=== PATIENT | male | born 1950 | race Caucasian/White ===

== ENCOUNTER 2016-10-31 01:50 | Inpatient (IN) | payer OTHER, MEDICARE ==
[2016-10-31] VITALS (22 sets, daily range): BP systolic 119–166; BP diastolic 66–95; PULSE 66–97; RESP 15–24; TEMP 97–99.3; O2SAT 64–100
[~2016-10-31] VITALS: Ht 175.3 cm; Wt 68.9 kg
[~2016-10-31 01:50] MED LIST: AMBI5TAB PO; AMLO5 PO; ASPI81TA11 PO; COLL30T TOP; DRON2.5C PO; FERR325T PO; FLEEENE3 RECTAL; FURO20TA PO; GABA100C4 PO; IPRASOL INH; IPRASOL NEB; KAYEPOW PO; LACT PO; LACT10SO PO; LEVA750T PO; LEVE500 PO; LIDO2GEL11 TOPICAL; MILKSUS PO; MULT-120 PO; NOVOINJ3; OXYC1TAB63 PO; POTA-243 PO; RANI150T PO; SIME80CH CHEW; TAMS5CAP PO
[2016-10-31] MEDS ORDERED: SODIUM CHLORIDE 0.9% FLUSH 5 ML FLUSH IVF PRN ×2 (02:15→04:15)
[2016-10-31 02:26] LABS: BLOOD GAS BASE EXCESS 4.7 mmol/L (-2-2); BLOOD GAS CARBOXYHEMOGLOBIN 2.6 % (0-4); BLOOD GAS HCO3 29 mmol/L (22-26); BLOOD GAS METHEMOGLOBIN 1.4 % (0-2); BLOOD GAS O2 HGB SATURATION 90 % (90-100); BLOOD GAS OXYGEN CONTENT 8.4 Vol % (12.0-20.0); BLOOD GAS PCO2 47 mmHg (38-42); BLOOD GAS PO2 58 mmHG (61-120); BLOOD GAS TOTAL HGB 6.6 G/DL (12.0-16.0); TEMP CORR TO 98.6
[2016-10-31 02:27] LABS: CRITICAL VALUE YES; DRAW SITE RT BRACHIAL; LITER FLOW 3 L/M; NUMBER OF ARTERIAL PUNCTURES 1; OXYGEN DEVICE NASAL CANNULA; STAT YES
[2016-10-31] MEDS ORDERED: CEFEPIME INJ 2,000 MG in SODIUM CHLORIDE 0.9% INJ 100 ML IV ONE (02:30)
[2016-10-31] MEDS ORDERED: VANCOMYCIN INJ 1,000 MG in SODIUM CHLOR 0.9% 250 ML INJ 250 ML IV ONE (02:30)
[2016-10-31 02:37] LABS: AUTOMATED NEUTROPHIL # 6.9 TH/MM3 (1.8-7.7); BASOPHIL % 0.5 % (0.0-2.0); EOSINOPHIL # 0.1 TH/MM3 (0-0.4); EOSINOPHIL % 1.4 % (0.0-4.0); HEMATOCRIT 21.3 % (39.0-51.0); LYMPH % 7.1 % (9.0-44.0); LYMPHOCYTE # 0.6 TH/MM3 (1.0-4.8); MEAN CORPUSCULAR HEMOGLOBIN 23.9 PG (27.0-34.0); MEAN CORPUSCULAR HGB CONC 31.5 % (32.0-36.0); MONO % 8.9 % (0.0-8.0); NEUT % 82.1 % (16.0-70.0); PLATELET COUNT 172 TH/MM3 (150-450); RED BLOOD COUNT 2.81 MIL/MM3 (4.50-5.90); WHITE BLOOD COUNT 8.4 TH/MM3 (4.0-11.0)
[2016-10-31 02:45] LABS: APTT (PATIENT) 28.9 SEC (24.3-30.1); HEMO FLAGS AUTO DIFF; INTERNATIONAL NORMALIZED RATIO 1.1 RATIO; PROTHROMBIN TIME - PATIENT 11.8 SEC (9.8-11.6)
[2016-10-31 02:48] LABS: ALT (GPT) 14 U/L (12-78); ANION GAP 8 MEQ/L (5-15); AST (GOT) 30 U/L (15-37); BICARBONATE 29.3 MEQ/L (21.0-32.0); BLOOD UREA NITROGEN 33 MG/DL (7-18); CHLORIDE 104 MEQ/L (98-107); GLOMERULAR FILTRATION RATE 40 ML/MIN (>89); MAGNESIUM 1.7 MG/DL (1.5-2.5); POTASSIUM 4.8 MEQ/L (3.5-5.1); SODIUM (NA) 141 MEQ/L (136-145)
[2016-10-31 02:48] LABS: BACTERIA, URINE RARE /hpf; BLOOD, URINE NEG (NEG); COMMENT (UR) CULT NOT INDICATED; CULTURE IF INDICATED CULT NOT INDICATED; GLUCOSE,URINE NEG (NEG); KETONE, URINE NEG (NEG); MUCUS URINE FEW /lpf (OCC); NITRITE,URINE NEG (NEG); URINE COLOR YELLOW (YELLW/STRAW)
[2016-10-31 02:52] LABS: ALKALINE PHOSPHATASE 106 U/L (45-117); TOTAL BILIRUBIN ADULT 0.3 MG/DL (0.2-1.0)
[2016-10-31 02:54] LABS: CREATINE KINASE 8 U/L (39-308)
--- NOTE | 2016-10-31 02:54 | RADRPT ---
EXAM DATE/TIME: 10/31/2016 02:28 [place] COMPARISON: CHEST SINGLE AP, October 25, 2016, 16:05. INDICATIONS : Short of breath. MEDICAL HISTORY : Chronic obstructive pulmonary disease. Hypertension. Diabetes. SURGICAL HISTORY : None. ENCOUNTER: Initial ACUITY: 1 day PAIN SCORE: 0/10 LOCATION: Bilateral chest FINDINGS: A single portable frontal view of the chest shows worsening bilateral pleural effusions and bilateral pulmonary infiltrates. Heart is normal in size. CONCLUSION: Worsening effusions and infiltrates. Darren Argueta Jr., MD on October 31, 2016 at 2:52 Board Certified Radiologist. This report was verified electronically.
[2016-10-31 03:18] LABS: ACANTHOCYTES OCC (NORMAL); OVALOCYTES 1+ (NORMAL); PLATELET ESTIMATE SMEAR NORMAL (NORMAL); PLATELET MORPHOLOGY NORMAL (NORMAL); SCAN/DIFF AUTO DIFF CONFIRMED
[2016-10-31] MEDS ORDERED: FUROSEMIDE 20 MG/2 ML VIAL IV PUSH ONE (03:45)
[2016-10-31] MEDS ORDERED: SODIUM CHLOR 0.9% 250 ML INJ 250 ML IV ONE (03:45)
--- NOTE | 2016-10-31 04:22 | PD ---
HPI Chief Complaint: Respiratory Symptoms Time Seen by Provider: 02:11 Travel History International Travel<30 days: No Contact w/Intl Traveler<30days: No Traveled to known affect area: No History of Present Illness HPI 65-year-old male presents to the emergency department by EMS transport from local rehabilitation facility for hypoxemia. Patient has been hospitalized several times and has been at rehabilitation since May when he underwent a left BKA. Patient had complications postoperatively and developed an infection and underwent a left AKA. Patient has been hospitalized as recently as with pneumonia sepsis respiratory failure hypoxemia and has subsequently been discharged back to the rehabilitation facility and as recently as last week had revision of his left AKA. Patient reportedly this evening was being assessed at his rehabilitation facility and noted to have low O2 saturations in the 70s with decreased response to supplemental oxygen and decreased mentation. EMS presents with the patient with improved oxygenation on 10 L/m nonrebreather mask patient still ashen and ill-appearing. Patient notes complaint of shortness of breath but denies chest pain denies abdominal pain is not aware of whether or not he had a fever. Patient denies productive cough. No pleuritic chest pain. Patient has history of anemia. Patient is unaware of these had blood transfusion. [facility] Past Medical History Narrative Medical Respiratory failure hypoxemia and pneumonia chronic kidney disease diabetes gangrenous foot DKA AKA diabetic neuropathy ascites paracentesis hypothyroidism pneumonia persistent infection of the left middle finger PVD hypertension renal insufficiency nursing notes reviewed Arthritis: No Asthma: No Autoimmune Disease: No Anxiety: No Depression: No Heart Rhythm Problems: No Cancer: No Cardiovascular Problems: Yes (CHF) High Cholesterol: No Chemotherapy: No Chest Pain: No Congestive Heart Failure: Yes COPD: Yes Cerebrovascular Accident: No Diabetes: Yes Patient Takes Glucophage: No Diminished Hearing: No Endocrine: Yes Gastrointestinal Disorders: Yes (HX CONSTIPATION) GERD: No Genitourinary: Yes Hiatal Hernia: No Heparin Induced Thrombocytopen: No Hypertension: Yes Immune Disorder: No Inguinal Hernia: Yes Implanted Vascular Access Dvce: Yes Kidney Stones: No Musculoskeletal: Yes Neurologic: Yes (NEUROPATHY) Psychiatric: No Reproductive: No Respiratory: Yes (COPD) Integumentary: Yes (CHRONIC LESIONS/ULCERS TO LOWER EXTREMITIES) Migraines: No Radiation Therapy: No Renal Failure: Yes Seizures: No Sickle Cell Disease: No Sleep Apnea: No Thyroid Disease: No Ulcer: No Past Surgical History Abdominal Surgery: No AICD: No Arteriovenous Shunt: No Body Medical Devices: pins in head Cardiac Surgery: No Endocrine Surgery: No Eye Surgery: No Genitourinary Surgery: No Gynecologic Surgery: No Insulin Pump: No Joint Replacement: No Neurologic Surgery: Yes (Skull repair) Oral Surgery: No Pacemaker: No Thoracic Surgery: No Other Surgery: Yes (RADHA KNEES/L AKA) Social History Alcohol Use: No Tobacco Use: No Substance Use: No Allergies-Medications (Allergen,Severity, Reaction): Coded Allergies: *MDRO Multi-Drug Resistant Organism (Verified Adverse Reaction, Unknown, ) MRSA PCR Screen POSITIVE - 10/11/16 MRSA (kt wound) - 10/11/16 Reported Meds & Prescriptions Reported Meds & Active Scripts Active Keppra (Levetiracetam) 500 Mg Tab 500 Mg PO BID Ambien (Zolpidem Tartrate) 5 Mg Tab 5 Mg PO HS PRN Klor-Con 10 (Potassium Chloride) 10 Meq Tab 10 Meq PO DAILY Oxycodone-Acetaminophen 5-325 mg Tab 1 Tab PO Q4H PRN Levaquin (Levofloxacin) 750 Mg Tab 750 Mg PO Q24H Furosemide 20 Mg Tab 20 Mg PO BID@09,18 Santyl (Collagenase) 250 Unit/Gm Oin 1 Applic TOP DAILY Norvasc (Amlodipine Besylate) 5 Mg Tab 5 Mg PO DAILY Duoneb (Ipratropium-Albuterol Neb) 0.5-2.5 Mg/3 Ml Neb 1 Ampule NEB Q6HR NEB PRN 30 Days Ambien (Zolpidem Tartrate) 5 Mg Tab 5 Mg PO HS PRN 30 Days Flomax (Tamsulosin HCl) 0.4 Mg Cap 0.4 Mg PO HS 30 Days Lidocaine Topical (Lidocaine HCl) 2 % Jel 1 Applic TOPICAL DAILY PRN 30 Days Acidophilus/l-Sporogenes (Lactobacillus Acidophilus) 1 Tab Tab 1 Tab PO DAILY Ferrous Sulfate 325 Mg Tab 325 Mg PO BID 30 Days Aspirin EC (Aspirin) 81 Mg Tabdr 81 Mg PO DAILY 30 Days Reported Fleet Enema Rectal (Sodium Phosphates Rectal) 7-19 Gm/118 Ml Enem 118 Ml RECTAL DAILY PRN Milk of Magnesia Liq (Magnesium Hydroxide) 400 Mg/5 Ml Susp 30 Ml PO DAILY PRN Duoneb (Ipratropium-Albuterol Neb) 0.5-2.5 Mg/3 Ml Neb 1 Nebule INH Q6HR NEB Multivitamin Women (Multiple Vitamins W/ Minerals) 1 Tab Tab 1 Tab PO DAILY Dronabinol 2.5 Mg Cap 2.5 Mg PO BID Novolog Flexpen Inj (Insulin Aspart) 300 Unit/3 Ml Pen 1 Units .ROUTE ACHS SLIDING SCALE Kayexalate Liq (Sodium Polystyrene Sulfonate) 1 Pow Pow 15 Gm PO DAILY Simethicone 80 Mg Chw 80 Mg CHEW TID PRN Ranitidine (Ranitidine HCl) 150 Mg Tab 150 Mg PO BID Lactulose Liq (Lactulose) 10 Gm/15 Ml Soln 30 Ml PO DAILY Gabapentin 100 Mg Cap 200 Mg PO Q12HR Review of Systems ROS Limitations: Clinical Condition Except as stated in HPI: all other systems reviewed are Neg General / Constitutional: No: Fever HENT: No: Congestion Cardiovascular: No: Chest Pain or Discomfort Respiratory: Positive: Cough, Shortness of Breath, Wheezing Gastrointestinal: No: Nausea, Vomiting, Abdominal Pain Genitourinary: No: Dysuria Musculoskeletal: Positive: Edema, No: Myalgias, Arthralgias Skin: No Rash Neurologic: Positive: Weakness Hematologic/Lymphatic: Positive: Easy Bruising Physical Exam Narrative GENERAL: Well-developed ill-appearing male in moderate respiratory distress with room air O2 saturation of 64% off of 10% nonrebreather mask SKIN: Warm and dry. Pale. HEAD: Normocephalic. EYES: No scleral icterus. No injection or drainage. NECK: Supple, trachea midline. No JVD or lymphadenopathy. CARDIOVASCULAR: Regular rate and rhythm without murmurs, gallops, or rubs. RESPIRATORY: Breath sounds equal bilaterally and diminished bibasilarly. No accessory muscle use. GASTROINTESTINAL: Abdomen soft, non-tender, soft nontender distended with fluid wave. Rectal exam normal sphincter tone mucoid brown stool MUSCULOSKELETAL: No cyanosis, pitting edema bilateral lower extremities with left AKA edema; stump site looks well-healed no purulent drainage. BACK: Nontender without obvious deformity. No CVA tenderness. Data Data Last Documented VS Vital Signs Date Time Temp Pulse Resp B/P Pulse Ox O2 Delivery O2 Flow Rate FiO2 10/31/16 02:43 24 92 Nasal Cannula 4 10/31/16 02:19 50 10/31/16 02:10 98.2 83 119/66 Orders Complete Blood Count With Diff (10/31/16 02:11) Comprehensive Metabolic Panel (10/31/16 02:11) B-Type Natriuretic Peptide (10/31/16 02:11) Act Partial Throm Time (Ptt) (10/31/16 02:11) Prothrombin Time / Inr (Pt) (10/31/16 02:11) Magnesium (Mg) (10/31/16 02:11) Ckmb (Isoenzyme) Profile (10/31/16 02:11) Troponin I (10/31/16 02:11) Arterial Blood Gas (Abg) (10/31/16 02:11) Urinalysis - C+S If Indicated (10/31/16 02:11) Blood Culture (10/31/16 02:11) Iv Access Insert/Monitor (10/31/16 02:11) Electrocardiogram (10/31/16 02:11) Ecg Monitoring (10/31/16 02:11) Oximetry (10/31/16 02:11) Oxygen Administration (10/31/16 02:11) Chest, Single Ap (10/31/16 02:11) Sodium Chloride 0.9% Flush (Ns Flush) (10/31/16 02:15) Lactic Acid Sepsis Protocol (10/31/16 02:11) Type And Screen (10/31/16 02:11) Cefepime Inj (Maxipime Inj) (10/31/16 02:30) Vancomycin Inj (Vancomycin Inj) (10/31/16 02:30) Red Blood Cells (Rbc) (10/31/16 03:32) Blood Product Administration .UPON TRANSFUSION (10/31/16 03:32) Sodium Chlor 0.9% 250 Ml Inj (Ns 250 Ml (10/31/16 03:45) Furosemide Inj (Lasix Inj) (10/31/16 03:45) Admit Order (Ed Use Only) (10/31/16 ) ^ Saline Lock (10/31/16 04:10) Resp Oxygen Kevin C Titrat 1-4 L (10/31/16 ) ^ Notify Dr: Other (10/31/16 04:10) Sodium Chloride 0.9% Flush (Ns Flush) (10/31/16 09:00) Sodium Chloride 0.9% Flush (Ns Flush) (10/31/16 04:15) Labs Laboratory Tests Test 10/31/16 10/31/16 10/31/16 10/31/16 02:05 02:15 02:25 03:32 Blood Gas Puncture Site RT BRACHIAL Blood Gas Patient Temperature 98.6 Blood Gas HCO3 29 mmol/L Blood Gas Base Excess 4.7 mmol/L Blood Gas Oxygen Saturation 90 % Arterial Blood pH 7.41 Arterial Blood Partial 47 mmHg Pressure CO2 Arterial Blood Partial 58 mmHG Pressure O2 Arterial Blood Oxygen Content 8.4 Vol % Arterial Blood 2.6 % Carboxyhemoglobin Arterial Blood Methemoglobin 1.4 % Blood Gas Hemoglobin 6.6 G/DL Oxygen Delivery Device NASAL CANNULA Blood Gas Liter Flow 3 L/M Blood Gas Ventilator Setting White Blood Count 8.4 TH/MM3 Red Blood Count 2.81 MIL/MM3 Hemoglobin 6.7 GM/DL Hematocrit 21.3 % Mean Corpuscular Volume 76.0 FL Mean Corpuscular Hemoglobin 23.9 PG Mean Corpuscular Hemoglobin 31.5 % Concent Red Cell Distribution Width 18.0 % Platelet Count 172 TH/MM3 Mean Platelet Volume 9.0 FL Neutrophils (%) (Auto) 82.1 % Lymphocytes (%) (Auto) 7.1 % Monocytes (%) (Auto) 8.9 % Eosinophils (%) (Auto) 1.4 % Basophils (%) (Auto) 0.5 % Neutrophils # (Auto) 6.9 TH/MM3 Lymphocytes # (Auto) 0.6 TH/MM3 Monocytes # (Auto) 0.7 TH/MM3 Eosinophils # (Auto) 0.1 TH/MM3 Basophils # (Auto) 0.0 TH/MM3 CBC Comment AUTO DIFF Differential Comment AUTO DIFF CONFIRMED Platelet Estimate NORMAL Platelet Morphology Comment NORMAL Ovalocytes 1+ Acanthocytes OCC Prothrombin Time 11.8 SEC Prothromb Time International 1.1 RATIO Ratio Activated Partial 28.9 SEC Thromboplast Time Sodium Level 141 MEQ/L Potassium Level 4.8 MEQ/L Chloride Level 104 MEQ/L Carbon Dioxide Level 29.3 MEQ/L Anion Gap 8 MEQ/L Blood Urea Nitrogen 33 MG/DL Creatinine 1.73 MG/DL Estimat Glomerular Filtration 40 ML/MIN Rate Random Glucose 165 MG/DL Lactic Acid Level 1.3 mmol/L Calcium Level 8.0 MG/DL Magnesium Level 1.7 MG/DL Total Bilirubin 0.3 MG/DL Aspartate Amino Transf 30 U/L (AST/SGOT) Alanine Aminotransferase 14 U/L (ALT/SGPT) Alkaline Phosphatase 106 U/L Total Creatine Kinase 8 U/L Troponin I 0.02 NG/ML B-Type Natriuretic Peptide 2877 PG/ML Total Protein 5.7 GM/DL Albumin 1.4 GM/DL Blood Type O POSITIVE Antibody Screen NEGATIVE Urine Color YELLOW Urine Turbidity HAZY Urine pH 5.0 Urine Specific [place] 1.014 Urine Protein 30 mg/dL Urine Glucose (UA) NEG mg/dL Urine Ketones NEG mg/dL Urine Occult Blood NEG Urine Nitrite NEG Urine Bilirubin NEG Urine Urobilinogen LESS THAN 2.0 MG/DL Urine Leukocyte Esterase NEG Urine WBC 2 /hpf Urine Bacteria RARE /hpf Urine Mucus FEW /lpf Microscopic Urinalysis Comment CULT NOT INDICATED Crossmatch Leukocyte-Reduced Red Blood Cells Blood Bank Comment MDM Medical Decision Making Medical Screen Exam Complete: Yes Emergency Medical Condition: Yes Medical Record Reviewed: Yes Interpretation(s) EKG sinus rhythm rate 70, no acute ST elevation or injury pattern change noted, no ectopy cxr: worsenig effusions and infiltrates Laboratory Tests Test 10/31/16 10/31/16 10/31/16 10/31/16 02:05 02:15 02:25 03:32 Blood Gas Puncture Site RT BRACHIAL Blood Gas Patient Temperature 98.6 Blood Gas HCO3 29 mmol/L Blood Gas Base Excess 4.7 mmol/L Blood Gas Oxygen Saturation 90 % Arterial Blood pH 7.41 Arterial Blood Partial 47 mmHg Pressure CO2 Arterial Blood Partial 58 mmHG Pressure O2 Arterial Blood Oxygen Content 8.4 Vol % Arterial Blood 2.6 % Carboxyhemoglobin Arterial Blood Methemoglobin 1.4 % Blood Gas Hemoglobin 6.6 G/DL Oxygen Delivery Device NASAL CANNULA Blood Gas Liter Flow 3 L/M Blood Gas Ventilator Setting White Blood Count 8.4 TH/MM3 Red Blood Count 2.81 MIL/MM3 Hemoglobin 6.7 GM/DL Hematocrit 21.3 % Mean Corpuscular Volume 76.0 FL Mean Corpuscular Hemoglobin 23.9 PG Mean Corpuscular Hemoglobin 31.5 % Concent Red Cell Distribution Width 18.0 % Platelet Count 172 TH/MM3 Mean Platelet Volume 9.0 FL Neutrophils (%) (Auto) 82.1 % Lymphocytes (%) (Auto) 7.1 % Monocytes (%) (Auto) 8.9 % Eosinophils (%) (Auto) 1.4 % Basophils (%) (Auto) 0.5 % Neutrophils # (Auto) 6.9 TH/MM3 Lymphocytes # (Auto) 0.6 TH/MM3 Monocytes # (Auto) 0.7 TH/MM3 Eosinophils # (Auto) 0.1 TH/MM3 Basophils # (Auto) 0.0 TH/MM3 CBC Comment AUTO DIFF Differential Comment AUTO DIFF CONFIRMED Platelet Estimate NORMAL Platelet Morphology Comment NORMAL Ovalocytes 1+ Acanthocytes OCC Prothrombin Time 11.8 SEC Prothromb Time International 1.1 RATIO Ratio Activated Partial 28.9 SEC Thromboplast Time Sodium Level 141 MEQ/L Potassium Level 4.8 MEQ/L Chloride Level 104 MEQ/L Carbon Dioxide Level 29.3 MEQ/L Anion Gap 8 MEQ/L Blood Urea Nitrogen 33 MG/DL Creatinine 1.73 MG/DL Estimat Glomerular Filtration 40 ML/MIN Rate Random Glucose 165 MG/DL Lactic Acid Level 1.3 mmol/L Calcium Level 8.0 MG/DL Magnesium Level 1.7 MG/DL Total Bilirubin 0.3 MG/DL Aspartate Amino Transf 30 U/L (AST/SGOT) Alanine Aminotransferase 14 U/L (ALT/SGPT) Alkaline Phosphatase 106 U/L Total Creatine Kinase 8 U/L Troponin I 0.02 NG/ML B-Type Natriuretic Peptide 2877 PG/ML Total Protein 5.7 GM/DL Albumin 1.4 GM/DL Blood Type O POSITIVE Antibody Screen NEGATIVE Urine Color YELLOW Urine Turbidity HAZY Urine pH 5.0 Urine Specific [place] 1.014 Urine Protein 30 mg/dL Urine Glucose (UA) NEG mg/dL Urine Ketones NEG mg/dL Urine Occult Blood NEG Urine Nitrite NEG Urine Bilirubin NEG Urine Urobilinogen LESS THAN 2.0 MG/DL Urine Leukocyte Esterase NEG Urine WBC 2 /hpf Urine Bacteria RARE /hpf Urine Mucus FEW /lpf Microscopic Urinalysis Comment CULT NOT INDICATED Crossmatch Leukocyte-Reduced Red Blood Cells Blood Bank Comment Differential Diagnosis Dyspnea, hypoxemia, pneumonia, CHF, PE, anemia, sepsis, ACS Narrative Course Patient placed on supplemental oxygen initially with nonrebreather ABG consistent with hypoxemia supplemental oxygen level increased with improved O2 saturation and no indication of increased CO2 retention patient clinically improved Lab values remarkable for significant anemia hemoglobin 6.7 patient type and cross for 2 units of blood to be transfused rectal exam performed without evidence of occult or gross bleeding of unclear etiology of anemia at this time ; otherwise total white cell count within normal range mild left shift by automated differential Lactic acid is not elevated at 1.3 Chest x-ray shows worsening infiltrates and increasing infusion size patient given presumptive IV antibiotic Metabolic panel remarkable for persistent renal insufficiency 33/1.73; troponin I 0.02, not elevated however BNP is elevated at greater than 2000 patient administered low-dose diuretic Coagulation studies and urinalysis grossly within normal range Patient clinically improved however very tenuous state as multiple comorbidities and patient still intermittently will drop his saturations to 89% although clinically has remained with a GCS of 15 since the addition of supplemental oxygen and vital signs have been essentially stable and patient has continued to clinically improve and does not have episodes of sustained desaturation. Patient's case discussed with on-call outfitter cabin to graciously accepted the patient for admission to the ICU. Critical Care Narrative Aggregate critical care time was 40 minutes. Time to perform other separately billable procedures was not included in the critical care time. My time did not include minutes spent treating any other patients simultaneously or on activities that did not directly contribute to the patient's treatment. The services I provided to this patient were to treat and/or prevent clinically significant deterioration that could result in: Respiratory deterioration in respiratory arrest cardiogenic shock septic shock I provided critical care services requiring my management, as noted below: Chart data review, documentation time, medication orders and management, vital sign assessments/reviewing monitor data, ordering and reviewing lab tests, ordering and interpreting/reviewing x-rays and diagnostic studies, care of the patient and discussion of the patient with the admitting physicians. Procedures EKG Prior to Arrival: Yes HemaPrompt Point of Care Internal Pos. & Neg. Controls: Passed Fecal Specimen Occult Blood: Negative Physician Communication Physician Communication discussed with outfitter cabin Dr Santillan--accept for ICU admission Diagnosis Primary Impression: Acute respiratory failure with hypoxemia Additional Impressions: COPD (chronic obstructive pulmonary disease) Qualified Code: J44.0 - Chronic obstructive pulmonary disease with acute lower respiratory infection Anemia Qualified Code: D64.9 - Anemia, unspecified type CHF (congestive heart failure) Pleural effusion Renal insufficiency Pneumonia Anasarca Admitting Information Admitting Physician Requests: Admit Lexie Sung MD Oct 31, 2016 04:22
[2016-10-31] MEDS ORDERED: DEXTROSE 50% IN WATER 50 ML VIAL(D50) IV PUSH PRN (06:45)
[2016-10-31] MEDS ORDERED: MISCELLANEOUS NURSING INFORMATION XX SCH (06:45)
[2016-10-31] MEDS ORDERED: CHLORHEXIDINE GLUCONATE 2 % 1 PACK (2 CLOTHS) TOP PRN (06:45)
[2016-10-31] MEDS ORDERED: INSULIN NovoLIN REGULAR SUPPLEMENTAL SCALE SQ SCH (06:45)
[2016-10-31] MEDS ORDERED: GLUCAGON 1 MG/ML VIAL OTHER PRN (06:45)
[2016-10-31] MEDS: INSULIN NovoLIN REGULAR SUPPLEMENTAL SCALE SQ SCH ×3 (06:50→18:00)
[2016-10-31] MEDS ORDERED: Vancomycin Consult Pharmacy 1 EA OTHER SCH (07:00)
[2016-10-31] MEDS: RESP: ALBUTEROL 2.5 MG/IPRATROPIUM 0.5 MG NEB (SCH) INH ×5 (07:09→23:32)
--- NOTE | 2016-10-31 07:32 | MH ---
cc: PREM HANSEN M.D. DATE OF ADMISSION: 10/31/2016 DATE OF : 1950 HISTORY OF PRESENT ILLNESS The patient is a 65-year-old male with a past medical history of chronic kidney disease, diabetes mellitus, previous left AKA, hypothyroidism, peripheral vascular disease, hypertension and CHF. He presented to the [facility] ED early this morning from a local rehab facility for evaluation of hypoxemia. He was hospitalized several times and has been at the rehab since May when he underwent a left BKA. He had complications post-op and developed infection and subsequently underwent a left AKA. He was recently hospitalized in September for pneumonia, respiratory failure, hypoxemia and a MRSA infection of his left AKA stump. He underwent irrigation and debridement in September. He was discharged back to the rehab facility. When the patient was assessed at the rehab facility he was noted to have low O2 saturation in the 70s and decreased mentation. The patient was placed on 10 liter oxygen non-rebreather mask with improvement of his oxygenation. He denies any chest pain, however, he reports abdominal bloating. The patient denies any cough or any constitutional symptoms. He denies any nausea or vomiting. ABG was initially performed on 3 liters oxygen which showed a pH of 7.41, CO2 47, PAO2 58 and saturation of 90%. The patient was subsequently placed on 50% Venti mask. A chest x-ray in the ER showed worsening effusions and infiltrates. His laboratory data was significant for anemia with a hemoglobin level of 6.7 and hematocrit 21.3. The patient is currently receiving 2 units of PRBCs. Other significant labs showed elevated BNP at 2877 and creatinine of 1.73. His lactic acid level measured at 1.3. The patient had an echocardiogram in September 2016 which showed an ejection fraction of 55-60% with no regional wall motion abnormalities. In the ED he was given Lasix 20 mg IV push, cefepime and vancomycin. PAST MEDICAL HISTORY 1. Hypertension. 2. Diabetes mellitus. 3. Peripheral vascular disease. 4. Chronic kidney disease. 5. CHF. 6. COPD. PAST SURGICAL HISTORY Previous left AKA. SOCIAL HISTORY The patient is a non-smoker, non-drinker. Currently resides in a rehab facility. ALLERGIES No known drug allergies. MEDICATIONS Reported medications: 1. Aspirin. 2. Ferrous sulfate. 3. Flomax. 4. Norvasc. 5. Levaquin. 6. Ambien. 7. Keppra. 8. Lactulose. 9. Gabapentin. FAMILY HISTORY Noncontributory. REVIEW OF SYSTEMS As per HPI. The rest of the review of systems is unremarkable. PHYSICAL EXAMINATION GENERAL: A 65-year-old male, ill-appearing, lying in bed in mild to moderate respiratory distress. VITAL SIGNS: Temperature 99.3, pulse 70, respiratory rate 22, blood pressure 157/79. Saturation of 91-93% on 50% ventilatory mask. HEENT: Atraumatic, normocephalic. Pupils equal, round and reactive to light and accommodation. Extraocular muscles intact. Conjunctiva pink. Non-icteric sclera. Oral mucosa within normal. NECK: Supple. No JVD, adenopathy or thyromegaly. Trachea in the midline. CARDIOVASCULAR: Regular rate and rhythm. Normal S1, S2. No murmurs, rubs or gallops noted. PULMONARY: Bilateral equal entry with a few coarse breath sounds and diminished at the bases. ABDOMEN: Soft, nontender. Distended. Positive bowel sounds. EXTREMITIES: No cyanosis or clubbing. Left AKA edema noted. +1 edema right lower extremity. NEUROLOGIC: No focal sensory deficit. LABORATORY DATA Sodium 141, potassium 4.8, chloride 104, CO2 29, BUN 33, creatinine 1.73, glucose 165. BNP 2877. Troponin 0.02. Total CK 8. WBC 8.4, hemoglobin 6.7, hematocrit 21, platelet count 172. INR 1.1, PT 11.8, PTT 28.9. IMAGING DATA Chest x-ray showed effusions and infiltrates. IMPRESSION 1. Acute hypoxemic respiratory failure. 2. Anemia with hemoglobin of 6.7. 3. Chronic kidney disease. 4. Hypertension. 5. Diabetes mellitus. 6. CHF, possibly diastolic dysfunction with elevated BNP. 7. Diabetes mellitus. 8. Status post I&D of left AKA stump in September. 9. MRSA wound infection of the left AKA stump in September. 10. Peripheral vascular disease. 11. COPD. PLAN/RECOMMENDATIONS 1. The patient is awake and alert. Avoid any sedatives. 2. Wean down oxygen as tolerated and maintain sats above 92%. 3. Bronchodilators in the form of DuoNeb q.4h., plus q.2h. p.r.n. for shortness of breath. 4. Monitor heart rate and blood pressure closely and maintain MAP greater than 65 mmHg. 5. Restart antihypertensive meds. The patient was on Norvasc 5 mg daily. 6. Hold aspirin for now given probable GI bleed. 7. Lactic acid level measured at 1.3 in the ED. The patient had an echocardiogram in September which showed an EF of 55-60% with no regional wall motion abnormalities. 8. Check CT scan of the chest without contrast for further evaluation of effusions and pulmonary infiltrates. 9. Diurese with Bumex 1 mg IV push x1 now. 10. Monitor renal function, I's and O's, and avoid nephrotoxins. Insert [place]. 11. Keep n.p.o. for now and place on Protonix 40 mg IV daily. 12. Monitor CBC. The patient is being transfused 2 units of PRBCs. Will check H&H one hour post transfusion and will consult the GI service. 13. Continue with broad-spectrum antibiotics in the form of vancomycin and Zosyn. Adjust doses per renal function and monitor for signs of infection which include fever and WBC. Follow-up on blood cultures. In addition, will check a sputum culture. Will consult the wound nurse regarding his left AKA stump. 14. Place on sliding scale insulin with Accu-Chek q.6h. for glycemic control. 15. Will check CT scan of the abdomen and pelvis to rule out ascites. The patient reports abdominal bloating and distension. 16. GI prophylaxis with Protonix 40 mg daily and DVT prophylaxis with SCDs. Will hold off on chemical anticoagulation prophylaxis for now given acute anemia requiring blood transfusions. 17. The patient is critically ill with respiratory failure, renal dysfunction, CHF, anemia, and probable GI bleed. Critical care time 60 minutes excluding procedures. MD CABRERA Gonzalez/TERRENCE /6:55 AM /7:15 AM
[2016-10-31] MEDS ORDERED: BUMETANIDE INJ 1 MG/4 ML VIAL IV PUSH ONE (08:00)
[2016-10-31] MEDS: PIPERACIL-TAZO 4.5 GM PREMIX 100 ML IV SCH ×2 (08:07→22:15)
[2016-10-31] MEDS: SODIUM CHLORIDE 0.9% FLUSH 5 ML FLUSH IVF SCH ×2 (09:00→22:15)
--- NOTE | 2016-10-31 09:03 | RADRPT ---
EXAM DATE/TIME: 10/31/2016 08:36 [facility] COMPARISON: CT THORAX W/O CONTRAST, September 03, 2016, 18:23. CT ABDOMEN & PELVIS W/O CONTRAST, October 15, 20:18. INDICATIONS : Pleural effusion. RADIATION DOSE: 12.25 CTDIvol (mGy) ; Combined studies - Thorax/Abdomen/Pelvis MEDICAL HISTORY : Congestive hearrt failure. Renal failure, chronic. Chronic obstructive pulmonary disease. Hypertensio n. Diabetes. SURGICAL HISTORY : None. ENCOUNTER: Initial ACUITY: 4 - 6 days PAIN SCALE: 5/10 LOCATION: chest TECHNIQUE: Volumetric scanning of the chest was performed. Using automated exposure control and adjustment of t he mA and/or kV according to patient size, radiation dose was kept as low as reasonably achievable to obtain optimal diagnostic quality images. FINDINGS: The examination demonstrates large bilateral pleural effusions. There is consolidation throughout bot h lower lobes. The size of the effusions has increased when compared to prior study dated 09/03/16. The heart is enlarged. There is no significant pericardial effusion. There is no significant hilar, m ediastinal or axillary adenopathy. There is ascites diffusely throughout the upper abdomen. The osseous structures demonstrate old, healed right-sided rib fractures. The bony structures are oth erwise grossly intact. CONCLUSION: 1. There are large bilateral effusions with compressive atelectasis of both lower lobes. This has wor sened when compared to prior exam. 2. Ascites throughout the upper abdomen. Griffin Rossi MD on October 31, 2016 at 9:00 Board Certified Radiologist. This report was verified electronically.
--- NOTE | 2016-10-31 09:05 | RADRPT ---
EXAM DATE/TIME: 10/31/2016 08:36 [facility] COMPARISON: CT ABDOMEN & PELVIS W/O CONTRAST, October 15, 2016, 20:18. INDICATIONS : Abdominal pain. ORAL CONTRAST: No oral contrast ingested. RADIATION DOSE: 12.25 CTDIvol (mGy) ; Combined studies - Thorax/Abdomen/Pelvis MEDICAL HISTORY : Chronic obstructive pulmonary disease. Congestive heart failure. Renal failure, chronic.Hypertension. Diabetes. SURGICAL HISTORY : None. ENCOUNTER: Initial ACUITY: 4 - 6 days PAIN SCALE: 5/10 LOCATION: Abdomen. TECHNIQUE: Volumetric scanning of the abdomen and pelvis was performed. Using automated exposure control and ad justment of the mA and/or kV according to patient size, radiation dose was kept as low as reasonably achievable to obtain optimal diagnostic quality images. FINDINGS: There are large bilateral effusions. There is compressive atelectasis of both lower lobes. Imaging through the upper abdomen demonstrates a moderate amount of ascites. The spleen appears mildly enlarged. The liver somewhat small. Exam would suggest cirrhosis. There is a calcified gallstone within the gallbladder. The adrenal glands and kidneys appear intact. The abdominal aorta is normal in caliber. There is diffuse atherosclerotic plaquing. The visualized loops of small large bowel demonstrate a moderate amount of stool throughout the colon . No findings to indicate bowel obstruction are seen. There is ascites within the pelvis. There is a Valencia catheter within the bladder. There is a small le ft inguinal hernia. The visualized bony structures demonstrate degenerative changes but are otherwise intact. CONCLUSION: 1. Large bilateral effusions with compressive atelectasis in the lung bases. 2. Diffuse ascites and probable cirrhosis. 3. Calcified gallstone within the gallbladder. 4. Atherosclerotic calcification. 5. The overall amount of ascites is mildly increased when compared to previous dated 10/15/16. Griffin Rossi MD on October 31, 2016 at 9:02 Board Certified Radiologist. This report was verified electronically.
[2016-10-31] MEDS: PANTOPRAZOLE SODIUM 40 MG VIAL IV SCH (10:55)
--- NOTE | 2016-10-31 14:14 | PD.CONS ---
HPI History of Present Illness This is a 65 year old year old male who was recently hospitalized in September for pneumonia, respiratory failure, and MRSA infection to his left stump and underwent an I&D of his stump during that hospitalization. He was discharged to a rehab facility. He was also noted to have ascites during that hospitalization and underwent a paracentesis on 10/14/16 with removal of 5, 100cc of fluid. Cytology had marked acute inflammation, negative for malignant cells. Peritoneal fluid culture had no growth in 72 hours. His SAAG was < 1.1. He was brought to the ER today for evaluation of shortness of breath with hypoxemia and admitted for respiratory failure. He is being followed by critical care and is currently on a partial rebreather mask. GI has been consulted for anemia. The patient denies any obvious blood loss. He is not having any nausea, vomiting, hematemesis, diarrhea, melena, or hematochezia. He does c/o worsening abdominal distention over the past 2 weeks. He also has associated abdominal discomfort described as a diffuse dull ache that seems to be related to his abdominal distention. He also complains of some constipation. He denies any hx of PUD or GI bleeding in the past. He denies ever being told that he has liver cirrhosis. He does not drink ETOH and reports that he has never been a heavy drinker. He is not taking NSAIDs. He denies any family hx of liver disease or esophageal, gastric, or colorectal cancer. (Fifi Youssef) PFSH Past Medical History Ascites Recent MRSA infection left stump Recent respiratory failure COPD Chronic kidney disease Hypothyroidism PVD HTN CHF COPD Past Surgical History Previous left AKA I&D left AKA Colonoscopy about 6 years ago (Fifi Youssef) Coded Allergies: *MDRO Multi-Drug Resistant Organism (Verified Adverse Reaction, Unknown, ) MRSA PCR Screen POSITIVE - 10/11/16 MRSA (kt wound) - 10/11/16 Medications Allergies Coded Allergies Type Severity Reaction Last Updated Verified *MDRO Multi-Drug Resistant Organism Adverse Reaction Unknown 10/31/16 Yes Active Scripts Medications Dose Route/Sig Days Date Category Keppra (Levetiracetam) 500 Mg Tab 500 Mg PO BID 10/27/16 Rx Ambien (Zolpidem Tartrate) 5 Mg Tab 5 Mg PO HS PRN 10/27/16 Rx Klor-Con 10 (Potassium Chloride) 10 Meq Tab 10 Meq PO DAILY 10/27/16 Rx Oxycodone-Acetaminophen 5-325 mg Tab 1 Tab PO Q4H PRN 10/27/16 Rx Levaquin (Levofloxacin) 750 Mg Tab 750 Mg PO Q24H 10/27/16 Rx Furosemide 20 Mg Tab 20 Mg PO BID@09,18 10/27/16 Rx Santyl (Collagenase) 250 Unit/Gm Oin 1 Applic TOP DAILY 10/27/16 Rx Norvasc (Amlodipine Besylate) 5 Mg Tab 5 Mg PO DAILY 10/27/16 Rx Fleet Enema Rectal (Sodium Phosphates Rectal) 7-19 Gm/118 Ml Enem 118 Ml RECTAL DAILY PRN 10/11/16 Reported Milk of Magnesia Liq (Magnesium Hydroxide) 400 Mg/5 Ml Susp 30 Ml PO DAILY PRN 10/11/16 Reported Duoneb (Ipratropium-Albuterol Neb) 0.5-2.5 Mg/3 Ml Neb 1 Nebule INH Q6HR NEB 10/11/16 Reported Multivitamin Women (Multiple Vitamins W/ Minerals) 1 Tab Tab 1 Tab PO DAILY 10/11/16 Reported Dronabinol 2.5 Mg Cap 2.5 Mg PO BID 10/11/16 Reported Novolog Flexpen Inj (Insulin Aspart) 300 Unit/3 Ml Pen 1 Units .ROUTE ACHS SLIDING SCALE 10/11/16 Reported Kayexalate Liq (Sodium Polystyrene Sulfonate) 1 Pow Pow 15 Gm PO DAILY 10/11/16 Reported Simethicone 80 Mg Chw 80 Mg CHEW TID PRN 10/11/16 Reported Ranitidine (Ranitidine HCl) 150 Mg Tab 150 Mg PO BID 10/11/16 Reported Lactulose Liq (Lactulose) 10 Gm/15 Ml Soln 30 Ml PO DAILY 10/11/16 Reported Gabapentin 100 Mg Cap 200 Mg PO Q12HR 10/11/16 Reported Duoneb (Ipratropium-Albuterol Neb) 0.5-2.5 Mg/3 Ml Neb 1 Ampule NEB Q6HR NEB PRN 30 09/07/16 Rx Ambien (Zolpidem Tartrate) 5 Mg Tab 5 Mg PO HS PRN 30 09/07/16 Rx Flomax (Tamsulosin HCl) 0.4 Mg Cap 0.4 Mg PO HS 30 09/07/16 Rx Lidocaine Topical (Lidocaine HCl) 2 % Jel 1 Applic TOPICAL DAILY PRN 30 09/07/16 Rx Acidophilus/l-Sporogenes (Lactobacillus Acidophilus) 1 Tab Tab 1 Tab PO DAILY 09/07/16 Rx Ferrous Sulfate 325 Mg Tab 325 Mg PO BID 30 09/07/16 Rx Aspirin EC (Aspirin) 81 Mg Tabdr 81 Mg PO DAILY 30 09/07/16 Rx Family History No family hx of liver disease, esophageal, gastric, or colorectal cancer Social History Resides in a local nursing facility. No use of tobacco, etoh, or illicit drug use. (Fifi Youssef) Review of Systems Constitutional: COMPLAINS OF: Fatigue, DENIES: Fever, Weight loss, Chills Respiratory: COMPLAINS OF: Cough, Shortness of breath Cardiovascular: DENIES: Chest pain Gastrointestinal: COMPLAINS OF: Abdominal pain, Constipation, Swelling of Abdomen, DENIES: Black stools, Bloody stools, Diarrhea, Nausea, Vomiting, Anorexia, Heartburn Musculoskeletal: COMPLAINS OF: Joint pain, Muscle aches Neurologic: DENIES: Headache Psychiatric: DENIES: Confusion (Fifi Youssef) GI Exam Vitals I&O Vital Signs Date Time Temp Pulse Resp B/P Pulse Ox O2 Delivery O2 Flow Rate FiO2 10/31/16 12:30 68 20 138/66 97 Partial Rebreather 10/31/16 11:30 66 16 139/78 98 Partial Rebreather 10/31/16 10:45 66 16 149/78 99 Partial Rebreather 10/31/16 10:25 95 Nasal Cannula 3.00 10/31/16 10:24 99 Partial Rebreather 15.00 10/31/16 09:45 98.3 97 15 143/78 96 Partial Rebreather 10/31/16 09:30 98.3 69 18 145/82 96 Partial Rebreather 10/31/16 07:38 99.0 70 16 129/95 88 Venturi Mask 10/31/16 07:11 Venturi Mask 50 10/31/16 05:30 70 22 157/79 91 Venturi Mask 50 10/31/16 04:45 99.3 66 16 144/77 92 Venturi Mask 35 10/31/16 04:43 93 Venturi Mask 50 10/31/16 04:30 99.1 66 18 146/71 88 Nasal Cannula 5 10/31/16 04:30 89 Nasal Cannula 5.00 10/31/16 02:43 24 92 Nasal Cannula 4 10/31/16 02:19 92 Venturi Mask 50 10/31/16 02:13 Venturi Mask 50 10/31/16 02:10 98.2 83 20 119/66 64 I/O 10/30/16 10/30/16 10/30/16 10/31/16 10/31/16 10/31/16 06:59 14:59 22:59 06:59 14:59 22:59 Intake Total 250 ml Balance 250 ml Intake Packed Cells 250 ml Imaging Last Impressions Chest X-Ray 10/31/16 0211 Signed Impressions: Service Date/Time: Monday, October 31, 2016 02:28 - CONCLUSION: Worsening effusions and infiltrates. Darren Argueta Jr., MD Chest CT 10/31/16 0000 Signed Impressions: Service Date/Time: Monday, October 31, 2016 08:36 - CONCLUSION: 1. There are large bilateral effusions with compressive atelectasis of both lower lobes. This has worsened when compared to prior exam. 2. Ascites throughout the upper abdomen. Griffin Rossi MD Abdomen/Pelvis CT 10/31/16 0000 Signed Impressions: Service Date/Time: Monday, October 31, 2016 08:36 - CONCLUSION: 1. Large bilateral effusions with compressive atelectasis in the lung bases. 2. Diffuse ascites and probable cirrhosis. 3. Calcified gallstone within the gallbladder. 4. Atherosclerotic calcification. 5. The overall amount of ascites is mildly increased when compared to previous dated 10/15/16. Griffin Rossi MD Laboratory Test 10/31/16 10/31/16 10/31/16 10/31/16 02:05 02:15 02:25 03:32 Blood Gas Puncture Site RT BRACHIAL Blood Gas Patient Temperature 98.6 Blood Gas HCO3 29 mmol/L Blood Gas Base Excess 4.7 mmol/L Blood Gas Oxygen Saturation 90 % Arterial Blood pH 7.41 Arterial Blood Partial 47 mmHg Pressure CO2 Arterial Blood Partial 58 mmHG Pressure O2 Arterial Blood Oxygen Content 8.4 Vol % Arterial Blood 2.6 % Carboxyhemoglobin Arterial Blood Methemoglobin 1.4 % Blood Gas Hemoglobin 6.6 G/DL Oxygen Delivery Device NASAL CANNULA Blood Gas Liter Flow 3 L/M Blood Gas Ventilator Setting White Blood Count 8.4 TH/MM3 Red Blood Count 2.81 MIL/MM3 Hemoglobin 6.7 GM/DL Hematocrit 21.3 % Mean Corpuscular Volume 76.0 FL Mean Corpuscular Hemoglobin 23.9 PG Mean Corpuscular Hemoglobin 31.5 % Concent Red Cell Distribution Width 18.0 % Platelet Count 172 TH/MM3 Mean Platelet Volume 9.0 FL Neutrophils (%) (Auto) 82.1 % Lymphocytes (%) (Auto) 7.1 % Monocytes (%) (Auto) 8.9 % Eosinophils (%) (Auto) 1.4 % Basophils (%) (Auto) 0.5 % Neutrophils # (Auto) 6.9 TH/MM3 Lymphocytes # (Auto) 0.6 TH/MM3 Monocytes # (Auto) 0.7 TH/MM3 Eosinophils # (Auto) 0.1 TH/MM3 Basophils # (Auto) 0.0 TH/MM3 CBC Comment AUTO DIFF Differential Comment AUTO DIFF CONFIRMED Platelet Estimate NORMAL Platelet Morphology Comment NORMAL Ovalocytes 1+ Acanthocytes OCC Prothrombin Time 11.8 SEC Prothromb Time International 1.1 RATIO Ratio Activated Partial 28.9 SEC Thromboplast Time Sodium Level 141 MEQ/L Potassium Level 4.8 MEQ/L Chloride Level 104 MEQ/L Carbon Dioxide Level 29.3 MEQ/L Anion Gap 8 MEQ/L Blood Urea Nitrogen 33 MG/DL Creatinine 1.73 MG/DL Estimat Glomerular Filtration 40 ML/MIN Rate Random Glucose 165 MG/DL Lactic Acid Level 1.3 mmol/L Calcium Level 8.0 MG/DL Magnesium Level 1.7 MG/DL Total Bilirubin 0.3 MG/DL Aspartate Amino Transf 30 U/L (AST/SGOT) Alanine Aminotransferase 14 U/L (ALT/SGPT) Alkaline Phosphatase 106 U/L Total Creatine Kinase 8 U/L Troponin I 0.02 NG/ML B-Type Natriuretic Peptide 2877 PG/ML Total Protein 5.7 GM/DL Albumin 1.4 GM/DL Blood Type O POSITIVE Antibody Screen NEGATIVE Urine Color YELLOW Urine Turbidity HAZY Urine pH 5.0 Urine Specific Greenback 1.014 Urine Protein 30 mg/dL Urine Glucose (UA) NEG mg/dL Urine Ketones NEG mg/dL Urine Occult Blood NEG Urine Nitrite NEG Urine Bilirubin NEG Urine Urobilinogen LESS THAN 2.0 MG/DL Urine Leukocyte Esterase NEG Urine WBC 2 /hpf Urine Bacteria RARE /hpf Urine Mucus FEW /lpf Microscopic Urinalysis Comment CULT NOT INDICATED Crossmatch Leukocyte-Reduced Red Blood Cells Blood Bank Comment Test 10/31/16 08:20 Troponin I 0.03 NG/ML Date/Time Procedure Status Source Growth 10/31/16 02:15 Aerobic Blood Culture Received Blood Peripheral Pending 10/31/16 02:15 Anaerobic Blood Culture Received Blood Peripheral Pending Physical Examination HEENT: Normocephalic; atraumatic; no jaundice. CHEST: Resp. even, mildly labored, diminished throughout, Partial rebreather mask CARDIAC: RRR ABDOMEN: Distended with moderate amount of ascites. Mild diffuse tenderness, bowel sounds are present in all four quadrants. EXTREMITIES: Left AKA drsg d/i SKIN: Normal; no rash; no jaundice. OUTER DIAMETER GRINDER TOOL: No focal deficits; alert and oriented times three. (Fifi Youssef) Assessment and Plan Plan ASSESSMENT: - Iron Deficiency Anemia. H/H 6.7/21.3. No obvious blood loss. Has abdominal discomfort that seems to be related to his distention/ascites, constipation, but no other GI symptoms. Last colonoscopy was about 6 years ago. Would benefit from EGD/Colonoscopy once pulmonary status optimized- currently on partial rebreather mask. PPI - Ascites, recurrent. First had during last hospitalization in September and underwent a paracentesis on 10/14/16 with removal of 5,100cc of fluid. Cytology had marked acute inflammation, negative for malignant cells. Peritoneal fluid culture had no growth in 72 hours. His SAAG was < 1.1. Of note, he denies any hx of liver disease and does have CHF. Pt had liver workup recently with negative hepatitis, celiac panel, megan, ama, asma, ceruloplasmin, alpha 1 antitrypsin, iron saturation low. - Respiratory failure, COPD, CHF. On partial rebreather. Nebs, Abx. - CKD, HTN, PVD, per primary - Recent left AKA wound infection requiring hospitalization, I&D in September 2016. PLAN: - Heart healthy diet- 2 gram sodium - Cont. PPI - Monitor HH - Transfuse as necessary - US guided paracentesis with fluid analysis pending - Consider diuretics when renal function improves- will defer to [facility] at this time. - Consider EGD/Colonoscopy once pulmonary status optimized - Supportive care - Further recommendations to follow based on results of above - Pt seen and examined by Dr. Ruelas and myself and myself and this note is written on his behalf (Fifi Youssef) Physician Comments Patient was seen and examined, agree with above note. we will check labs, continue supportive care. (Masoud Ruelas MD) Fifi Youssef Oct 31, 2016 14:14 Masoud Ruelas MD Oct 31, 2016 21:55
--- NOTE | 2016-10-31 16:05 | RADRPT ---
EXAM DATE/TIME: 10/31/2016 15:25 [facility] COMPARISON: No previous studies available for comparison. INDICATIONS : Post thoracentesis. MEDICAL HISTORY : Congestive hearrt failure. Renal failure, chronic. Chronic obstructive pulmonary disease. SURGICAL HISTORY : None. ENCOUNTER: Subsequent ACUITY: 1 day PAIN SCORE: 5/10 LOCATION: Bilateral chest FINDINGS: Status post right thoracentesis. No evidence of pneumothorax. There is atelectasis in the right lung base. There is parenchymal infiltrate in the left lower lung. CONCLUSION: No evidence of pneumothorax. Erick Odell MD on October 31, 2016 at 16:02 Board Certified Radiologist. This report was verified electronically.
[2016-10-31] MEDS ORDERED: LIDOCAINE HCL 1% 30 ML VIAL ONE (17:50)
[2016-10-31 17:56] LABS: TOTAL PROTEIN,PLEURAL FLUID 1.4 GM/DL
[2016-10-31 18:35] LABS: PLEURAL FLUID LYMPHS 26 %
[2016-10-31 18:44] LABS: PERITONEAL LYMPHS 59 %; PERITONEAL MONOS 16 %; PERITONEAL POLYS(SEGS) 7 %; PERITONEAL WBC 57 /MM3 (0-10)
[2016-10-31 18:45] LABS: PERITONEAL HISTIOCYTES 18 %
[2016-10-31 20:53] LABS: HEMATOCRIT 29.6 % (39.0-51.0)
[2016-10-31 20:54] LABS: REVIEW FLAG FINAL
--- NOTE | 2016-10-31 23:45 | EKG ---
Date Performed: 10/31/2016 Time Performed: 02:13:20 PTAGE: 65 years EKG: Sinus rhythm NONSPECIFIC T-WAVE ABNORMALITY BORDERLINE ECG PREVIOUS TRACING : 10/11/2016 02.59 DOCTOR: Eliza Davis Interpretating Date/Time 10/31/2016 23:41:11
[2016-11-01] VITALS (15 sets, daily range): BP systolic 141–172; BP diastolic 67–81; PULSE 64–97; RESP 13–23; TEMP 97.6–98.6; O2SAT 92–97
[2016-11-01] MEDS: PIPERACIL-TAZO 4.5 GM PREMIX 100 ML IV SCH ×4 (01:35→21:02)
[2016-11-01] MEDS: VANCOMYCIN INJ 1,250 MG in SODIUM CHLOR 0.9% 250 ML INJ 250 ML IV SCH (01:36)
[2016-11-01] MEDS: RESP: ALBUTEROL 2.5 MG/IPRATROPIUM 0.5 MG NEB (SCH) INH ×6 (03:24→23:46)
[2016-11-01 04:41] LABS: AUTOMATED NEUTROPHIL # 7.2 TH/MM3 (1.8-7.7); BASOPHIL # 0.1 TH/MM3 (0-0.2); BASOPHIL % 0.8 % (0.0-2.0); EOSINOPHIL # 0.1 TH/MM3 (0-0.4); EOSINOPHIL % 1.1 % (0.0-4.0); HEMATOCRIT 27.3 % (39.0-51.0); HEMO FLAGS DIFF FINAL; LYMPH % 4.5 % (9.0-44.0); LYMPHOCYTE # 0.4 TH/MM3 (1.0-4.8); MEAN CELL VOLUME 76.9 FL (80.0-100.0); MEAN CORPUSCULAR HEMOGLOBIN 25.1 PG (27.0-34.0); MEAN CORPUSCULAR HGB CONC 32.6 % (32.0-36.0); MONO % 7.3 % (0.0-8.0); NEUT % 86.3 % (16.0-70.0); PLATELET COUNT 189 TH/MM3 (150-450); RED BLOOD COUNT 3.54 MIL/MM3 (4.50-5.90); RED CELL DISTRIBUTION WIDTH 18.1 % (11.6-17.2); WHITE BLOOD COUNT 8.3 TH/MM3 (4.0-11.0)
[2016-11-01 05:14] LABS: ANION GAP 8 MEQ/L (5-15); AST (GOT) 22 U/L (15-37); BLOOD UREA NITROGEN 32 MG/DL (7-18); CHLORIDE 104 MEQ/L (98-107); GLOMERULAR FILTRATION RATE 40 ML/MIN (>89); POTASSIUM 4.4 MEQ/L (3.5-5.1); SODIUM (NA) 142 MEQ/L (136-145)
[2016-11-01 05:19] LABS: ALKALINE PHOSPHATASE 82 U/L (45-117); ALT (GPT) 12 U/L (12-78); TOTAL BILIRUBIN ADULT 0.6 MG/DL (0.2-1.0)
[2016-11-01] MEDS: CHLORHEXIDINE GLUCONATE 2 % 1 PACK (2 CLOTHS) TOP SCH (05:52)
[2016-11-01] MEDS: INSULIN NovoLIN REGULAR SUPPLEMENTAL SCALE SQ SCH ×5 (05:52→20:53)
--- NOTE | 2016-11-01 08:15 | HHI.CCPN ---
Subjective Remarks/Hospital Course The patient is a 65-year-old male with a past medical history of chronic kidney disease, diabetes mellitus, previous left AKA, hypothyroidism, peripheral vascular disease, hypertension and CHF. He presented to the [facility] ED early this morning from a local rehab facility for evaluation of hypoxemia. He was hospitalized several times and has been at the rehab since May when he underwent a left BKA. He had complications post-op and developed infection and subsequently underwent a left AKA. He was recently hospitalized in September for pneumonia, respiratory failure, hypoxemia and a MRSA infection of his left AKA stump. He underwent irrigation and debridement in September. He was discharged back to the rehab facility. When the patient was assessed at the rehab facility he was noted to have low O2 saturation in the 70s and decreased mentation. The patient was placed on 10 liter oxygen non- rebreather mask with improvement of his oxygenation. He denies any chest pain, however, he reports abdominal bloating. The patient denies any cough or any constitutional symptoms. He denies any nausea or vomiting. ABG was initially performed on 3 liters oxygen which showed a pH of 7.41, CO2 47 , PAO2 58 and saturation of 90%. The patient was subsequently placed on 50% Venti mask. A chest x-ray in the ER showed worsening effusions and infiltrates. His laboratory data was significant for anemia with a hemoglobin level of 6.7 and hematocrit 21.3. The patient is currently receiving 2 unitsof PRBCs. Other significant labs showed elevated BNP at 2877 and creatinine of 1.73. His lactic acid level measured at 1.3. The patient had an echocardiogram in September 2016 which showed an ejection fraction of 55-60% with no regional wall motion abnormalities. In the ED he was given Lasix 20 mg IV push, cefepime and vancomycin. Subjective 11/01/16: Afebrile. Status post paracentesis and thoracentesis yesterday which much improvement in clinical status. Currently on 6 L nasal cannula. Tolerating diet. Denies chest pain and shortness of breath currently. Objective Vital Signs Date Time Temp Pulse Resp B/P Pulse Ox O2 Delivery O2 Flow Rate FiO2 11/01/16 06:00 69 11/01/16 04:00 98.6 21 156/76 95 11/01/16 03:25 Nasal Cannula 6.00 10/31/16 20:15 50 Intake and Output 10/31/16 10/31/16 11/01/16 08:00 16:00 00:00 Intake Total 250 ml 0 ml Output Total 800 ml Balance 250 ml -800 ml Result Diagram: 11/01/16 0326 11/01/16 0326 Other Results Microbiology Date/Time Procedure Status Source Growth 10/31/16 16:44 Gram Stain Received Fluid Peritoneal Fluid Pending 10/31/16 16:44 Body Fluid Culture Received Fluid Peritoneal Fluid Pending 10/31/16 02:15 Aerobic Blood Culture Received Blood Peripheral Pending 10/31/16 02:15 Anaerobic Blood Culture Received Blood Peripheral Pending Imaging Last Impressions Chest X-Ray 10/31/16 0211 Signed Impressions: Service Date/Time: Monday, October 31, 2016 02:28 - CONCLUSION: Worsening effusions and infiltrates. Darren Argueta Jr., MD Chest CT 10/31/16 0000 Signed Impressions: Service Date/Time: Monday, October 31, 2016 08:36 - CONCLUSION: 1. There are large bilateral effusions with compressive atelectasis of both lower lobes. This has worsened when compared to prior exam. 2. Ascites throughout the upper abdomen. Griffin Rossi MD Abdomen/Pelvis CT 10/31/16 0000 Signed Impressions: Service Date/Time: Monday, October 31, 2016 08:36 - CONCLUSION: 1. Large bilateral effusions with compressive atelectasis in the lung bases. 2. Diffuse ascites and probable cirrhosis. 3. Calcified gallstone within the gallbladder. 4. Atherosclerotic calcification. 5. The overall amount of ascites is mildly increased when compared to previous dated 10/15/16. Griffin Rossi MD Objective Remarks GENERAL: 65-year-old male, critically ill currently resting in bed in no acute distress SKIN: Warm and dry. Multiple ecchymoses noted is right great toe, postop changes left AKA HEAD: Prior pinning to left maxillary sinus secondary to trauma Normocephalic. EYES: Pupils equal and round around 2-3 mm bilaterally and reactive. No scleral icterus. No injection or drainage. ENT: No nasal bleeding or discharge. Mucous membranes pink and moist. Oropharynx without erythema or exudates NECK: Trachea midline. No JVD. CARDIOVASCULAR: Regular rate and rhythm. S1, S2. No S4. No murmur RESPIRATORY: Diminished breath sounds in the bases bilaterally. Few fine crackles right greater than left. No wheezing appreciated Breath sounds equal bilaterally. GASTROINTESTINAL: Abdomen soft, non-tender, scaphoid. Hypoactive bowel sounds are appreciated MUSCULOSKELETAL: Extremities status post left AKA with sutures in place NEUROLOGICAL: Awake and alert. No obvious cranial nerve deficits. Motor grossly within normal limits. Peripheral neuropathy/diminished sensation light touch and pinprick right lower extremity. Five out of 5 muscle strength in the arms and legs. Normal speech. PSYCHIATRIC: Appropriate mood and affect; insight and judgment normal. Urinary Catheter: Yes Assessment to: Continue Valencia insert reason: ICU Pt Getting Diuretics Vascular Central Line Catheter: No Assessment to: Continue A/P Assessment and Plan Neuro/Psych: Seizure disorder NOS History facial trauma/right sided sinus pending History of insomnia Chronic narcotic use Acetaminophen written for fever [place]/morphine for pain management Continue with Keppra 500 mg by mouth twice a day/seizure medication Patient has Ambien 5 mg at night for insomnia. This is on hold Patient is on Percocets as needed for pain at home. This is been held CV: Hypertension Coronary artery disease Peripheral vascular disease Peripheral arterial disease 2-D echocardiogram 10/17/16 revealed EF 55-60%. No regional wall motion abnormality. SIOBHAN 47 mmHg Continue Norvasc 5 mg by mouth daily for hypertension. Added as needed hydralazine/Nitropaste Seen by Dr. Geiger last month. Normal ABIs. Aspirin 81 mg by mouth daily light held in light of possible GI bleed Resume Lasix 20 mg by mouth twice a day Resp: Acute respiratory failure secondary to bilateral pleural effusions History COPD Nasal cannula to maintain saturations greater than equal to 92% Incentive spirometry while awake Continue duo nebs every 4 hours and as needed. Follow-up chest x-ray in a.m. Will ordered therapeutic left sided thoracentesis today with IR. Yesterday, approximately 1 L per nurse report from right sided thoracentesis. Appears transudative GI: History of constipation Inguinal hernia Anorexia Patient is currently in a 2000-calorie ADA diet. Protonix for GI prophylaxis Colace/as needed Senokot for bowel regimen Patient is on lactulose/Kayexalate daily for bowel regimen at intermediate Continue with Marinol 2.5 mg by mouth twice a day with meals Appreciate gastroenterology's input. Plan for EGD/colonoscopy once stable : BPH Valencia place for accurate I's and O's in critically ill patient. 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 Currently not on any hypothyroid medication Renal: Chronic kidney disease stage III Baseline creatinine around 1.5. Monitor urine output closely. Received 1 mg Bumex IV with 1 yesterday.. On Lasix 20 mg by mouth twice a day at home Heme: Anemia Status post 2 units PRBCs. Coags within normal limits. ID: History of MRSA Currently on Zosyn/vancomycin day #2 Pertinent cultures Blood cultures 2 1/3 pending Pleural fluid 1/3 - pending Peritoneal fluid 1/3- pending MSK: Left [id number] amputation Generalized debilitation PT evaluate and treat FEN: Replace electrolytes as clinically indicated per electrolyte protocol Access - Utilize peripheral IV. Central line if indicated Prophylaxis - GI - Protonix - DVT - SCD right lower extremity not indicated with severe peripheral arterial/ vascular disease. Pharmacological prophylaxis has been held in light of possible GI bleed. Critical Care: The total care time was 45 minutes. Time to perform other separately billable procedures was not included in the critical care time. Butch Amezcua MD Nov 01, 2016 08:15
[2016-11-01] MEDS: PANTOPRAZOLE SODIUM 40 MG VIAL IV SCH (08:24)
[2016-11-01] MEDS: amLODIPine BESYLATE 5 MG TAB PO SCH (08:24)
[2016-11-01] MEDS: SODIUM CHLORIDE 0.9% FLUSH 5 ML FLUSH IVF SCH (08:25)
[2016-11-01] MEDS ORDERED: ONDANSETRON HCL 4 MG/2 ML VIAL IV PRN (08:45)
[2016-11-01] MEDS ORDERED: ACETAMINOPHEN 325 MG TAB PO PRN (08:45)
[2016-11-01] MEDS ORDERED: SODIUM CHLORIDE 0.9% FLUSH 5 ML FLUSH IV FLUSH PRN (08:45)
[2016-11-01] MEDS ORDERED: SENNOSIDES 8.6 MG TAB PO PRN (08:45)
[2016-11-01] MEDS ORDERED: CHLORHEXIDINE GLUCONATE 2 % 1 PACK (2 CLOTHS) TOP PRN (08:45)
[2016-11-01] MEDS ORDERED: ACETAMINOPHEN/HYDROcodone 325 MG/5 MG TAB PO PRN (08:45)
[2016-11-01] MEDS ORDERED: MISCELLANEOUS NURSING INFORMATION XX SCH (08:45)
--- NOTE | 2016-11-01 08:50 | RADRPT ---
EXAM DATE/TIME: 10/31/2016 10:14 [facility] COMPARISON: US GUIDED ABD PARACENTESIS, October 14, 2016, 16:19. INDICATIONS : Ascites. MEDICAL HISTORY : Chronic obstructive pulmonary disease. Neuropathy. Head trama. Congestive heart failure. Renal fa ilure. Inguinal hernia. Diabetes. Chronic ulcers, lower extremities. MRSA, 10/11/2016. SURGICAL HISTORY : Skull repair. Bilateral knee surgery. ENCOUNTER: Initial ACUITY: 1 day PAIN SCORE: 4/10 LOCATION: Left lower quadrant FLUID: Total volume of 2,000 cc of clear, yellowish green fluid was removed. Fluid was sent to lab for ordered studies. Post procedure scanning reveals no hematoma or other complication. TECHNIQUE: 1. Ultrasound guidance for abdominal paracentesis. 2. Paracentesis. The risks, benefits, and alternatives to ultrasound guided paracentesis were explained to the patient in detail including the risk of bleeding and infection. Written and verbal informed consent was obt ained. With the patient on the ultrasound table, ultrasound imaging was used to select the most appr opriate approach for paracentesis. Overlying skin was prepped and draped in the usual sterile fashio n and with a local anesthetic, a dermatotomy was made with an 11 blade scalpel. A 6 Palestinian Saf-T-lluvia tesis catheter was introduced into the peritoneal cavity and fluid was collected. The patient tolerated the procedure well and left the ultrasound suite in stable condition. CONCLUSION: Uncomplicated ultrasound guided paracentesis. Erick Odell MD on November 01, 2016 at 8:49 Board Certified Radiologist. This report was verified electronically.
--- NOTE | 2016-11-01 08:50 | RADRPT ---
EXAM DATE/TIME: 10/31/2016 14:16 [facility] COMPARISON: No previous studies available for comparison. INDICATIONS : Pleural effusion. SIDE: Right MEDICAL HISTORY : Chronic obstructive pulmonary disease. Neuropathy. Head trama. Congestive heart failure. Renal fa ilure. Inguinal hernia. Diabetes. Chronic ulcers, lower extremities. MRSA, 10/11/2016. SURGICAL HISTORY : Skull repair. Bilateral knee surgery. ENCOUNTER: Initial ACUITY: 1 day PAIN SCORE: 4/10 LOCATION: Right chest FLUID: Total volume of 1,000 cc of clear, yellow fluid was removed. Fluid was sent to lab for ordered studies. TECHNIQUE: 1. Ultrasound guidance for thoracentesis. 2. Thoracentesis. The risks, benefits, and alternatives to ultrasound guided thoracentesis were explained to the patien t in lay simple terms, including the risk of bleeding and infection. Written and verbal informed con sent was obtained. Appropriate area for thoracentesis was marked under ultrasound guidance with the patient in the uprig ht position. Overlying skin was prepped and draped in the usual sterile fashion and with local anest hetic, a dermatotomy was made with an 11 blade scalpel. A 6 Nigerian thoracentesis catheter was placed in the pleural space and fluid was removed. Catheter was then removed and a sterile dressing applie d. There were no immediate complications. The patient tolerated the procedure well and the left the ultrasound suite in stable condition. Chest radiograph is to be obtained. CONCLUSION: Uncomplicated ultrasound guided thoracentesis. Erick Odell MD on November 01, 2016 at 8:47 Board Certified Radiologist. This report was verified electronically.
[2016-11-01] MEDS: PANTOPRAZOLE SOD 40 MG DELAYED RELEASE TAB PO SCH (09:00)
[2016-11-01] MEDS: DOCUSATE SODIUM 100 MG CAP PO SCH ×2 (09:00→20:34)
[2016-11-01] MEDS: SODIUM CHLORIDE 0.9% FLUSH 5 ML FLUSH IV FLUSH SCH ×2 (09:00→20:35)
[2016-11-01] MEDS ORDERED: hydrALAZINE HCL 20 MG/ML VIAL IV PUSH PRN (09:45)
[2016-11-01] MEDS: levETIRAcetam 500 MG TAB PO SCH ×2 (09:48→20:34)
[2016-11-01] MEDS: LACTULOSE SYRUP 20 GM/30 ML CUP PO SCH (09:48)
[2016-11-01] MEDS: TAMSULOSIN HCL 0.4 MG CAP PO SCH (09:48)
[2016-11-01] MEDS: FUROSEMIDE 20 MG TAB PO SCH ×2 (09:48→18:02)
[2016-11-01] MEDS: ASCORBIC ACID 500 MG TAB PO SCH (09:48)
[2016-11-01] MEDS: ARTIFICIAL TEARS OPTH SOLN 15 ML BTL EACH EYE SCH ×3 (09:56→18:02)
[2016-11-01] MEDS: COLLAGENASE OINT 30 GM TUBE TOP SCH (09:56)
[2016-11-01] MEDS ORDERED: NITROGLYCERIN 2% OINT 1 GM PACKET TOPICAL PRN (11:00)
[2016-11-01] MEDS ORDERED: EPINEPHrine HCL (1:10,000) 1 MG/10 ML SYRINGE ONE (11:09)
[2016-11-01] MEDS ORDERED: LIDOCAINE HCL 2% 100 MG/5 ML SYRINGE ONE (11:09)
[2016-11-01] MEDS ORDERED: ATROPINE SULFATE 1 MG/10 ML SYRINGE ONE (11:09)
[2016-11-01] MEDS: POVIDONE IODINE 10% SOLN 480 ML BTL TOPICAL SCH ×2 (11:16→20:35)
[2016-11-01] MEDS: FERROUS SULFATE 325 MG (65 MG ELEMENTAL IRON) TAB PO SCH ×2 (11:16→18:02)
[2016-11-01] MEDS: DRONABINOL 2.5 MG CAP PO SCH ×2 (11:53→18:01)
--- NOTE | 2016-11-01 13:37 | RADRPT ---
EXAM DATE/TIME: 11/01/2016 12:23 [facility] COMPARISON: No previous studies available for comparison. INDICATIONS : Pleural effusion. SIDE: Left MEDICAL HISTORY : Chronic obstructive pulmonary disease. Neuropathy. Head trama. Congestive heart failure. Renal fa ilure. Inguinal hernia. Diabetes. Chronic lesions, lower extremities. MRSA PCR, 10/11/16. SURGICAL HISTORY : Skull repair. Bilateral knee surgery. Paracentesis. Thoracentesis. ENCOUNTER: Subsequent ACUITY: 2 days PAIN SCORE: 4/10 LOCATION: Left chest FLUID: Total volume of 800 cc of clear, yellow fluid was removed. Fluid was discarded. Thoracentesis was therapeutic only. TECHNIQUE: 1. Ultrasound guidance for thoracentesis. 2. Thoracentesis. The risks, benefits, and alternatives to ultrasound guided thoracentesis were explained to the patien t in lay simple terms, including the risk of bleeding and infection. Written and verbal informed con sent was obtained. Appropriate area for thoracentesis was marked under ultrasound guidance with the patient in the uprig ht position. Overlying skin was prepped and draped in the usual sterile fashion and with local anest hetic, a dermatotomy was made with an 11 blade scalpel. A 6 Taiwanese thoracentesis catheter was placed in the pleural space and fluid was removed. Catheter was then removed and a sterile dressing applie d. There were no immediate complications. The patient tolerated the procedure well and the left the ultrasound suite in stable condition. Chest radiograph is to be obtained. CONCLUSION: Uncomplicated ultrasound guided thoracentesis. Benito Rossi MD FACR on November 01, 2016 at 13:34 Board Certified Radiologist. This report was verified electronically.
--- NOTE | 2016-11-01 13:39 | RADRPT ---
EXAM DATE/TIME: 11/01/2016 13:01 [facility] COMPARISON: CHEST EXPIRATION ONLY, October 31, 2016, 15:25. INDICATIONS: S/p thoracentesis MEDICAL HISTORY: Chronic obstructive pulmonary disease. Congestive heart failure. Diabetes SURGICAL HISTORY: None. ENCOUNTER: Initial ACUITY: 1 week PAIN SCORE: Non-responsive. LOCATION: Bilateral chest FINDINGS: Patient status post thoracentesis on the left. Minimal bibasilar parenchymal changes are noted. The re is no pneumothorax. Heart is minimally enlarged. Pulmonary vascularity is normal. CONCLUSION: There is no pneumothorax. Benito Rossi MD FACR on November 01, 2016 at 13:12 Board Certified Radiologist. This report was verified electronically.
[2016-11-01] MEDS ORDERED: LIDOCAINE HCL 1% 30 ML VIAL ONE (13:52)
--- NOTE | 2016-11-01 16:01 | HHI.GIFU ---
Subjective Remarks Resting in bed. Lethargic. No active bleeding. Pt now on 2L but breathing is still shallow and he appears very weak. (Fifi Youssef) Objective Vitals I&O Vital Signs Date Time Temp Pulse Resp B/P Pulse Ox O2 Delivery O2 Flow Rate FiO2 11/01/16 14:00 73 11/01/16 12:00 97.6 71 17 143/68 94 11/01/16 12:00 71 11/01/16 10:00 71 11/01/16 08:13 96 Nasal Cannula 5.00 11/01/16 08:00 96 Nasal Cannula 6.00 Humidified 11/01/16 08:00 68 11/01/16 08:00 97.9 68 18 158/73 96 11/01/16 06:00 69 11/01/16 04:00 72 11/01/16 04:00 98.6 72 21 156/76 95 11/01/16 03:25 96 Nasal Cannula 6.00 11/01/16 02:00 97 11/01/16 00:00 98.2 76 23 172/81 94 11/01/16 00:00 76 10/31/16 22:00 70 10/31/16 20:15 95 Venturi Mask 7.00 50 10/31/16 20:00 70 10/31/16 20:00 98.1 70 21 148/76 98 10/31/16 19:55 100 Partial Rebreather 15.00 10/31/16 18:15 70 10/31/16 18:15 100 Partial Non-Rebreather 15.00 10/31/16 18:15 98.1 70 21 163/80 100 10/31/16 17:08 97.0 68 16 166/80 100 I/O 10/31/16 10/31/16 10/31/16 11/01/16 11/01/16 11/01/16 07:00 15:00 23:00 07:00 15:00 23:00 Intake Total 250 ml 0 ml 769 ml 435 ml Output Total 800 ml 475 ml 500 ml Balance 250 ml -800 ml 294 ml -65 ml Intake Oral 0 ml 120 ml 240 ml IV Total 0 ml 649 ml 195 ml Packed Cells 250 ml Output Urine Total 800 ml 475 ml 500 ml # Bowel Movements 0 1 1 Laboratory Laboratory Tests Test 1/01/1210/31/16 11/01/16 16:44 20:21 03:26 Peritoneal Fluid WBC 57 Peritoneal Fluid RBC 245 Peritoneal Fluid Neutrophils 7 Peritoneal Fluid Lymphocytes 59 Peritoneal Fluid Monocytes 16 Peritoneal Fluid Histiocytes 18 Peritoneal Fluid Total Protein 3.2 Peritoneal Fluid Albumin 1.0 Peritoneal Fluid LDH 130 Peritoneal Fluid Glucose 115 Hemoglobin 9.4 8.9 Hematocrit 29.6 27.3 White Blood Count 8.3 Red Blood Count 3.54 Mean Corpuscular Volume 76.9 Mean Corpuscular Hemoglobin 25.1 Mean Corpuscular Hemoglobin 32.6 Concent Red Cell Distribution Width 18.1 Platelet Count 189 Mean Platelet Volume 8.9 Neutrophils (%) (Auto) 86.3 Lymphocytes (%) (Auto) 4.5 Monocytes (%) (Auto) 7.3 Eosinophils (%) (Auto) 1.1 Basophils (%) (Auto) 0.8 Neutrophils # (Auto) 7.2 Lymphocytes # (Auto) 0.4 Monocytes # (Auto) 0.6 Eosinophils # (Auto) 0.1 Basophils # (Auto) 0.1 CBC Comment DIFF FINAL Differential Comment Sodium Level 142 Potassium Level 4.4 Chloride Level 104 Carbon Dioxide Level 30.0 Anion Gap 8 Blood Urea Nitrogen 32 Creatinine 1.72 Estimat Glomerular Filtration 40 Rate Random Glucose 131 Calcium Level 8.0 Total Bilirubin 0.6 Aspartate Amino Transf 22 (AST/SGOT) Alanine Aminotransferase 12 (ALT/SGPT) Alkaline Phosphatase 82 Total Protein 5.4 Albumin 1.2 Date/Time Procedure Status Source Growth 10/31/16 16:44 Gram Stain - Final Resulted Fluid Peritoneal Fluid 10/31/16 16:44 Body Fluid Culture - Preliminary Resulted Fluid Peritoneal Fluid NO GROWTH IN 24 HOURS. 10/31/16 14:42 Gram Stain Ordered Fluid Peritoneal Fluid Pending 10/31/16 14:42 Body Fluid Culture Ordered Fluid Peritoneal Fluid Pending 10/31/16 02:15 Aerobic Blood Culture - Preliminary Resulted Blood Peripheral NO GROWTH IN 1 DAY 10/31/16 02:15 Anaerobic Blood Culture - Preliminary Resulted Blood Peripheral NO GROWTH IN 1 DAY Imaging Last Impressions Thoracentesis Ultrasound 11/01/16 0000 Signed Impressions: Service Date/Time: Tuesday, November 01, 2016 12:23 - CONCLUSION: Uncomplicated ultrasound guided thoracentesis. Benito Rossi MD FACR Chest X-Ray 10/31/16 0211 Signed Impressions: Service Date/Time: Monday, October 31, 2016 02:28 - CONCLUSION: Worsening effusions and infiltrates. Darren Argueta Jr., MD Cyst Biopsy Asp-Paracentesis US 10/31/16 0000 Signed Impressions: Service Date/Time: Monday, October 31, 2016 10:14 - CONCLUSION: Uncomplicated ultrasound guided paracentesis. Erick Odell MD Chest CT 10/31/16 0000 Signed Impressions: Service Date/Time: Monday, October 31, 2016 08:36 - CONCLUSION: 1. There are large bilateral effusions with compressive atelectasis of both lower lobes. This has worsened when compared to prior exam. 2. Ascites throughout the upper abdomen. Griffin Rossi MD Abdomen/Pelvis CT 10/31/16 0000 Signed Impressions: Service Date/Time: Monday, October 31, 2016 08:36 - CONCLUSION: 1. Large bilateral effusions with compressive atelectasis in the lung bases. 2. Diffuse ascites and probable cirrhosis. 3. Calcified gallstone within the gallbladder. 4. Atherosclerotic calcification. 5. The overall amount of ascites is mildly increased when compared to previous dated 10/15/16. Griffin Rossi MD Physical Exam HEENT: Normocephalic; atraumatic; no jaundice. CHEST: Resp. even, shallow, diminished CARDIAC: ST ABDOMEN: Abdomen soft, nontender, small amount of ascites, nontender. bowel sounds are present in all four quadrants. EXTREMITIES: Left AKA drsg d/i SKIN: Normal; no rash; no jaundice. STREET LIGHT INSPECTOR: No focal deficits; lethargic (Fifi Youssef) Assessment and Plan Plan ASSESSMENT: - Iron Deficiency Anemia. H/H 6.7/21.3 on admission. No obvious blood loss. Has abdominal discomfort that seems to be related to his distention/ascites, constipation, but no other GI symptoms. Last colonoscopy was about 6 years ago. Pt was on partial rebreather mask, now on 2L via n/c, but respirations are very shallow and he appears very weak. Unsure how he would tolerate the bowel prep. Will give him another day and consider EGD/Colonoscopy Sunday if stable from pulmonary status. S/P 2 units of PRBC. HH 8.9/27.3. - Ascites, recurrent. First had during last hospitalization in September and underwent a paracentesis on 10/14/16 with removal of 5,100cc of fluid. Cytology had marked acute inflammation, negative for malignant cells. Peritoneal fluid culture had no growth in 72 hours. His SAAG was < 1.1. Of note, he denies any hx of liver disease and does have CHF. Pt had liver workup recently with negative hepatitis, celiac panel, megan, ama, asma, ceruloplasmin, alpha 1 antitrypsin, iron saturation low. S/P Paracentesis (10/31/16), SAAG 0.20, not indicative of portal hypertension. - Respiratory failure, COPD, CHF. Improved. S/P thoracentesis. Now on 2L via n/c. Nebs, Abx. - CKD, HTN, PVD, per primary - Recent left AKA wound infection requiring hospitalization, I&D in September 2016. PLAN: - Heart healthy diet- 2 gram sodium - Cont. PPI - Monitor HH - Transfuse as necessary - Consider EGD/Colonoscopy once pulmonary status optimized, ? Sunday- on 2L via n/c now, but still very weak with shallow respirations, unsure if he could tolerate the bowel prep - Supportive care - Further recommendations to follow based on results of above - Pt seen and examined by Dr. Ruelas and myself and myself and this note is written on his behalf (Fifi Youssef) Physician Comments Patient was seen and examined, agree with above note and plan, labs for AM ( Masoud Ruelas MD) Fifi Youssef Nov 01, 2016 16:00 Masoud Reulas MD Nov 01, 2016 20:55
[2016-11-02] VITALS (13 sets, daily range): BP systolic 133–163; BP diastolic 60–80; PULSE 66–76; RESP 11–25; TEMP 97.9–98.8; O2SAT 92–97
[2016-11-02] MEDS: VANCOMYCIN INJ 1,250 MG in SODIUM CHLOR 0.9% 250 ML INJ 250 ML IV SCH (02:35)
[2016-11-02] MEDS: CHLORHEXIDINE GLUCONATE 2 % 1 PACK (2 CLOTHS) TOP SCH (03:10)
[2016-11-02] MEDS: RESP: ALBUTEROL 2.5 MG/IPRATROPIUM 0.5 MG NEB (SCH) INH ×5 (03:33→20:42)
[2016-11-02] MEDS ORDERED: CHLORHEXIDINE GLUCONATE 2 % 1 PACK (2 CLOTHS) TOP SCH (04:00)
[2016-11-02 04:06] LABS: AUTOMATED NEUTROPHIL # 6.3 TH/MM3 (1.8-7.7); BASOPHIL # 0.1 TH/MM3 (0-0.2); BASOPHIL % 1.3 % (0.0-2.0); EOSINOPHIL # 0.3 TH/MM3 (0-0.4); EOSINOPHIL % 3.3 % (0.0-4.0); HEMATOCRIT 26.4 % (39.0-51.0); HEMO FLAGS DIFF FINAL; LYMPH % 5.8 % (9.0-44.0); LYMPHOCYTE # 0.4 TH/MM3 (1.0-4.8); MEAN CELL VOLUME 76.7 FL (80.0-100.0); MEAN CORPUSCULAR HEMOGLOBIN 25.2 PG (27.0-34.0); MEAN CORPUSCULAR HGB CONC 32.9 % (32.0-36.0); MONO % 8.6 % (0.0-8.0); PLATELET COUNT 195 TH/MM3 (150-450); RED BLOOD COUNT 3.44 MIL/MM3 (4.50-5.90); RED CELL DISTRIBUTION WIDTH 18.3 % (11.6-17.2); WHITE BLOOD COUNT 7.7 TH/MM3 (4.0-11.0)
[2016-11-02 04:44] LABS: BLOOD UREA NITROGEN 29 MG/DL (7-18); GLOMERULAR FILTRATION RATE 41 ML/MIN (>89)
[2016-11-02 04:45] LABS: ALKALINE PHOSPHATASE 79 U/L (45-117); ALT (GPT) 12 U/L (12-78); ANION GAP 7 MEQ/L (5-15); AST (GOT) 18 U/L (15-37); BICARBONATE 31.8 MEQ/L (21.0-32.0); CHLORIDE 102 MEQ/L (98-107); LDH SERUM 180 U/L (87-241); MAGNESIUM 1.5 MG/DL (1.5-2.5); SODIUM (NA) 141 MEQ/L (136-145); TOTAL BILIRUBIN ADULT 0.4 MG/DL (0.2-1.0)
[2016-11-02] MEDS: INSULIN NovoLIN REGULAR SUPPLEMENTAL SCALE SQ SCH ×4 (06:15→21:00)
[2016-11-02] MEDS: PIPERACIL-TAZO 4.5 GM PREMIX 100 ML IV SCH ×3 (06:19→23:31)
[2016-11-02] MEDS: ASCORBIC ACID 500 MG TAB PO SCH (08:54)
[2016-11-02] MEDS: levETIRAcetam 500 MG TAB PO SCH ×2 (08:54→23:32)
[2016-11-02] MEDS: TAMSULOSIN HCL 0.4 MG CAP PO SCH (08:54)
[2016-11-02] MEDS: DOCUSATE SODIUM 100 MG CAP PO SCH ×2 (08:54→23:31)
[2016-11-02] MEDS: amLODIPine BESYLATE 5 MG TAB PO SCH (08:54)
[2016-11-02] MEDS: LACTULOSE SYRUP 20 GM/30 ML CUP PO SCH (08:54)
[2016-11-02] MEDS: FUROSEMIDE 20 MG TAB PO SCH ×2 (08:54→17:42)
[2016-11-02] MEDS: SODIUM CHLORIDE 0.9% FLUSH 5 ML FLUSH IV FLUSH SCH ×2 (08:54→23:32)
[2016-11-02] MEDS: PANTOPRAZOLE SOD 40 MG DELAYED RELEASE TAB PO SCH (08:54)
[2016-11-02] MEDS: ARTIFICIAL TEARS OPTH SOLN 15 ML BTL EACH EYE SCH ×3 (08:55→17:42)
[2016-11-02] MEDS: COLLAGENASE OINT 30 GM TUBE TOP SCH (09:00)
[2016-11-02] MEDS: DRONABINOL 2.5 MG CAP PO SCH ×2 (11:57→16:31)
[2016-11-02] MEDS: FERROUS SULFATE 325 MG (65 MG ELEMENTAL IRON) TAB PO SCH ×2 (11:57→16:31)
[2016-11-02] MEDS: POVIDONE IODINE 10% SOLN 480 ML BTL TOPICAL SCH ×2 (11:58→21:00)
--- NOTE | 2016-11-02 16:41 | HHI.PR ---
Subjective Remarks Patient complaint right knee pain. No complaint of chest pain shortness of breath. Objective Vitals Vital Signs Date Time Temp Pulse Resp B/P Pulse Ox O2 Delivery O2 Flow Rate FiO2 11/02/16 14:00 68 11/02/16 12:00 98.5 67 14 159/77 96 11/02/16 12:00 67 11/02/16 10:00 68 11/02/16 08:00 66 11/02/16 08:00 94 Nasal Cannula 2.00 Humidified 11/02/16 08:00 98.4 70 11 135/67 94 11/02/16 07:35 94 Nasal Cannula 2.00 11/02/16 06:00 66 11/02/16 04:00 98.8 70 20 147/73 93 11/02/16 04:00 70 11/02/16 02:00 66 11/02/16 00:00 69 11/02/16 00:00 98.7 69 25 133/60 97 11/01/16 22:00 68 11/01/16 20:00 98.6 64 15 141/67 97 11/01/16 20:00 65 11/01/16 19:45 97 Nasal Cannula 2.00 11/01/16 19:00 99 Nasal Cannula 2.00 Humidified 11/01/16 18:00 71 I/O 11/01/16 11/01/16 11/01/16 11/02/16 11/02/16 11/02/16 06:59 14:59 22:59 06:59 14:59 22:59 Intake Total 769 ml 435 ml 504 ml 793 ml 847 ml Output Total 475 ml 500 ml 450 ml 550 ml 450 ml Balance 294 ml -65 ml 54 ml 243 ml 397 ml Intake Oral 120 ml 240 ml 240 ml 480 ml 660 ml IV Total 649 ml 195 ml 264 ml 313 ml 187 ml Output Urine Total 475 ml 500 ml 450 ml 550 ml 450 ml # Bowel Movements 1 1 0 0 0 Result Diagram: 11/02/16 0348 11/02/168 Other Results Microbiology Date/Time Procedure Status Source Growth 10/31/16 16:44 Gram Stain - Final Resulted Fluid Peritoneal Fluid 10/31/16 16:44 Body Fluid Culture - Preliminary Resulted Fluid Peritoneal Fluid NO GROWTH IN 48 HOURS. 10/31/16 14:42 Gram Stain Ordered Fluid Peritoneal Fluid Pending 10/31/16 14:42 Body Fluid Culture Ordered Fluid Peritoneal Fluid Pending 10/31/16 02:15 Aerobic Blood Culture - Preliminary Resulted Blood Peripheral NO GROWTH IN 2 DAYS 10/31/16 02:15 Anaerobic Blood Culture - Preliminary Resulted Blood Peripheral NO GROWTH IN 2 DAYS Objective Remarks GENERAL: This is a well-nourished, well-developed patient, in no apparent distress. CARDIOVASCULAR: Regular rate and rhythm RESPIRATORY: Diminished breath sounds in the bases GASTROINTESTINAL: Abdomen soft, non-tender, nondistended. Normal active bowel sounds MUSCULOSKELETAL: left AKA, right lower shoulder with no tenderness on palpation. There is mild swelling over the right patellar NEURO: Alert & Oriented x4 to person, place, time A/P Assessment and Plan Acute respiratory failure likely due to bibasilar pleural effusion, rule out underlying pneumonia -currently on Zosyn and vancomycin, await pleuritic fluid cultures. Seizure disorder NOS Continue with Keppra 500 mg by mouth twice a day/seizure medication History facial trauma/right sided sinus pending History of insomnia: hold Ambien at this time. Chronic narcotic use [place]/morphine for pain management Hypertension2-D echocardiogram 10/17/16 revealed EF 55-60%. No regional wall motion abnormality. SIOBHAN 47 mmHg Continue Norvasc 5 mg by mouth daily for hypertension. Added as needed hydralazine/Nitropaste Coronary artery disease on aspirin. Peripheral vascular disease Seen by Dr. Geiger last month. Normal JIM Acute respiratory failure secondary to bilateral pleural effusionsas above currently on antibiotics and diuretics History COPD with no active exacerbation Nasal cannula to maintain saturations greater than equal to 92% Incentive spirometry while awake Continue duo nebs every 4 hours and as needed. Follow-up chest x-ray today stable. Status post therapeutic left sided thoracentesis which appears transient gait Severe malnutrition - Patient is currently in a 2000-calorie ADA diet. Continue with Marinol 2.5 mg by mouth twice a day with meals Appreciate gastroenterology's input. 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 History of hypothyroidism start low-dose Synthroid secondary to elevated TSH Chronic kidney disease stage III Baseline creatinine around 1.5. Monitor urine output closely. Received 1 mg Bumex IV previously On Lasix 20 mg by mouth twice a day at home Acute Anemia , suspect GI bleed Status post 2 units PRBCs. Hemoglobin remained stable. History of MRSA Currently on Zosyn/vancomycin day #3 Pertinent cultures Blood cultures s; pleural fluid and peritoneal fluid cultures and sensitivity currently pending Left [id number] amputation Generalized debilitation PT evaluate and treat FEN: Replace electrolytes as clinically indicated per electrolyte protocol Access - Utilize peripheral IV. Central line if indicated Prophylaxis GI - Protonix - DVT - SCD right lower extremity not indicated with severe peripheral arterial/ vascular disease. Pharmacological prophylaxis has been held in light of possible GI bleed. Discharge Planning Transfer out to [facility] floor Mireille Marie MD Nov 02, 2016 16:41
--- NOTE | 2016-11-02 16:47 | HHI.GIFU ---
Subjective Remarks Resting in bed. Breathing much improved. States he is feeling much better. No GI symptoms. No bleeding. (Fifi Youssef) Objective Vitals I&O Vital Signs Date Time Temp Pulse Resp B/P Pulse Ox O2 Delivery O2 Flow Rate FiO2 11/02/16 14:00 68 11/02/16 12:00 98.5 67 14 159/77 96 11/02/16 12:00 67 11/02/16 10:00 68 11/02/16 08:00 66 11/02/16 08:00 94 Nasal Cannula 2.00 Humidified 11/02/16 08:00 98.4 70 11 135/67 94 11/02/16 07:35 94 Nasal Cannula 2.00 11/02/16 06:00 66 11/02/16 04:00 98.8 70 20 147/73 93 11/02/16 04:00 70 11/02/16 02:00 66 11/02/16 00:00 69 11/02/16 00:00 98.7 69 25 133/60 97 11/01/16 22:00 68 11/01/16 20:00 98.6 64 15 141/67 97 11/01/16 20:00 65 11/01/16 19:45 97 Nasal Cannula 2.00 11/01/16 19:00 99 Nasal Cannula 2.00 Humidified 11/01/16 18:00 71 I/O 11/01/16 11/01/16 11/01/16 11/02/16 11/02/16 11/02/16 07:00 15:00 23:00 07:00 15:00 23:00 Intake Total 769 ml 435 ml 504 ml 793 ml 847 ml Output Total 475 ml 500 ml 450 ml 550 ml 450 ml Balance 294 ml -65 ml 54 ml 243 ml 397 ml Intake Oral 120 ml 240 ml 240 ml 480 ml 660 ml IV Total 649 ml 195 ml 264 ml 313 ml 187 ml Output Urine Total 475 ml 500 ml 450 ml 550 ml 450 ml # Bowel Movements 1 1 0 0 0 Laboratory Laboratory Tests Test 11/02/16 03:48 White Blood Count 7.7 Red Blood Count 3.44 Hemoglobin 8.7 Hematocrit 26.4 Mean Corpuscular Volume 76.7 Mean Corpuscular Hemoglobin 25.2 Mean Corpuscular Hemoglobin 32.9 Concent Red Cell Distribution Width 18.3 Platelet Count 195 Mean Platelet Volume 8.7 Neutrophils (%) (Auto) 81.0 Lymphocytes (%) (Auto) 5.8 Monocytes (%) (Auto) 8.6 Eosinophils (%) (Auto) 3.3 Basophils (%) (Auto) 1.3 Neutrophils # (Auto) 6.3 Lymphocytes # (Auto) 0.4 Monocytes # (Auto) 0.7 Eosinophils # (Auto) 0.3 Basophils # (Auto) 0.1 CBC Comment DIFF FINAL Differential Comment Sodium Level 141 Potassium Level 4.0 Chloride Level 102 Carbon Dioxide Level 31.8 Anion Gap 7 Blood Urea Nitrogen 29 Creatinine 1.69 Estimat Glomerular Filtration 41 Rate Random Glucose 112 Lactic Acid Level 0.7 Calcium Level 7.5 Phosphorus Level 2.7 Magnesium Level 1.5 Total Bilirubin 0.4 Aspartate Amino Transf 18 (AST/SGOT) Alanine Aminotransferase 12 (ALT/SGPT) Alkaline Phosphatase 79 Lactate Dehydrogenase 180 Troponin I 0.02 Total Protein 5.4 Albumin 1.2 Thyroid Stimulating Hormone 15.000 3rd Gen Date/Time Procedure Status Source Growth 10/31/16 16:44 Gram Stain - Final Resulted Fluid Peritoneal Fluid 10/31/16 16:44 Body Fluid Culture - Preliminary Resulted Fluid Peritoneal Fluid NO GROWTH IN 48 HOURS. 10/31/16 14:42 Gram Stain Ordered Fluid Peritoneal Fluid Pending 10/31/16 14:42 Body Fluid Culture Ordered Fluid Peritoneal Fluid Pending 10/31/16 02:15 Aerobic Blood Culture - Preliminary Resulted Blood Peripheral NO GROWTH IN 2 DAYS 10/31/16 02:15 Anaerobic Blood Culture - Preliminary Resulted Blood Peripheral NO GROWTH IN 2 DAYS Imaging Last Impressions Thoracentesis Ultrasound 11/01/16 0000 Signed Impressions: Service Date/Time: Tuesday, November 01, 2016 12:23 - CONCLUSION: Uncomplicated ultrasound guided thoracentesis. Benito Rossi MD FACR Chest X-Ray 11/01/16 0000 Signed Impressions: Service Date/Time: Tuesday, November 01, 2016 13:01 - CONCLUSION: There is no pneumothorax. Benito Rossi MD FACR Cyst Biopsy Asp-Paracentesis US 10/31/16 0000 Signed Impressions: Service Date/Time: Monday, October 31, 2016 10:14 - CONCLUSION: Uncomplicated ultrasound guided paracentesis. Erick Odell MD Chest CT 10/31/16 0000 Signed Impressions: Service Date/Time: Monday, October 31, 2016 08:36 - CONCLUSION: 1. There are large bilateral effusions with compressive atelectasis of both lower lobes. This has worsened when compared to prior exam. 2. Ascites throughout the upper abdomen. Griffin Rossi MD Abdomen/Pelvis CT 10/31/16 0000 Signed Impressions: Service Date/Time: Monday, October 31, 2016 08:36 - CONCLUSION: 1. Large bilateral effusions with compressive atelectasis in the lung bases. 2. Diffuse ascites and probable cirrhosis. 3. Calcified gallstone within the gallbladder. 4. Atherosclerotic calcification. 5. The overall amount of ascites is mildly increased when compared to previous dated 10/15/16. Griffin Rossi MD Physical Exam HEENT: Normocephalic; atraumatic; no jaundice. CHEST: Resp. even, shallow, diminished CARDIAC: ST ABDOMEN: Abdomen soft, nontender, small amount of ascites, nontender. bowel sounds are present in all four quadrants. EXTREMITIES: Left AKA drsg d/i SKIN: Normal; no rash; no jaundice. 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 H/H 6.7/21.3 on admission. No obvious blood loss. Has abdominal discomfort that seems to be related to his distention/ascites, constipation, but no other GI symptoms. Last colonoscopy was about 6 years ago. S/P 2 units of PRBC. HH 8.7/26.4 Pulmonary status much improved. Will plan for egd/ colonoscopy in am- d/w patient procedure, prep, risks, and benefits and he would like to proceed. - Ascites, recurrent. First had during last hospitalization in September and underwent a paracentesis on 10/14/16 with removal of 5,100cc of fluid. Cytology had marked acute inflammation, negative for malignant cells. Peritoneal fluid culture had no growth in 72 hours. His SAAG was < 1.1. Of note, he denies any hx of liver disease and does have CHF. Pt had liver workup recently with negative hepatitis, celiac panel, megan, ama, asma, ceruloplasmin, alpha 1 antitrypsin, iron saturation low. S/P Paracentesis (10/31/16), SAAG 0.20, not indicative of portal hypertension. - Respiratory failure, COPD, CHF. Improved. S/P thoracentesis. Now on 2L via n/c. Nebs, Abx. - CKD, HTN, PVD, per primary - Recent left AKA wound infection requiring hospitalization, I&D in September 2016. PLAN: - Plan for egd/colonoscopy in am - Obtain consents - Clear liquids - NPO after MN - Golytely prep - Cont. PPI - Monitor HH - Transfuse as necessary - Supportive care - Further recommendations to follow based on results of above - Pt seen and examined by Dr. Ruelas and myself and myself and this note is written on his behalf (Fifi Youssef) Physician Comments Patient was seen and examined, agree with above note and plan, plan colon/EGD in am (Masoud Ruelas MD) Fifi Youssef Nov 02, 2016 16:47 Masoud Ruelas MD Nov 02, 2016 20:44
[2016-11-02] MEDS ORDERED: PEG (High)/E-LYTE SOLN 4000 ML BTL PO ONE (18:00)
[2016-11-03] VITALS (10 sets, daily range): BP systolic 152–178; BP diastolic 72–81; PULSE 71–77; RESP 16–20; TEMP 97.4–98.9; O2SAT 77–94
[2016-11-03] MEDS: RESP: ALBUTEROL 2.5 MG/IPRATROPIUM 0.5 MG NEB (SCH) INH ×6 (00:14→20:06)
[2016-11-03] MEDS ORDERED: PHARMACY ORDERED LAB XX ONE (02:45)
[2016-11-03] MEDS: VANCOMYCIN INJ 1,250 MG in SODIUM CHLOR 0.9% 250 ML INJ 250 ML IV SCH (03:31)
[2016-11-03] MEDS: CHLORHEXIDINE GLUCONATE 2 % 1 PACK (2 CLOTHS) TOP SCH (04:00)
[2016-11-03] MEDS: PIPERACIL-TAZO 4.5 GM PREMIX 100 ML IV SCH ×3 (06:39→21:28)
[2016-11-03] MEDS: INSULIN NovoLIN REGULAR SUPPLEMENTAL SCALE SQ SCH ×4 (06:45→21:00)
[2016-11-03 07:04] LABS: AUTOMATED NEUTROPHIL # 7.9 TH/MM3 (1.8-7.7); BASOPHIL # 0.1 TH/MM3 (0-0.2); BASOPHIL % 1.1 % (0.0-2.0); BICARBONATE 31.2 MEQ/L (21.0-32.0); EOSINOPHIL # 0.4 TH/MM3 (0-0.4); HEMATOCRIT 26.5 % (39.0-51.0); HEMO FLAGS DIFF FINAL; LYMPH % 4.4 % (9.0-44.0); LYMPHOCYTE # 0.4 TH/MM3 (1.0-4.8); MEAN CELL VOLUME 77.5 FL (80.0-100.0); MEAN CORPUSCULAR HEMOGLOBIN 25.2 PG (27.0-34.0); MEAN CORPUSCULAR HGB CONC 32.6 % (32.0-36.0); MONO % 9.6 % (0.0-8.0); NEUT % 80.9 % (16.0-70.0); PLATELET COUNT 231 TH/MM3 (150-450); POTASSIUM 3.8 MEQ/L (3.5-5.1); RED BLOOD COUNT 3.42 MIL/MM3 (4.50-5.90); RED CELL DISTRIBUTION WIDTH 18.3 % (11.6-17.2); WHITE BLOOD COUNT 9.8 TH/MM3 (4.0-11.0)
[2016-11-03] MEDS: ARTIFICIAL TEARS OPTH SOLN 15 ML BTL EACH EYE SCH ×3 (09:04→17:55)
[2016-11-03] MEDS: TAMSULOSIN HCL 0.4 MG CAP PO SCH (09:05)
[2016-11-03] MEDS: SODIUM CHLORIDE 0.9% FLUSH 5 ML FLUSH IV FLUSH SCH ×2 (09:05→21:29)
[2016-11-03] MEDS: ASCORBIC ACID 500 MG TAB PO SCH (09:06)
[2016-11-03] MEDS: levETIRAcetam 500 MG TAB PO SCH ×2 (09:06→21:29)
[2016-11-03] MEDS: DOCUSATE SODIUM 100 MG CAP PO SCH ×2 (09:06→21:28)
[2016-11-03] MEDS: FUROSEMIDE 20 MG TAB PO SCH (09:06)
[2016-11-03] MEDS: amLODIPine BESYLATE 5 MG TAB PO SCH (09:06)
[2016-11-03] MEDS: MORPHINE SULFATE 4 MG/ML INJ IV PRN ×2 (09:06→11:13)
[2016-11-03] MEDS: LACTULOSE SYRUP 20 GM/30 ML CUP PO SCH (09:07)
[2016-11-03] MEDS: PANTOPRAZOLE SOD 40 MG DELAYED RELEASE TAB PO SCH (09:07)
[2016-11-03] MEDS: COLLAGENASE OINT 30 GM TUBE TOP SCH (09:07)
[2016-11-03] MEDS: POVIDONE IODINE 10% SOLN 480 ML BTL TOPICAL SCH ×2 (09:07→21:00)
[2016-11-03] MEDS ORDERED: PROPOFOL 200 MG/20 ML AMP IV ONE (11:03)
--- NOTE | 2016-11-03 11:25 | HHI.GIFU ---
Subjective Remarks seems to be comfortable today, took prep, still some ascites and some SOB Objective Vitals I&O Vital Signs Date Time Temp Pulse Resp B/P Pulse Ox O2 Delivery O2 Flow Rate FiO2 11/03/16 10:15 98.5 71 16 178/77 94 11/03/16 08:00 98.5 71 18 178/77 94 11/03/16 07:40 94 Nasal Cannula 2.50 11/03/16 04:00 97.4 76 17 163/81 93 11/03/16 04:00 Nasal Cannula 3.00 Humidified 11/03/16 00:00 Nasal Cannula 3.00 Humidified 11/03/16 00:00 98.1 75 18 154/78 93 11/02/16 20:41 94 Nasal Cannula 3.00 11/02/16 20:00 97.9 76 18 163/80 92 11/02/16 20:00 Nasal Cannula 3.00 Humidified 11/02/16 20:00 71 11/02/16 18:00 71 11/02/16 16:00 98.0 68 23 155/79 95 11/02/16 16:00 68 11/02/16 14:00 68 11/02/16 12:00 98.5 67 14 159/77 96 11/02/16 12:00 67 I/O 11/02/16 11/02/16 11/02/16 11/03/16 11/03/16 11/03/16 07:00 15:00 23:00 07:00 15:00 23:00 Intake Total 793 ml 847 ml 520 ml 540 ml Output Total 550 ml 450 ml 0 ml 1000 ml Balance 243 ml 397 ml 520 ml -460 ml Intake Oral 480 ml 660 ml 420 ml 240 ml IV Total 313 ml 187 ml 100 ml 300 ml Output Urine Total 550 ml 450 ml 0 ml 1000 ml # Bowel Movements 0 0 1 Laboratory Laboratory Tests Test 11/03/16 11/03/16 03:20 05:12 Vancomycin Level Trough 24.9 White Blood Count 9.8 Red Blood Count 3.42 Hemoglobin 8.6 Hematocrit 26.5 Mean Corpuscular Volume 77.5 Mean Corpuscular Hemoglobin 25.2 Mean Corpuscular Hemoglobin 32.6 Concent Red Cell Distribution Width 18.3 Platelet Count 231 Mean Platelet Volume 8.9 Neutrophils (%) (Auto) 80.9 Lymphocytes (%) (Auto) 4.4 Monocytes (%) (Auto) 9.6 Eosinophils (%) (Auto) 4.0 Basophils (%) (Auto) 1.1 Neutrophils # (Auto) 7.9 Lymphocytes # (Auto) 0.4 Monocytes # (Auto) 0.9 Eosinophils # (Auto) 0.4 Basophils # (Auto) 0.1 CBC Comment DIFF FINAL Differential Comment Sodium Level 142 Potassium Level 3.8 Chloride Level 101 Carbon Dioxide Level 31.2 Anion Gap 10 Blood Urea Nitrogen 27 Creatinine 1.74 Estimat Glomerular Filtration 40 Rate Random Glucose 88 Calcium Level 7.6 Date/Time Procedure Status Source Growth 10/31/16 16:44 Gram Stain - Final Complete Fluid Peritoneal Fluid 10/31/16 16:44 Body Fluid Culture - Final Complete Fluid Peritoneal Fluid NO GROWTH IN 72 HRS.--AEROBICALLY OR ... 10/31/16 14:42 Gram Stain Ordered Fluid Peritoneal Fluid Pending 10/31/16 14:42 Body Fluid Culture Ordered Fluid Peritoneal Fluid Pending 10/31/16 02:15 Aerobic Blood Culture - Preliminary Resulted Blood Peripheral NO GROWTH IN 3 DAYS 10/31/16 02:15 Anaerobic Blood Culture - Preliminary Resulted Blood Peripheral NO GROWTH IN 3 DAYS Physical Exam HEENT: Normocephalic; atraumatic; no jaundice. CHEST: Resp. even, shallow, diminished CARDIAC: ST ABDOMEN: Abdomen soft, nontender, small amount of ascites, nontender. bowel sounds are present in all four quadrants. EXTREMITIES: Left AKA drsg d/i SKIN: Normal; no rash; no jaundice. 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 H/H 6.7/21.3 on admission. No obvious blood loss. Has abdominal discomfort that seems to be related to his distention/ascites, constipation, but no other GI symptoms. Last colonoscopy was about 6 years ago. S/P 2 units of PRBC. HH 8.7/26.4 Pulmonary status much improved. Will plan for egd/ colonoscopy in am- d/w patient procedure, prep, risks, and benefits and he would like to proceed. - Ascites, recurrent. First had during last hospitalization in September and underwent a paracentesis on 10/14/16 with removal of 5,100cc of fluid. Cytology had marked acute inflammation, negative for malignant cells. Peritoneal fluid culture had no growth in 72 hours. His SAAG was < 1.1. Of note, he denies any hx of liver disease and does have CHF. Pt had liver workup recently with negative hepatitis, celiac panel, megan, ama, asma, ceruloplasmin, alpha 1 antitrypsin, iron saturation low. S/P Paracentesis (10/31/16), SAAG 0.20, not indicative of portal hypertension. - Respiratory failure, COPD, CHF. Improved. S/P thoracentesis. Now on 2L via n/c. Nebs, Abx. - CKD, HTN, PVD, per primary - Recent left AKA wound infection requiring hospitalization, I&D in September 2016. 11-03-16 doing ok HGB stable but low, EGD showed gastritis and food r Bx done, colon showed some stool throughout the colon, no large mass, not clear source for anemia, could be chronic Dx related. PLAN: - cardiac diet - Cont. PPI - Monitor HH - Transfuse as necessary - Supportive care - capsule endoscopy as outpatient. Masoud Ruelas MD Nov 03, 2016 11:25
[2016-11-03] MEDS: DRONABINOL 2.5 MG CAP PO SCH ×2 (12:48→17:54)
[2016-11-03] MEDS: FERROUS SULFATE 325 MG (65 MG ELEMENTAL IRON) TAB PO SCH ×2 (12:48→17:55)
--- NOTE | 2016-11-03 16:27 | HHI.PR ---
Subjective Remarks Patient reports some swallowing over the right lower extremity. No complaints of chest pain or shortness of breath. Objective Vitals Vital Signs Date Time Temp Pulse Resp B/P Pulse Ox O2 Delivery O2 Flow Rate FiO2 11/03/16 12:00 98.9 72 18 161/72 92 11/03/16 11:36 71 18 160/78 92 11/03/16 11:31 74 18 146/79 94 11/03/16 11:26 98.0 75 18 154/78 93 11/03/16 11:26 Nasal Cannula 3 11/03/16 10:15 98.5 71 16 178/77 94 11/03/16 08:00 98.5 71 18 178/77 94 11/03/16 08:00 71 11/03/16 07:40 94 Nasal Cannula 2.50 11/03/16 07:00 Nasal Cannula 3.00 Humidified 11/03/16 04:00 97.4 76 17 163/81 93 11/03/16 04:00 Nasal Cannula 3.00 Humidified 11/03/16 00:00 Nasal Cannula 3.00 Humidified 11/03/16 00:00 98.1 75 18 154/78 93 11/02/16 20:41 94 Nasal Cannula 3.00 11/02/16 20:00 97.9 76 18 163/80 92 11/02/16 20:00 Nasal Cannula 3.00 Humidified 11/02/16 20:00 71 11/02/16 18:00 71 I/O 11/02/16 11/02/16 11/02/16 11/03/16 11/03/16 11/03/16 07:00 15:00 23:00 07:00 15:00 23:00 Intake Total 793 ml 847 ml 520 ml 540 ml 450 ml Output Total 550 ml 450 ml 0 ml 1000 ml 475 ml Balance 243 ml 397 ml 520 ml -460 ml -25 ml Intake Oral 480 ml 660 ml 420 ml 240 ml IV Total 313 ml 187 ml 100 ml 300 ml 450 ml Output Urine Total 550 ml 450 ml 0 ml 1000 ml 475 ml # Bowel Movements 0 0 1 Result Diagram: 11/03/1651111/03/16 0512 Objective Remarks GENERAL: This is a well-nourished, well-developed patient, in no apparent distress. CARDIOVASCULAR: Regular rate and rhythm RESPIRATORY: Diminished breath sounds in the bases GASTROINTESTINAL: Abdomen soft, non-tender, nondistended. Normal active bowel sounds MUSCULOSKELETAL: left AKA, right lower shoulder with no tenderness on palpation. There is mild swelling over the right patellar Extremitiesright lower extremity with 2+ edema NEURO: Alert & Oriented x3 to person, place, time A/P Assessment and Plan Acute respiratory failure likely due to bibasilar pleural effusion, rule out underlying pneumonia -currently on Zosyn and vancomycin, pleuritic fluid cultures did not show any growth. Seizure disorder NOS Continue with Keppra 500 mg by mouth twice a day-seizure medication History facial trauma History of insomnia: hold Ambien at this time. Chronic narcotic use [place]/morphine for pain management Hypertension2-D echocardiogram 10/17/16 revealed EF 55-60%. No regional wall motion abnormality. SIOBHAN 47 mmHg Continue Norvasc 5 mg by mouth daily for hypertension. Added as needed hydralazine/Nitropaste Coronary artery disease on aspirin. Peripheral vascular disease Seen by Dr. Geiger last month. Normal JIM Acute respiratory failure secondary to bilateral pleural effusionsas above currently on antibiotics and diuretics History COPD with no active exacerbation Nasal cannula to maintain saturations greater than equal to 92% Incentive spirometry while awake Continue duo nebs every 4 hours and as needed.. Status post therapeutic left sided thoracentesis which appears transudate Severe malnutrition - Patient is currently in a 2000-calorie ADA diet. Continue with Marinol 2.5 mg by mouth twice a day with meals Appreciate gastroenterology's input. Status post EGDmild gastritis, start on ppi, unsure the etiology for anemia and may be anemia of chronic disease per GI. 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 History of hypothyroidism start low-dose Synthroid secondary to elevated TSH Chronic kidney disease stage III Baseline creatinine around 1.5. Monitor urine output closely. Received 1 mg Bumex IV previously restart IV Lasix due to lower extremity edema , will monitor creatinine closely on Lasix. Acute Anemia , suspect GI bleed Status post 2 units PRBCs. Hemoglobin remained stable since the transfusion. History of MRSA Currently on Zosyn/vancomycin day #3 Pertinent cultures Blood cultures s; pleural fluid and peritoneal fluid cultures and sensitivity currently pending Left [id number] amputation Generalized debilitation PT evaluate and treat FEN: Replace electrolytes as clinically indicated per electrolyte protocol Access - Utilize peripheral IV. Central line if indicated Prophylaxis GI - Protonix - DVT - SCD right lower extremity not indicated with severe peripheral arterial/ vascular disease. Pharmacological prophylaxis has been held in light of possible GI bleed, patient status post EGD with gastritis, on ppi. Discharge Planning To rehabilitation when stable. Mireille Marie MD Nov 03, 2016 16:27
[2016-11-03] MEDS ORDERED: FUROSEMIDE 40 MG/4 ML VIAL IV PUSH ONE (16:30)
[2016-11-04] VITALS (10 sets, daily range): BP systolic 148–179; BP diastolic 70–86; PULSE 70–78; RESP 16–20; TEMP 97.9–98.6; O2SAT 90–94
[2016-11-04] MEDS: RESP: ALBUTEROL 2.5 MG/IPRATROPIUM 0.5 MG NEB (SCH) INH ×2 (00:36→04:28)
[2016-11-04] MEDS: CHLORHEXIDINE GLUCONATE 2 % 1 PACK (2 CLOTHS) TOP SCH (04:00)
[2016-11-04] MEDS: PIPERACIL-TAZO 4.5 GM PREMIX 100 ML IV SCH (05:23)
[2016-11-04] MEDS ORDERED: VANCOMYCIN INJ 750 MG in SODIUM CHLOR 0.9% 250 ML INJ 250 ML IV SCH (06:00)
[2016-11-04] MEDS: INSULIN NovoLIN REGULAR SUPPLEMENTAL SCALE SQ SCH ×4 (06:10→21:00)
[2016-11-04 08:23] LABS: BASOPHIL # 0.1 TH/MM3 (0-0.2); BASOPHIL % 0.8 % (0.0-2.0); EOSINOPHIL # 0.3 TH/MM3 (0-0.4); EOSINOPHIL % 2.3 % (0.0-4.0); HEMATOCRIT 25.1 % (39.0-51.0); LYMPH % 4.3 % (9.0-44.0); LYMPHOCYTE # 0.5 TH/MM3 (1.0-4.8); MEAN CELL VOLUME 75.9 FL (80.0-100.0); MEAN CORPUSCULAR HEMOGLOBIN 24.7 PG (27.0-34.0); MEAN CORPUSCULAR HGB CONC 32.5 % (32.0-36.0); MONO % 8.5 % (0.0-8.0); NEUT % 84.1 % (16.0-70.0); PLATELET COUNT 224 TH/MM3 (150-450); RED BLOOD COUNT 3.31 MIL/MM3 (4.50-5.90); RED CELL DISTRIBUTION WIDTH 18.4 % (11.6-17.2); WHITE BLOOD COUNT 11.9 TH/MM3 (4.0-11.0)
[2016-11-04] MEDS: TAMSULOSIN HCL 0.4 MG CAP PO SCH (08:25)
[2016-11-04] MEDS: SODIUM CHLORIDE 0.9% FLUSH 5 ML FLUSH IV FLUSH SCH ×2 (08:25→21:50)
[2016-11-04] MEDS: levETIRAcetam 500 MG TAB PO SCH ×2 (08:25→21:50)
[2016-11-04] MEDS: DOCUSATE SODIUM 100 MG CAP PO SCH ×2 (08:25→21:50)
[2016-11-04] MEDS: FUROSEMIDE 40 MG TAB PO SCH (08:26)
[2016-11-04] MEDS: PANTOPRAZOLE SOD 40 MG DELAYED RELEASE TAB PO SCH (08:26)
[2016-11-04] MEDS: ASCORBIC ACID 500 MG TAB PO SCH (08:26)
[2016-11-04] MEDS: LACTULOSE SYRUP 20 GM/30 ML CUP PO SCH (08:26)
[2016-11-04] MEDS: amLODIPine BESYLATE 5 MG TAB PO SCH (08:26)
[2016-11-04] MEDS: ARTIFICIAL TEARS OPTH SOLN 15 ML BTL EACH EYE SCH ×3 (08:27→17:00)
[2016-11-04 08:31] LABS: HEMO FLAGS AUTO DIFF
[2016-11-04 08:45] LABS: BICARBONATE 29.9 MEQ/L (21.0-32.0); POTASSIUM 3.5 MEQ/L (3.5-5.1)
[2016-11-04] MEDS: RESP: ALBUTEROL 2.5 MG/IPRATROPIUM 0.5 MG NEB (PRN) INH ×2 (09:01→20:06)
[2016-11-04 09:49] LABS: CALCIUM-PROTEIN CORRECTED 8.2 MG/DL (8.5-10.1)
--- NOTE | 2016-11-04 10:26 | HHI.PR ---
Subjective Remarks in no acute distress but with mild sob. no fever. denies pain. Objective Vitals Vital Signs Date Time Temp Pulse Resp B/P Pulse Ox O2 Delivery O2 Flow Rate FiO2 11/04/16 09:03 92 Nasal Cannula 3.00 11/04/16 08:00 98.3 74 20 148/70 90 11/04/16 04:00 98.6 72 16 174/79 92 11/04/16 00:20 98.3 74 20 170/78 92 11/03/16 20:50 97.8 76 20 152/73 77 11/03/16 20:10 94 Nasal Cannula 3.00 11/03/16 20:00 74 11/03/16 20:00 Nasal Cannula 2.00 11/03/16 16:00 98.5 77 20 163/72 93 11/03/16 12:00 98.9 72 18 161/72 92 11/03/16 11:36 71 18 160/78 92 11/03/16 11:31 74 18 146/79 94 11/03/16 11:26 98.0 75 18 154/78 93 11/03/16 11:26 Nasal Cannula 3 I/O 11/03/16 11/03/16 11/03/16 11/04/16 11/04/16 11/04/16 07:00 15:00 23:00 07:00 15:00 23:00 Intake Total 540 ml 690 ml 240 ml Output Total 1000 ml 1125 ml 350 ml 150 ml Balance -460 ml -435 ml -110 ml -150 ml Intake Oral 240 ml 240 ml 240 ml IV Total 300 ml 450 ml Output Urine Total 1000 ml 1125 ml 350 ml 150 ml # Bowel Movements 4 Result Diagram: 11/04/1630 11/04/1630 Imaging Last Impressions Thoracentesis Ultrasound 11/01/16 0000 Signed Impressions: Service Date/Time: Tuesday, November 01, 2016 12:23 - CONCLUSION: Uncomplicated ultrasound guided thoracentesis. Benito Rossi MD FACR Chest X-Ray 11/01/16 0000 Signed Impressions: Service Date/Time: Tuesday, November 01, 2016 13:01 - CONCLUSION: There is no pneumothorax. Benito Rossi MD FACR Cyst Biopsy Asp-Paracentesis US 10/31/16 0000 Signed Impressions: Service Date/Time: Monday, October 31, 2016 10:14 - CONCLUSION: Uncomplicated ultrasound guided paracentesis. Erick Odell MD Chest CT 10/31/16 0000 Signed Impressions: Service Date/Time: Monday, October 31, 2016 08:36 - CONCLUSION: 1. There are large bilateral effusions with compressive atelectasis of both lower lobes. This has worsened when compared to prior exam. 2. Ascites throughout the upper abdomen. Griffin Rossi MD Abdomen/Pelvis CT 10/31/16 0000 Signed Impressions: Service Date/Time: Monday, October 31, 2016 08:36 - CONCLUSION: 1. Large bilateral effusions with compressive atelectasis in the lung bases. 2. Diffuse ascites and probable cirrhosis. 3. Calcified gallstone within the gallbladder. 4. Atherosclerotic calcification. 5. The overall amount of ascites is mildly increased when compared to previous dated 10/15/16. Griffin Rossi MD Objective Remarks GENERAL: This is a well-nourished, well-developed patient, in no apparent distress. CARDIOVASCULAR: Regular rate and regular rhythm without murmurs, gallops, or rubs. RESPIRATORY: Clear to auscultation. Breath sounds equal bilaterally. No wheezes , rales, or rhonchi. GASTROINTESTINAL: Abdomen soft, non-tender, mildly distended. Normal, active bowel sounds MUSCULOSKELETAL: pedal edema on the right side- s/p left leg amputation NEURO: Alert & Oriented x4 to person, place, time, situation. Moves all ext x4 Procedures thoracentesis paracentesis Medications and IVs Current Medications IV Flush 2 ml 2 ml UNSCH PRN IVF FLUSH AFTER USING IV ACCESS; Start 10/31/16 at 02:15; Stop 10/31/16 at 04:14; Status DC Cefepime HCl 2000 mg/Sodium Chloride 100 ml @ 200 mls/hr ONCE ONCE IV Last administered on 10/31/16 05:51; Start 10/31/16 at 02:30; Stop 10/31/16 at 02:59; Status DC Vancomycin HCl 1000 mg/Sodium Chloride 250 ml @ 250 mls/hr ONCE ONCE IV Last administered on 10/31/16 02:55; Start 10/31/16 at 02:30; Stop 10/31/16 at 03:29; Status DC Sodium Chloride (NS 250 ml Inj) 250 ml @ 15 mls/hr ONCE ONCE IV Last administered on 10/31/16 04:35; Start 10/31/16 at 03:45; Stop 10/31/16 at 20:24; Status DC Furosemide (Lasix Inj) 20 mg ONCE ONCE IV PUSH Last administered on 10/31/16 03:55; Start 10/31/16 at 03:45; Stop 10/31/16 at 03:46; Status DC IV Flush (NS Flush) 2 ml BID IVF Last administered on 11/01/16 08:25; Start 10/31/16 at 09:00; Stop 11/01/16 at 09:03; Status DC IV Flush (NS Flush) 2 ml UNSCH PRN IVF FLUSH AFTER USING IV ACCESS; Start at 04:15; Stop 11/01/16 at 09:03; Status DC Pantoprazole Sodium (Protonix Inj) 40 mg DAILY IV Last administered on 08:24; Start 10/31/16 at 09:00; Stop 11/01/16 at 08:40; Status DC Albuterol/ Ipratropium (Duoneb Neb) 1 ampule Q4HR NEB INH Last administered on 11/04/16 00:36; Start 10/31/16 at 08:00; Stop 11/04/16 at 08:00; Status DC Albuterol/ Ipratropium (Duoneb Neb) 1 ampule Q2HR NEB PRN INH WHEEZING Last administered on 11/04/16 09:01; Start 10/31/16 at 06:45 Miscellaneous Information 1 Q361D XX ; Start 10/31/16 at 06:45 Chlorhexidine Gluconate (Chlorhexidine 2% Cloth) 3 pack Taper DAILY@04 TOP Last administered on 11/03/16 04:00; Start 11/01/16 at 04:00; Stop 10/28/17 at 03:59 Chlorhexidine Gluconate (Chlorhexidine 2% Cloth) 3 pack UNSCH PRN TOP HYGIENIC CARE; Start 10/31/16 at 06:45 Dextrose (D50w (Vial) Inj) 25 ml UNSCH PRN IV PUSH HYPOGLYCEMIA-SEE COMMENTS; Start 10/31/16 at 06:45 Glucagon (Glucagon Inj) 1 mg UNSCH PRN OTHER HYPOGLYCEMIA-SEE COMMENTS; Start 10/31/16 at 06:45 Insulin Human Regular (NovoLIN R SUPPLEMENTAL SCALE) 1 Q6H SQ ; Start 10/31/16 at 06:45; Stop 10/31/16 at 06:47; Status DC Insulin Human Regular 1 1 Q6HR SQ ; Start 10/31/16 at 06:50; Stop 11/01/16 at 08: 11; Status DC Pharmacy Profile Note 0 ml @ 0 mls/hr UNSCH OTHER ; Start 10/31/16 at 07:00 Piperacillin Sod/ Tazobactam Sod (Zosyn 4.5 Gm Premix) 100 ml @ 200 mls/hr Q6H IV Last administered on 11/01/16 08:24; Start 10/31/16 at 08:00; Stop 11/01/16 at 08:40; Status DC Bumetanide 1 mg 1 mg ONCE ONCE IV PUSH Last administered on 10/31/16 08:08; Start 10/31/16 at 08:00; Stop 10/31/16 at 08:01; Status DC Vancomycin HCl/ Sodium Chloride (Vancomycin Inj/ NS 250 ml Inj) 262.5 ml @ 250 mls/hr Q24H IV Last administered on 11/03/16 03:31; Start 11/01/16 at 03:00; Stop 11/03/16 at 08:38; Status DC Miscellaneous Information SPECIFIC LAB TO BE DRAWN:VANCOMYCIN TROUGH DATE TO... ONCE ONCE XX Last administered on 11/03/16 03:20; Start 11/03/16 at 02:45; Stop 11/03/16 at 02:46; Status DC Amlodipine Besylate (Norvasc) 5 mg DAILY PO Last administered on 11/04/16 08:26 ; Start 11/01/16 at 09:00 Lidocaine HCl (Xylocaine 1% Inj) 30 ml STK-MED ONCE .ROUTE Last administered on 10/31/16 16:35; Start 10/31/16 at 17:50; Stop 10/31/16 at 17:51; Status DC Tamsulosin HCl (Flomax) 0.4 mg DAILY PO Last administered on 11/04/16 08:25; Start 11/01/16 at 09:00 Lactulose (Lactulose Liq) 30 ml DAILY PO Last administered on 11/04/16 08:26; Start 11/01/16 at 09:00 Levetriacetam (Keppra) 500 mg Q12HR PO Last administered on 11/04/16 08:25; Start 11/01/16 at 09:00 Ferrous Sulfate (Ferrous Sulfate) 325 mg BID@12,17 PO Last administered on 17:55; Start 11/01/16 at 12:00 Ascorbic Acid (Vitamin C) 500 mg DAILY PO Last administered on 11/04/16 08:26; Start 11/01/16 at 09:00 Dronabinol (Marinol) 2.5 mg BID@11,16 PO Last administered on 11/03/16 17:54; Start 11/01/16 at 11:00 Insulin Human Regular (NovoLIN R SUPPLEMENTAL SCALE) 1 ACHS SQ Last administered on 11/02/16 11:00; Start 11/01/16 at 11:00 Collagenase (Santyl Oint) 1 applic DAILY TOP Last administered on 11/03/16 09: 07; Start 11/01/16 at 09:00 Furosemide 20 mg 20 mg BID@09,18 PO Last administered on 11/03/16 09:06; Start 11/01/16 at 09:00; Stop 11/03/16 at 16:36; Status DC Piperacillin Sod/ Tazobactam Sod (Zosyn 4.5 Gm Premix) 100 ml @ 200 mls/hr Q8HR IV Last administered on 11/04/16 05:23; Start 11/01/16 at 14:00 IV Flush (NS Flush) 2 ml UNSCH PRN IV FLUSH FLUSH AFTER USING IV ACCESS; Start 11/01/16 at 08:45 IV Flush (NS Flush) 2 ml BID IV FLUSH Last administered on 11/04/16 08:25; Start 11/01/16 at 09:00 Acetaminophen (Tylenol) 650 mg Q6H PRN PO PAIN 1-10 AND/OR FEVER >101F; Start 11/01/16 at 08:45 Acetaminophen/ Hydrocodone Bitart (Crane 5-325 Mg) 1 tab Q4H PRN PO PAIN SCALE 1 TO 5; Start 11/01/16 at 08:45 Morphine Sulfate (Morphine Inj) 2 mg Q2H PRN IV PAIN SCALE 6 TO 10 Last administered on 11/03/16 09:06; Start 11/01/16 at 08:45 Pantoprazole Sodium (Protonix) 40 mg DAILY PO Last administered on 11/04/16 08: 26; Start 11/01/16 at 09:00 Artificial Tears (Tears Naturale Opth Soln) 1 drop TID EACH EYE Last administered on 11/04/16 08:27; Start 11/01/16 at 09:00 Ondansetron HCl (Zofran Inj) 4 mg Q6H PRN IV NAUSEA OR VOMITING; Start 11/01/16 at 08:45 Docusate Sodium (Colace) 100 mg BID PO Last administered on 11/04/16 08:25; Start 11/01/16 at 09:00 Sennosides (Senokot) 17.2 mg Q12H PRN PO CONSTIPATION; Start 11/01/16 at 08:45 Miscellaneous Information 1 Q361D XX ; Start 11/01/16 at 08:45; Stop 11/01/16 at 09:02; Status DC Chlorhexidine Gluconate (Chlorhexidine 2% Cloth) 3 pack Taper DAILY@04 TOP ; Start 11/02/16 at 04:00; Stop 11/02/16 at 04:00; Status DC Chlorhexidine Gluconate (Chlorhexidine 2% Cloth) 3 pack UNSCH PRN TOP HYGIENIC CARE; Start 11/01/16 at 08:45; Stop 11/01/16 at 09:02; Status DC Hydralazine HCl (Apresoline Inj) 10 mg Q2HR PRN IV PUSH SBP>160, DBP>90; Start 11/01/16 at 09:45 Nitroglycerin (Nitroglycerin 2% Oint) 2 inch Q6HR PRN TOPICAL SBP>160, DBP>90; Start 11/01/16 at 11:00 Povidone Iodine (Betadine 10% Top Soln) 1 applic BID TOPICAL Last administered on 11/03/16 21:00; Start 11/01/16 at 12:00 Epinephrine HCl (EPINEPHrine (1:10,000) INJ) 1 mg STK-MED ONCE .ROUTE ; Start at 11:09; Stop 11/01/16 at 11:10; Status DC Atropine Sulfate (Atropine Inj) 1 mg STK-MED ONCE .ROUTE ; Start 11/01/16 at 11: 09; Stop 11/01/16 at 11:10; Status DC Lidocaine HCl (Xylocaine 2% Inj) 100 mg STK-MED ONCE .ROUTE ; Start 11/01/16 at 11:09; Stop 11/01/16 at 11:10; Status DC Lidocaine HCl (Xylocaine 1% Inj) 30 ml STK-MED ONCE .ROUTE Last administered on 11/01/16 12:35; Start 11/01/16 at 13:52; Stop 11/01/16 at 13:53; Status DC Polyethylene Glycol/ Electrolytes 4000 ml 4,000 ml ONCE ONCE PO Last administered on 11/02/16 18:40; Start 11/02/16 at 18:00; Stop 11/02/16 at 18:01; Status DC Vancomycin HCl/ Sodium Chloride (Vancomycin Inj/ NS 250 ml Inj) 257.5 ml @ 250 mls/hr Q24H IV Last administered on 11/04/16 05:24; Start 11/04/16 at 06:00 Miscellaneous Information SPECIFIC LAB TO BE SMITH... ONCE ONCE XX ; Start at 05:45; Stop 11/06/16 at 05:46 Propofol (Diprivan 200 Mg/20 ml Inj) 50 mg STK-MED ONCE IV ; Start 11/03/16 at 11:03; Stop 11/03/16 at 11:23; Status DC Furosemide (Lasix Inj) 40 mg ONCE ONCE IV PUSH ; Start 11/03/16 at 16:30; Stop 11/03/16 at 16:35; Status DC Furosemide (Lasix) 40 mg DAILY PO Last administered on 11/04/16 08:26; Start at 09:00 A/P Assessment and Plan A/P Acute respiratory failure likely due to bibasilar pleural effusion, rule out underlying pneumonia - pleuritic fluid cultures did not show any growth. will stop the broad spectrum antibiotics- change to levaquin. Seizure disorder NOS Continue with Keppra 500 mg by mouth twice a day-seizure medication History of insomnia: hold Ambien at this time. Chronic narcotic use Crane/morphine for pain management Hypertension2-D echocardiogram 10/17/16 revealed EF 55-60%. No regional wall motion abnormality. SIOBHAN 47 mmHg Continue Norvasc 5 mg by mouth daily for hypertension. Added as needed hydralazine/Nitropaste Coronary artery disease on aspirin. Peripheral vascular disease Seen by Dr. Geiger last month. Normal JIM History COPD with no active exacerbation Nasal cannula to maintain saturations greater than equal to 92% Incentive spirometry while awake Continue duo nebs every 4 hours and as needed.. Status post therapeutic thoracentesis which appears transudate Severe malnutrition - Patient is currently in a 2000-calorie ADA diet. Continue with Marinol 2.5 mg by mouth twice a day with meals Appreciate gastroenterology's input. Status post EGDmild gastritis, start on ppi, unsure the etiology for anemia and may be anemia of chronic disease per GI. ascites; s/p paracentesis- no evidence of portal hypertension- GI evaluated- check the urine for alb/ creat. ratio. 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 History of hypothyroidism started low-dose Synthroid secondary to elevated TSH Chronic kidney disease stage III Baseline creatinine around 1.5. Monitor urine output closely. Received 1 mg Bumex IV previously restart IV Lasix due to lower extremity edema , will monitor creatinine closely on Lasix. Acute Anemia , suspect GI bleed Status post 2 units PRBCs. Hemoglobin remained stable since the transfusion. History of MRSA Currently on Zosyn/vancomycin day #3 Left [id number] amputation Generalized debilitation PT evaluate and treat FEN: Replace electrolytes as clinically indicated per electrolyte protocol Prophylaxis GI - Protonix - DVT - SCD right lower extremity not indicated with severe peripheral arterial/ vascular disease. Pharmacological prophylaxis has been held in light of possible GI bleed, patient status post EGD with gastritis, on ppi. Discharge Planning possible dc to SNF in one-two days if stable. Abhinav Ya MD Nov 04, 2016 10:26
[2016-11-04] MEDS ORDERED: Custom Consult Pharmacy 1 EA OTHER SCH (10:30)
[2016-11-04] MEDS ORDERED: LEVOFLOXACIN 500 MG TAB PO ONE (11:00)
[2016-11-04 11:17] LABS: BANDS 7 % (0-6); BASOPHILS 1 % (0-2); EOSINOPHILS 1 % (0-4); MYELOCYTES 1 % (0-0); NEUTROPHIL # MANUAL DIFF 10.4 TH/MM3 (1.8-7.7); OVALOCYTES 1+ (NORMAL); PLATELET ESTIMATE SMEAR NORMAL (NORMAL); PLATELET MORPHOLOGY NORMAL (NORMAL); POLYS (SEG NEUTROPHILS) 79 % (16-70); SCAN/DIFF FINAL DIFF MANUAL; WBC DIFF SAMPLE 100
[2016-11-04] MEDS: POVIDONE IODINE 10% SOLN 480 ML BTL TOPICAL SCH ×2 (12:32→21:00)
[2016-11-04] MEDS: COLLAGENASE OINT 30 GM TUBE TOP SCH (12:32)
[2016-11-04] MEDS: DRONABINOL 2.5 MG CAP PO SCH ×2 (12:38→16:11)
--- NOTE | 2016-11-04 14:56 | HHI.GIFU ---
Subjective Remarks Resting in bed. No active bleeding. Tolerating diet. No n/v/abdominal pain. ( Fifi Youssef) Objective Vitals I&O Vital Signs Date Time Temp Pulse Resp B/P Pulse Ox O2 Delivery O2 Flow Rate FiO2 11/04/16 12:00 97.9 70 20 165/79 94 11/04/16 09:03 92 Nasal Cannula 3.00 11/04/16 08:00 98.3 74 20 148/70 90 11/04/16 04:00 98.6 72 16 174/79 92 11/04/16 00:20 98.3 74 20 170/78 92 11/03/16 20:50 97.8 76 20 152/73 77 11/03/16 20:10 94 Nasal Cannula 3.00 11/03/16 20:00 74 11/03/16 20:00 Nasal Cannula 2.00 11/03/16 16:00 98.5 77 20 163/72 93 I/O 11/03/16 11/03/16 11/03/16 11/04/16 11/04/16 11/04/16 07:00 15:00 23:00 07:00 15:00 23:00 Intake Total 540 ml 690 ml 240 ml Output Total 1000 ml 1125 ml 350 ml 150 ml Balance -460 ml -435 ml -110 ml -150 ml Intake Oral 240 ml 240 ml 240 ml IV Total 300 ml 450 ml Output Urine Total 1000 ml 1125 ml 350 ml 150 ml # Bowel Movements 4 Laboratory Laboratory Tests Test 11/04/16 07:30 White Blood Count 11.9 Red Blood Count 3.31 Hemoglobin 8.2 Hematocrit 25.1 Mean Corpuscular Volume 75.9 Mean Corpuscular Hemoglobin 24.7 Mean Corpuscular Hemoglobin 32.5 Concent Red Cell Distribution Width 18.4 Platelet Count 224 Mean Platelet Volume 8.2 Neutrophils (%) (Auto) 84.1 Lymphocytes (%) (Auto) 4.3 Monocytes (%) (Auto) 8.5 Eosinophils (%) (Auto) 2.3 Basophils (%) (Auto) 0.8 Neutrophils # (Auto) 10.0 Lymphocytes # (Auto) 0.5 Monocytes # (Auto) 1.0 Eosinophils # (Auto) 0.3 Basophils # (Auto) 0.1 CBC Comment AUTO DIFF Differential Total Cells 100 Counted Neutrophils % (Manual) 79 Band Neutrophils % 7 Lymphocytes % 3 Monocytes % 8 Eosinophils % 1 Basophils % 1 Neutrophils # (Manual) 10.4 Myelocytes 1 Differential Comment FINAL DIFF MANUAL Platelet Estimate NORMAL Platelet Morphology Comment NORMAL Ovalocytes 1+ Sodium Level 139 Potassium Level 3.5 Chloride Level 99 Carbon Dioxide Level 29.9 Anion Gap 10 Blood Urea Nitrogen 28 Creatinine 1.71 Estimat Glomerular Filtration 40 Rate Random Glucose 74 Calcium Level 7.4 Protein Corrected Calcium 8.2 Total Protein 5.7 Date/Time Procedure Status Source Growth 10/31/16 16:44 Gram Stain - Final Complete Fluid Peritoneal Fluid 10/31/16 16:44 Body Fluid Culture - Final Complete Fluid Peritoneal Fluid NO GROWTH IN 72 HRS.--AEROBICALLY OR ... 10/31/16 14:42 Gram Stain Ordered Fluid Peritoneal Fluid Pending 10/31/16 14:42 Body Fluid Culture Ordered Fluid Peritoneal Fluid Pending 10/31/16 02:15 Aerobic Blood Culture - Preliminary Resulted Blood Peripheral NO GROWTH IN 4 DAYS 10/31/16 02:15 Anaerobic Blood Culture - Preliminary Resulted Blood Peripheral NO GROWTH IN 4 DAYS Imaging Last Impressions Thoracentesis Ultrasound 11/01/16 0000 Signed Impressions: Service Date/Time: Tuesday, November 01, 2016 12:23 - CONCLUSION: Uncomplicated ultrasound guided thoracentesis. Benito Rossi MD FACR Chest X-Ray 11/01/16 0000 Signed Impressions: Service Date/Time: Tuesday, November 01, 2016 13:01 - CONCLUSION: There is no pneumothorax. Benito Rossi MD FACR Cyst Biopsy Asp-Paracentesis US 10/31/16 0000 Signed Impressions: Service Date/Time: Monday, October 31, 2016 10:14 - CONCLUSION: Uncomplicated ultrasound guided paracentesis. Erick Odell MD Chest CT 10/31/16 0000 Signed Impressions: Service Date/Time: Monday, October 31, 2016 08:36 - CONCLUSION: 1. There are large bilateral effusions with compressive atelectasis of both lower lobes. This has worsened when compared to prior exam. 2. Ascites throughout the upper abdomen. Griffin Rossi MD Abdomen/Pelvis CT 10/31/16 0000 Signed Impressions: Service Date/Time: Monday, October 31, 2016 08:36 - CONCLUSION: 1. Large bilateral effusions with compressive atelectasis in the lung bases. 2. Diffuse ascites and probable cirrhosis. 3. Calcified gallstone within the gallbladder. 4. Atherosclerotic calcification. 5. The overall amount of ascites is mildly increased when compared to previous dated 10/15/16. Griffin Rossi MD Physical Exam HEENT: Normocephalic; atraumatic; no jaundice. CHEST: Resp. even, shallow, diminished CARDIAC: ST ABDOMEN: Abdomen soft, nontender, small amount of ascites, nontender. bowel sounds are present in all four quadrants. EXTREMITIES: Left AKA drsg d/i SKIN: Normal; no rash; no jaundice. 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 H/H 6.7/21.3 on admission. No obvious blood loss. Has abdominal discomfort that seems to be related to his distention/ascites, constipation, but no other GI symptoms. Last colonoscopy was about 6 years ago. S/P 2 units of PRBC. HH 8.2/25.1 Pulmonary status much improved. S/P EGD/Colonoscopy (11/03)---> EGD showed gastritis and food, Bx done, colon showed some stool throughout the colon, no large mass, not clear source for anemia, could be chronic Dx related. HH stable. Plan for capsule endoscopy as outpatient. - Ascites, recurrent. First had during last hospitalization in September and underwent a paracentesis on 10/14/16 with removal of 5,100cc of fluid. Cytology had marked acute inflammation, negative for malignant cells. Peritoneal fluid culture had no growth in 72 hours. His SAAG was < 1.1. Of note, he denies any hx of liver disease and does have CHF. Pt had liver workup recently with negative hepatitis, celiac panel, megan, ama, asma, ceruloplasmin, alpha 1 antitrypsin, iron saturation low. S/P Paracentesis (10/31/16), SAAG 0.20, not indicative of portal hypertension. - Respiratory failure, COPD, CHF. Improved. S/P thoracentesis. Now on 2L via n/c. Nebs, Abx. - CKD, HTN, PVD, per primary - Recent left AKA wound infection requiring hospitalization, I&D in September 2016. PLAN: - Cardiac diet - Cont. PPI - Monitor HH - Transfuse as necessary - Supportive care - Capsule endoscopy as outpatient - FU DENISE 2 weeks - GI will sign off, please reconsult as needed - Pt seen and examined by Dr. Ruelas and myself and this note is written on his behalf (Fifi Youssef) Physician Comments atient was seen and examined, agree with above note, doing better, we will FU as outpatient, we will sign off now. (Masoud Ruelas MD) Fifi Youssef Nov 04, 2016 14:56 Masoud Ruelas MD Nov 04, 2016 15:07
[2016-11-04] MEDS: FERROUS SULFATE 325 MG (65 MG ELEMENTAL IRON) TAB PO SCH ×2 (16:11→16:59)
[2016-11-05] VITALS (8 sets, daily range): BP systolic 82–173; BP diastolic 49–84; PULSE 56–75; RESP 17–20; TEMP 97.3–98.4; O2SAT 91–96
[2016-11-05] MEDS: CHLORHEXIDINE GLUCONATE 2 % 1 PACK (2 CLOTHS) TOP SCH (04:00)
[2016-11-05] MEDS: LEVOTHYROXINE SODIUM 25 MCG TAB PO SCH (05:11)
[2016-11-05] MEDS: INSULIN NovoLIN REGULAR SUPPLEMENTAL SCALE SQ SCH ×4 (06:31→21:00)
[2016-11-05 08:46] LABS: HEMATOCRIT 27.8 % (39.0-51.0)
[2016-11-05] MEDS: POVIDONE IODINE 10% SOLN 480 ML BTL TOPICAL SCH ×2 (09:00→21:00)
[2016-11-05] MEDS: LACTULOSE SYRUP 20 GM/30 ML CUP PO SCH (09:18)
[2016-11-05] MEDS: ARTIFICIAL TEARS OPTH SOLN 15 ML BTL EACH EYE SCH ×3 (09:18→17:18)
[2016-11-05] MEDS: FUROSEMIDE 40 MG TAB PO SCH (09:19)
[2016-11-05] MEDS: COLLAGENASE OINT 30 GM TUBE TOP SCH (09:19)
[2016-11-05] MEDS: ASCORBIC ACID 500 MG TAB PO SCH (09:19)
[2016-11-05] MEDS: PANTOPRAZOLE SOD 40 MG DELAYED RELEASE TAB PO SCH (09:19)
[2016-11-05] MEDS: levETIRAcetam 500 MG TAB PO SCH ×2 (09:19→21:49)
[2016-11-05] MEDS: TAMSULOSIN HCL 0.4 MG CAP PO SCH (09:19)
[2016-11-05] MEDS: amLODIPine BESYLATE 5 MG TAB PO SCH (09:19)
[2016-11-05] MEDS: DOCUSATE SODIUM 100 MG CAP PO SCH ×2 (09:22→21:49)
[2016-11-05] MEDS: SODIUM CHLORIDE 0.9% FLUSH 5 ML FLUSH IV FLUSH SCH ×2 (09:22→21:50)
[2016-11-05] MEDS: DRONABINOL 2.5 MG CAP PO SCH ×2 (12:25→17:18)
[2016-11-05] MEDS: LEVOFLOXACIN 250 MG TAB PO SCH (12:25)
[2016-11-05] MEDS: FERROUS SULFATE 325 MG (65 MG ELEMENTAL IRON) TAB PO SCH ×2 (12:25→17:18)
--- NOTE | 2016-11-05 12:58 | HHI.PR ---
Subjective Remarks with some sob; says that his sob is worse today. on four liters of oxygen via N/C. no fever. Objective Vitals Vital Signs Date Time Temp Pulse Resp B/P Pulse Ox O2 Delivery O2 Flow Rate FiO2 11/05/16 12:00 97.7 70 17 158/74 91 11/05/16 11:01 94 Nasal Cannula 3.00 11/05/16 08:00 Room Air 11/05/16 08:00 73 11/05/16 08:00 98.4 72 17 171/81 93 11/05/16 04:00 98.0 70 20 156/74 94 11/05/16 00:00 98.2 71 20 160/74 93 11/04/16 20:15 Nasal Cannula 2.00 11/04/16 20:06 71 11/04/16 20:05 93 Nasal Cannula 4.00 11/04/16 20:05 93 Nasal Cannula 4.00 11/04/16 20:00 98.5 75 20 157/86 92 11/04/16 19:36 71 11/04/16 18:02 91 Nasal Cannula 2.00 11/04/16 16:00 98.1 78 20 179/84 91 I/O 11/04/16 11/04/16 11/04/16 11/05/16 11/05/16 11/05/16 07:00 15:00 23:00 07:00 15:00 23:00 Intake Total 480 ml 220 ml Output Total 150 ml 900 ml 500 ml Balance -150 ml -420 ml -280 ml Intake Oral 480 ml 220 ml Output Urine Total 150 ml 900 ml 500 ml # Bowel Movements 0 0 Result Diagram: 11/05/1612 11/04/16 0730 Imaging Last Impressions Thoracentesis Ultrasound 11/01/16 0000 Signed Impressions: Service Date/Time: Tuesday, November 01, 2016 12:23 - CONCLUSION: Uncomplicated ultrasound guided thoracentesis. Benito Rossi MD FACR Chest X-Ray 11/01/16 0000 Signed Impressions: Service Date/Time: Tuesday, November 01, 2016 13:01 - CONCLUSION: There is no pneumothorax. Benito Rossi MD FACR Cyst Biopsy Asp-Paracentesis US 10/31/16 0000 Signed Impressions: Service Date/Time: Monday, October 31, 2016 10:14 - CONCLUSION: Uncomplicated ultrasound guided paracentesis. Erick Odell MD Chest CT 10/31/16 0000 Signed Impressions: Service Date/Time: Monday, October 31, 2016 08:36 - CONCLUSION: 1. There are large bilateral effusions with compressive atelectasis of both lower lobes. This has worsened when compared to prior exam. 2. Ascites throughout the upper abdomen. Griffin Rossi MD Abdomen/Pelvis CT 10/31/16 0000 Signed Impressions: Service Date/Time: Monday, October 31, 2016 08:36 - CONCLUSION: 1. Large bilateral effusions with compressive atelectasis in the lung bases. 2. Diffuse ascites and probable cirrhosis. 3. Calcified gallstone within the gallbladder. 4. Atherosclerotic calcification. 5. The overall amount of ascites is mildly increased when compared to previous dated 10/15/16. Griffin Rossi MD Objective Remarks GENERAL: This is a well-nourished, well-developed patient, in no apparent distress. CARDIOVASCULAR: Regular rate and regular rhythm without murmurs, gallops, or rubs. RESPIRATORY: Clear to auscultation. Breath sounds equal bilaterally. No wheezes , rales, or rhonchi. GASTROINTESTINAL: Abdomen soft, non-tender, mildly distended. Normal, active bowel sounds MUSCULOSKELETAL: pedal edema on the right side- s/p left leg amputation NEURO: Alert & Oriented x4 to person, place, time, situation. Moves all ext x4 Procedures thoracentesis paracentesis Medications and IVs Current Medications IV Flush 2 ml 2 ml UNSCH PRN IVF FLUSH AFTER USING IV ACCESS; Start 10/31/16 at 02:15; Stop 10/31/16 at 04:14; Status DC Cefepime HCl 2000 mg/Sodium Chloride 100 ml @ 200 mls/hr ONCE ONCE IV Last administered on 10/31/16 05:51; Start 10/31/16 at 02:30; Stop 10/31/16 at 02:59; Status DC Vancomycin HCl 1000 mg/Sodium Chloride 250 ml @ 250 mls/hr ONCE ONCE IV Last administered on 10/31/16 02:55; Start 10/31/16 at 02:30; Stop 10/31/16 at 03:29; Status DC Sodium Chloride (NS 250 ml Inj) 250 ml @ 15 mls/hr ONCE ONCE IV Last administered on 10/31/16 04:35; Start 10/31/16 at 03:45; Stop 10/31/16 at 20:24; Status DC Furosemide (Lasix Inj) 20 mg ONCE ONCE IV PUSH Last administered on 10/31/16 03:55; Start 10/31/16 at 03:45; Stop 10/31/16 at 03:46; Status DC IV Flush (NS Flush) 2 ml BID IVF Last administered on 11/01/16 08:25; Start 10/31/16 at 09:00; Stop 11/01/16 at 09:03; Status DC IV Flush (NS Flush) 2 ml UNSCH PRN IVF FLUSH AFTER USING IV ACCESS; Start at 04:15; Stop 11/01/16 at 09:03; Status DC Pantoprazole Sodium (Protonix Inj) 40 mg DAILY IV Last administered on 08:24; Start 10/31/16 at 09:00; Stop 11/01/16 at 08:40; Status DC Albuterol/ Ipratropium (Duoneb Neb) 1 ampule Q4HR NEB INH Last administered on 11/04/16 00:36; Start 10/31/16 at 08:00; Stop 11/04/16 at 08:00; Status DC Albuterol/ Ipratropium (Duoneb Neb) 1 ampule Q2HR NEB PRN INH WHEEZING Last administered on 11/04/16 20:06; Start 10/31/16 at 06:45 Miscellaneous Information 1 Q361D XX ; Start 10/31/16 at 06:45 Chlorhexidine Gluconate (Chlorhexidine 2% Cloth) 3 pack Taper DAILY@04 TOP Last administered on 11/05/16 04:00; Start 11/01/16 at 04:00; Stop 10/28/17 at 03:59 Chlorhexidine Gluconate (Chlorhexidine 2% Cloth) 3 pack UNSCH PRN TOP HYGIENIC CARE; Start 10/31/16 at 06:45 Dextrose (D50w (Vial) Inj) 25 ml UNSCH PRN IV PUSH HYPOGLYCEMIA-SEE COMMENTS; Start 10/31/16 at 06:45 Glucagon (Glucagon Inj) 1 mg UNSCH PRN OTHER HYPOGLYCEMIA-SEE COMMENTS; Start 10/31/16 at 06:45 Insulin Human Regular (NovoLIN R SUPPLEMENTAL SCALE) 1 Q6H SQ ; Start 10/31/16 at 06:45; Stop 10/31/16 at 06:47; Status DC Insulin Human Regular 1 1 Q6HR SQ ; Start 10/31/16 at 06:50; Stop 11/01/16 at 08: 11; Status DC Pharmacy Profile Note 0 ml @ 0 mls/hr UNSCH OTHER ; Start 10/31/16 at 07:00; Stop 11/04/16 at 10:29; Status DC Piperacillin Sod/ Tazobactam Sod (Zosyn 4.5 Gm Premix) 100 ml @ 200 mls/hr Q6H IV Last administered on 11/01/16 08:24; Start 10/31/16 at 08:00; Stop 11/01/16 at 08:40; Status DC Bumetanide 1 mg 1 mg ONCE ONCE IV PUSH Last administered on 10/31/16 08:08; Start 10/31/16 at 08:00; Stop 10/31/16 at 08:01; Status DC Vancomycin HCl/ Sodium Chloride (Vancomycin Inj/ NS 250 ml Inj) 262.5 ml @ 250 mls/hr Q24H IV Last administered on 11/03/16 03:31; Start 11/01/16 at 03:00; Stop 11/03/16 at 08:38; Status DC Miscellaneous Information SPECIFIC LAB TO BE DRAWN:VANCOMYCIN TROUGH DATE TO... ONCE ONCE XX Last administered on 11/03/16 03:20; Start 11/03/16 at 02:45; Stop 11/03/16 at 02:46; Status DC Amlodipine Besylate (Norvasc) 5 mg DAILY PO Last administered on 11/05/16 09:19 ; Start 11/01/16 at 09:00 Lidocaine HCl (Xylocaine 1% Inj) 30 ml STK-MED ONCE .ROUTE Last administered on 10/31/16 16:35; Start 10/31/16 at 17:50; Stop 10/31/16 at 17:51; Status DC Tamsulosin HCl (Flomax) 0.4 mg DAILY PO Last administered on 11/05/16 09:19; Start 11/01/16 at 09:00 Lactulose (Lactulose Liq) 30 ml DAILY PO Last administered on 11/05/16 09:18; Start 11/01/16 at 09:00 Levetriacetam (Keppra) 500 mg Q12HR PO Last administered on 11/05/16 09:19; Start 11/01/16 at 09:00 Ferrous Sulfate (Ferrous Sulfate) 325 mg BID@12,17 PO Last administered on 12:25; Start 11/01/16 at 12:00 Ascorbic Acid (Vitamin C) 500 mg DAILY PO Last administered on 11/05/16 09:19; Start 11/01/16 at 09:00 Dronabinol (Marinol) 2.5 mg BID@11,16 PO Last administered on 11/05/16 12:25; Start 11/01/16 at 11:00 Insulin Human Regular (NovoLIN R SUPPLEMENTAL SCALE) 1 ACHS SQ Last administered on 11/02/16 11:00; Start 11/01/16 at 11:00 Collagenase (Santyl Oint) 1 applic DAILY TOP Last administered on 11/05/16 09: 19; Start 11/01/16 at 09:00 Furosemide 20 mg 20 mg BID@09,18 PO Last administered on 11/03/16 09:06; Start 11/01/16 at 09:00; Stop 11/03/16 at 16:36; Status DC Piperacillin Sod/ Tazobactam Sod (Zosyn 4.5 Gm Premix) 100 ml @ 200 mls/hr Q8HR IV Last administered on 11/04/16 05:23; Start 11/01/16 at 14:00; Stop at 10:29; Status DC IV Flush (NS Flush) 2 ml UNSCH PRN IV FLUSH FLUSH AFTER USING IV ACCESS; Start 11/01/16 at 08:45 IV Flush (NS Flush) 2 ml BID IV FLUSH Last administered on 11/05/16 09:22; Start 11/01/16 at 09:00 Acetaminophen (Tylenol) 650 mg Q6H PRN PO PAIN 1-10 AND/OR FEVER >101F; Start 11/01/16 at 08:45 Acetaminophen/ Hydrocodone Bitart ([place]burn 5-325 Mg) 1 tab Q4H PRN PO PAIN SCALE 1 TO 5; Start 11/01/16 at 08:45 Morphine Sulfate (Morphine Inj) 2 mg Q2H PRN IV PAIN SCALE 6 TO 10 Last administered on 11/03/16 09:06; Start 11/01/16 at 08:45 Pantoprazole Sodium (Protonix) 40 mg DAILY PO Last administered on 11/05/16 09: 19; Start 11/01/16 at 09:00 Artificial Tears (Tears Naturale Opth Soln) 1 drop TID EACH EYE Last administered on 11/05/16 12:25; Start 11/01/16 at 09:00 Ondansetron HCl (Zofran Inj) 4 mg Q6H PRN IV NAUSEA OR VOMITING; Start 11/01/16 at 08:45 Docusate Sodium (Colace) 100 mg BID PO Last administered on 11/05/16 09:22; Start 11/01/16 at 09:00 Sennosides (Senokot) 17.2 mg Q12H PRN PO CONSTIPATION; Start 11/01/16 at 08:45 Miscellaneous Information 1 Q361D XX ; Start 11/01/16 at 08:45; Stop 11/01/16 at 09:02; Status DC Chlorhexidine Gluconate (Chlorhexidine 2% Cloth) 3 pack Taper DAILY@04 TOP ; Start 11/02/16 at 04:00; Stop 11/02/16 at 04:00; Status DC Chlorhexidine Gluconate (Chlorhexidine 2% Cloth) 3 pack UNSCH PRN TOP HYGIENIC CARE; Start 11/01/16 at 08:45; Stop 11/01/16 at 09:02; Status DC Hydralazine HCl (Apresoline Inj) 10 mg Q2HR PRN IV PUSH SBP>160, DBP>90; Start 11/01/16 at 09:45 Nitroglycerin (Nitroglycerin 2% Oint) 2 inch Q6HR PRN TOPICAL SBP>160, DBP>90; Start 11/01/16 at 11:00 Povidone Iodine (Betadine 10% Top Soln) 1 applic BID TOPICAL Last administered on 11/05/16 09:00; Start 11/01/16 at 12:00 Epinephrine HCl (EPINEPHrine (1:10,000) INJ) 1 mg STK-MED ONCE .ROUTE ; Start at 11:09; Stop 11/01/16 at 11:10; Status DC Atropine Sulfate (Atropine Inj) 1 mg STK-MED ONCE .ROUTE ; Start 11/01/16 at 11: 09; Stop 11/01/16 at 11:10; Status DC Lidocaine HCl (Xylocaine 2% Inj) 100 mg STK-MED ONCE .ROUTE ; Start 11/01/16 at 11:09; Stop 11/01/16 at 11:10; Status DC Lidocaine HCl (Xylocaine 1% Inj) 30 ml STK-MED ONCE .ROUTE Last administered on 11/01/16 12:35; Start 11/01/16 at 13:52; Stop 11/01/16 at 13:53; Status DC Polyethylene Glycol/ Electrolytes 4000 ml 4,000 ml ONCE ONCE PO Last administered on 11/02/16 18:40; Start 11/02/16 at 18:00; Stop 11/02/16 at 18:01; Status DC Vancomycin HCl/ Sodium Chloride (Vancomycin Inj/ NS 250 ml Inj) 257.5 ml @ 250 mls/hr Q24H IV Last administered on 11/04/16 05:24; Start 11/04/16 at 06:00; Stop 11/04/16 at 10:29; Status DC Miscellaneous Information SPECIFIC LAB TO BE SMITH... ONCE ONCE XX ; Start at 05:45; Stop 11/06/16 at 05:46 Propofol (Diprivan 200 Mg/20 ml Inj) 50 mg STK-MED ONCE IV ; Start 11/03/16 at 11:03; Stop 11/03/16 at 11:23; Status DC Furosemide (Lasix Inj) 40 mg ONCE ONCE IV PUSH ; Start 11/03/16 at 16:30; Stop 11/03/16 at 16:35; Status DC Furosemide (Lasix) 40 mg DAILY PO Last administered on 11/05/16 09:19; Start at 09:00 Levofloxacin 500 mg 500 mg ONCE ONCE PO Last administered on 11/04/16 12:36; Start 11/04/16 at 11:00; Stop 11/04/16 at 11:01; Status DC Pharmacy Profile Note ([facility]) 0 ml @ 0 mls/hr UNSCH OTHER ; Start 11/04/16 at 10:30 Levofloxacin (Levaquin) 250 mg Q24H PO Last administered on 11/05/16 12:25; Start 11/05/16 at 11:00 Levothyroxine Sodium (Synthroid) 25 mcg DAILY@0600 PO Last administered on 05:11; Start 11/05/16 at 06:00 A/P Assessment and Plan A/P Acute respiratory failure likely due to bibasilar pleural effusion, rule out underlying pneumonia - pleuritic fluid cultures did not show any growth. continue levaquin.will repeat CXR today. Seizure disorder NOS Continue with Keppra 500 mg by mouth twice a day-seizure medication History of insomnia: hold Ambien at this time. Chronic narcotic use Blackburn/morphine for pain management Hypertension2-D echocardiogram 10/17/16 revealed EF 55-60%. No regional wall motion abnormality. SIOBHAN 47 mmHg Continue Norvasc 5 mg by mouth daily for hypertension. Added as needed hydralazine/Nitropaste Coronary artery disease on aspirin. Peripheral vascular disease Seen by Dr. Geiger last month. Normal JIM History COPD with no active exacerbation Nasal cannula to maintain saturations greater than equal to 92% Incentive spirometry while awake Continue duo nebs every 4 hours and as needed.. Status post therapeutic thoracentesis which appears transudate- repeat CXR today as noted above. Severe malnutrition - Patient is currently in a 2000-calorie ADA diet. Continue with Marinol 2.5 mg by mouth twice a day with meals Appreciate gastroenterology's input. Status post EGDmild gastritis, start on ppi, unsure the etiology for anemia and may be anemia of chronic disease per GI. ascites; s/p paracentesis- no evidence of portal hypertension- GI evaluated- check the urine for alb/ creat. ratio. 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 History of hypothyroidism started low-dose Synthroid secondary to elevated TSH Chronic kidney disease stage III Baseline creatinine around 1.5. Monitor urine output closely. restarted IV Lasix due to lower extremity edema, will monitor creatinine closely on Lasix. Acute Anemia , suspect GI bleed Status post 2 units PRBCs. Hemoglobin remained stable since the transfusion. Left [id number] amputation Generalized debilitation PT evaluate and treat Prophylaxis GI - Protonix - DVT - SCD right lower extremity not indicated with severe peripheral arterial/ vascular disease. Pharmacological prophylaxis has been held in light of possible GI bleed, patient status post EGD with gastritis, on ppi. Discharge Planning not ready for discharge today. possible dc to SNF in one-two days if stable. Abhinav Ya MD Nov 05, 2016 12:58
--- NOTE | 2016-11-05 14:14 | RADRPT ---
EXAM DATE/TIME: 11/05/2016 13:29 [facility] COMPARISON: CT THORAX W/O CONTRAST, October 31, 2016, 8:36. CHEST SINGLE AP, October 31, 2016, 2:28. INDICATIONS : Pleural effusion. MEDICAL HISTORY : Chronic obstructive pulmonary disease. Congestive heart failure. Diabete s. SURGICAL HISTORY : None. ENCOUNTER: Subsequent ACUITY: 4 - 6 days PAIN SCORE: 0/10 LOCATION: Bilateral chest FINDINGS: There is increasing right pleural effusion and consolidation. Moderate interstitial edema remains. The heart remains enlarged. CONCLUSION: Increasing consolidation and right pleural effusion. Pleural effusion is moderate at this point. Benito Rossi MD FACR on November 05, 2016 at 14:10 Board Certified Radiologist. This report was verified electronically.
[2016-11-06] VITALS (14 sets, daily range): BP systolic 135–182; BP diastolic 71–87; PULSE 69–96; RESP 16–20; TEMP 96.5–99.1; O2SAT 91–98
[2016-11-06] MEDS: CHLORHEXIDINE GLUCONATE 2 % 1 PACK (2 CLOTHS) TOP SCH (04:00)
[2016-11-06] MEDS: LEVOTHYROXINE SODIUM 25 MCG TAB PO SCH (05:38)
[2016-11-06] MEDS ORDERED: PHARMACY ORDERED LAB XX ONE (05:45)
[2016-11-06] MEDS: INSULIN NovoLIN REGULAR SUPPLEMENTAL SCALE SQ SCH ×4 (06:31→21:00)
[2016-11-06] MEDS: ARTIFICIAL TEARS OPTH SOLN 15 ML BTL EACH EYE SCH ×3 (08:58→17:03)
[2016-11-06] MEDS: COLLAGENASE OINT 30 GM TUBE TOP SCH ×2 (08:59→09:00)
[2016-11-06] MEDS: TAMSULOSIN HCL 0.4 MG CAP PO SCH (09:00)
[2016-11-06] MEDS: PANTOPRAZOLE SOD 40 MG DELAYED RELEASE TAB PO SCH (09:00)
[2016-11-06] MEDS: DOCUSATE SODIUM 100 MG CAP PO SCH ×2 (09:00→21:14)
[2016-11-06] MEDS: levETIRAcetam 500 MG TAB PO SCH ×2 (09:00→21:14)
[2016-11-06] MEDS: POVIDONE IODINE 10% SOLN 480 ML BTL TOPICAL SCH ×2 (09:00→21:00)
[2016-11-06] MEDS: ASCORBIC ACID 500 MG TAB PO SCH (09:00)
[2016-11-06] MEDS: LACTULOSE SYRUP 20 GM/30 ML CUP PO SCH (09:00)
[2016-11-06] MEDS: amLODIPine BESYLATE 5 MG TAB PO SCH (09:00)
[2016-11-06] MEDS: FUROSEMIDE 40 MG TAB PO SCH (09:00)
[2016-11-06] MEDS: SODIUM CHLORIDE 0.9% FLUSH 5 ML FLUSH IV FLUSH SCH ×2 (09:02→21:15)
--- NOTE | 2016-11-06 10:40 | HHI.PR ---
Subjective Remarks still with sob and on 3.5 liters of oxygen via N/C. no fever. Objective Vitals Vital Signs Date Time Temp Pulse Resp B/P Pulse Ox O2 Delivery O2 Flow Rate FiO2 11/06/16 08:49 95 Nasal Cannula 3.50 11/06/16 08:04 98.1 78 20 180/80 96 11/06/16 08:00 Nasal Cannula 2.00 11/06/16 04:00 98.4 70 20 182/79 94 11/06/16 00:00 98.2 70 20 149/77 95 11/05/16 20:30 Nasal Cannula 2.00 11/05/16 20:13 73 11/05/16 20:00 95 Nasal Cannula 2.00 11/05/16 20:00 97.3 71 20 173/79 94 11/05/16 16:00 98.4 75 19 172/84 91 11/05/16 12:00 97.7 70 17 158/74 91 11/05/16 11:01 94 Nasal Cannula 3.00 I/O 11/05/16 11/05/16 11/05/16 11/06/16 11/06/16 11/06/16 07:00 15:00 23:00 07:00 15:00 23:00 Intake Total 220 ml 720 ml 440 ml Output Total 500 ml 475 ml 500 ml 800 ml Balance -280 ml 245 ml -500 ml -360 ml Intake Oral 220 ml 720 ml 440 ml Output Urine Total 500 ml 475 ml 500 ml 800 ml # Bowel Movements 0 3 1 0 Result Diagram: 11/05/16 0712 11/04/16 0730 Imaging Last Impressions Chest X-Ray 11/05/16 0000 Signed Impressions: Service Date/Time: Saturday, November 05, 2016 13:29 - CONCLUSION: Increasing consolidation and right pleural effusion. Pleural effusion is moderate at this point. Benito Rossi MD FACR Thoracentesis Ultrasound 11/01/16 0000 Signed Impressions: Service Date/Time: Tuesday, November 01, 2016 12:23 - CONCLUSION: Uncomplicated ultrasound guided thoracentesis. Benito Rossi MD FACR Cyst Biopsy Asp-Paracentesis US 10/31/16 0000 Signed Impressions: Service Date/Time: Monday, October 31, 2016 10:14 - CONCLUSION: Uncomplicated ultrasound guided paracentesis. Erick Odell MD Chest CT 10/31/16 0000 Signed Impressions: Service Date/Time: Monday, October 31, 2016 08:36 - CONCLUSION: 1. There are large bilateral effusions with compressive atelectasis of both lower lobes. This has worsened when compared to prior exam. 2. Ascites throughout the upper abdomen. Griffin Rossi MD Abdomen/Pelvis CT 10/31/16 0000 Signed Impressions: Service Date/Time: Monday, October 31, 2016 08:36 - CONCLUSION: 1. Large bilateral effusions with compressive atelectasis in the lung bases. 2. Diffuse ascites and probable cirrhosis. 3. Calcified gallstone within the gallbladder. 4. Atherosclerotic calcification. 5. The overall amount of ascites is mildly increased when compared to previous dated 10/15/16. Griffin Rossi MD Objective Remarks GENERAL: with mild sob CARDIOVASCULAR: Regular rate and regular rhythm without murmurs, gallops, or rubs. RESPIRATORY: Clear to auscultation. Breath sounds equal bilaterally. No wheezes , rales, or rhonchi. GASTROINTESTINAL: Abdomen soft, non-tender, mildly distended. Normal, active bowel sounds MUSCULOSKELETAL: pedal edema on the right side- s/p left leg amputation NEURO: Alert & Oriented x4 to person, place, time, situation. Moves all ext x4 Procedures thoracentesis paracentesis Medications and IVs Current Medications IV Flush 2 ml 2 ml UNSCH PRN IVF FLUSH AFTER USING IV ACCESS; Start 10/31/16 at 02:15; Stop 10/31/16 at 04:14; Status DC Cefepime HCl 2000 mg/Sodium Chloride 100 ml @ 200 mls/hr ONCE ONCE IV Last administered on 10/31/16 05:51; Start 10/31/16 at 02:30; Stop 10/31/16 at 02:59; Status DC Vancomycin HCl 1000 mg/Sodium Chloride 250 ml @ 250 mls/hr ONCE ONCE IV Last administered on 10/31/16 02:55; Start 10/31/16 at 02:30; Stop 10/31/16 at 03:29; Status DC Sodium Chloride (NS 250 ml Inj) 250 ml @ 15 mls/hr ONCE ONCE IV Last administered on 10/31/16 04:35; Start 10/31/16 at 03:45; Stop 10/31/16 at 20:24; Status DC Furosemide (Lasix Inj) 20 mg ONCE ONCE IV PUSH Last administered on 10/31/16 03:55; Start 10/31/16 at 03:45; Stop 10/31/16 at 03:46; Status DC IV Flush (NS Flush) 2 ml BID IVF Last administered on 11/01/16 08:25; Start 10/31/16 at 09:00; Stop 11/01/16 at 09:03; Status DC IV Flush (NS Flush) 2 ml UNSCH PRN IVF FLUSH AFTER USING IV ACCESS; Start at 04:15; Stop 11/01/16 at 09:03; Status DC Pantoprazole Sodium (Protonix Inj) 40 mg DAILY IV Last administered on 08:24; Start 10/31/16 at 09:00; Stop 11/01/16 at 08:40; Status DC Albuterol/ Ipratropium (Duoneb Neb) 1 ampule Q4HR NEB INH Last administered on 11/04/16 00:36; Start 10/31/16 at 08:00; Stop 11/04/16 at 08:00; Status DC Albuterol/ Ipratropium (Duoneb Neb) 1 ampule Q2HR NEB PRN INH WHEEZING Last administered on 11/04/16 20:06; Start 10/31/16 at 06:45 Miscellaneous Information 1 Q361D XX ; Start 10/31/16 at 06:45 Chlorhexidine Gluconate (Chlorhexidine 2% Cloth) Taper DAILY@04 TOP Last administered on 11/05/16 04:00; Start 11/01/16 at 04:00; Stop 10/28/17 at 03:59 Chlorhexidine Gluconate (Chlorhexidine 2% Cloth) 3 pack UNSCH PRN TOP HYGIENIC CARE; Start 10/31/16 at 06:45 Dextrose (D50w (Vial) Inj) 25 ml UNSCH PRN IV PUSH HYPOGLYCEMIA-SEE COMMENTS; Start 10/31/16 at 06:45 Glucagon (Glucagon Inj) 1 mg UNSCH PRN OTHER HYPOGLYCEMIA-SEE COMMENTS; Start 10/31/16 at 06:45 Insulin Human Regular (NovoLIN R SUPPLEMENTAL SCALE) 1 Q6H SQ ; Start 10/31/16 at 06:45; Stop 10/31/16 at 06:47; Status DC Insulin Human Regular 1 1 Q6HR SQ ; Start 10/31/16 at 06:50; Stop 11/01/16 at 08: 11; Status DC Pharmacy Profile Note 0 ml @ 0 mls/hr UNSCH OTHER ; Start 10/31/16 at 07:00; Stop 11/04/16 at 10:29; Status DC Piperacillin Sod/ Tazobactam Sod (Zosyn 4.5 Gm Premix) 100 ml @ 200 mls/hr Q6H IV Last administered on 11/01/16 08:24; Start 10/31/16 at 08:00; Stop 11/01/16 at 08:40; Status DC Bumetanide 1 mg 1 mg ONCE ONCE IV PUSH Last administered on 10/31/16 08:08; Start 10/31/16 at 08:00; Stop 10/31/16 at 08:01; Status DC Vancomycin HCl/ Sodium Chloride (Vancomycin Inj/ NS 250 ml Inj) 262.5 ml @ 250 mls/hr Q24H IV Last administered on 11/03/16 03:31; Start 11/01/16 at 03:00; Stop 11/03/16 at 08:38; Status DC Miscellaneous Information SPECIFIC LAB TO BE DRAWN:VANCOMYCIN TROUGH DATE TO... ONCE ONCE XX Last administered on 11/03/16 03:20; Start 11/03/16 at 02:45; Stop 11/03/16 at 02:46; Status DC Amlodipine Besylate (Norvasc) 5 mg DAILY PO Last administered on 11/06/16 09:00 ; Start 11/01/16 at 09:00 Lidocaine HCl (Xylocaine 1% Inj) 30 ml STK-MED ONCE .ROUTE Last administered on 10/31/16 16:35; Start 10/31/16 at 17:50; Stop 10/31/16 at 17:51; Status DC Tamsulosin HCl (Flomax) 0.4 mg DAILY PO Last administered on 11/06/16 09:00; Start 11/01/16 at 09:00 Lactulose (Lactulose Liq) 30 ml DAILY PO Last administered on 11/05/16 09:18; Start 11/01/16 at 09:00 Levetriacetam (Keppra) 500 mg Q12HR PO Last administered on 11/06/16 09:00; Start 11/01/16 at 09:00 Ferrous Sulfate (Ferrous Sulfate) 325 mg BID@17 PO Last administered on 17:18; Start 11/01/16 at 12:00 Ascorbic Acid (Vitamin C) 500 mg DAILY PO Last administered on 11/06/16 09:00; Start 11/01/16 at 09:00 Dronabinol (Marinol) 2.5 mg BID@11,16 PO Last administered on 11/05/16 17:18; Start 11/01/16 at 11:00 Insulin Human Regular (NovoLIN R SUPPLEMENTAL SCALE) 1 ACHS SQ Last administered on 11/02/16 11:00; Start 11/01/16 at 11:00 Collagenase (Santyl Oint) 1 applic DAILY TOP Last administered on 11/05/16 09: 19; Start 11/01/16 at 09:00 Furosemide 20 mg 20 mg BID@18 PO Last administered on 11/03/16 09:06; Start 11/01/16 at 09:00; Stop 11/03/16 at 16:36; Status DC Piperacillin Sod/ Tazobactam Sod (Zosyn 4.5 Gm Premix) 100 ml @ 200 mls/hr Q8HR IV Last administered on 11/04/16 05:23; Start 11/01/16 at 14:00; Stop at 10:29; Status DC IV Flush (NS Flush) 2 ml UNSCH PRN IV FLUSH FLUSH AFTER USING IV ACCESS; Start 11/01/16 at 08:45 IV Flush (NS Flush) 2 ml BID IV FLUSH Last administered on 11/06/16 09:02; Start 11/01/16 at 09:00 Acetaminophen (Tylenol) 650 mg Q6H PRN PO PAIN 1-10 AND/OR FEVER >101F; Start 11/01/16 at 08:45 Acetaminophen/ Hydrocodone Bitart ([place] 5-325 Mg) 1 tab Q4H PRN PO PAIN SCALE 1 TO 5; Start 11/01/16 at 08:45 Morphine Sulfate (Morphine Inj) 2 mg Q2H PRN IV PAIN SCALE 6 TO 10 Last administered on 11/03/16 09:06; Start 11/01/16 at 08:45 Pantoprazole Sodium (Protonix) 40 mg DAILY PO Last administered on 11/06/16 09: 00; Start 11/01/16 at 09:00 Artificial Tears (Tears Naturale Opth Soln) 1 drop TID EACH EYE Last administered on 11/06/16 08:58; Start 11/01/16 at 09:00 Ondansetron HCl (Zofran Inj) 4 mg Q6H PRN IV NAUSEA OR VOMITING; Start 11/01/16 at 08:45 Docusate Sodium (Colace) 100 mg BID PO Last administered on 11/05/16 21:49; Start 11/01/16 at 09:00 Sennosides (Senokot) 17.2 mg Q12H PRN PO CONSTIPATION; Start 11/01/16 at 08:45 Miscellaneous Information 1 Q361D XX ; Start 11/01/16 at 08:45; Stop 11/01/16 at 09:02; Status DC Chlorhexidine Gluconate (Chlorhexidine 2% Cloth) 3 pack Taper DAILY@04 TOP ; Start 11/02/16 at 04:00; Stop 11/02/16 at 04:00; Status DC Chlorhexidine Gluconate (Chlorhexidine 2% Cloth) 3 pack UNSCH PRN TOP HYGIENIC CARE; Start 11/01/16 at 08:45; Stop 11/01/16 at 09:02; Status DC Hydralazine HCl (Apresoline Inj) 10 mg Q2HR PRN IV PUSH SBP>160, DBP>90; Start 11/01/16 at 09:45 Nitroglycerin (Nitroglycerin 2% Oint) 2 inch Q6HR PRN TOPICAL SBP>160, DBP>90; Start 11/01/16 at 11:00 Povidone Iodine (Betadine 10% Top Soln) 1 applic BID TOPICAL Last administered on 11/06/16 09:00; Start 11/01/16 at 12:00 Epinephrine HCl (EPINEPHrine (1:10,000) INJ) 1 mg STK-MED ONCE .ROUTE ; Start at 11:09; Stop 11/01/16 at 11:10; Status DC Atropine Sulfate (Atropine Inj) 1 mg STK-MED ONCE .ROUTE ; Start 11/01/16 at 11: 09; Stop 11/01/16 at 11:10; Status DC Lidocaine HCl (Xylocaine 2% Inj) 100 mg STK-MED ONCE .ROUTE ; Start 11/01/16 at 11:09; Stop 11/01/16 at 11:10; Status DC Lidocaine HCl (Xylocaine 1% Inj) 30 ml STK-MED ONCE .ROUTE Last administered on 11/01/16 12:35; Start 11/01/16 at 13:52; Stop 11/01/16 at 13:53; Status DC Polyethylene Glycol/ Electrolytes 4000 ml 4,000 ml ONCE ONCE PO Last administered on 11/02/16 18:40; Start 11/02/16 at 18:00; Stop 11/02/16 at 18:01; Status DC Vancomycin HCl/ Sodium Chloride (Vancomycin Inj/ NS 250 ml Inj) 257.5 ml @ 250 mls/hr Q24H IV Last administered on 11/04/16 05:24; Start 11/04/16 at 06:00; Stop 11/04/16 at 10:29; Status DC Miscellaneous Information SPECIFIC LAB TO BE SMITH... ONCE ONCE XX ; Start at 05:45; Stop 11/06/16 at 05:46; Status Cancel Propofol (Diprivan 200 Mg/20 ml Inj) 50 mg STK-MED ONCE IV ; Start 11/03/16 at 11:03; Stop 11/03/16 at 11:23; Status DC Furosemide (Lasix Inj) 40 mg ONCE ONCE IV PUSH ; Start 11/03/16 at 16:30; Stop 11/03/16 at 16:35; Status DC Furosemide (Lasix) 40 mg DAILY PO Last administered on 11/06/16 09:00; Start at 09:00 Levofloxacin 500 mg 500 mg ONCE ONCE PO Last administered on 11/04/16 12:36; Start 11/04/16 at 11:00; Stop 11/04/16 at 11:01; Status DC Pharmacy Profile Note ([facility]) 0 ml @ 0 mls/hr UNSCH OTHER ; Start 11/04/16 at 10:30 Levofloxacin (Levaquin) 250 mg Q24H PO Last administered on 11/05/16 12:25; Start 11/05/16 at 11:00 Levothyroxine Sodium (Synthroid) 25 mcg DAILY@0600 PO Last administered on t 05:38; Start 11/05/16 at 06:00 A/P Assessment and Plan A/P Acute respiratory failure likely due to bibasilar pleural effusion - pleuritic fluid cultures did not show any growth. continue levaquin.repeated CXR with increasing right pleural effusion- will consult IR for thoracentesis and pulmonary for recurrent pleural effusion. Seizure disorder NOS Continue with Keppra 500 mg by mouth twice a day-seizure medication History of insomnia: hold Ambien at this time. Chronic narcotic use [place]/morphine for pain management Hypertension2-D echocardiogram 10/17/16 revealed EF 55-60%. No regional wall motion abnormality. SIOBHAN 47 mmHg increase norvasc to 10 mg by mouth daily for hypertension. Added as needed hydralazine/Nitropaste Coronary artery disease on aspirin. Peripheral vascular disease Seen by Dr. Geiger last month. Normal JIM History COPD with no active exacerbation Nasal cannula to maintain saturations greater than equal to 92% Incentive spirometry while awake Continue duo nebs every 4 hours and as needed.. Status post therapeutic thoracentesis which appears transudate- repeat CXR today as noted above. Severe malnutrition - Patient is currently in a 2000-calorie ADA diet. Continue with Marinol 2.5 mg by mouth twice a day with meals Appreciate gastroenterology's input. Status post EGDmild gastritis, start on ppi, unsure the etiology for anemia and may be anemia of chronic disease per GI. ascites; s/p paracentesis- no evidence of portal hypertension- GI evaluated- check the urine for alb/ creat. ratio. 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 History of hypothyroidism started low-dose Synthroid secondary to elevated TSH Chronic kidney disease stage III Baseline creatinine around 1.5. Monitor urine output closely. restarted IV Lasix due to lower extremity edema, will monitor creatinine closely on Lasix. Acute Anemia , suspect GI bleed Status post 2 units PRBCs. Hemoglobin remained stable since the transfusion. Left [id number] amputation Generalized debilitation PT evaluate and treat Prophylaxis GI - Protonix - DVT - SCD right lower extremity not indicated with severe peripheral arterial/ vascular disease. Pharmacological prophylaxis has been held in light of possible GI bleed, patient status post EGD with gastritis, on ppi. Discharge Planning not ready for discharge today. Abhinav Ya MD Nov 06, 2016 10:40
[2016-11-06] MEDS ORDERED: amLODIPine BESYLATE 5 MG TAB PO ONE (11:00)
[2016-11-06] MEDS: FERROUS SULFATE 325 MG (65 MG ELEMENTAL IRON) TAB PO SCH ×2 (11:09→16:00)
[2016-11-06] MEDS: DRONABINOL 2.5 MG CAP PO SCH ×2 (11:09→15:50)
[2016-11-06] MEDS: LEVOFLOXACIN 250 MG TAB PO SCH (11:09)
--- NOTE | 2016-11-06 12:12 | RADRPT ---
EXAM DATE/TIME: 11/06/2016 11:48 [facility] COMPARISON: CHEST EXPIRATION ONLY, November 01, 2016, 13:01. INDICATIONS : Evaluate for pneumothorax. Post right thoracentesis MEDICAL HISTORY : Congestive heart failure. Chronic obstructive pulmonary disease. SURGICAL HISTORY : None. ENCOUNTER: Initial ACUITY: 1 day PAIN SCORE: 0/10 LOCATION: Right chest FINDINGS: A single frontal expiratory view of the chest was performed. The lungs are symmetrically aerated and clear. No evidence of pneumothorax. Mediastinal structures are in the midline. The cardio-mediastinal contours and bronchopulmonary markings are unremarkable for an expiratory exam . Osseous structures are intact. CONCLUSION: Interval improvement less effusion on the right. There is no pneumothorax. Minimal consolidation is persists. Benito Rossi MD FACR on November 06, 2016 at 12:08 Board Certified Radiologist. This report was verified electronically.
--- NOTE | 2016-11-06 14:23 | RADRPT ---
EXAM DATE/TIME: 11/06/2016 10:53 [facility] COMPARISON: US GUIDED THORACENTESIS RIGHT, October 31, 2016, 14:16. INDICATIONS : Pleural effusion. SIDE: Right MEDICAL HISTORY : Chronic obstructive pulmonary disease. Neuropathy. Head trama. Congestive heart failure. Renal failur e. Inguinal hernia. Diabetes. Chronic lesions, lower extremities. MRSA PCR, 10/11/16. SURGICAL HISTORY : Skull repair. Bilateral knee surgery. Paracentesis. Thoracentesis. ENCOUNTER: Subsequent ACUITY: 1 week PAIN SCORE: 3/10 LOCATION: Right chest FLUID: Total volume of 900 cc of clear, yellow fluid was removed. Fluid was discarded. Thoracentesis was therapeutic only. TECHNIQUE: 1. Ultrasound guidance for thoracentesis. 2. Thoracentesis. The risks, benefits, and alternatives to ultrasound guided thoracentesis were explained to the patien t in lay simple terms, including the risk of bleeding and infection. Written and verbal informed con sent was obtained. Appropriate area for thoracentesis was marked under ultrasound guidance with the patient in the uprig ht position. Overlying skin was prepped and draped in the usual sterile fashion and with local anest hetic, a dermatotomy was made with an 11 blade scalpel. A 6 [place] thoracentesis catheter was placed in the pleural space and fluid was removed. Catheter was then removed and a sterile dressing applie d. There were no immediate complications. The patient tolerated the procedure well and the left the ultrasound suite in stable condition. Chest radiograph is to be obtained. CONCLUSION: Uncomplicated ultrasound guided thoracentesis. Benito Rossi MD FACR on November 06, 2016 at 14:21 Board Certified Radiologist. This report was verified electronically.
[2016-11-06] MEDS ORDERED: RESP: ALBUTEROL 1.25 MG/3 ML NEB (PRN) NEB (20:00)
[2016-11-07] MEDS: CHLORHEXIDINE GLUCONATE 2 % 1 PACK (2 CLOTHS) TOP SCH (03:34)
[2016-11-07 04:30] VITALS: BP 152/75; PULSE 72; RESP 18; TEMP 98; O2SAT 98
[2016-11-07] MEDS: INSULIN NovoLIN REGULAR SUPPLEMENTAL SCALE SQ SCH ×2 (05:45→11:00)
[2016-11-07] MEDS: LEVOTHYROXINE SODIUM 25 MCG TAB PO SCH (05:45)
--- NOTE | 2016-11-07 07:37 | MB ---
cc: DORYS CONN DATE OF CONSULTATION: 11/06/2016 REASON FOR CONSULTATION Respiratory insufficiency with pleural effusions. HISTORY OF PRESENT ILLNESS This is a 65-year-old white male with a history of hypertension, chronic CHF, diabetes mellitus, hypothyroidism, peripheral vascular disease, previous pneumonia, amputation of the left leg and chronic kidney disease. He was admitted five days ago with shortness of breath. The patient was transferred from the rehab facility and was hypoxic. He was placed on oxygen and was initially on a non-rebreather mask but this was changed to a nasal cannula once his oxygenation had improved. The patient denied any cough, wheezing or chest congestion, but had pleural effusions which required thoracentesis. He was taken for thoracentesis earlier today with removal of over 600 cc of fluid from the right side. The O2 saturations did improve after the thoracentesis and chest x-ray does not show significant fluid at this time. PAST MEDICAL HISTORY 1. Chronic kidney disease. 2. Diabetes. 3. CHF. 4. Hypertension. 5. Peripheral vascular disease. 6. Previous left AKA. HABITS The patient was a prior smoker but not recently. No significant alcohol use. ALLERGIES None listed. MEDICATIONS 1. Levaquin. 2. Ambien. 3. Keppra. 4. Gabapentin. 5. Flomax. 6. Aspirin. 7. Norvasc. FAMILY HISTORY Noncontributory. REVIEW OF SYSTEMS The patient has lost weight. He has dizziness. He has postnasal drip and wheezing. He has epigastric distress. No leg swelling or calf muscle pain, but does have some joint pains. He has some depression. PHYSICAL EXAMINATION GENERAL: This elderly white male is alert and pale and mildly dyspneic. VITAL SIGNS: Blood pressure 138/80, pulse 74, respirations 22, temperature 98.2. HEENT: Normocephalic. Pupils are reactive. Tongue is dry. Throat is injected. He has no inflammation. NECK: Supple. No bruits. CHEST: Equal movements with distant breath sounds and occasional bibasilar crackles. Wheezes are scattered bilaterally. HEART: Heart sounds are irregular, S1 and S2. ABDOMEN: Soft, nontender. No organomegaly. Bowel sounds are active. EXTREMITIES: Edema 1+ of the right leg. The left leg is amputated above the knee. Peripheral pulse is not well felt. Reflexes 1+ with no gross motor deficits. Cranial nerves are intact. IMPRESSION 1. Bibasilar pleural effusion with CHF. 2. Acute hypoxemic respiratory failure, resolved. 3. Chronic kidney disease. 4. Hypertension. 5. Diabetes mellitus. 6. Anemia. PLAN The patient has been started on O2 at 3 liters. Will continue with bronchodilators including nebulized DuoNeb solution q.i.d. Continue with the antihypertensive medication. O2 will be placed at 2-3 liters by nasal cannula. Repeat chest x-ray to be done to evaluate the effusion. I will follow-up the case in 2 weeks and make an addendum. Thank you for this consultation. MD KB Hall/TERRENCE /11:29 PM /7:28 AM
[2016-11-07 08:00] VITALS: PULSE 71
[2016-11-07] MEDS: PANTOPRAZOLE SOD 40 MG DELAYED RELEASE TAB PO SCH (08:20)
[2016-11-07] MEDS: DOCUSATE SODIUM 100 MG CAP PO SCH (08:20)
[2016-11-07] MEDS: LACTULOSE SYRUP 20 GM/30 ML CUP PO SCH (08:20)
[2016-11-07] MEDS: ASCORBIC ACID 500 MG TAB PO SCH (08:21)
[2016-11-07] MEDS: TAMSULOSIN HCL 0.4 MG CAP PO SCH (08:21)
[2016-11-07] MEDS: SODIUM CHLORIDE 0.9% FLUSH 5 ML FLUSH IV FLUSH SCH (08:21)
[2016-11-07] MEDS: FUROSEMIDE 40 MG TAB PO SCH (08:21)
[2016-11-07] MEDS: ARTIFICIAL TEARS OPTH SOLN 15 ML BTL EACH EYE SCH ×2 (08:28→12:17)
[2016-11-07] MEDS: levETIRAcetam 500 MG TAB PO SCH (08:36)
[2016-11-07] MEDS: COLLAGENASE OINT 30 GM TUBE TOP SCH (08:36)
[2016-11-07] MEDS: POVIDONE IODINE 10% SOLN 480 ML BTL TOPICAL SCH (08:36)
--- NOTE | 2016-11-07 09:54 | HHI.PR ---
Subjective Remarks looks and feels much more comfortable today. sob has much improved. no new complaints. Objective Vitals Vital Signs Date Time Temp Pulse Resp B/P Pulse Ox O2 Delivery O2 Flow Rate FiO2 11/07/16 04:30 98.0 72 18 152/75 98 11/06/16 23:42 99.1 73 18 153/74 92 11/06/16 21:47 Nasal Cannula 3.50 11/06/16 20:52 98.2 78 18 149/71 94 11/06/16 20:00 70 11/06/16 20:00 Nasal Cannula 2.00 11/06/16 16:06 96.5 96 20 164/79 96 11/06/16 12:25 69 18 152/75 98 11/06/16 12:10 71 18 154/75 93 11/06/16 12:06 98.2 71 19 177/87 96 11/06/16 12:04 98.4 73 16 135/72 92 11/06/16 11:29 98.8 71 16 153/78 91 I/O 11/06/16 11/06/16 11/06/16 11/07/16 11/07/16 11/07/16 07:00 15:00 23:00 07:00 15:00 23:00 Intake Total 440 ml 360 ml 120 ml 0 ml Output Total 800 ml 800 ml 450 ml 400 ml Balance -360 ml -440 ml -330 ml -400 ml Intake Oral 440 ml 360 ml 120 ml 0 ml Output Urine Total 800 ml 800 ml 450 ml 400 ml # Bowel Movements 0 0 1 1 Result Diagram: 11/05/16 0712 11/04/16 0730 Imaging Last Impressions Thoracentesis Ultrasound 11/06/16 0000 Signed Impressions: Service Date/Time: Sunday, November 06, 2016 10:53 - CONCLUSION: Uncomplicated ultrasound guided thoracentesis. Benito Rossi MD FACR Chest X-Ray 11/06/16 0000 Signed Impressions: Service Date/Time: Sunday, November 06, 2016 11:48 - CONCLUSION: Interval improvement less effusion on the right. There is no pneumothorax. Minimal consolidation is persists. Benito Rossi MD FACR Cyst Biopsy Asp-Paracentesis US 10/31/16 0000 Signed Impressions: Service Date/Time: Monday, October 31, 2016 10:14 - CONCLUSION: Uncomplicated ultrasound guided paracentesis. Erick J. Siragusa, MD Chest CT 10/31/16 0000 Signed Impressions: Service Date/Time: Monday, October 31, 2016 08:36 - CONCLUSION: 1. There are large bilateral effusions with compressive atelectasis of both lower lobes. This has worsened when compared to prior exam. 2. Ascites throughout the upper abdomen. Griffin Rossi MD Abdomen/Pelvis CT 10/31/16 0000 Signed Impressions: Service Date/Time: Monday, October 31, 2016 08:36 - CONCLUSION: 1. Large bilateral effusions with compressive atelectasis in the lung bases. 2. Diffuse ascites and probable cirrhosis. 3. Calcified gallstone within the gallbladder. 4. Atherosclerotic calcification. 5. The overall amount of ascites is mildly increased when compared to previous dated 10/15/16. Griffin Rossi MD Objective Remarks GENERAL: looks more comfortable today CARDIOVASCULAR: Regular rate and regular rhythm without murmurs, gallops, or rubs. RESPIRATORY: Clear to auscultation. Breath sounds equal bilaterally. No wheezes , rales, or rhonchi. GASTROINTESTINAL: Abdomen soft, non-tender, mildly distended. Normal, active bowel sounds MUSCULOSKELETAL: pedal edema on the right side- s/p left leg amputation NEURO: Alert & Oriented x4 to person, place, time, situation. Moves all ext x4 Procedures thoracentesis paracentesis Medications and IVs Current Medications IV Flush 2 ml 2 ml UNSCH PRN IVF FLUSH AFTER USING IV ACCESS; Start 10/31/16 at 02:15; Stop 10/31/16 at 04:14; Status DC Cefepime HCl 2000 mg/Sodium Chloride 100 ml @ 200 mls/hr ONCE ONCE IV Last administered on 10/31/16 05:51; Start 10/31/16 at 02:30; Stop 10/31/16 at 02:59; Status DC Vancomycin HCl 1000 mg/Sodium Chloride 250 ml @ 250 mls/hr ONCE ONCE IV Last administered on 10/31/16 02:55; Start 10/31/16 at 02:30; Stop 10/31/16 at 03:29; Status DC Sodium Chloride (NS 250 ml Inj) 250 ml @ 15 mls/hr ONCE ONCE IV Last administered on 10/31/16 04:35; Start 10/31/16 at 03:45; Stop 10/31/16 at 20:24; Status DC Furosemide (Lasix Inj) 20 mg ONCE ONCE IV PUSH Last administered on 10/31/16 03:55; Start 10/31/16 at 03:45; Stop 10/31/16 at 03:46; Status DC IV Flush (NS Flush) 2 ml BID IVF Last administered on 11/01/16 08:25; Start 10/31/16 at 09:00; Stop 11/01/16 at 09:03; Status DC IV Flush (NS Flush) 2 ml UNSCH PRN IVF FLUSH AFTER USING IV ACCESS; Start at 04:15; Stop 11/01/16 at 09:03; Status DC Pantoprazole Sodium (Protonix Inj) 40 mg DAILY IV Last administered on 08:24; Start 10/31/16 at 09:00; Stop 11/01/16 at 08:40; Status DC Albuterol/ Ipratropium (Duoneb Neb) 1 ampule Q4HR NEB INH Last administered on 11/04/16 00:36; Start 10/31/16 at 08:00; Stop 11/04/16 at 08:00; Status DC Albuterol/ Ipratropium (Duoneb Neb) 1 ampule Q2HR NEB PRN INH WHEEZING Last administered on 11/04/16 20:06; Start 10/31/16 at 06:45 Miscellaneous Information 1 Q361D XX ; Start 10/31/16 at 06:45 Chlorhexidine Gluconate (Chlorhexidine 2% Cloth) Taper DAILY@04 TOP Last administered on 11/05/16 04:00; Start 11/01/16 at 04:00; Stop 10/28/17 at 03:59 Chlorhexidine Gluconate (Chlorhexidine 2% Cloth) 3 pack UNSCH PRN TOP HYGIENIC CARE; Start 10/31/16 at 06:45 Dextrose (D50w (Vial) Inj) 25 ml UNSCH PRN IV PUSH HYPOGLYCEMIA-SEE COMMENTS; Start 10/31/16 at 06:45 Glucagon (Glucagon Inj) 1 mg UNSCH PRN OTHER HYPOGLYCEMIA-SEE COMMENTS; Start 10/31/16 at 06:45 Insulin Human Regular (NovoLIN R SUPPLEMENTAL SCALE) 1 Q6H SQ ; Start 10/31/16 at 06:45; Stop 10/31/16 at 06:47; Status DC Insulin Human Regular 1 1 Q6HR SQ ; Start 10/31/16 at 06:50; Stop 11/01/16 at 08: 11; Status DC Pharmacy Profile Note 0 ml @ 0 mls/hr UNSCH OTHER ; Start 10/31/16 at 07:00; Stop 11/04/16 at 10:29; Status DC Piperacillin Sod/ Tazobactam Sod (Zosyn 4.5 Gm Premix) 100 ml @ 200 mls/hr Q6H IV Last administered on 11/01/16 08:24; Start 10/31/16 at 08:00; Stop 11/01/16 at 08:40; Status DC Bumetanide 1 mg 1 mg ONCE ONCE IV PUSH Last administered on 10/31/16 08:08; Start 10/31/16 at 08:00; Stop 10/31/16 at 08:01; Status DC Vancomycin HCl/ Sodium Chloride (Vancomycin Inj/ NS 250 ml Inj) 262.5 ml @ 250 mls/hr Q24H IV Last administered on 11/03/16 03:31; Start 11/01/16 at 03:00; Stop 11/03/16 at 08:38; Status DC Miscellaneous Information SPECIFIC LAB TO BE DRAWN:VANCOMYCIN TROUGH DATE TO... ONCE ONCE XX Last administered on 11/03/16 03:20; Start 11/03/16 at 02:45; Stop 11/03/16 at 02:46; Status DC Amlodipine Besylate (Norvasc) 5 mg DAILY PO Last administered on 11/06/16 09:00 ; Start 11/01/16 at 09:00; Stop 11/06/16 at 10:42; Status DC Lidocaine HCl (Xylocaine 1% Inj) 30 ml STK-MED ONCE .ROUTE Last administered on 10/31/16 16:35; Start 10/31/16 at 17:50; Stop 10/31/16 at 17:51; Status DC Tamsulosin HCl (Flomax) 0.4 mg DAILY PO Last administered on 11/07/16 08:21; Start 11/01/16 at 09:00 Lactulose (Lactulose Liq) 30 ml DAILY PO Last administered on 11/07/16 08:20; Start 11/01/16 at 09:00 Levetriacetam (Keppra) 500 mg Q12HR PO Last administered on 11/07/16 08:36; Start 11/01/16 at 09:00 Ferrous Sulfate (Ferrous Sulfate) 325 mg BID@,17 PO Last administered on 16:00; Start 11/01/16 at 12:00 Ascorbic Acid (Vitamin C) 500 mg DAILY PO Last administered on 11/07/16 08:21 ; Start 11/01/16 at 09:00 Dronabinol (Marinol) 2.5 mg BID@11,16 PO Last administered on 11/06/16 15:50; Start 11/01/16 at 11:00 Insulin Human Regular (NovoLIN R SUPPLEMENTAL SCALE) 1 ACHS SQ Last administered on 11/02/16 11:00; Start 11/01/16 at 11:00 Collagenase (Santyl Oint) 1 applic DAILY TOP Last administered on 11/05/16 09: 19; Start 11/01/16 at 09:00 Furosemide 20 mg 20 mg BID@09,18 PO Last administered on 11/03/16 09:06; Start 11/01/16 at 09:00; Stop 11/03/16 at 16:36; Status DC Piperacillin Sod/ Tazobactam Sod (Zosyn 4.5 Gm Premix) 100 ml @ 200 mls/hr Q8HR IV Last administered on 11/04/16 05:23; Start 11/01/16 at 14:00; Stop at 10:29; Status DC IV Flush (NS Flush) 2 ml UNSCH PRN IV FLUSH FLUSH AFTER USING IV ACCESS; Start 11/01/16 at 08:45 IV Flush (NS Flush) 2 ml BID IV FLUSH Last administered on 11/07/16 08:21; Start 11/01/16 at 09:00 Acetaminophen (Tylenol) 650 mg Q6H PRN PO PAIN 1-10 AND/OR FEVER >101F; Start 11/01/16 at 08:45 Acetaminophen/ Hydrocodone Bitart ([place] 5-325 Mg) 1 tab Q4H PRN PO PAIN SCALE 1 TO 5; Start 11/01/16 at 08:45 Morphine Sulfate (Morphine Inj) 2 mg Q2H PRN IV PAIN SCALE 6 TO 10 Last administered on 11/03/16 09:06; Start 11/01/16 at 08:45 Pantoprazole Sodium (Protonix) 40 mg DAILY PO Last administered on 11/07/16 08 :20; Start 11/01/16 at 09:00 Artificial Tears (Tears Naturale Opth Soln) 1 drop TID EACH EYE Last administered on 11/07/16 08:28; Start 11/01/16 at 09:00 Ondansetron HCl (Zofran Inj) 4 mg Q6H PRN IV NAUSEA OR VOMITING; Start 11/01/16 at 08:45 Docusate Sodium (Colace) 100 mg BID PO Last administered on 11/07/16 08:20; Start 11/01/16 at 09:00 Sennosides (Senokot) 17.2 mg Q12H PRN PO CONSTIPATION; Start 11/01/16 at 08:45 Miscellaneous Information 1 Q361D XX ; Start 11/01/16 at 08:45; Stop 11/01/16 at 09:02; Status DC Chlorhexidine Gluconate (Chlorhexidine 2% Cloth) 3 pack Taper DAILY@04 TOP ; Start 11/02/16 at 04:00; Stop 11/02/16 at 04:00; Status DC Chlorhexidine Gluconate (Chlorhexidine 2% Cloth) 3 pack UNSCH PRN TOP HYGIENIC CARE; Start 11/01/16 at 08:45; Stop 11/01/16 at 09:02; Status DC Hydralazine HCl (Apresoline Inj) 10 mg Q2HR PRN IV PUSH SBP>160, DBP>90; Start 11/01/16 at 09:45 Nitroglycerin (Nitroglycerin 2% Oint) 2 inch Q6HR PRN TOPICAL SBP>160, DBP>90 Last administered on 11/06/16 16:53; Start 11/01/16 at 11:00 Povidone Iodine (Betadine 10% Top Soln) 1 applic BID TOPICAL Last administered on 11/07/16 08:36; Start 11/01/16 at 12:00 Epinephrine HCl (EPINEPHrine (1:10,000) INJ) 1 mg STK-MED ONCE .ROUTE ; Start at 11:09; Stop 11/01/16 at 11:10; Status DC Atropine Sulfate (Atropine Inj) 1 mg STK-MED ONCE .ROUTE ; Start 11/01/16 at 11: 09; Stop 11/01/16 at 11:10; Status DC Lidocaine HCl (Xylocaine 2% Inj) 100 mg STK-MED ONCE .ROUTE ; Start 11/01/16 at 11:09; Stop 11/01/16 at 11:10; Status DC Lidocaine HCl (Xylocaine 1% Inj) 30 ml STK-MED ONCE .ROUTE Last administered on 11/01/16 12:35; Start 11/01/16 at 13:52; Stop 11/01/16 at 13:53; Status DC Polyethylene Glycol/ Electrolytes 4000 ml 4,000 ml ONCE ONCE PO Last administered on 11/02/16 18:40; Start 11/02/16 at 18:00; Stop 11/02/16 at 18:01; Status DC Vancomycin HCl/ Sodium Chloride (Vancomycin Inj/ NS 250 ml Inj) 257.5 ml @ 250 mls/hr Q24H IV Last administered on 11/04/16 05:24; Start 11/04/16 at 06:00; Stop 11/04/16 at 10:29; Status DC Miscellaneous Information SPECIFIC LAB TO BE SMITH... ONCE ONCE XX ; Start at 05:45; Stop 11/06/16 at 05:46; Status Cancel Propofol (Diprivan 200 Mg/20 ml Inj) 50 mg STK-MED ONCE IV ; Start 11/03/16 at 11:03; Stop 11/03/16 at 11:23; Status DC Furosemide (Lasix Inj) 40 mg ONCE ONCE IV PUSH ; Start 11/03/16 at 16:30; Stop 11/03/16 at 16:35; Status DC Furosemide (Lasix) 40 mg DAILY PO Last administered on 11/07/16 08:21; Start 11/04/16 at 09:00 Levofloxacin 500 mg 500 mg ONCE ONCE PO Last administered on 11/04/16 12:36; Start 11/04/16 at 11:00; Stop 11/04/16 at 11:01; Status DC Pharmacy Profile Note ([facility]) 0 ml @ 0 mls/hr UNSCH OTHER ; Start 11/04/16 at 10:30 Levofloxacin (Levaquin) 250 mg Q24H PO Last administered on 11/06/16 11:09; Start 11/05/16 at 11:00 Levothyroxine Sodium (Synthroid) 25 mcg DAILY@0600 PO Last administered on 11/07 05:45; Start 11/05/16 at 06:00 Amlodipine Besylate (Norvasc) 10 mg DAILY PO Last administered on 11/07/16 08: 20; Start 11/07/16 at 09:00 Amlodipine Besylate (Norvasc) 5 mg ONCE ONCE PO Last administered on 11/06/16 11:09; Start 11/06/16 at 11:00; Stop 11/06/16 at 11:01; Status DC Albuterol Sulfate (Albuterol Neb) 1.25 mg Q6HR NEB PRN NEB DYSPNEA; Start at 20:00 A/P Assessment and Plan A/P Acute respiratory failure likely due to bibasilar pleural effusion - pleuritic fluid cultures did not show any growth. continue levaquin.s/p repeated thoracentesis- pulmonary consulted. Seizure disorder NOS Continue with Keppra 500 mg by mouth twice a day-seizure medication Chronic narcotic use [place]/morphine for pain management Hypertension2-D echocardiogram 10/17/16 revealed EF 55-60%. No regional wall motion abnormality. increased norvasc to 10 mg by mouth daily for hypertension. Coronary artery disease on aspirin. Peripheral vascular disease Seen by Dr. Geiger last month. Normal JIM History COPD with no active exacerbation Nasal cannula to maintain saturations greater than equal to 92% Incentive spirometry while awake Continue duo nebs every 4 hours and as needed.. Status post therapeutic thoracentesis which appears transudate- Severe malnutrition - Patient is currently in a 2000-calorie ADA diet. Continue with Marinol 2.5 mg by mouth twice a day with meals Appreciate gastroenterology's input. Status post EGDmild gastritis, start on ppi, unsure the etiology for anemia and may be anemia of chronic disease per GI.f/u as outpatient. 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 History of hypothyroidism started low-dose Synthroid secondary to elevated TSH Chronic kidney disease stage III Baseline creatinine around 1.5. Monitor urine output closely. restarted Lasix due to lower extremity edema, will monitor creatinine closely on Lasix. Acute Anemia , suspect GI bleed Status post 2 units PRBCs. Hemoglobin remained stable since the transfusion. Left [id number]-[id number] amputation Generalized debilitation PT evaluate and treat Prophylaxis GI - Protonix - DVT - SCD right lower extremity not indicated with severe peripheral arterial/ vascular disease. Pharmacological prophylaxis has been held in light of possible GI bleed, patient status post EGD with gastritis, on ppi. Discharge Planning dc to SNF today- cleared by pulmonary. f/u with pcp, GI , pulmonary as outpatient. d/w the patient. see med list. d/w . d/w the patient. time spent 35 min. Abhinav Ya MD Nov 07, 2016 09:54
[2016-11-07] MEDS ORDERED: AMLO10 PO (09:58)
[2016-11-07] MEDS ORDERED: OXYC1TAB63 PO (09:58)
[2016-11-07] MEDS ORDERED: PANT40TA3 PO (09:58)
[2016-11-07] MEDS ORDERED: VITA500T PO (09:58)
[2016-11-07] MEDS ORDERED: LEVA250T PO (09:58)
--- NOTE | 2016-11-07 09:58 | HHI.DCPOC ---
Discharge Care Plan Diagnosis: (1) Pleural effusion Your Health Problems Are: Shortness of Breath Goals to Promote Your Health * To prevent worsening of your condition and complications * To maintain your health at the optimal level Directions to Meet Your Goals Take your medications as prescribed Follow your dietary instruction Follow activity as directed Keep your appointments as scheduled Take your immunizations and boosters as scheduled If your symptoms worsen call your PCP, if no PCP go to Urgent Care Center or Emergency Room Smoking is Dangerous to Your Health. Avoid second hand smoke Call the 24-hour hour crisis hotline for domestic abuse at Abhinav Ya MD Nov 07, 2016 09:58
[2016-11-07 10:08] VITALS: O2SAT 98
--- NOTE | 2016-11-07 10:51 | HHI.DS ---
Discharge Summary Admission Date Oct 31, 2016 at 04:13 Discharge Date: Nov 07, 2016 Admitting Diagnosis respiratory failure with hypoxemia; copd;chf; anemia;CRI (1) Hypoxia ICD Code: R09.02 Diagnosis: Principal (2) Anasarca ICD Code: R60.1 Diagnosis: Principal Procedures thoracentesis paracentesis Brief History - From Admission The patient is a 65-year-old male with a past medical history of chronic kidney disease, diabetes mellitus, previous left AKA, hypothyroidism, peripheral vascular disease, hypertension and CHF. He presented to the [facility] ED from a local rehab facility for evaluation of hypoxemia. CBC/BMP: 11/05/16 0712 11/04/16 0730 Significant Findings Laboratory Tests Test 11/05/16 07:12 Hemoglobin 8.9 GM/DL (13.0-17.0) Hematocrit 27.8 % (39.0-51.0) PE at Discharge GENERAL: looks more comfortable today CARDIOVASCULAR: Regular rate and regular rhythm without murmurs, gallops, or rubs. RESPIRATORY: Clear to auscultation. Breath sounds equal bilaterally. No wheezes , rales, or rhonchi. GASTROINTESTINAL: Abdomen soft, non-tender, mildly distended. Normal, active bowel sounds MUSCULOSKELETAL: pedal edema on the right side- s/p left leg amputation NEURO: Alert & Oriented x4 to person, place, time, situation. Moves all ext x4 Hospital Course Acute respiratory failure likely due to bibasilar pleural effusion - pleuritic fluid cultures did not show any growth. continue levaquin.s/p repeated thoracentesis- pulmonary consulted. Seizure disorder NOS Continue with Keppra 500 mg by mouth twice a day-seizure medication Chronic narcotic use [place]/morphine for pain management Hypertension2-D echocardiogram 10/17/16 revealed EF 55-60%. No regional wall motion abnormality. increased norvasc to 10 mg by mouth daily for hypertension. Coronary artery disease on aspirin. Peripheral vascular disease Seen by Dr. Geiger last month. Normal JIM History COPD with no active exacerbation Nasal cannula to maintain saturations greater than equal to 92% Incentive spirometry while awake Continue duo nebs every 4 hours and as needed.. Status post therapeutic thoracentesis which appears transudate- Severe malnutrition - Patient is currently in a 2000-calorie ADA diet. Continue with Marinol 2.5 mg by mouth twice a day with meals Appreciate gastroenterology's input. Status post EGDmild gastritis, start on ppi, unsure the etiology for anemia and may be anemia of chronic disease per GI.f/u as outpatient. 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 History of hypothyroidism started low-dose Synthroid secondary to elevated TSH Chronic kidney disease stage III Baseline creatinine around 1.5. Monitor urine output closely. restarted Lasix due to lower extremity edema, will monitor creatinine closely on Lasix. Acute Anemia , suspect GI bleed Status post 2 units PRBCs. Hemoglobin remained stable since the transfusion. Left [id number] amputation Generalized debilitation PT evaluate and treat Prophylaxis GI - Protonix - DVT - SCD right lower extremity not indicated with severe peripheral arterial/ vascular disease. Pharmacological prophylaxis has been held in light of possible GI bleed, patient status post EGD with gastritis, on ppi. Pt Condition on Discharge: Fair Discharge Disposition: Discharge to SNF Discharge Time: > 30 minutes Discharge Instructions DIET: Follow Instructions for: Heart Healthy Diet, Diabetic Diet Speech Therapy-Diet Recommends: Regular Activities you can perform: Regular-No Restrictions Follow up Referrals: Gastroenterology PCP Follow-up Pulmonology New Medications: Amlodipine (Norvasc) 10 Mg Tab 10 MG PO DAILY hypertension Days 30 Ref 0 TAB Ascorbic Acid (Vitamin C) 500 Mg Tab 500 MG PO DAILY vitamin supplement Days 30 Ref 0 TAB Levofloxacin (Levaquin) 250 Mg Tab 250 MG PO Q24H infection Days 3 Ref 0 TAB Pantoprazole (Pantoprazole) 40 Mg Tab 40 MG PO DAILY ppi Days 30 Ref 0 TAB Changed Medications: Oxycodone-Acetaminophen (Oxycodone-Acetaminophen) 5-325 mg Tab 1 TAB PO Q4H PRN pain #14 Ref 0 TAB (Changed from: 10; Refills: ) Continued Medications: Aspirin DR (Aspirin EC) 81 Mg Tabdr 81 MG PO DAILY Blood Clot Prevention Days 30 TAB Collagenase (Santyl) 250 Unit/Gm Oin 1 APPLIC TOP DAILY Infection #1 TUBE Dronabinol (Dronabinol) 2.5 Mg Cap 2.5 MG PO BID Ref 0 CAP Ferrous Sulfate (Ferrous Sulfate) 325 Mg Tab 325 MG PO BID Iron deficiency Days 30 TAB Furosemide (Furosemide) 20 Mg Tab 20 MG PO BID@09,18 Build Immunity #60 TAB Gabapentin (Gabapentin) 100 Mg Cap 200 MG PO Q12HR #60 Ref 0 CAP Insulin Aspart Inj (Novolog Flexpen Inj) 300 Unit/3 Ml Pen 1 UNITS .ROUTE ACHS SLIDING SCALE Blood Sugar Management #1 Ref 0 PEN Ipratropium-Albuterol Neb (Duoneb) 0.5-2.5 Mg/3 Ml Neb 1 AMPULE NEB Q6HR NEB PRN BREATHING Days 30 ML Ipratropium-Albuterol Neb (Duoneb) 0.5-2.5 Mg/3 Ml Neb 1 NEBULE INH Q6HR NEB Breathing Treatment #120 Ref 0 NEBULE Lactobacillus Acidophilus (Acidophilus/l-Sporogenes) 1 Tab Tab 1 TAB PO DAILY Infection #7 TAB Lactulose Liq (Lactulose Liq) 10 Gm/15 Ml Soln 30 ML PO DAILY Ref 0 ML Levetiracetam (Keppra) 500 Mg Tab 500 MG PO BID Control Seizures #60 TAB Lidocaine Topical (Lidocaine Topical) 2 % Jel 1 APPLIC TOPICAL DAILY PRN groin lesions. Days 30 TUBE Magnesium Hydroxide Liq (Milk of Magnesia Liq) 400 Mg/5 Ml Susp 30 ML PO DAILY PRN INDIGESTION OR UPSET STOMACH #1 Ref 0 BOTTLE Multiple Vitamins W/ Minerals (Multivitamin Women) 1 Tab Tab 1 TAB PO DAILY Nutritional Supplement Ref 0 TAB Potassium Chloride ER (Klor-Con 10) 10 Meq Tab 10 MEQ PO DAILY Electrolyte Replacement #30 TAB Simethicone (Simethicone) 80 Mg Chw 80 MG CHEW TID PRN GAS RETENTION Ref 0 TAB Sodium Phosphates Rectal (Fleet Enema Rectal) 7-19 Gm/118 Ml Enem 118 ML RECTAL DAILY PRN CONSTIPATION Ref 0 BOTTLE Sodium Polystyrene Sulfonate Liq (Kayexalate Liq) 1 Pow Pow 15 GM PO DAILY Excess Potassium Ref 0 BOTTLE Tamsulosin (Flomax) 0.4 Mg Cap 0.4 MG PO HS BPH Days 30 CAP Discontinued Medications: Amlodipine (Norvasc) 5 Mg Tab 5 MG PO DAILY Blood Pressure Management #30 TAB Levofloxacin (Levaquin) 750 Mg Tab 750 MG PO Q24H Infection #5 TAB Ranitidine (Ranitidine) 150 Mg Tab 150 MG PO BID Heartburn Management #60 Ref 0 TAB Zolpidem (Ambien) 5 Mg Tab 5 MG PO HS PRN INSOMNIA Days 30 TAB Zolpidem (Ambien) 5 Mg Tab 5 MG PO HS PRN SLEEP #10 TAB Abhinav Ya MD Nov 07, 2016 10:51
[2016-11-07] MEDS: FERROUS SULFATE 325 MG (65 MG ELEMENTAL IRON) TAB PO SCH (12:11)
[2016-11-07] MEDS: LEVOFLOXACIN 250 MG TAB PO SCH (12:11)
[2016-11-07] MEDS: DRONABINOL 2.5 MG CAP PO SCH (12:14)
== END 2016-11-07 12:54 | DRG 189 ==
LOC: NEPC 01:50 → NEDA 04:13 → NEDH 08:07 → N03A 17:59 → N04A 11-02 18:30
PROVIDERS: ADMIT Internal Medicine; ATTEND Internal Medicine
PROC: 0W9G3ZX Drainage of Peritoneal Cavity, Percutaneous Approach, Diagnostic (ICD-10-PCS; principal; 2016-10-31)
PROC: 0W993ZX Drainage of Right Pleural Cavity, Percutaneous Approach, Diagnostic (ICD-10-PCS; 2016-10-31)
PROC: 30233N1 Transfusion of Nonautologous Red Blood Cells into Peripheral Vein, Percutaneous Approach (ICD-10-PCS; 2016-10-31)
PROC: 0W9B3ZZ Drainage of Left Pleural Cavity, Percutaneous Approach (ICD-10-PCS; 2016-11-01)
PROC: 0DB68ZX Excision of Stomach, Via Natural or Artificial Opening Endoscopic, Diagnostic (ICD-10-PCS; 2016-11-03)
PROC: 0DJD8ZZ Inspection of Lower Intestinal Tract, Via Natural or Artificial Opening Endoscopic (ICD-10-PCS; 2016-11-03)
PROC: 0W993ZZ Drainage of Right Pleural Cavity, Percutaneous Approach (ICD-10-PCS; 2016-11-06)
DX: J96.01 Acute respiratory failure with hypoxia (principal); E43 Unspecified severe protein-calorie malnutrition; J90 Pleural effusion, not elsewhere classified; R18.8 Other ascites; I50.30 Unspecified diastolic (congestive) heart failure; E11.22 Type 2 diabetes mellitus with diabetic chronic kidney disease; N18.3 Chronic kidney disease, stage 3 (moderate); K29.70 Gastritis, unspecified, without bleeding; D50.9 Iron deficiency anemia, unspecified; R14.0 Abdominal distension (gaseous); E03.9 Hypothyroidism, unspecified; G62.9 Polyneuropathy, unspecified; K59.00 Constipation, unspecified; J44.9 Chronic obstructive pulmonary disease, unspecified; G40.909 Epilepsy, unspecified, not intractable, without status epilepticus; G47.00 Insomnia, unspecified; K40.90 Unilateral inguinal hernia, without obstruction or gangrene, not specified as recurrent; E11.40 Type 2 diabetes mellitus with diabetic neuropathy, unspecified; I12.9 Hypertensive chronic kidney disease with stage 1 through stage 4 chronic kidney disease, or unspecified chronic kidney disease; I73.9 Peripheral vascular disease, unspecified; I25.10 Atherosclerotic heart disease of native coronary artery without angina pectoris; M25.561 Pain in right knee; N40.0 Benign prostatic hyperplasia without lower urinary tract symptoms; Z68.22 Body mass index [BMI] 22.0-22.9, adult; Z89.612 Acquired absence of left leg above knee; Z86.14 Personal history of Methicillin resistant Staphylococcus aureus infection; Z87.01 Personal history of pneumonia (recurrent); Z87.891 Personal history of nicotine dependence; Z79.891 Long term (current) use of opiate analgesic; Z79.82 Long term (current) use of aspirin
CPT/HCPCS: 32555; 36430; 36600; 49083; 71010; 71250; 74176; 80048; 80053; 80202; 81001; 82042; 82550; 82805; 82945; 82948; 83605; 83615; 83735; 83880; 83986; 84100; 84155; 84157; 84443; 84484; 85007; 85014; 85018; 85025; 85027; 85610; 85730; 86850; 86900; 86901; 86920; 87040; 87070; 87205; 88305; 88312; 89051; 93005; 94150; 94640; 94664; 96365; 96375; C1729; C9113; J0171; J0461; J0692; J1940; J2270; J2543; J3370; J7050; P9016; Q0167

== ENCOUNTER 2016-11-14 00:23 | Inpatient (IN) | payer OTHER, MEDICARE ==
[~2016-11-14] VITALS: Ht 175.3 cm; Wt 61.4 kg
[2016-11-14] VITALS (22 sets, daily range): BP systolic 114–151; BP diastolic 62–87; PULSE 72–86; RESP 18–22; TEMP 96.7–98.4; O2SAT 88–100
[~2016-11-14 00:23] MED LIST changes: -AMBI5TAB PO; +AMLO10 PO; -AMLO5 PO; +LEVA250T PO; -LEVA750T PO; +PANT40TA3 PO; -RANI150T PO; +VITA500T PO
[2016-11-14] MEDS ORDERED: SODIUM CHLOR 0.9% 1000 ML INJ 400 ML IV ONE (00:32)
[2016-11-14] MEDS ORDERED: SODIUM CHLOR 0.9% 1000 ML INJ 1,000 ML IV ONE ×2 (00:32)
[2016-11-14] MEDS ORDERED: PIPERACIL-TAZO 3.375 GM PREMIX 50 ML IV ONE (00:45)
[2016-11-14] MEDS ORDERED: VANCOMYCIN INJ 1,000 MG in SODIUM CHLOR 0.9% 250 ML INJ 250 ML IV ONE (00:45)
--- NOTE | 2016-11-14 01:01 | RADRPT ---
EXAM DATE/TIME: 11/14/2016 00:48 [place] COMPARISON: CHEST EXPIRATION ONLY, November 06, 2016, 11:48. INDICATIONS : Shortness of breath. MEDICAL HISTORY : Congestive heart failure. Chronic obstructive pulmonary disease. SURGICAL HISTORY : None. ENCOUNTER: Initial ACUITY: 1 day PAIN SCORE: Non-responsive. LOCATION: Bilateral chest FINDINGS: Diffuse symmetric parenchymal opacities are present. There is large superimposed effusion on the righ t. Cardiomediastinal contours are largely obscured. CONCLUSION: Diffuse bilateral parenchymal opacities and significant effusion, right greater than left Abdias Early MD on November 14, 2016 at 0:58 Board Certified Radiologist. This report was verified electronically.
[2016-11-14 01:07] LABS: AUTOMATED NEUTROPHIL # 9.5 TH/MM3 (1.8-7.7); BASOPHIL # 0.1 TH/MM3 (0-0.2); BASOPHIL % 0.9 % (0.0-2.0); EOSINOPHIL # 0.1 TH/MM3 (0-0.4); HEMATOCRIT 23.4 % (39.0-51.0); HEMO FLAGS DIFF FINAL; LYMPH % 5.1 % (9.0-44.0); LYMPHOCYTE # 0.6 TH/MM3 (1.0-4.8); MEAN CELL VOLUME 79.9 FL (80.0-100.0); MEAN CORPUSCULAR HEMOGLOBIN 25.2 PG (27.0-34.0); MEAN CORPUSCULAR HGB CONC 31.6 % (32.0-36.0); MONO % 5.3 % (0.0-8.0); NEUT % 87.7 % (16.0-70.0); PLATELET COUNT 237 TH/MM3 (150-450); RED BLOOD COUNT 2.92 MIL/MM3 (4.50-5.90); RED CELL DISTRIBUTION WIDTH 19.3 % (11.6-17.2); WHITE BLOOD COUNT 10.8 TH/MM3 (4.0-11.0)
[2016-11-14 01:17] LABS: BLOOD GAS BASE EXCESS 3.7 mmol/L (-2-2); BLOOD GAS CARBOXYHEMOGLOBIN 2.5 % (0-4); BLOOD GAS HCO3 30 mmol/L (22-26); BLOOD GAS METHEMOGLOBIN 1.8 % (0-2); BLOOD GAS O2 HGB SATURATION 75 % (90-100); BLOOD GAS OXYGEN CONTENT 7.6 Vol % (12.0-20.0); BLOOD GAS PCO2 67 mmHg (38-42); BLOOD GAS PO2 47 mmHG (61-120); BLOOD GAS TOTAL HGB 7.2 G/DL (12.0-16.0); CRITICAL VALUE YES; OXYGEN DEVICE NASAL CANNULA; TEMP CORR TO 98.6; VENT SETTINGS 4
[2016-11-14 01:17] LABS: BACTERIA, URINE MANY /hpf; BLOOD, URINE SMALL (NEG); COMMENT (UR) CATH-CULTURE IND; CULTURE IF INDICATED CATH CULTURE IND; GLUCOSE,URINE NEG (NEG); KETONE, URINE NEG (NEG); NITRITE,URINE NEG (NEG); URINE COLOR YELLOW (YELLW/STRAW)
[2016-11-14 01:18] LABS: DRAW SITE LT FEMORAL; NUMBER OF ARTERIAL PUNCTURES 1; STAT YES
--- NOTE | 2016-11-14 01:23 | PD ---
HPI Chief Complaint: Respiratory Distress Time Seen by Provider: 00:32 Travel History International Travel<30 days: No Contact w/Intl Traveler<30days: No Traveled to known affect area: No History of Present Illness HPI The patient is a 65 year old male who presents to the [facility] emergency department with a history of shortness of breath noted at his rehabilitation facility prior to arrival. Unfortunately, the patient was recently discharged from the hospital and the facility was reportedly not very familiar with the patient. Ambulance services reported that they arrived at his bedside and noted that he was on a nonrebreather mask at 10 L saturating in the 80s. They increased the rate to 15 L the patient's O2 saturations began to come out. The patient's GCS was reportedly 13. The patient's mentation and began to improve. The patient on arrival denies having any acute complaints. The patient is noted to be incontinent of brown stool. He denies having any abdominal pain. He denies having any recent diarrhea. The patient reports that he has had an occasional cough and shortness of breath. The patient is noted on arrival to have what appears to be necrosis of the left third digit distal aspect. The patient reports that this began a week ago with a hangnail. The patient denies any known recent fevers, neck pain, chest pain, abdominal pain, vomiting, diarrhea, urinary symptoms, or neurologic symptoms. [facility] Past Medical History Narrative Medical The patient's past medical history is obtained from reviewing the electronic medical record and consists of chronic kidney disease, diabetes mellitus, history of a left wxnyx-wbu-jgff amputation, hypothyroid disorder, peripheral vascular disease, hypertension, congestive heart failure. 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 Arthritis: No Asthma: No Autoimmune Disease: No Anxiety: No Depression: No Heart Rhythm Problems: No Cancer: No Cardiovascular Problems: Yes (CHF) High Cholesterol: No Chemotherapy: No Chest Pain: No Congestive Heart Failure: Yes COPD: Yes Cerebrovascular Accident: No Diabetes: Yes Patient Takes Glucophage: No Diminished Hearing: No Endocrine: Yes Gastrointestinal Disorders: Yes (HX CONSTIPATION) GERD: No Genitourinary: Yes Hiatal Hernia: No Heparin Induced Thrombocytopen: No Hypertension: Yes Immune Disorder: No Inguinal Hernia: Yes Implanted Vascular Access Dvce: Yes Kidney Stones: No Musculoskeletal: Yes Neurologic: Yes (NEUROPATHY) Psychiatric: No Reproductive: No Respiratory: Yes (COPD) Integumentary: Yes (CHRONIC LESIONS/ULCERS TO LOWER EXTREMITIES) Migraines: No Radiation Therapy: No Renal Failure: Yes Seizures: No Sickle Cell Disease: No Sleep Apnea: No Thyroid Disease: No Ulcer: No Past Surgical History Narrative Surgical The patient's past surgical history is significant for a left coltx-ndq-nvzo amputation. Abdominal Surgery: No AICD: No Arteriovenous Shunt: No Body Medical Devices: pins in head Cardiac Surgery: No Endocrine Surgery: No Eye Surgery: No Genitourinary Surgery: No Gynecologic Surgery: No Insulin Pump: No Joint Replacement: No Neurologic Surgery: Yes (Skull repair) Oral Surgery: No Pacemaker: No Thoracic Surgery: No Other Surgery: Yes (RADHA KNEES/L AKA) Social History Alcohol Use: No Tobacco Use: No Substance Use: No Allergies-Medications (Allergen,Severity, Reaction): Coded Allergies: *MDRO Multi-Drug Resistant Organism (Verified Adverse Reaction, Unknown, ) MRSA PCR Screen POSITIVE - 10/11/16 MRSA (kt wound) - 10/11/16 Reported Meds & Prescriptions Reported Meds & Active Scripts Active Pantoprazole (Pantoprazole Sodium) 40 Mg Tab 40 Mg PO DAILY 30 Days Levaquin (Levofloxacin) 250 Mg Tab 250 Mg PO Q24H 3 Days Vitamin C (Ascorbic Acid) 500 Mg Tab 500 Mg PO DAILY 30 Days Norvasc (Amlodipine Besylate) 10 Mg Tab 10 Mg PO DAILY 30 Days Oxycodone-Acetaminophen 5-325 mg Tab 1 Tab PO Q4H PRN Keppra (Levetiracetam) 500 Mg Tab 500 Mg PO BID Klor-Con 10 (Potassium Chloride) 10 Meq Tab 10 Meq PO DAILY Furosemide 20 Mg Tab 20 Mg PO BID@18 Santyl (Collagenase) 250 Unit/Gm Oin 1 Applic TOP DAILY Duoneb (Ipratropium-Albuterol Neb) 0.5-2.5 Mg/3 Ml Neb 1 Ampule NEB Q6HR NEB PRN 30 Days Flomax (Tamsulosin HCl) 0.4 Mg Cap 0.4 Mg PO HS 30 Days Lidocaine Topical (Lidocaine HCl) 2 % Jel 1 Applic TOPICAL DAILY PRN 30 Days Acidophilus/l-Sporogenes (Lactobacillus Acidophilus) 1 Tab Tab 1 Tab PO DAILY Ferrous Sulfate 325 Mg Tab 325 Mg PO BID 30 Days Aspirin EC (Aspirin) 81 Mg Tabdr 81 Mg PO DAILY 30 Days Reported Omeprazole 20 Mg Tab 20 Mg PO DAILY Fleet Enema Rectal (Sodium Phosphates Rectal) 7-19 Gm/118 Ml Enem 118 Ml RECTAL DAILY PRN Milk of Magnesia Liq (Magnesium Hydroxide) 400 Mg/5 Ml Susp 30 Ml PO DAILY PRN Duoneb (Ipratropium-Albuterol Neb) 0.5-2.5 Mg/3 Ml Neb 1 Nebule INH Q6HR NEB Multivitamin Women (Multiple Vitamins W/ Minerals) 1 Tab Tab 1 Tab PO DAILY Novolog Flexpen Inj (Insulin Aspart) 300 Unit/3 Ml Pen 1 Units .ROUTE ACHS SLIDING SCALE Simethicone 80 Mg Chw 80 Mg CHEW TID PRN Lactulose Liq (Lactulose) 10 Gm/15 Ml Soln 30 Ml PO DAILY Gabapentin 100 Mg Cap 200 Mg PO Q12HR Review of Systems Except as stated in HPI: all other systems reviewed are Neg General / Constitutional: No: Fever Eyes: No: Visual changes HENT: Positive: Congestion, No: Headaches Cardiovascular: Positive: Dyspnea on exertion, No: Chest Pain or Discomfort Respiratory: Positive: Cough, Shortness of Breath Gastrointestinal: No: Nausea, Vomiting, Diarrhea, Abdominal Pain Genitourinary: No: Dysuria Musculoskeletal: No: Pain Skin: No Rash Neurologic: No: Weakness Psychiatric: No: Depression Endocrine: No: Polydipsia Hematologic/Lymphatic: No: Easy Bruising Physical Exam Narrative General: The patient is a thin-appearing male, well-developed on examination, dyspneic on exam. Otherwise in no acute distress. The patient is noted to be hypoxic on nasal cannula O2. Head and Neck exam: Head is normocephalic atraumatic. Eyes: EOMI, pupils are equal round and reactive to light. Nose: Midline septum with pink mucous membranes Mouth: Dentition unremarkable. Moist mucus membranes. Posterior oropharynx is not erythematous. No tonsillar hypertrophy. Uvula midline. Airway patent. Neck: No palpable lymphadenopathy. No nuchal rigidity. No thyromegaly. Cardiovascular: Regular rate and rhythm without murmurs, gallops, or rubs. No pulse deficit to the extremities and simultaneous auscultation and palpation of his radial artery.. Lungs: The patient is noted to have crackles in the right lower lung base. No wheezes or rhonchi audible. Abdomen: Soft, with slight distention noted, without tenderness to palpation in all 4 quadrants of the abdomen. No guarding, rebound, or rigidity. Normal bowel sounds are audible. Normal bowel sounds are audible Extremities: No clubbing, cyanosis, or edema. The patient has a left apuif-xph-gnnn amputation with a clean, dry, and intact bandage in place, no signs of surrounding infection. The patient on examination of the left hand is noted to have along the distal phalanx necrosis of the fingertip of the third digit. Right great toe distal aspect is noted to have a distal circular area of necrosis. Back: No spinous process tenderness to palpation. No costovertebral angle tenderness to palpation. Neurologic Exam: Cranial nerves 2-12 were intact on exam. Strength is 4/5 in all 4 extremities. No sensory deficits noted. The patient is oriented to person, however not place , time, or situation. Data Data Last Documented VS Vital Signs Date Time Temp Pulse Resp B/P Pulse Ox O2 Delivery O2 Flow Rate FiO2 11/14/16 02:00 72 20 122/71 98 BiPAP 11/14/16 00:50 80 11/14/16 00:37 15 11/14/16 00:28 98.4 Orders Electrocardiogram (11/14/16 00:32) Complete Blood Count With Diff (11/14/16 00:32) Comprehensive Metabolic Panel (11/14/16 00:32) Prothrombin Time / Inr (Pt) (11/14/16 00:32) Act Partial Throm Time (Ptt) (11/14/16 00:32) Lactic Acid Sepsis Protocol (11/14/16 00:32) Magnesium (Mg) (11/14/16 00:32) Lipase (11/14/16 00:32) Ckmb (Isoenzyme) Profile (11/14/16 00:32) Troponin I (11/14/16 00:32) Urinalysis - C+S If Indicated (11/14/16 00:32) Influenzae A/B Antigen (11/14/16 00:32) Blood Culture (11/14/16 00:32) Chest, Single Ap (11/14/16 00:32) Blood Glucose (11/14/16 00:32) Ecg Monitoring (11/14/16 00:32) Iv Access Insert/Monitor (11/14/16 00:32) Oximetry (11/14/16 00:32) Oxygen Administration (11/14/16 00:32) Sodium Chlor 0.9% 1000 Ml Inj (Ns 1000 M (11/14/16 00:32) Sodium Chlor 0.9% 1000 Ml Inj (Ns 1000 M (11/14/16 00:32) Sodium Chlor 0.9% 1000 Ml Inj (Ns 1000 M (11/14/16 00:32) Vancomycin Inj (Vancomycin Inj) (11/14/16 00:45) Piperacil-Tazo 3.375 Gm Premix (Zosyn 3. (11/14/16 00:45) Arterial Blood Gas (Abg) (11/14/16 ) Urine Culture (11/14/16 00:55) Red Blood Cells (Rbc) (11/14/16 01:48) Blood Product Administration .UPON TRANSFUSION (11/14/16 01:48) Sodium Chlor 0.9% 250 Ml Inj (Ns 250 Ml (11/14/16 02:00) Furosemide Inj (Lasix Inj) (11/14/16 02:00) B-Type Natriuretic Peptide (11/14/16 01:50) Type And Screen (11/14/16 01:48) Admit Order (Ed Use Only) (11/14/16 02:33) Labs Laboratory Tests Test 11/14/16 11/14/16 11/14/16 11/14/16 00:30 00:38 00:55 02:04 Blood Gas Puncture Site LT FEMORAL Blood Gas Patient Temperature 98.6 Blood Gas HCO3 30 mmol/L Blood Gas Base Excess 3.7 mmol/L Blood Gas Oxygen Saturation 75 % Arterial Blood pH 7.27 Arterial Blood Partial 67 mmHg Pressure CO2 Arterial Blood Partial 47 mmHG Pressure O2 Arterial Blood Oxygen Content 7.6 Vol % Arterial Blood 2.5 % Carboxyhemoglobin Arterial Blood Methemoglobin 1.8 % Blood Gas Hemoglobin 7.2 G/DL Oxygen Delivery Device NASAL CANNULA Blood Gas Ventilator Setting 4 White Blood Count 10.8 TH/MM3 Red Blood Count 2.92 MIL/MM3 Hemoglobin 7.4 GM/DL Hematocrit 23.4 % Mean Corpuscular Volume 79.9 FL Mean Corpuscular Hemoglobin 25.2 PG Mean Corpuscular Hemoglobin 31.6 % Concent Red Cell Distribution Width 19.3 % Platelet Count 237 TH/MM3 Mean Platelet Volume 8.9 FL Neutrophils (%) (Auto) 87.7 % Lymphocytes (%) (Auto) 5.1 % Monocytes (%) (Auto) 5.3 % Eosinophils (%) (Auto) 1.0 % Basophils (%) (Auto) 0.9 % Neutrophils # (Auto) 9.5 TH/MM3 Lymphocytes # (Auto) 0.6 TH/MM3 Monocytes # (Auto) 0.6 TH/MM3 Eosinophils # (Auto) 0.1 TH/MM3 Basophils # (Auto) 0.1 TH/MM3 CBC Comment DIFF FINAL Differential Comment Prothrombin Time 11.4 SEC Prothromb Time International 1.0 RATIO Ratio Activated Partial 26.5 SEC Thromboplast Time Sodium Level 139 MEQ/L Potassium Level 5.9 MEQ/L Chloride Level 100 MEQ/L Carbon Dioxide Level 29.8 MEQ/L Anion Gap 9 MEQ/L Blood Urea Nitrogen 41 MG/DL Creatinine 1.80 MG/DL Estimat Glomerular Filtration 38 ML/MIN Rate Random Glucose 239 MG/DL Lactic Acid Level 3.2 mmol/L Calcium Level 7.8 MG/DL Magnesium Level 1.8 MG/DL Total Bilirubin 0.3 MG/DL Aspartate Amino Transf 14 U/L (AST/SGOT) Alanine Aminotransferase 11 U/L (ALT/SGPT) Alkaline Phosphatase 88 U/L Total Creatine Kinase 27 U/L Troponin I 0.04 NG/ML B-Type Natriuretic Peptide 2915 PG/ML Total Protein 6.3 GM/DL Albumin 1.4 GM/DL Lipase 123 U/L Urine Color YELLOW Urine Turbidity HAZY Urine pH 5.0 Urine Specific Grandy 1.013 Urine Protein 30 mg/dL Urine Glucose (UA) NEG mg/dL Urine Ketones NEG mg/dL Urine Occult Blood SMALL Urine Nitrite NEG Urine Bilirubin NEG Urine Urobilinogen LESS THAN 2.0 MG/DL Urine Leukocyte Esterase SMALL Urine RBC 8 /hpf Urine WBC 8 /hpf Urine Bacteria MANY /hpf Urine Yeast (Budding) OCC Microscopic Urinalysis Comment CATH-CULTURE IND Blood Type O POSITIVE Antibody Screen NEGATIVE Crossmatch Leukocyte-Reduced Red Blood Cells Blood Bank Comment MDM Medical Decision Making Medical Screen Exam Complete: Yes Emergency Medical Condition: Yes Medical Record Reviewed: Yes Interpretation(s) Last Impressions Chest X-Ray 11/14/1631 Signed Impressions: Service Date/Time: Monday, November 14, 2016 00:48 - CONCLUSION: Diffuse bilateral parenchymal opacities and significant effusion, right greater than left Abdias Early MD Differential Diagnosis Congestive heart failure exacerbation, versus pneumonia, versus acute on chronic renal failure, versus electrolyte abnormality, versus C. difficile colitis Narrative Course During the course of the patients emergency department visit, the patients history, examination, and differential diagnosis were reviewed with the patient. The patient had IV access obtained and blood work sent for analysis. The patient had an EKG done on arrival that shows a sinus rhythm heart rate of 73, no acute ST segment elevation, nonspecific ST abnormalities T waves are inverted in lead V4, V5. The patient was provided normal saline 1 L IV fluid bolus. The patient was given vancomycin 1 g IV, Zosyn IV was administered. The patient was started on BiPAP for hypoxemia. The patients laboratory studies were reviewed and remarkable for a white count of 10.8, hemoglobin 7.4, platelets 237 with a neutrophil of 87.7, monocytes 5.1. The patient was typed and crossmatched for 2 units of packed red blood cells. The patient had one unit started while in the emergency department. CMP was remarkable for a CO2 of 32.1, BUN 45, creatinine 1.67, glucose 112, lactic acid 1.5, ALT 10, BNP 2915, PT PTT within normal limits, urinalysis shows 30 protein, small occult blood, small leukocyte esterase, 8 rbc's, 8 WBCs , many bacteria, culture indicated, chest x-ray shows diffuse bilateral parenchymal opacities and significant effusion right greater than left. The patient was given Lasix 20 mg IV. The patient had a Valencia catheter placed to gravity. The patient's symptoms improved on BiPAP. The patient will be admitted to the intensive care unit. The patients results were discussed with the patient, including the plan of care. I explained that further testing and/ or monitoring is indicated based on the patients history, examination, and/ or laboratory findings. Therefore, I recommended admission for additional evaluation. The patient expressed understanding and was agreeable with this plan. The patient was admitted to the hospital in guarded condition and sent to a bed under the care of the fleet service clerk. Critical Care Narrative Aggregate critical care time was 34 minutes. Time to perform other separately billable procedures was not included in the critical care time. My time did not include minutes spent treating any other patients simultaneously or on activities that did not directly contribute to the patient's treatment. The services I provided to this patient were to treat and/or prevent clinically significant deterioration that could result in: Respiratory failure, versus cardiovascular collapse, versus worsening renal failure I provided critical care services requiring my management, as noted below: Chart data review, documentation time, medication orders and management, vital sign assessments/reviewing monitor data, ordering and reviewing lab tests, ordering and interpreting/reviewing x-rays and diagnostic studies, care of the patient and discussion of the patient with the admitting physicians. Sepsis Criteria SIRS Criteria (2 or more): RR > 20 or PaCO2 < 32 Physician Communication Physician Communication The patient's case was discussed with Dr. Oquendo who did agree to admit the patient for further evaluation and treatment at this time. Diagnosis Primary Impression: Pulmonary edema Qualified Code: J81.0 - Acute pulmonary edema Additional Impressions: Acute on chronic renal failure Congestive heart failure Qualified Code: I50.9 - Chronic congestive heart failure, unspecified congestive heart failure type Urinary tract infection Qualified Code: N30.00 - Acute cystitis without hematuria Gangrene Admitting Information Admitting Physician Requests: Admit Macrina Benton MD Nov 14, 2016 01:23
[2016-11-14 01:24] LABS: APTT (PATIENT) 26.5 SEC (24.3-30.1); PROTHROMBIN TIME - PATIENT 11.4 SEC (9.8-11.6)
[2016-11-14 01:26] LABS: ALKALINE PHOSPHATASE 88 U/L (45-117); ALT (GPT) 11 U/L (12-78); ANION GAP 9 MEQ/L (5-15); AST (GOT) 14 U/L (15-37); BICARBONATE 29.8 MEQ/L (21.0-32.0); BLOOD UREA NITROGEN 41 MG/DL (7-18); CHLORIDE 100 MEQ/L (98-107); CREATINE KINASE 27 U/L (39-308); GLOMERULAR FILTRATION RATE 38 ML/MIN (>89); MAGNESIUM 1.8 MG/DL (1.5-2.5); POTASSIUM 5.9 MEQ/L (3.5-5.1); SODIUM (NA) 139 MEQ/L (136-145); TOTAL BILIRUBIN ADULT 0.3 MG/DL (0.2-1.0)
[2016-11-14] MEDS ORDERED: FUROSEMIDE 20 MG/2 ML VIAL IV PUSH ONE (02:00)
[2016-11-14] MEDS ORDERED: SODIUM CHLOR 0.9% 250 ML INJ 250 ML IV ONE (02:00)
[2016-11-14] MEDS ORDERED: OMEP20TA PO (02:22)
[2016-11-14 02:51] LABS: LACTIC ACID GHOST NOT REPORTABLE
[2016-11-14] MEDS ORDERED: POTASSIUM CHLOR 40 MEQ PREMIX 100 ML IV PRN ×2 (03:00)
[2016-11-14] MEDS ORDERED: POTASSIUM PHOSPHATE INJ 30 MMOL in SODIUM CHLOR 0.9% 250 ML INJ 250 ML IV PRN (03:00)
[2016-11-14] MEDS ORDERED: MISCELLANEOUS NURSING INFORMATION XX SCH (03:00)
[2016-11-14] MEDS ORDERED: ONDANSETRON HCL 4 MG/2 ML VIAL IV PRN (03:00)
[2016-11-14] MEDS ORDERED: SODIUM PHOSPHATE INJ 30 MMOL in SODIUM CHLOR 0.9% 250 ML INJ 240 ML IV PRN (03:00)
[2016-11-14] MEDS ORDERED: RESP: ALBUTEROL 2.5 MG/IPRATROPIUM 0.5 MG NEB (PRN) INH (03:00)
[2016-11-14] MEDS ORDERED: MAGNESIUM OXIDE 400 MG TAB PO PRN (03:00)
[2016-11-14] MEDS ORDERED: POTASSIUM CL 40 MEQ/30 ML LIQ UDC PO/TUBE PRN ×2 (03:00)
[2016-11-14] MEDS ORDERED: DEXTROSE 50% IN WATER 50 ML VIAL(D50) IV PUSH PRN (03:00)
[2016-11-14] MEDS ORDERED: POTASSIUM CHLOR 20 MEQ PREMIX 100 ML IV PRN ×2 (03:00)
[2016-11-14] MEDS ORDERED: MAGNESIUM SULFATE INJ 2 GM in SODIUM CHLORIDE 0.9% INJ 96 ML IV PRN (03:00)
[2016-11-14] MEDS ORDERED: POTASSIUM PHOSPHATE MONOBASIC 500 MG TAB PO PRN (03:00)
[2016-11-14] MEDS ORDERED: CHLORHEXIDINE GLUCONATE 2 % 1 PACK (2 CLOTHS) TOP PRN (03:00)
[2016-11-14] MEDS ORDERED: SODIUM CHLORIDE 0.9% FLUSH 5 ML FLUSH IV FLUSH PRN (03:00)
[2016-11-14] MEDS ORDERED: POTASSIUM PHOSPHATE MONOBASIC 500 MG TAB PO/TUBE PRN (03:00)
[2016-11-14] MEDS ORDERED: MAGNESIUM SULFATE INJ 4 GM in SODIUM CHLORIDE 0.9% INJ 92 ML IV PRN (03:00)
[2016-11-14] MEDS: RESP: ALBUTEROL 2.5 MG/IPRATROPIUM 0.5 MG NEB (SCH) INH ×4 (03:36→20:01)
[2016-11-14] MEDS ORDERED: GLUCAGON 1 MG/ML VIAL OTHER PRN (04:00)
[2016-11-14] MEDS: CHLORHEXIDINE GLUCONATE 2 % 1 PACK (2 CLOTHS) TOP SCH (04:00)
[2016-11-14] MEDS ORDERED: FUROSEMIDE 100 MG/10 ML VIAL IV PUSH ONE (04:15)
--- NOTE | 2016-11-14 04:20 | HHI.HP ---
[facility] Service Critical Care Medicine Primary Care Physician [facility] [place] Admission Diagnosis Pulmonary edema, UTI, renal insufficiency, symptomatic anemia Diagnosis: Chief Complaint: shortness of breath Travel History International Travel<30 Days: No Contact w/Intl Traveler <30 Da: No Traveled to Known Affected Are: No History of Present Illness This is a 65-year-old male who was recently admitted to the ICU proximally month or so ago with anemia, concern for GI bleed, and heart failure. He represents with similar complaints of shortness of breath and fatigue, was reportedly on NRB with spo2 in the 80s at his SNF. He was transported by EMS and on arrival was too dyspneic to participate in a thorough history. He did deny to the ER physician abdominal pain, diarrhea. endorsed some mild SOB. He has new necrosis of the left third digit distal finger and right great toe. Laboratory data is significant for a lactate of 3, a BNP of 2900, a wbc 10.8, hgb 7.4, K 5.9, Cr 1.8. Critical care medicine is consulted for his acute hypoxic respiratory failure, his likely CHF exacerbation, his sepsis, and necrotic digits. Review of Systems ROS Limitations: Clinical Condition, Altered Mental Status Past Family Social History Allergies: Coded Allergies: *MDRO Multi-Drug Resistant Organism (Verified Adverse Reaction, Unknown, ) MRSA PCR Screen POSITIVE - 10/11/16 MRSA (kt wound) - 10/11/16 Past Medical History Unable to be obtained secondary to patient's clinical condition. Per chart review: Chronic kidney disease Diabetes Left above the knee amputation Hypothyroid Peripheral last her disease Hypertension Congestive heart failure, unknown type Pneumonia MRSA infection of his AK stump COPD Constipation Inguinal hernia Neuropathy Past Surgical History Patient's past surgical history is unable to obtain secondary to his clinical condition. 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 Reported Medications Pantoprazole (Pantoprazole Sodium) 40 Mg Tab 40 Mg PO DAILY 30 Days Levaquin (Levofloxacin) 250 Mg Tab 250 Mg PO Q24H 3 Days Vitamin C (Ascorbic Acid) 500 Mg Tab 500 Mg PO DAILY 30 Days Norvasc (Amlodipine Besylate) 10 Mg Tab 10 Mg PO DAILY 30 Days Oxycodone-Acetaminophen 5-325 mg Tab 1 Tab PO Q4H PRN Keppra (Levetiracetam) 500 Mg Tab 500 Mg PO BID Klor-Con 10 (Potassium Chloride) 10 Meq Tab 10 Meq PO DAILY Furosemide 20 Mg Tab 20 Mg PO BID@18 Santyl (Collagenase) 250 Unit/Gm Oin 1 Applic TOP DAILY Duoneb (Ipratropium-Albuterol Neb) 0.5-2.5 Mg/3 Ml Neb 1 Ampule NEB Q6HR NEB PRN 30 Days Flomax (Tamsulosin HCl) 0.4 Mg Cap 0.4 Mg PO HS 30 Days Lidocaine Topical (Lidocaine HCl) 2 % Jel 1 Applic TOPICAL DAILY PRN 30 Days Acidophilus/l-Sporogenes (Lactobacillus Acidophilus) 1 Tab Tab 1 Tab PO DAILY Ferrous Sulfate 325 Mg Tab 325 Mg PO BID 30 Days Aspirin EC (Aspirin) 81 Mg Tabdr 81 Mg PO DAILY 30 Days Omeprazole 20 Mg Tab 20 Mg PO DAILY Fleet Enema Rectal (Sodium Phosphates Rectal) 7-19 Gm/118 Ml Enem 118 Ml RECTAL DAILY PRN Milk of Magnesia Liq (Magnesium Hydroxide) 400 Mg/5 Ml Susp 30 Ml PO DAILY PRN Duoneb (Ipratropium-Albuterol Neb) 0.5-2.5 Mg/3 Ml Neb 1 Nebule INH Q6HR NEB Multivitamin Women (Multiple Vitamins W/ Minerals) 1 Tab Tab 1 Tab PO DAILY Novolog Flexpen Inj (Insulin Aspart) 300 Unit/3 Ml Pen 1 Units .ROUTE ACHS SLIDING SCALE Simethicone 80 Mg Chw 80 Mg CHEW TID PRN Lactulose Liq (Lactulose) 10 Gm/15 Ml Soln 30 Ml PO DAILY Gabapentin 100 Mg Cap 200 Mg PO Q12HR Active Ordered Medications See MAR Family History Unable to be obtained secondary to patient's clinical condition. Unlikely to be contributory to his acute illness. Social History Unable to be obtained secondary to the patient's clinical condition. Per chart review: Denied EtOH, tobacco, other substances Physical Exam Vital Signs Vital Signs Date Time Temp Pulse Resp B/P Pulse Ox O2 Delivery O2 Flow Rate FiO2 11/14/16 03:33 97.8 74 20 138/76 93 BiPAP 11/14/16 03:18 97.8 73 20 135/63 93 BiPAP 11/14/16 01:00 76 20 131/67 100 BiPAP 11/14/16 00:50 94 80 11/14/16 00:37 90 Non-Rebreather 15 11/14/16 00:35 20 88 Nasal Cannula 4 11/14/16 00:31 73 22 89 Nasal Cannula 4 11/14/16 00:28 98.4 73 20 114/62 90 Physical Exam GENERAL: Elderly male, lying in bed, on BiPAP, moderate distress HEENT: Normocephalic. Atraumatic. Pupils equally round and reactive. Mucous membranes are moist. NECK: Trachea is midline. JVD is very difficult to assess. CHEST: Very labored. On BiPAP on my evaluation. Coarse rales throughout all lung bangura CARDIOVASCULAR: Normal rate, regular rhythm. No appreciable murmurs. ABDOMEN: Soft, nontender, nondistended. No guarding. MUSCULOSKELETAL: The left third digit has evidence of severe dry gangrene to just about the DIP. There is also dry gangrene of the right great toe which does not completely encompass up to the PIP. Otherwise, distal pulses are 2+. 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 NEUROLOGICAL: RASS -1. Follows commands. Somnolent but arousable. Laboratory Laboratory Tests Test 11/14/16 11/14/16 11/14/16 11/14/16 00:30 00:38 00:55 02:04 Blood Gas Puncture Site LT FEMORAL Blood Gas Patient Temperature 98.6 Blood Gas HCO3 30 Blood Gas Base Excess 3.7 Blood Gas Oxygen Saturation 75 Arterial Blood pH 7.27 Arterial Blood Partial 67 Pressure CO2 Arterial Blood Partial 47 Pressure O2 Arterial Blood Oxygen Content 7.6 Arterial Blood 2.5 Carboxyhemoglobin Arterial Blood Methemoglobin 1.8 Blood Gas Hemoglobin 7.2 Oxygen Delivery Device NASAL CANNULA Blood Gas Ventilator Setting 4 White Blood Count 10.8 Red Blood Count 2.92 Hemoglobin 7.4 Hematocrit 23.4 Mean Corpuscular Volume 79.9 Mean Corpuscular Hemoglobin 25.2 Mean Corpuscular Hemoglobin 31.6 Concent Red Cell Distribution Width 19.3 Platelet Count 237 Mean Platelet Volume 8.9 Neutrophils (%) (Auto) 87.7 Lymphocytes (%) (Auto) 5.1 Monocytes (%) (Auto) 5.3 Eosinophils (%) (Auto) 1.0 Basophils (%) (Auto) 0.9 Neutrophils # (Auto) 9.5 Lymphocytes # (Auto) 0.6 Monocytes # (Auto) 0.6 Eosinophils # (Auto) 0.1 Basophils # (Auto) 0.1 CBC Comment DIFF FINAL Differential Comment Prothrombin Time 11.4 Prothromb Time International 1.0 Ratio Activated Partial 26.5 Thromboplast Time Sodium Level 139 Potassium Level 5.9 Chloride Level 100 Carbon Dioxide Level 29.8 Anion Gap 9 Blood Urea Nitrogen 41 Creatinine 1.80 Estimat Glomerular Filtration 38 Rate Random Glucose 239 Lactic Acid Level 3.2 Calcium Level 7.8 Magnesium Level 1.8 Total Bilirubin 0.3 Aspartate Amino Transf 14 (AST/SGOT) Alanine Aminotransferase 11 (ALT/SGPT) Alkaline Phosphatase 88 Total Creatine Kinase 27 Troponin I 0.04 B-Type Natriuretic Peptide 2915 Total Protein 6.3 Albumin 1.4 Lipase 123 Urine Color YELLOW Urine Turbidity HAZY Urine pH 5.0 Urine Specific [place] 1.013 Urine Protein 30 Urine Glucose (UA) NEG Urine Ketones NEG Urine Occult Blood SMALL Urine Nitrite NEG Urine Bilirubin NEG Urine Urobilinogen LESS THAN 2.0 Urine Leukocyte Esterase SMALL Urine RBC 8 Urine WBC 8 Urine Bacteria MANY Urine Yeast (Budding) OCC Microscopic Urinalysis Comment CATH-CULTURE IND Blood Type O POSITIVE Antibody Screen NEGATIVE Crossmatch Leukocyte-Reduced Red Blood Cells Blood Bank Comment Test 11/14/16 03:15 Lactic Acid Level 1.5 Date/Time Procedure Status Source Growth 11/14/16 00:55 Urine Culture Received Urine Catheterized Urine Pending 11/14/16 00:38 Aerobic Blood Culture Received Blood Peripheral Pending 11/14/16 00:38 Anaerobic Blood Culture Received Blood Peripheral Pending Result Diagram: 11/14/168 11/14/16 003 Imaging Bedside critical care ultrasound 11/14: Grossly preserved biventricular function. Dilated IVC without evidence of Respiratory variation. No pericardial effusion. Moderate pulmonary hypertension based on tricuspid regurg. RVSP in the 40s 50s. Assessment and Plan Assessment and Plan Assessment: This is a 65yM with CHF exacerbation, likely diastolic, acute kidney injury, sepsis, anemia, an necrotic extremities. He is clearly critically ill in multi-organ system dysfunction. Plan by systems: Neurologic: Metabolic encephalopathy Every hour neuro checks Avoid long-acting sedating meds Respiratory: Acute hypoxic respiratory failure Continue BiPAP Wean FiO2 for goal SPO2 greater than 90% Likely secondary to heart failure and volume overload Cardiovascular: acute congestive heart failure exacerbation, diastolic Cardiogenic Shock Lasix 100 mg IV every 8 hours Telemetry Renal: Acute kidney injury Annie for accurate I's and O's Diuresis as above -- Strict I/Os FEN/GI: Lactic acidosis Acute intravascular volume overload Acute protein calorie malnutritionmoderate Nothing by mouth for now Diuresis as above Elevated lactate likely secondary to hypoperfusion secondary to volume overload cardiogenic shock Daily BMP Heme/ID: Anemia, unknown source, possibly chronic disease Leukocytosis Possible healthcare associated pneumonia Necrotic digits Hand surgery and podiatry consulted for dry gangrene Follow blood, urine, sputum cultures Continue vancomycin with pharmacy dosing Continue Zosyn 3.375 IV every 8, renally dosed Daily CBC. 1 unit PRBCs now We will send HIV screen. --send Cryoglobulins and cold agglutinins -- HCV negative on last admission, recently. Endocrine: Hyperglycemia of critical illness -- SSI, every 6 hours, medium scale Prophylaxis: GI Prophylaxis Protonix 40 mg IV every 24 hours DVT Prophylaxis -- SCDs Holding pharmacologic DVT prophylaxis in the setting of anemia which could be secondary to bleeding. Lines: Peripheral IVs [place] Dispo: Admit to the ICU. He remains critically ill. This patient remains critically ill with one or more organ systems which are or may become a threat to life. I have spent in excess of 37 minutes discontinuously in the care and management of this patient. This time is exclusive of procedures, and includes, but is not limited to, evaluation of the patient, review of the medical record, discussions with family, consultants, nursing staff, or respiratory therapy, and documentation in the medical record. Code Status Full Code Alfonso Oquendo MD Nov 14, 2016 04:20
[2016-11-14] MEDS: PIPERACIL-TAZO 3.375 GM PREMIX 50 ML IV SCH ×2 (08:00→17:15)
[2016-11-14] MEDS: PANTOPRAZOLE SODIUM 40 MG VIAL IV SCH (08:01)
[2016-11-14] MEDS: INSULIN NovoLIN REGULAR SUPPLEMENTAL SCALE SQ SCH ×3 (08:01→17:15)
[2016-11-14] MEDS: DOCUSATE SODIUM 50 MG/SENNA 8.6 MG TAB PO SCH (08:02)
[2016-11-14] MEDS: SODIUM CHLORIDE 0.9% FLUSH 5 ML FLUSH IV FLUSH SCH ×2 (08:02→22:31)
--- NOTE | 2016-11-14 10:18 | PD.CONS ---
History of Present Illness Service Hand Surgery Consult Requested By Alfonso Oquendo MD Reason for Consult Necrosis of left third finger. Primary Care Physician [facility] Diagnoses: History of Present Illness This is a 65 year old male who was brought to the ER last night for shortness of breath. Current diagnoses include metabolic encephalopathy, acute hypoxic respiratory failure, acute congestive heart failure exacerbation, cardiogenic shock, acute kidney injury, lactic acidosis, acute intravascular volume overload , acute protein calorie malnutrition, anemia, leukocytosis, necrotic digits, and hyperglycemia. Hand surgery is consulted for evaluation of a necrotic left third finger. The patient reports that it has been this way for several weeks and has stabilized at its current condition. He notes that the dark appearance began after he picked at a hang nail. Review of Systems ROS Limitations: Clinical Condition Past Family Social History Allergies: Coded Allergies: *MDRO Multi-Drug Resistant Organism (Verified Adverse Reaction, Unknown, ) MRSA PCR Screen POSITIVE - 10/11/16 MRSA (kt wound) - 10/11/16 Past Medical History Obtained from review of chart: Chronic kidney disease Diabetes Left above the knee amputation Hypothyroid Peripheral vascular disease Hypertension Congestive heart failure, unknown type Pneumonia MRSA infection of his [place] stump COPD Constipation Inguinal hernia Neuropathy Reported Medications Obtained from review of chart: Left AKA "Pins in his head" Active Ordered Medications Current Medications Medications (Trade) Dose Ordered Sig/Veronica Route Start Time Stop Time Status Last Admin (NS 250 ml Inj) 250 ml @ 15 mls/hr ONCE ONCE IV 11/14/16 02:00 11/14/16 18:39 11/14/16 03:36 Magnesium Oxide 800 mg 800 mg UNSCH PRN PO 11/14/16 03:00 Magnesium Sulfate 4 gm/Sodium Chloride 100 ml @ 50 mls/hr UNSCH PRN IV 11/14/16 03:00 Magnesium Sulfate 2 gm/Sodium Chloride 100 ml @ 50 mls/hr UNSCH PRN IV 11/14/16 03:00 Potassium Chloride 100 ml @ 50 mls/hr Q2H PRN IV 11/14/16 03:00 Potassium Chloride 100 ml @ 50 mls/hr Q2H PRN IV 11/14/16 03:00 Potassium Chloride 100 ml @ 50 mls/hr Q2H PRN IV 11/14/16 03:00 (KCl 40 Meq Premix Inj) 100 ml @ 25 mls/hr UNSCH PRN IV 11/14/16 03:00 (KCl 40 Meq/30 ml Liq) 40 meq UNSCH PRN PO/TUBE 11/14/16 03:00 (KCl 40 Meq/30 ml Liq) 40 meq UNSCH PRN PO/TUBE 11/14/16 03:00 (K-Phos) 2,000 mg Q4H PRN PO 11/14/16 03:00 Potassium Phosphate 2000 mg 2,000 mg UNSCH PRN PO/TUBE 11/14/16 03:00 Potassium Phosphate 30 mmol/ Sodium Chloride 260 ml @ 42 mls/hr UNSCH PRN IV 11/14/16 03:00 (Sodium Phosphate Inj/NS 250 ml Inj) 250 ml @ 42 mls/hr UNSCH PRN IV 11/14/16 03:00 (D50w (Vial) Inj) 25 ml UNSCH PRN IV PUSH 11/14/16 03:00 (NovoLIN R SUPPLEMENTAL SCALE) 1 Q6HR SQ 11/14/16 06:00 11/14/16 08:01 (NS Flush) 2 ml UNSCH PRN IV FLUSH 11/14/16 03:00 (NS Flush) 2 ml BID IV FLUSH 11/14/16 09:00 11/14/16 08:02 (Dilaudid Pf Inj) 0.25 mg Q4H PRN IV 11/14/16 03:00 (Protonix Inj) 40 mg DAILY IV 11/14/16 09:00 11/14/16 08:01 (Zofran Inj) 4 mg Q6H PRN IV 11/14/16 03:00 (Frieda-Colace) 2 tab BID PO 11/14/16 09:00 Miscellaneous Information 1 Q361D XX 11/14/16 03:00 (Chlorhexidine 2% Cloth) 3 pack Taper DAILY@04 TOP 11/14/16 04:00 11/10/17 03:59 Chlorhexidine Gluconate 3 pack 3 pack UNSCH PRN TOP 11/14/16 03:00 (Zosyn 3.375 Gm Premix) 50 ml @ 100 mls/hr Q8H IV 11/14/16 09:00 11/14/16 08:00 (Glucagon Inj) 1 mg UNSCH PRN OTHER 11/14/16 04:00 (Lasix Inj) 100 mg Q8H IV PUSH 11/14/16 12:00 (Pneumovax-23 Inj) 25 mcg ONCE ONCE IM 11/15/16 10:00 11/15/16 10:01 (Flu (Quadrivalent) Vaccine Inj) 0.5 ml ONCE ONCE IM 11/15/16 10:00 11/15/16 10:01 Family History Noncontributory Social History Denies alcohol, tobacco, drugs. Physical Exam Vital Signs Vital Signs Date Time Temp Pulse Resp B/P Pulse Ox O2 Delivery O2 Flow Rate FiO2 11/14/16 06:54 97.3 77 18 151/82 91 11/14/16 06:52 93 65 11/14/16 06:27 98.2 72 20 126/75 95 BiPAP 11/14/16 05:00 74 20 132/75 94 BiPAP 11/14/16 04:00 96 65 11/14/16 04:00 74 22 139/76 95 BiPAP 11/14/16 03:33 97.8 74 20 138/76 93 BiPAP 11/14/16 03:18 97.8 73 20 135/63 93 BiPAP 11/14/16 02:00 72 20 122/71 98 BiPAP 11/14/16 01:00 76 20 131/67 100 BiPAP 11/14/16 00:50 94 80 11/14/16 00:37 90 Non-Rebreather 15 11/14/16 00:37 90 Non-Rebreather 15.00 11/14/16 00:35 20 88 Nasal Cannula 4 11/14/16 00:31 73 22 89 Nasal Cannula 4 11/14/16 00:28 98.4 73 20 114/62 90 Physical Exam GENERAL: Patient lying comfortably. Respiratory is present, adjusting BiPAP. Patient follows commands and answers questions. HEAD: Atraumatic. Normocephalic. EYES: Pupils equal round and reactive. Extraocular motions intact. No scleral icterus. No injection or drainage. ENT: Nose without bleeding, purulent drainage. Airway patent. RESPIRATORY: On BiPAP. MUSCULOSKELETAL: On exam of the left third finger, there is dry gangrene from the tip to just proximal to the DIP joint. Proximal tissue is without erythema , induration, fluctuation or other evidence of infection. There is no drainage or odor. NEUROLOGICAL: Patient is awake. When questions he showed me the affected digit and answered questions regarding onset. Laboratory Laboratory Tests Test 11/14/16 11/14/16 11/14/16 11/14/16 00:30 00:38 00:55 02:04 Blood Gas Puncture Site LT FEMORAL Blood Gas Patient Temperature 98.6 Blood Gas HCO3 30 Blood Gas Base Excess 3.7 Blood Gas Oxygen Saturation 75 Arterial Blood pH 7.27 Arterial Blood Partial 67 Pressure CO2 Arterial Blood Partial 47 Pressure O2 Arterial Blood Oxygen Content 7.6 Arterial Blood 2.5 Carboxyhemoglobin Arterial Blood Methemoglobin 1.8 Blood Gas Hemoglobin 7.2 Oxygen Delivery Device NASAL CANNULA Blood Gas Ventilator Setting 4 White Blood Count 10.8 Red Blood Count 2.92 Hemoglobin 7.4 Hematocrit 23.4 Mean Corpuscular Volume 79.9 Mean Corpuscular Hemoglobin 25.2 Mean Corpuscular Hemoglobin 31.6 Concent Red Cell Distribution Width 19.3 Platelet Count 237 Mean Platelet Volume 8.9 Neutrophils (%) (Auto) 87.7 Lymphocytes (%) (Auto) 5.1 Monocytes (%) (Auto) 5.3 Eosinophils (%) (Auto) 1.0 Basophils (%) (Auto) 0.9 Neutrophils # (Auto) 9.5 Lymphocytes # (Auto) 0.6 Monocytes # (Auto) 0.6 Eosinophils # (Auto) 0.1 Basophils # (Auto) 0.1 CBC Comment DIFF FINAL Differential Comment Prothrombin Time 11.4 Prothromb Time International 1.0 Ratio Activated Partial 26.5 Thromboplast Time Sodium Level 139 Potassium Level 5.9 Chloride Level 100 Carbon Dioxide Level 29.8 Anion Gap 9 Blood Urea Nitrogen 41 Creatinine 1.80 Estimat Glomerular Filtration 38 Rate Random Glucose 239 Lactic Acid Level 3.2 Calcium Level 7.8 Magnesium Level 1.8 Total Bilirubin 0.3 Aspartate Amino Transf 14 (AST/SGOT) Alanine Aminotransferase 11 (ALT/SGPT) Alkaline Phosphatase 88 Total Creatine Kinase 27 Troponin I 0.04 B-Type Natriuretic Peptide 2915 Total Protein 6.3 Albumin 1.4 Lipase 123 Urine Color YELLOW Urine Turbidity HAZY Urine pH 5.0 Urine Specific [place] 1.013 Urine Protein 30 Urine Glucose (UA) NEG Urine Ketones NEG Urine Occult Blood SMALL Urine Nitrite NEG Urine Bilirubin NEG Urine Urobilinogen LESS THAN 2.0 Urine Leukocyte Esterase SMALL Urine RBC 8 Urine WBC 8 Urine Bacteria MANY Urine Yeast (Budding) OCC Microscopic Urinalysis Comment CATH-CULTURE IND Blood Type O POSITIVE Antibody Screen NEGATIVE Crossmatch Leukocyte-Reduced Red Blood Cells Blood Bank Comment Test 11/14/16 03:15 Lactic Acid Level 1.5 Date/Time Procedure Status Source Growth 11/14/16 00:55 Urine Culture Received Urine Catheterized Urine Pending 11/14/16 00:38 Aerobic Blood Culture Received Blood Peripheral Pending 11/14/16 00:38 Anaerobic Blood Culture Received Blood Peripheral Pending Result Diagram: 11/14/16 0038 11/14/16 003 Assessment and Plan Problem List: (1) Dry gangrene Status: Acute Plan: Dry gangrene of the left middle finger tip. Will eventually require surgical intervention, but not until the patient is stable medically. In the mean time, will dress with povidone iodine ointment and a dry dressing daily to prevent infection and allow the necrotic tissue to continue to demarcate. Assessment and Plan The exam, history, and the medical decision-making described in the above note were completed with the assistance of the mid-level provider. I reviewed and agree with the findings presented. I attest that I had a [id number] encounter with the patient on the same day, and personally performed and documented my assessment and findings in the medical record. Anita Adams M.D. Diana Dailey Nov 14, 2016 10:18
[2016-11-14] MEDS: POVIDONE IODINE 10% OINT 30 GM TUBE TOPICAL SCH (10:30)
--- NOTE | 2016-11-14 10:40 | EKG ---
Date Performed: 11/14/2016 Time Performed: 00:21:47 PTAGE: 65 years EKG: Sinus rhythm ST DEVIATION AND MODERATE T-WAVE ABNORMALITY, CONSIDER LATERAL ISCHEMIA Compared to prior tracing th e ST-T wave changes are slightly more prominent from the prior tracing. Clinical correlation is veronica carmichael ABNORMAL ECG PREVIOUS TRACING : 10/31/2016 02.13 DOCTOR: Keith Benton Interpretating Date/Time 11/14/2016 10:40:18
[2016-11-14] MEDS: FUROSEMIDE 100 MG/10 ML VIAL IV PUSH SCH ×2 (12:15→22:31)
[2016-11-14 14:39] LABS: HEMATOCRIT 31.1 % (39.0-51.0); REVIEW FLAG FINAL
[2016-11-14 15:25] LABS: BICARBONATE 32.1 MEQ/L (21.0-32.0); INDIRECT BILIRUBIN 0.2 MG/DL (0.0-0.8); TOTAL BILIRUBIN ADULT 0.4 MG/DL (0.2-1.0)
[2016-11-14 19:21] LABS: REVIEW FLAG FINAL
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
[2016-11-15] VITALS (13 sets, daily range): BP systolic 137–159; BP diastolic 67–79; PULSE 68–89; RESP 18–21; TEMP 97.3–98.8; O2SAT 90–96
[2016-11-15] MEDS: INSULIN NovoLIN REGULAR SUPPLEMENTAL SCALE SQ SCH ×4 (00:30→23:39)
[2016-11-15] MEDS: PIPERACIL-TAZO 3.375 GM PREMIX 50 ML IV SCH ×4 (00:30→23:38)
[2016-11-15] MEDS: DOCUSATE SODIUM 50 MG/SENNA 8.6 MG TAB PO SCH ×3 (00:30→20:12)
[2016-11-15 03:06] LABS: HEMATOCRIT 29.4 % (39.0-51.0); REVIEW FLAG FINAL
[2016-11-15] MEDS: RESP: ALBUTEROL 2.5 MG/IPRATROPIUM 0.5 MG NEB (SCH) INH ×3 (03:09→20:29)
[2016-11-15 05:40] LABS: HEMATOCRIT 30.1 % (39.0-51.0); MEAN CELL VOLUME 80.8 FL (80.0-100.0); MEAN CORPUSCULAR HEMOGLOBIN 25.9 PG (27.0-34.0); MEAN CORPUSCULAR HGB CONC 32.1 % (32.0-36.0); PLATELET COUNT 200 TH/MM3 (150-450); RED BLOOD COUNT 3.73 MIL/MM3 (4.50-5.90); RED CELL DISTRIBUTION WIDTH 18.7 % (11.6-17.2); REVIEW FLAG FINAL; WHITE BLOOD COUNT 8.9 TH/MM3 (4.0-11.0)
[2016-11-15 06:11] LABS: BICARBONATE 32.4 MEQ/L (21.0-32.0); POTASSIUM 4.4 MEQ/L (3.5-5.1)
[2016-11-15 06:12] LABS: INDIRECT BILIRUBIN 0.2 MG/DL (0.0-0.8); TOTAL BILIRUBIN ADULT 0.3 MG/DL (0.2-1.0)
[2016-11-15] MEDS: FUROSEMIDE 100 MG/10 ML VIAL IV PUSH SCH ×3 (06:26→20:11)
[2016-11-15] MEDS: SODIUM CHLORIDE 0.9% FLUSH 5 ML FLUSH IV FLUSH SCH ×2 (08:03→20:12)
[2016-11-15] MEDS: PANTOPRAZOLE SODIUM 40 MG VIAL IV SCH (08:03)
[2016-11-15] MEDS ORDERED: PNEUMOCOCCAL POLYVALENT INJ 25 MCG/0.5 ML SYR IM ONE (10:00)
[2016-11-15] MEDS ORDERED: INFLUENZA VIRUS VACCINE (QUADRIVALENT) 0.5 ML SYR IM ONE (10:00)
--- NOTE | 2016-11-15 10:17 | MB ---
cc: DONOVAN BRICENO DATE OF CONSULTATION 11/15/2016 REASON FOR CONSULTATION Evaluation for possible cardiac amyloidosis. CHIEF COMPLAINT Shortness of breath HISTORY Shukri Yao is a 65-year-old man with longstanding severe medical problems. He has been on the hospital multiple times. He was just admitted with heart failure and required thoracentesis. He was just discharged November 07 and now is readmitted. He was at a rehab facility and they had him on a non-rebreather mask at 10 liters and he is still saturating only in the 80's. When he came in, he was profoundly short of breath. Denied any chest pain. Since admission, his breathing has improved. He is on nasal cannula at the present time. I could not elicit any anginal type symptoms. He has had two previous echocardiograms and I actually went and looked at the last one that was done October 17. This shows normal ejection fraction [place]EN[place] closer to 50-55%. I do not see thickening of the valves or thickening of the myocardium to suggest cardiac amyloidosis. PAST MEDICAL HISTORY Includes: 1. Diabetes 2. Chronic kidney disease 3. He has never smoked. 4. Peripheral arterial disease with a left above-knee amputation and necrosis of left third distal finger. 5. Hypertension 6. Previous MRSA of his left stump. 7. COPD 8. Constipation 9. Inguinal hernia neuropathy 10. Some question of chronic liver disease and anemia PAST SURGICAL HISTORY Includes left above-knee amputation. FAMILY HISTORY Father of a heart attack in his 70s. SOCIAL HISTORY He has never smoked before. PHYSICAL EXAM This is a thin, chronically ill appearing white male who appears older than his stated age. VITAL SIGNS: Charted. HEENT: Exam is unremarkable. NECK: Does not showed significant jugular venous distension. CHEST: Shows decreased breath sounds right base more than the left. CARDIAC: S1, S2 regular rate and rhythm. I do not hear an S3 gallop. ABDOMEN: Somewhat firm and tense and suggestive of ascites. There is edema of the abdominal wall. EXTREMITIES: Show a left above-knee amputation. There is some cachexia with some muscle wasting. His pulses are not palpable on the right foot. His radial pulses are severely diminished and there is some necrosis of the left third distal finger. His EKG shows sinus rhythm. There are nonspecific ST-T wave changes slightly more prominent laterally than his old tracings. His labs are charted. Initial troponin was 0.04, hematocrit was 23.4, last hematocrit was 30.1. Chest x-ray showing right greater than left effusions. BUN and creatinine are elevated at 48 and 1.86, albumin is severely depressed at 1.4. Apparently he has had a previous IgG spite, I do not see anything on the echo that would suggest cardiac amyloid. IMPRESSION 1. Acute on chronic diastolic CHF exacerbated by anemia 2. Stage III chronic kidney disease 3. No apparent VT either. 4. Severe peripheral arterial disease. RECOMMENDATIONS The patient is receiving 100 mg of Lasix IV every 8 hours and this is deemed appropriate. I think he may actually come to needing a thoracentesis on the right side as well. Further therapy be determined. MD MARIE Maria/IRENE /9:23 AM /9:45 AM
--- NOTE | 2016-11-15 10:52 | PD.CONS ---
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 hospitalization to establish trust, assist with symptom management and clarification of medical treatment goals. . (Perri Ramirez) Thank you for the opportunity to participate in the care of Mr. Yao.. . (Perri Ramirez) Collaborating Comments Attestation To help prompt me to consider important information that might be impacting today's encounter and assessment, information from prior notes written by myself or my colleagues may have been "brought forward" into today's note. My signature on this note, however, is an attestation that I personally performed the exam, history, and/or decision-making noted today, and, unless otherwise indicated, the interactions with patient, family, and staff as well as the review of records all occurred today. I also attest that the listed assessment and stated plan reflect my best clinical judgment today based on the combination of historical information, prior notes, and today's exam/ interactions. When time spent is documented, it refers only to time spent today by the signer, or if indicated, combined time spent today by collaborating physician/nurse practitioner. . (Perri Ramirez) Collaborating Comments Chart reviewed. Case discussed with palliative care MAKE UP ARTIST. Above MAKE UP ARTIST note reviewed and I concur. . (Buddy Rios MD) Perri Ramirez Nov 15, 2016 10:51 Buddy Rios MD Dec 17, 2016 07:46
--- NOTE | 2016-11-15 12:32 | HHI.CCPN ---
Subjective Remarks/Hospital Course 11/14: This is a 65-year-old male who was recently admitted to the ICU proximally month or so ago with anemia, concern for GI bleed, and heart failure. He represents with similar complaints of shortness of breath and fatigue, was reportedly on NRB with spo2 in the 80s at his [facility]F. He was transported by EMS and on arrival was too dyspneic to participate in a thorough history. He did deny to the ER physician abdominal pain, diarrhea. endorsed some mild SOB. He has new necrosis of the left third digit distal finger and right great toe. Laboratory data is significant for a lactate of 3, a BNP of 2900, a wbc 10.8, hgb 7.4, K 5.9, Cr 1.8. Critical care medicine is consulted for his acute hypoxic respiratory failure, his likely CHF exacerbation, his sepsis, and necrotic digits. 11/15: Elderly male laying in bed awake and alert. Still on nonrebreather facemask. Diuresing with Lasix. Evaluated by hematology and cardiology. Objective Vital Signs Date Time Temp Pulse Resp B/P Pulse Ox O2 Delivery O2 Flow Rate FiO2 11/15/16 09:50 93 Partial Rebreather 12.00 11/15/16 08:00 76 11/15/16 08:00 97.3 19 159/75 11/14/16 06:52 65 Intake and Output 11/14/16 11/14/16 11/15/16 08:00 16:00 00:00 Intake Total 250 ml 555 ml 383 ml Output Total 1150 ml 600 ml Balance 250 ml -595 ml -217 ml Result Diagram: 11/15/16 0418 11/15/16 0418 Imaging Bedside critical care ultrasound 11/14: Grossly preserved biventricular function. Dilated IVC without evidence of Respiratory variation. No pericardial effusion. Moderate pulmonary hypertension based on tricuspid regurg. RVSP in the 40s 50s. Last Impressions Chest X-Ray 11/14/16 0032 Signed Impressions: Service Date/Time: Monday, November 14, 2016 00:48 - CONCLUSION: Diffuse bilateral parenchymal opacities and significant effusion, right greater than left Abdias Early MD Objective Remarks GENERAL: Elderly male, lying in bed, on partial rebreather, moderate distress HEENT: Normocephalic. Atraumatic. Pupils equally round and reactive. Mucous membranes are moist. NECK: Trachea is midline. JVD is very difficult to assess. CHEST: On partial rebreather, at entry decreased lower right base, bilateral coarse crackles, no wheezing CARDIOVASCULAR: Normal rate, regular rhythm. No appreciable murmurs. ABDOMEN: Soft, nontender, nondistended. No guarding. MUSCULOSKELETAL: The left third digit has evidence of severe dry gangrene to just about the DIP. There is also dry gangrene of the right great toe which does not completely encompass up to the PIP. Otherwise, distal pulses are 2+. 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 NEUROLOGICAL: Awake alert oriented 3. Follows commands. Moves all 4 extremities. A/P Assessment and Plan Assessment: This is a 65yM with CHF exacerbation, likely diastolic, acute kidney injury, sepsis, anemia, an necrotic extremities. He is clearly critically ill in multi-organ system dysfunction. Plan by systems: Neurologic: Metabolic encephalopathy Every hour neuro checks Avoid long-acting sedating meds Respiratory: Acute hypoxic respiratory failure Continue BiPAP as needed. Partial rebreather when off BIPAP Wean FiO2 for goal SPO2 greater than 90% Likely secondary to heart failure and volume overload. Being diuresed. Schedule for ultrasound-guided thoracentesis for right pleural effusion. Cardiovascular: acute congestive heart failure exacerbation, diastolic Lasix 100 mg IV every 8 hours Telemetry Renal: Acute kidney injury Annie for accurate I's and O's Diuresis as above -- Strict I/Os FEN/GI: Lactic acidosis Acute intravascular volume overload Acute protein calorie malnutritionmoderate PO diet as tolerated Diuresis as above Elevated lactate likely secondary to hypoperfusion secondary to volume overload cardiogenic shock Daily BMP Heme/ID: Anemia, unknown source, possibly chronic disease Leukocytosis Possible healthcare associated pneumonia Necrotic digits Hand surgery and podiatry consulted for dry gangrene Follow blood, urine, sputum cultures Continue vancomycin with pharmacy dosing Continue Zosyn 3.375 IV every 8, renally dosed Daily CBC. 1 unit PRBCs now We will send HIV screen. --send Cryoglobulins and cold agglutinins -- HCV negative on last admission, recently. Endocrine: Hyperglycemia of critical illness -- SSI, every 6 hours, medium scale Prophylaxis: GI Prophylaxis Protonix 40 mg IV every 24 hours DVT Prophylaxis -- SCDs No evidence of melena. Will start subcutaneous heparin following thoracentesis Lines: Peripheral IVs Ian Palumbo MD Nov 15, 2016 12:32
--- NOTE | 2016-11-15 14:08 | PD.CONS ---
History of Present Illness Service Podiatry Consult Requested By ICU Reason for Consult Necrotic right digit, eschar right heel Primary Care Physician [facility] Diagnoses: (1) Dry gangrene History of Present Illness This is a 65 year old male who was brought to the ER last night for shortness of breath. Current diagnoses include metabolic encephalopathy, acute hypoxic respiratory failure, acute congestive heart failure exacerbation, cardiogenic shock, acute kidney injury, lactic acidosis, acute intravascular volume overload , acute protein calorie malnutrition, anemia, leukocytosis, necrotic digits, and hyperglycemia. Hand surgery is consulted for evaluation of a necrotic left third finger. The patient reports that it has been this way for several weeks and has stabilized at its current condition. He notes that the dark appearance began after he picked at a hang nail. Past Family Social History Allergies: Coded Allergies: *MDRO Multi-Drug Resistant Organism (Verified Adverse Reaction, Unknown, ) MRSA PCR Screen POSITIVE - 10/11/16 MRSA (kt wound) - 10/11/16 Physical Exam Vital Signs Vital Signs Date Time Temp Pulse Resp B/P Pulse Ox O2 Delivery O2 Flow Rate FiO2 11/15/16 09:50 93 Partial Rebreather 12.00 11/15/16 08:00 96 Partial Rebreather 10.00 11/15/16 08:00 76 11/15/16 08:00 97.3 76 19 159/75 92 11/15/16 06:00 79 11/15/16 04:00 98.4 68 18 11/15/16 04:00 98.8 89 18 140/67 90 11/15/16 04:00 79 11/15/16 00:00 98.6 77 20 140/69 94 11/15/16 00:00 77 11/14/16 22:00 76 11/14/16 20:02 92 Partial Rebreather 12.00 11/14/16 20:00 76 11/14/16 20:00 97.6 86 22 126/68 96 11/14/16 18:00 82 11/14/16 16:00 96.8 79 20 141/76 90 11/14/16 16:00 79 Physical Exam GENERAL: This is a well-nourished, well-developed patient, in no apparent distress. SKIN: No rashes, ecchymoses or lesions. Cool and dry. HEAD: Atraumatic. Normocephalic. No temporal or scalp tenderness. EYES: Pupils equal round and reactive. Extraocular motions intact. No scleral icterus. No injection or drainage. ENT: Nose without bleeding, purulent drainage or septal hematoma. Throat without erythema, tonsillar hypertrophy or exudate. Uvula midline. Airway patent. NECK: Trachea midline. No JVD or lymphadenopathy. Supple, nontender, no meningeal signs. CARDIOVASCULAR: Regular rate and rhythm without murmurs, gallops, or rubs. RESPIRATORY: Clear to auscultation. Breath sounds equal bilaterally. No wheezes , rales, or rhonchi. GASTROINTESTINAL: Abdomen soft, non-tender, nondistended. No hepato-splenomegaly , or palpable masses. No guarding. MUSCULOSKELETAL: Extremities without clubbing, cyanosis, or edema. No joint tenderness, effusion, or edema noted. No calf tenderness. Negative Homans sign bilaterally. NEUROLOGICAL: Awake and alert. Cranial nerves II through XII intact. Motor and sensory grossly within normal limits. Five out of 5 muscle strength in all muscle groups. Normal speech. Laboratory Laboratory Tests Test 11/14/16 11/14/16 11/15/16 11/15/16 14:22 19:09 02:37 04:18 Hemoglobin 10.2 9.6 9.7 9.7 Hematocrit 31.1 30.0 29.4 30.1 Sodium Level 139 140 Potassium Level 5.0 4.4 Chloride Level 99 98 Carbon Dioxide Level 32.1 32.4 Anion Gap 8 10 Blood Urea Nitrogen 45 48 Creatinine 1.67 1.86 Estimat Glomerular Filtration 41 37 Rate Random Glucose 112 103 Lactic Acid Level 0.8 Calcium Level 8.1 7.9 Total Bilirubin 0.4 0.3 Direct Bilirubin 0.2 0.1 Indirect Bilirubin 0.2 0.2 Aspartate Amino Transf 15 13 (AST/SGOT) Alanine Aminotransferase 10 9 (ALT/SGPT) Alkaline Phosphatase 88 79 Total Protein 6.7 6.2 Albumin 1.5 1.4 HIV (1&2) Antibody NEGATIVE White Blood Count 8.9 Red Blood Count 3.73 Mean Corpuscular Volume 80.8 Mean Corpuscular Hemoglobin 25.9 Mean Corpuscular Hemoglobin 32.1 Concent Red Cell Distribution Width 18.7 Platelet Count 200 Mean Platelet Volume 8.7 Date/Time Procedure Status Source Growth 11/14/16 00:55 Urine Culture - Preliminary Resulted Urine Catheterized Urine Yeast-Id To Follow 11/14/16 00:38 Aerobic Blood Culture - Preliminary Resulted Blood Peripheral NO GROWTH IN 1 DAY 11/14/16 00:38 Anaerobic Blood Culture - Preliminary Resulted Blood Peripheral NO GROWTH IN 1 DAY Result Diagram: 11/15/1641711/15/16417 Course Left amputation of lower leg Right foot-DP and PT pulses nonpalpable REAL TIME TRADER greater than 3 seconds No sign of erythema and streaking in right foot Distal tuft of hallux circumfrential purpura, no open wound, well demarcated Lateral right heel superficial ulcer about 2.3 cm circumfrentially, 20% eschar/ necrosis, dry stable no streaking and no sign of drainage or clear opening Assessment and Plan Assessment and Plan Right foot stable possible ischemic distal skin of hallux with pressure stable ulcer lateral heel Pt with necrotic, stable appearing dry gangrene of upper extremity digit Pt with known PAD and neuropathy -Plan is heel offloading pad -Mild betadine paint and either bandaid or left opento air for the toe and heel -No need for surgical intervention and appears to be stable and demarcated. Thank you for consult- if necrosis progresses or change to wet gangrene please feel free to reconsult no futher intervention for right foot needed per podiatry Thank you, Kvng Priest DPM Nov 15, 2016 14:08
--- NOTE | 2016-11-15 15:11 | RADRPT ---
EXAM DATE/TIME: 11/15/2016 14:56 [facility] COMPARISON: CHEST EXPIRATION ONLY, November 06, 2016, 11:48. INDICATIONS : Post right thoracentesis. MEDICAL HISTORY : Congestive heart failure. Chronic obstructive pulmonary disease. Diabetes. SURGICAL HISTORY : None. ENCOUNTER: Subsequent ACUITY: 1 day PAIN SCORE: 0/10 LOCATION: chest FINDINGS: Status post right thoracentesis. The fluid has been drained. There is no evidence of pneumothorax. Th e right lung is clear and well-aerated. There continues to be a left-sided pleural effusion with an i nfiltrate in the left lower lung suggestive of atelectasis. CONCLUSION: No evidence of pneumothorax following right thoracentesis. Erick Odell MD on November 15, 2016 at 15:08 Board Certified Radiologist. This report was verified electronically.
--- NOTE | 2016-11-15 15:41 | RADRPT ---
EXAM DATE/TIME: 11/15/2016 14:20 [facility] COMPARISON: US GUIDED THORACENTESIS RIGHT, November 06, 2016, 10:53. INDICATIONS : Plerual effusion right side. Vancomycin within 2 hrs of procedure, Ancef (or alternative) within 1 hr of procedure start. MEDICAL HISTORY : Chronic obstructive pulmonary disease. Neuropathy. Head trama. Congestive heart failure. Renal failur e. Inguinal hernia. Diabetes. Chronic lesions, lower extremities.MRSA PCR,10/11/16. SURGICAL HISTORY : Skull repair. Bilateral knee surgery. Paracentesis. Thoracentesis. ENCOUNTER: [facility] ACUITY: 2 weeks PAIN SCORE: 0/10 LOCATION: Right chest FLUID: Total volume of 2200 cc of clear, yellow fluid was removed. Fluid was sent to lab for ordered studies. Post procedure scanning reveals no hematoma or other complication. TECHNIQUE: 1. Ultrasound guidance for thoracentesis. 2. Thoracentesis. The risks, benefits, and alternatives to ultrasound guided thoracentesis were explained to the patien t in lay simple terms, including the risk of bleeding and infection. Written and verbal informed con sent was obtained. Appropriate area for thoracentesis was marked under ultrasound guidance with the patient in the uprig ht position. Overlying skin was prepped and draped in the usual sterile fashion and with local anest hetic, a dermatotomy was made with an 11 blade scalpel. A 6 [place]guill[place] thoracentesis catheter was placed in the pleural space and fluid was removed. Catheter was then removed and a sterile dressing applie d. There were no immediate complications. The patient tolerated the procedure well and the left the ultrasound suite in stable condition. Chest radiograph is to be obtained. CONCLUSION: Uncomplicated ultrasound guided thoracentesis. Erick Odell MD on November 15, 2016 at 15:40 Board Certified Radiologist. This report was verified electronically.
[2016-11-15] MEDS: POVIDONE IODINE 10% OINT 30 GM TUBE TOPICAL SCH (17:52)
--- NOTE | 2016-11-15 18:18 | PD.PLAS.PN ---
Subjective Remarks The patient reports that he's feeling better. Vital Signs Date Time Temp Pulse Resp B/P Pulse Ox O2 Delivery O2 Flow Rate FiO2 11/15/16 18:00 79 11/15/16 16:00 97.6 79 19 137/78 93 11/15/16 16:00 79 11/15/16 14:15 97.4 75 20 147/76 93 11/15/16 14:00 78 11/15/16 12:00 76 11/15/16 12:00 97.3 76 21 153/79 91 11/15/16 10:00 79 11/15/16 09:50 93 Partial Rebreather 12.00 11/15/16 08:00 96 Partial Rebreather 10.00 11/15/16 08:00 76 11/15/16 08:00 97.3 76 19 159/75 92 11/15/16 06:00 79 11/15/16 04:00 98.4 68 18 11/15/16 04:00 98.8 89 18 140/67 90 11/15/16 04:00 79 11/15/16 00:00 98.6 77 20 140/69 94 11/15/16 00:00 77 11/14/16 22:00 76 11/14/16 20:02 92 Partial Rebreather 12.00 11/14/16 20:00 76 11/14/16 20:00 97.6 86 22 126/68 96 I/O 11/14/16 11/14/16 11/14/16 11/15/16 11/15/16 11/15/16 07:00 15:00 23:00 07:00 15:00 23:00 Intake Total 250 ml 555 ml 383 ml 315 ml 895 ml Output Total 1150 ml 600 ml 1030 ml 800 ml Balance 250 ml -595 ml -217 ml -715 ml 95 ml Intake Oral 0 ml 250 ml 200 ml 720 ml IV Total 225 ml 133 ml 115 ml 175 ml Packed Cells 250 ml 330 ml Output Urine Total 1150 ml 600 ml 1030 ml 800 ml # Bowel Movements 0 Laboratory Tests Test 11/14/16 11/15/16 11/15/16 19:09 02:37 04:18 Hemoglobin 9.6 9.7 9.7 Hematocrit 30.0 29.4 30.1 White Blood Count 8.9 Red Blood Count 3.73 Mean Corpuscular Volume 80.8 Mean Corpuscular Hemoglobin 25.9 Mean Corpuscular Hemoglobin 32.1 Concent Red Cell Distribution Width 18.7 Platelet Count 200 Mean Platelet Volume 8.7 Sodium Level 140 Potassium Level 4.4 Chloride Level 98 Carbon Dioxide Level 32.4 Anion Gap 10 Blood Urea Nitrogen 48 Creatinine 1.86 Estimat Glomerular Filtration 37 Rate Random Glucose 103 Calcium Level 7.9 Total Bilirubin 0.3 Direct Bilirubin 0.1 Indirect Bilirubin 0.2 Aspartate Amino Transf 13 (AST/SGOT) Alanine Aminotransferase 9 (ALT/SGPT) Alkaline Phosphatase 79 Total Protein 6.2 Albumin 1.4 Date/Time Procedure Status Source Growth 11/15/16 14:39 Gram Stain Received Fluid Pleural Fluid Pending 11/15/16 14:39 Body Fluid Culture Received Fluid Pleural Fluid Pending 11/15/16 14:39 Fungal Smear Received Fluid Pleural Fluid Pending 11/15/16 14:39 Fungal Culture Received Fluid Pleural Fluid Pending 11/15/16 14:39 Acid Fast Stain Received Fluid Pleural Fluid Pending 11/15/16 14:39 Mycobacterial Culture Received Fluid Pleural Fluid Pending 11/14/16 00:55 Urine Culture - Preliminary Resulted Urine Catheterized Urine Yeast-Id To Follow 11/14/16 00:38 Aerobic Blood Culture - Preliminary Resulted Blood Peripheral NO GROWTH IN 1 DAY 11/14/16 00:38 Anaerobic Blood Culture - Preliminary Resulted Blood Peripheral NO GROWTH IN 1 DAY Result Diagram: 11/15/16 0418 11/15/16 0418 Exam Findings There is no change in examination of the patient's left third finger. There is no evidence of infection. There is been no change in the demarcation. Plan Impression: The patient has dry gangrene of his left middle finger is noted. Plan: I discussed with the patient the treatment of the necrotic finger. I advised him that this should be done when his medical condition has improved. At the present time, his other medical conditions take precedent. Anita Adams MD Nov 15, 2016 18:18
[2016-11-15 18:22] LABS: TOTAL PROTEIN,PLEURAL FLUID 1.4 GM/DL
[2016-11-15 19:06] LABS: PLEURAL FLUID LYMPHS 56 %; PLEURAL FLUID PH 7.5
[2016-11-15] MEDS: HYDROmorphone HCL PF 1 MG/ML VIAL IV PRN (21:00)
[2016-11-16] VITALS (16 sets, daily range): BP systolic 132–155; BP diastolic 69–77; PULSE 72–79; RESP 16–21; TEMP 98–98.6; O2SAT 88–95
[2016-11-16] MEDS: HYDROmorphone HCL PF 1 MG/ML VIAL IV PRN ×2 (03:15→20:20)
[2016-11-16] MEDS: FUROSEMIDE 100 MG/10 ML VIAL IV PUSH SCH ×3 (03:15→20:17)
[2016-11-16] MEDS: CHLORHEXIDINE GLUCONATE 2 % 1 PACK (2 CLOTHS) TOP SCH (03:16)
[2016-11-16] MEDS: RESP: ALBUTEROL 2.5 MG/IPRATROPIUM 0.5 MG NEB (SCH) INH ×3 (03:43→21:15)
[2016-11-16 05:30] LABS: HEMATOCRIT 30.5 % (39.0-51.0); MEAN CELL VOLUME 81.1 FL (80.0-100.0); MEAN CORPUSCULAR HEMOGLOBIN 25.6 PG (27.0-34.0); MEAN CORPUSCULAR HGB CONC 31.6 % (32.0-36.0); PLATELET COUNT 224 TH/MM3 (150-450); RED BLOOD COUNT 3.76 MIL/MM3 (4.50-5.90); RED CELL DISTRIBUTION WIDTH 18.6 % (11.6-17.2); REVIEW FLAG FINAL
[2016-11-16 05:59] LABS: BICARBONATE 32.3 MEQ/L (21.0-32.0); INDIRECT BILIRUBIN 0.3 MG/DL (0.0-0.8); POTASSIUM 4.2 MEQ/L (3.5-5.1); TOTAL BILIRUBIN ADULT 0.4 MG/DL (0.2-1.0)
[2016-11-16] MEDS: INSULIN NovoLIN REGULAR SUPPLEMENTAL SCALE SQ SCH ×4 (06:00→23:11)
--- NOTE | 2016-11-16 06:17 | RADRPT ---
EXAM DATE/TIME: 11/16/2016 04:32 [facility] COMPARISON: CHEST EXPIRATION ONLY, November 15, 2016, 14:56. INDICATIONS : Shortness of breath, possible pulmonary disease. MEDICAL HISTORY : Congestive heart failure. Chronic obstructive pulmonary disease. Diabetes mellitus type II. SURGICAL HISTORY : None. ENCOUNTER: Subsequent ACUITY: 2 days PAIN SCORE: 0/10 LOCATION: Bilateral chest FINDINGS: Diffuse hazy opacity overlies the lung bangura bilaterally. This appears to reflect parenchymal diseas e and layering effusions. Cardiac contours are obscured CONCLUSION: Worsening aeration. Abdias Early MD on November 16, 2016 at 6:15 Board Certified Radiologist. This report was verified electronically.
[2016-11-16] MEDS: PIPERACIL-TAZO 3.375 GM PREMIX 50 ML IV SCH (08:57)
[2016-11-16] MEDS: SODIUM CHLORIDE 0.9% FLUSH 5 ML FLUSH IV FLUSH SCH ×2 (08:58→20:17)
[2016-11-16] MEDS: POVIDONE IODINE 10% OINT 30 GM TUBE TOPICAL SCH (08:58)
[2016-11-16] MEDS: PANTOPRAZOLE SODIUM 40 MG VIAL IV SCH (08:58)
[2016-11-16] MEDS: DOCUSATE SODIUM 50 MG/SENNA 8.6 MG TAB PO SCH ×2 (08:58→20:21)
[2016-11-16 10:41] LABS: URINE TOTAL PROTEIN TIMED 30.2 MG/DL
--- NOTE | 2016-11-16 15:08 | HHI.HCPN ---
Reason for visit a. To assist with evaluation and management of symptoms including: shortness of breath, weakness, pain b. To assist medical decision maker(s) with: better understanding of current medical conditions; weighing benefits/burdens of medical treatment options; making medical treatment decisions. . (Perri Ramirez) Subjective/Interval History Patient seen and assessed in room 520. Awake and alert, able to make needs known , answering questions appropriately. Patient stating he is feeling better. Off non-rebreather. Tolerating 4L oxygen via nasal cannula with saturations in the mid 90s. Patient has no complaints, denies pain on examination. Dilaudid 0.25mg IV is available q4 hours PRN for pain. Patient has received 2 doses in the past 24 hours for back pain rated 7 out of 10. Examination of patient's left third finger unchanged. No evidence of infection , no change in demarcation. Right hand warm to touch, dusky nail beds. 11/16/16: WBC 12.0 (increased from 8.9 yesterday), hemoglobin 9.6, hematocrit 30.5, platelets 224 Sodium 138, potassium 4.2, chloride 96, carbon dioxide 32.3, glucose 124, calcium 7.9 Total bilirubin 0.4, direct bilirubin 0.1, indirect bilirubin 0.3, AST 13, ALT 7, alkaline phosphatase 132 Total protein 6.4, albumin 1.3 Kidney functioning slightly worse. BUN 49, creatinine 1.96, GFR 34 Urine output stable. Patient reporting shortness of breath has lessened status post thoracentesis on 11/15/16, removing 2200ml clear, yellow fluid. Fluid sample cytology pending. Post procedure chest x-ray revealed no evidence of pneumothorax, right lung clear and well aerated. Continued left-sided pleural effusion with infiltrates in the left lower lung suggestive of atelectasis. Left sided thoracentesis likely later today. . Family/friend interactions Attempted to speak with patient's son, Meño harjit telephone. Message left on patient's son's voicemail encouraging him to return my call with any question, needs or concerns. . (Perri Ramirez) Advance Directives Health Care Surrogate: Copy in medical record Durable Power of Trim Master Operator: Copy in medical record (Perri Ramirez) Advance Directive Specifics Date completed: 07/25/16 . Health Care Surrogate(s): Meño Yao (son) has been designated by the patient as the health care surrogate. . (Perri Ramirez) Objective Vital Signs Date Time Temp Pulse Resp B/P Pulse Ox O2 Delivery O2 Flow Rate FiO2 11/16/16 14:00 72 11/16/16 12:00 72 11/16/16 12:00 98.6 72 16 143/73 89 11/16/16 10:00 79 11/16/16 08:00 72 11/16/16 08:00 98.2 74 19 141/77 90 11/16/16 06:00 74 11/16/16 04:57 94 Nasal Cannula 4.00 11/16/16 04:23 95 Venturi Mask 6.00 35 11/16/16 04:11 21 11/16/16 04:00 75 11/16/16 04:00 98.4 75 16 155/77 95 11/16/16 02:00 73 11/16/16 00:00 98.0 73 19 132/69 91 11/16/16 00:00 73 11/15/16 22:00 75 11/15/16 20:00 97.8 74 21 142/75 90 11/15/16 20:00 74 11/15/16 18:00 79 11/15/16 16:00 97.6 79 19 137/78 93 11/15/16 16:00 79 Intake & Output 11/16/16 11/16/16 07:00 19:00 Output Total 1500 ml Balance -1500 ml Output Urine Total 1500 ml . Physical Exam CONSTITUTIONAL/GENERAL: This is a frail male patient who appears older than his documented age. TUBES/LINES/DRAINS: JACINTA Yoo, PIV x 1 SKIN: Ecchymoses on upper extremities. Purpura. Left hand third digit and right great toe purple/blackish color.Skin temperature appropriate. Not diaphoretic. Left AKA dressing dry and intact. HEAD: Atraumatic. Normocephalic. EYES: Extraocular motions intact. No scleral icterus. No injection or drainage. Fundi not examined. ENT: Hearing grossly normal. Nose without bleeding or purulent drainage. Throat without visible erythema, exudates, masses, or lesions. NECK: Trachea midline. CARDIOVASCULAR: Regular rate and rhythm without murmurs, gallops, or rubs. No JVD. Peripheral pulses symmetric. RESPIRATORY/CHEST: Off NRB. Tolerating 4L via NC. Decreased air exchange, right greater than left. GASTROINTESTINAL: Abdomen soft, non-tender, nondistended. No hepato-splenomegaly , or palpable masses. No guarding. Bowel sounds present. GENITOURINARY: Without palpable bladder distension. Valencia catheter in place. MUSCULOSKELETAL: The left third digit has evidence of severe dry gangrene. There is also dry gangrene of the right great toe which does not completely encompass up to the PIP. . LYMPHATICS: No palpable cervical or supraclavicular adenopathy. NEUROLOGICAL: Awake and alert.Follows commands. Cognitively sharp. Moves all extremities. PSYCHIATRIC: No obvious anxiety/depression. no apparent hallucinations or other psychotic thought process. . (Perri Ramirez) Diagnostic Tests Laboratory Laboratory Tests Test 11/14/16 11/14/16 11/14/16 11/14/16 00:30 00:38 00:55 02:04 Blood Gas Puncture Site LT FEMORAL Blood Gas Patient Temperature 98.6 Blood Gas HCO3 30 mmol/L (22-26) Blood Gas Base Excess 3.7 mmol/L (-2-2) Blood Gas Oxygen Saturation 75 % (90-100) Arterial Blood pH 7.27 (7.380-7.420) Arterial Blood Partial 67 mmHg (38-42) Pressure CO2 Arterial Blood Partial 47 mmHG Pressure O2 (61-120) Arterial Blood Oxygen Content 7.6 Vol % (12.0-20.0) Arterial Blood 2.5 % (0-4) Carboxyhemoglobin Arterial Blood Methemoglobin 1.8 % (0-2) Blood Gas Hemoglobin 7.2 G/DL (12.0-16.0) Oxygen Delivery Device NASAL CANNULA Blood Gas Ventilator Setting 4 Prothrombin Time 11.4 SEC (9.8-11.6) Prothromb Time International 1.0 RATIO Ratio Activated Partial 26.5 SEC Thromboplast Time (24.3-30.1) Sodium Level 139 MEQ/L (136-145) Potassium Level 5.9 MEQ/L (3.5-5.1) Chloride Level 100 MEQ/L (98-107) Carbon Dioxide Level 29.8 MEQ/L (21.0-32.0) Anion Gap 9 MEQ/L (5-15) Blood Urea Nitrogen 41 MG/DL (7-18) Creatinine 1.80 MG/DL (0.60-1.30) Estimat Glomerular Filtration 38 ML/MIN (>89) Rate Random Glucose 239 MG/DL (74-106) Lactic Acid Level 3.2 mmol/L (0.4-2.0) Calcium Level 7.8 MG/DL (8.5-10.1) Magnesium Level 1.8 MG/DL (1.5-2.5) Total Bilirubin 0.3 MG/DL (0.2-1.0) Aspartate Amino Transf 14 U/L (15-37) (AST/SGOT) Alanine Aminotransferase 11 U/L (12-78) (ALT/SGPT) Alkaline Phosphatase 88 U/L (45-117) Total Creatine Kinase 27 U/L (39-308) Troponin I 0.04 NG/ML (0.02-0.05) B-Type Natriuretic Peptide 2915 PG/ML (0-100) Total Protein 6.3 GM/DL (6.4-8.2) Albumin 1.4 GM/DL (3.4-5.0) Lipase 123 U/L (73-393) White Blood Count 10.8 TH/MM3 (4.0-11.0) Red Blood Count 2.92 MIL/MM3 (4.50-5.90) Hemoglobin 7.4 GM/DL (13.0-17.0) Hematocrit 23.4 % (39.0-51.0) Mean Corpuscular Volume 79.9 FL (80.0-100.0) Mean Corpuscular Hemoglobin 25.2 PG (27.0-34.0) Mean Corpuscular Hemoglobin 31.6 % Concent (32.0-36.0) Red Cell Distribution Width 19.3 % (11.6-17.2) Platelet Count 237 TH/MM3 (150-450) Mean Platelet Volume 8.9 FL (7.0-11.0) Neutrophils (%) (Auto) 87.7 % (16.0-70.0) Lymphocytes (%) (Auto) 5.1 % (9.0-44.0) Monocytes (%) (Auto) 5.3 % (0.0-8.0) Eosinophils (%) (Auto) 1.0 % (0.0-4.0) Basophils (%) (Auto) 0.9 % (0.0-2.0) Neutrophils # (Auto) 9.5 TH/MM3 (1.8-7.7) Lymphocytes # (Auto) 0.6 TH/MM3 (1.0-4.8) Monocytes # (Auto) 0.6 TH/MM3 (0-0.9) Eosinophils # (Auto) 0.1 TH/MM3 (0-0.4) Basophils # (Auto) 0.1 TH/MM3 (0-0.2) CBC Comment DIFF FINAL Differential Comment Urine Color YELLOW (YELLW/STRAW) Urine Turbidity HAZY (CLEAR) Urine pH 5.0 (5.0-8.5) Urine Specific [place] 1.013 (1.002-1.035) Urine Protein 30 mg/dL (NEG-TRACE) Urine Glucose (UA) NEG mg/dL (NEG) Urine Ketones NEG mg/dL (NEG) Urine Occult Blood SMALL (NEG) Urine Nitrite NEG (NEG) Urine Bilirubin NEG (NEG) Urine Urobilinogen LESS THAN 2.0 MG/DL (LESS THAN 2.0) Urine Leukocyte Esterase SMALL (NEG) Urine RBC 8 /hpf (0-3) Urine WBC 8 /hpf (0-5) Urine Bacteria MANY /hpf (NONE) Urine Yeast (Budding) OCC (NONE) Microscopic Urinalysis Comment CATH-CULTURE IND Blood Type O POSITIVE Antibody Screen NEGATIVE Crossmatch Leukocyte-Reduced Red Blood Cells Blood Bank Comment Test 11/14/16 11/14/16 11/14/16 11/14/16 03:15 13:45 14:22 19:09 Lactic Acid Level 1.5 mmol/L 0.8 mmol/L (0.4-2.0) (0.4-2.0) Nasal Screen MRSA (PCR) NEGATIVE (NEGATIVE) Hemoglobin 10.2 GM/DL 9.6 GM/DL (13.0-17.0) (13.0-17.0) Hematocrit 31.1 % 30.0 % (39.0-51.0) (39.0-51.0) Sodium Level 139 MEQ/L (136-145) Potassium Level 5.0 MEQ/L (3.5-5.1) Chloride Level 99 MEQ/L (98-107) Carbon Dioxide Level 32.1 MEQ/L (21.0-32.0) Anion Gap 8 MEQ/L (5-15) Blood Urea Nitrogen 45 MG/DL (7-18) Creatinine 1.67 MG/DL (0.60-1.30) Estimat Glomerular Filtration 41 ML/MIN (>89) Rate Random Glucose 112 MG/DL (74-106) Calcium Level 8.1 MG/DL (8.5-10.1) Total Bilirubin 0.4 MG/DL (0.2-1.0) Direct Bilirubin 0.2 MG/DL (0.0-0.2) Indirect Bilirubin 0.2 MG/DL (0.0-0.8) Aspartate Amino Transf 15 U/L (15-37) (AST/SGOT) Alanine Aminotransferase 10 U/L (12-78) (ALT/SGPT) Alkaline Phosphatase 88 U/L (45-117) Total Protein 6.7 GM/DL (6.4-8.2) Albumin 1.5 GM/DL (3.4-5.0) HIV (1&2) Antibody NEGATIVE (NEGATIVE) Cold Agglutinin 4c degrees NEG (BELOW 1:16) Test 11/15/16 11/15/16 11/15/16 11/16/16 02:37 04:18 14:39 04:30 Hemoglobin 9.7 GM/DL 9.7 GM/DL 9.6 GM/DL (13.0-17.0) (13.0-17.0) (13.0-17.0) Hematocrit 29.4 % 30.1 % 30.5 % (39.0-51.0) (39.0-51.0) (39.0-51.0) White Blood Count 8.9 TH/MM3 12.0 TH/MM3 (4.0-11.0) (4.0-11.0) Red Blood Count 3.73 MIL/MM3 3.76 MIL/MM3 (4.50-5.90) (4.50-5.90) Mean Corpuscular Volume 80.8 FL 81.1 FL (80.0-100.0) (80.0-100.0) Mean Corpuscular Hemoglobin 25.9 PG 25.6 PG (27.0-34.0) (27.0-34.0) Mean Corpuscular Hemoglobin 32.1 % 31.6 % Concent (32.0-36.0) (32.0-36.0) Red Cell Distribution Width 18.7 % 18.6 % (11.6-17.2) (11.6-17.2) Platelet Count 200 TH/MM3 224 TH/MM3 (150-450) (150-450) Mean Platelet Volume 8.7 FL 8.8 FL (7.0-11.0) (7.0-11.0) Sodium Level 140 MEQ/L 138 MEQ/L (136-145) (136-145) Potassium Level 4.4 MEQ/L 4.2 MEQ/L (3.5-5.1) (3.5-5.1) Chloride Level 98 MEQ/L 96 MEQ/L (98-107) (98-107) Carbon Dioxide Level 32.4 MEQ/L 32.3 MEQ/L (21.0-32.0) (21.0-32.0) Anion Gap 10 MEQ/L (5-15) 10 MEQ/L (5-15) Blood Urea Nitrogen 48 MG/DL (7-18) 49 MG/DL (7-18) Creatinine 1.86 MG/DL 1.96 MG/DL (0.60-1.30) (0.60-1.30) Estimat Glomerular Filtration 37 ML/MIN (>89) 34 ML/MIN (>89) Rate Random Glucose 103 MG/DL 124 MG/DL (74-106) (74-106) Calcium Level 7.9 MG/DL 7.9 MG/DL (8.5-10.1) (8.5-10.1) Total Bilirubin 0.3 MG/DL 0.4 MG/DL (0.2-1.0) (0.2-1.0) Direct Bilirubin 0.1 MG/DL 0.1 MG/DL (0.0-0.2) (0.0-0.2) Indirect Bilirubin 0.2 MG/DL 0.3 MG/DL (0.0-0.8) (0.0-0.8) Aspartate Amino Transf 13 U/L (15-37) 13 U/L (15-37) (AST/SGOT) Alanine Aminotransferase 9 U/L (12-78) 7 U/L (12-78) (ALT/SGPT) Alkaline Phosphatase 79 U/L (45-117) 132 U/L (45-117) Total Protein 6.2 GM/DL 6.4 GM/DL (6.4-8.2) (6.4-8.2) Albumin 1.4 GM/DL 1.3 GM/DL (3.4-5.0) (3.4-5.0) Pleural Fluid pH 7.5 Pleural Fluid WBC 10 /MM3 (0-10) Pleural Fluid RBC 106 /MM3 (0-0) Pleural Fluid Neutrophils 22 % Pleural Fluid Lymphocytes 56 % Pleural Fluid Histiocytes 22 % Pleural Fluid Total Protein 1.4 GM/DL Pleural Fluid LDH 72 U/L Pleural Fluid Glucose 140 MG/DL Pleural Fluid Amylase 16 U/L Test 11/16/16 09:18 Urine Total Volume 24 Hours 2625 ML Urine Total Protein 24 Hour 793 MG/24HR (0-150) . (Perri Ramirez) Result Diagram: 11/16/1642911/16/16 0430 Microbiology Microbiology Date/Time Procedure Status Source Growth 11/14/16 00:38 Aerobic Blood Culture - Preliminary Resulted Blood Peripheral NO GROWTH IN 2 DAYS 11/14/16 00:38 Anaerobic Blood Culture - Preliminary Resulted Blood Peripheral NO GROWTH IN 2 DAYS 11/14/16 00:38 Aerobic Blood Culture - Preliminary Resulted Blood Peripheral NO GROWTH IN 2 DAYS 11/14/16 00:38 Anaerobic Blood Culture - Preliminary Resulted Blood Peripheral NO GROWTH IN 2 DAYS 11/14/16 00:55 Urine Culture - Final Complete Urine Catheterized Urine Claudia Tropicalis 11/15/16 14:39 Gram Stain - Final Resulted Fluid Pleural Fluid 11/15/16 14:39 Body Fluid Culture - Preliminary Resulted Fluid Pleural Fluid NO GROWTH IN 24 HOURS. 11/15/16 14:39 Acid Fast Stain Received Fluid Pleural Fluid Pending 11/15/16 14:39 Mycobacterial Culture Received Fluid Pleural Fluid Pending 11/15/16 14:39 Fungal Smear - Final Resulted Fluid Pleural Fluid NO FUNGAL ELEMENTS SEEN. 11/15/16 14:39 Fungal Culture Resulted Fluid Pleural Fluid Pending Imaging Last 72 hours Impressions Chest X-Ray 11/16/16 0600 Signed Impressions: Service Date/Time: October 04:32 - CONCLUSION: Worsening aeration. Abdias Early MD Thoracentesis Ultrasound 11/15/16 0000 Signed Impressions: Service Date/Time: Tuesday, November 15, 2016 14:20 - CONCLUSION: Uncomplicated ultrasound guided thoracentesis. Erick Odell MD Chest X-Ray 11/15/16 0000 Signed Impressions: Service Date/Time: Tuesday, November 15, 2016 14:56 - CONCLUSION: No evidence of pneumothorax following right thoracentesis. Erick Odell MD Chest X-Ray 11/14/16 0032 Signed Impressions: Service Date/Time: Monday, November 14, 2016 00:48 - CONCLUSION: Diffuse bilateral parenchymal opacities and significant effusion, right greater than left Abdias Early MD . Procedures 11/15/16: Thoracentesis . (Perri Ramirez) Assessment and Plan Disease Oriented Problem List: (1) Diabetes (2) Necrotizing fasciitis (3) Impaired mobility and activities of daily living (4) HTN (hypertension) (5) Acute on chronic kidney failure (6) Acute respiratory failure with hypoxia (7) Sepsis (8) Diabetes mellitus (9) Diabetic nephropathy (10) COPD (chronic obstructive pulmonary disease) (11) CHF (congestive heart failure) (12) Anemia (13) Pleural effusion (14) Congestive heart failure (15) Urinary tract infection (16) Dry gangrene Symptom Scale: (1) Weakness (2) Dyspnea Comment: Off non-rebreather. Tolerating 4L oxygen via nasal cannula with saturations in the mid 90s. Patient reporting shortness of breath has lessened status post pleurocentesis on 11/15/16, removing 2200ml clear, yellow fluid. Fluid sample cytology pending. Post procedure chest x-ray revealed no evidence of pneumothorax, right lung clear and well aerated. Continued left-sided pleural effusion with infiltrates in the left lower lung suggestive of atelectasis. Left sided thoracentesis likely later today 11/16/16. . (3) Pain Comment: Patient has no complaints, denies pain on examination. Dilaudid 0.25mg IV is available q4 hours PRN for pain. Patient has received 2 doses in the past 24 hours for back pain rated 7 out of 10. . Pertinent Non-Medical Issues Psychosocial: Patient is originally from [place]. He has been three times. He has 3 children. Meño lives in [place]. Dion lives in [facility]. Salina lives in [place]. 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 He was exposed to Agent [place]. Spiritual: Non-church. Legal: Patient is currently capacitated to make health care decisions. In the event that the patient becomes incapacitated, Meño Yao (son) has been designated by the patient as the health care surrogate. Ethical issues impacting care: No known ethical issues impacting care at this time. . Important Contacts Meño Yao, son: [phone] Carmelo Garner, friend: [phone] . Prognosis Patient is a 65 year frail 65 yo male patient who has experienced an acute decline since 05/2016 secondary to multiple comorbid conditions. He has been hospitalized 6 times in the past 5 months s/p AKA of the left leg. Currently admitted with CHF exacerbation, acute kidney injury, sepsis, anemia and necrotic extremities patient is critically ill in multiorgan system dysfunction. Prognosis poor. . Code Status: Full Code Plan * NO CODE * Decision-making: Patient is currently capacitated to make health care decisions. In the event that the patient becomes incapacitated, Meño Yao ( son) has been designated by the patient as the health care surrogate. * Goals: Goals remain aggressive up to the point of cardiopulmonary resuscitation. Patient stating he would like to consider hospice upon discharge. Ongoing support and clarification of medical treatment goals needed. * Patient son, Meño Yao, is the main contact lens flashing puncher. He lives in [place] , which is [place] hours earlier. Phone number [phone]. Attempted to speak with patient's son, Meño, vis telephone. Message left on patient's son's voicemail encouraging him to return my call with any question, needs or concerns. * Palliative care INSIDE ACCOUNT EXECUTIVE, Janet Oquendo, contacted long-term facility via telephone requesting written advanced directives. The durable power of Atty. for healthcare was received and faxed to HIM to be scanned into the patient's EMR. * Symptom managementpain: Possible causes of pain include wounds, infection, dyspnea, invasive lines, Valencia catheter, recent thoracentesis, procedures, immobility, bedbound status etc. Patient has no complaints, denies pain on examination. Dilaudid 0.25mg IV is available q4 hours PRN for pain. Patient has received 2 doses in the past 24 hours for back pain rated 7 out of 10. Palliative care will continue to monitor PRN requirements and make recommendations as appropriate. * Symptom managementdyspnea: Off non-rebreather. Tolerating 4L oxygen via nasal cannula with saturations in the mid 90s. Patient reporting shortness of breath has lessened status post pleurocentesis on 11/15/16, removing 2200ml clear , yellow fluid. Fluid sample cytology pending. Post procedure chest x-ray revealed no evidence of pneumothorax, right lung clear and well aerated. Continued left-sided pleural effusion with infiltrates in the left lower lung suggestive of atelectasis. Left sided thoracentesis likely later today 11/16/16. * Again discussed the process of cardiopulmonary resuscitation, benefits versus burdens. After a lengthy discussion, patient has requested his CODE STATUS be changed to NO CODEDNR/DNI stating if his heart were to stop beating he would want us to "just let it be at that point". * Palliative care will continue to follow this patient throughout his hospitalization to establish trust, assist with symptom management and clarification of medical treatment goals. . (Perri Ramirez) Attestation To help prompt me to consider important information that might be impacting today's encounter and assessment, information from prior notes written by myself or my colleagues may have been "brought forward" into today's note. My signature on this note, however, is an attestation that I personally performed the exam, history, and/or decision-making noted today, and, unless otherwise indicated, the interactions with patient, family, and staff as well as the review of records all occurred today. I also attest that the listed assessment and stated plan reflect my best clinical judgment today based on the combination of historical information, prior notes, and today's exam/ interactions. When time spent is documented, it refers only to time spent today by the signer, or if indicated, combined time spent today by collaborating physician/nurse practitioner. . (Perri Ramirez) Collaborating MD Comments Chart reviewed. Case discussed with palliative care GED PREPARATION TEACHER. Above GED PREPARATION TEACHER note reviewed and I concur. . (Buddy Rios MD) Perri Ramirez Nov 16, 2016 15:08 Buddy Rios MD Dec 17, 2016 08:03 and stated plan reflect my best clinical judgment today based on the combination of historical information, prior notes, and today's exam/ interactions. When time spent is documented, it refers only to time spent today by the signer, or if indicated, combined time spent today by collaborating physician/nurse practitioner. . Perri Ramirez Nov 16, 2016 15:08
--- NOTE | 2016-11-16 16:41 | HHI.CCPN ---
Subjective Remarks/Hospital Course 11/14: This is a 65-year-old male who was recently admitted to the ICU proximally month or so ago with anemia, concern for GI bleed, and heart failure. He represents with similar complaints of shortness of breath and fatigue, was reportedly on NRB with spo2 in the 80s at his [facility]. He was transported by EMS and on arrival was too dyspneic to participate in a thorough history. He did deny to the ER physician abdominal pain, diarrhea. endorsed some mild SOB. He has new necrosis of the left third digit distal finger and right great toe. Laboratory data is significant for a lactate of 3, a BNP of 2900, a wbc 10.8, hgb 7.4, K 5.9, Cr 1.8. Critical care medicine is consulted for his acute hypoxic respiratory failure, his likely CHF exacerbation, his sepsis, and necrotic digits. 11/15: Elderly male laying in bed awake and alert. Still on nonrebreather facemask. Diuresing with Lasix. Evaluated by hematology and cardiology. 11/16: Resting in bed on nasal cannula. Underwent thoracentesis yesterday with drainage of 2.2 L of right pleural effusion. Objective Vital Signs Date Time Temp Pulse Resp B/P Pulse Ox O2 Delivery O2 Flow Rate FiO2 11/16/16 16:00 76 11/16/16 12:00 98.6 16 143/73 89 11/16/16 04:57 Nasal Cannula 4.00 11/16/16 04:23 35 Intake and Output 11/15/16 11/15/16 11/16/16 08:00 16:00 00:00 Intake Total 315 ml 895 ml Output Total 1030 ml 800 ml 650 ml Balance -715 ml 95 ml -650 ml Result Diagram: 11/16/16 0430 11/16/16 0430 Other Results Microbiology Date/Time Procedure Status Source Growth 11/14/16 00:55 Urine Culture - Final Complete Urine Catheterized Urine Claudia Tropicalis Imaging Last 48 hours Impressions Chest X-Ray 11/16/16 0600 Signed Impressions: Service Date/Time: October 04:32 - CONCLUSION: Worsening aeration. Abdias Early MD Thoracentesis Ultrasound 11/15/16 0000 Signed Impressions: Service Date/Time: Tuesday, November 15, 2016 14:20 - CONCLUSION: Uncomplicated ultrasound guided thoracentesis. Erick Odell MD Chest X-Ray 11/15/16 0000 Signed Impressions: Service Date/Time: Tuesday, November 15, 2016 14:56 - CONCLUSION: No evidence of pneumothorax following right thoracentesis. Erick Odell MD Bedside critical care ultrasound 11/14: Grossly preserved biventricular function. Dilated IVC without evidence of Respiratory variation. No pericardial effusion. Moderate pulmonary hypertension based on tricuspid regurg. RVSP in the 40s 50s. Last Impressions Chest X-Ray 11/14/16 0032 Signed Impressions: Service Date/Time: Monday, November 14, 2016 00:48 - CONCLUSION: Diffuse bilateral parenchymal opacities and significant effusion, right greater than left Abdias Early MD Objective Remarks GENERAL: Elderly male, lying in bed, on partial rebreather, moderate distress HEENT: Normocephalic. Atraumatic. Pupils equally round and reactive. Mucous membranes are moist. NECK: Trachea is midline. JVD is very difficult to assess. CHEST: On partial rebreather, at entry decreased lower right base, bilateral coarse crackles, no wheezing CARDIOVASCULAR: Normal rate, regular rhythm. No appreciable murmurs. ABDOMEN: Soft, nontender, nondistended. No guarding. MUSCULOSKELETAL: The left third digit has evidence of severe dry gangrene to just about the DIP. There is also dry gangrene of the right great toe which does not completely encompass up to the PIP. Otherwise, distal pulses are 2+. 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 NEUROLOGICAL: Awake alert oriented 3. Follows commands. Moves all 4 extremities. A/P Assessment and Plan Assessment: This is a 65yM with CHF exacerbation, likely diastolic, acute kidney injury, sepsis, anemia, an necrotic extremities.He has multi-organ system dysfunction. Plan by systems: Neurologic: Metabolic encephalopathy Follow neuro status Avoid long-acting sedating meds Respiratory: Acute hypoxic respiratory failure Off BIPAP, on nasal cannula Wean FiO2 for goal SPO2 greater than 90% Likely secondary to heart failure and volume overload. Being diuresed. s/p ultrasound-guided thoracentesis of right pleural effusion on 11/15 with drainage of 2.2liters. Cardiovascular: acute congestive heart failure exacerbation, diastolic Lasix 100 mg IV every 8 hours Telemetry. Cardiology consult noted. Renal: Acute kidney injury Valencia for accurate I's and O's Diuresis as above -- Strict I/Os FEN/GI: Lactic acidosis Acute intravascular volume overload Acute protein calorie malnutritionmoderate PO diet as tolerated Diuresis as above Daily BMP Heme/ID: Anemia, unknown source, possibly chronic disease Leukocytosis Possible healthcare associated pneumonia Necrotic digits Hand surgery and podiatry consulted for dry gangrene - no surgical intervention recommended currently Follow blood, urine, sputum cultures Stop vanc. 11/16 Continue Zosyn renally dosed Daily CBC. 1 unit PRBCs HIV screen negative --Cryoglobulins pending. Cold agglutinins negative -- HCV negative on last admission, recently. -- Hematology consult noted. Endocrine: Hyperglycemia of critical illness -- SSI, every 6 hours, medium scale Prophylaxis: GI Prophylaxis Protonix 40 mg IV every 24 hours DVT Prophylaxis -- SCDs No evidence of melena. Heparin subcutaneously Lines: Peripheral IVs Valencia Palliative care following to assist with deciding goals of therapy. Patient is DNR status. Ian Wolff MD Nov 16, 2016 16:40
[2016-11-16] MEDS: PIPERACIL-TAZO 2.25 GM PREMIX 50 ML IV SCH ×2 (17:08→23:11)
[2016-11-16] MEDS: DILTIAZEM HCL 30 MG TAB PO SCH ×2 (17:10→20:16)
[2016-11-16] MEDS: HEPARIN SODIUM - SQ 10,000 UNITS/ML VIAL SQ SCH (20:16)
[2016-11-17] VITALS (15 sets, daily range): BP systolic 125–152; BP diastolic 62–74; PULSE 69–75; RESP 18–22; TEMP 97.6–99.1; O2SAT 84–93
[2016-11-17] MEDS: RESP: ALBUTEROL 2.5 MG/IPRATROPIUM 0.5 MG NEB (SCH) INH ×4 (03:11→21:13)
[2016-11-17] MEDS: PIPERACIL-TAZO 2.25 GM PREMIX 50 ML IV SCH ×4 (05:38→20:38)
[2016-11-17] MEDS: INSULIN NovoLIN REGULAR SUPPLEMENTAL SCALE SQ SCH ×3 (05:40→17:34)
[2016-11-17] MEDS: FUROSEMIDE 100 MG/10 ML VIAL IV PUSH SCH ×3 (05:41→20:37)
[2016-11-17] MEDS: CHLORHEXIDINE GLUCONATE 2 % 1 PACK (2 CLOTHS) TOP SCH (05:41)
[2016-11-17 05:54] LABS: HEMATOCRIT 29.8 % (39.0-51.0); MEAN CELL VOLUME 81.3 FL (80.0-100.0); MEAN CORPUSCULAR HEMOGLOBIN 26.1 PG (27.0-34.0); MEAN CORPUSCULAR HGB CONC 32.1 % (32.0-36.0); PLATELET COUNT 207 TH/MM3 (150-450); RED BLOOD COUNT 3.66 MIL/MM3 (4.50-5.90); RED CELL DISTRIBUTION WIDTH 18.7 % (11.6-17.2); REVIEW FLAG FINAL; WHITE BLOOD COUNT 11.6 TH/MM3 (4.0-11.0)
[2016-11-17 06:22] LABS: BICARBONATE 34.7 MEQ/L (21.0-32.0)
[2016-11-17 06:25] LABS: INDIRECT BILIRUBIN 0.1 MG/DL (0.0-0.8); TOTAL BILIRUBIN ADULT 0.3 MG/DL (0.2-1.0)
[2016-11-17] MEDS: DOCUSATE SODIUM 50 MG/SENNA 8.6 MG TAB PO SCH ×2 (07:14→20:41)
[2016-11-17] MEDS: HEPARIN SODIUM - SQ 10,000 UNITS/ML VIAL SQ SCH ×2 (07:44→20:36)
[2016-11-17] MEDS: PANTOPRAZOLE SODIUM 40 MG VIAL IV SCH (07:44)
[2016-11-17] MEDS: DILTIAZEM HCL 30 MG TAB PO SCH ×4 (07:44→20:38)
[2016-11-17] MEDS: SODIUM CHLORIDE 0.9% FLUSH 5 ML FLUSH IV FLUSH SCH ×2 (07:45→20:37)
[2016-11-17] MEDS: POVIDONE IODINE 10% OINT 30 GM TUBE TOPICAL SCH (07:45)
--- NOTE | 2016-11-17 09:18 | HHI.CCPN ---
Subjective Remarks/Hospital Course 11/14: This is a 65-year-old male who was recently admitted to the ICU proximally month or so ago with anemia, concern for GI bleed, and heart failure. He represents with similar complaints of shortness of breath and fatigue, was reportedly on NRB with spo2 in the 80s at his SNF. He was transported by EMS and on arrival was too dyspneic to participate in a thorough history. He did deny to the ER physician abdominal pain, diarrhea. endorsed some mild SOB. He has new necrosis of the left third digit distal finger and right great toe. Laboratory data is significant for a lactate of 3, a BNP of 2900, a wbc 10.8, hgb 7.4, K 5.9, Cr 1.8. Critical care medicine is consulted for his acute hypoxic respiratory failure, his likely CHF exacerbation, his sepsis, and necrotic digits. 11/15: Elderly male laying in bed awake and alert. Still on nonrebreather facemask. Diuresing with Lasix. Evaluated by hematology and cardiology. 11/16: Resting in bed on nasal cannula. Underwent thoracentesis yesterday with drainage of 2.2 L of right pleural effusion. Subjective 11/17: Afebrile. Plan for left-sided thoracentesis today. Currently on nasal cannula appears comfortable. Worsening renal function noted. Objective Vital Signs Date Time Temp Pulse Resp B/P Pulse Ox O2 Delivery O2 Flow Rate FiO2 11/17/16 08:00 97.6 70 21 146/74 89 11/16/16 21:17 Nasal Cannula 5.00 11/16/16 04:23 35 Intake and Output 11/16/16 11/16/16 11/17/16 08:00 16:00 00:00 Intake Total 600 ml 290 ml Output Total 850 ml 500 ml 450 ml Balance -850 ml 100 ml -160 ml Result Diagram: 11/17/16 0503 11/17/16 0503 Other Results Microbiology Date/Time Procedure Status Source Growth 11/15/16 14:39 Gram Stain - Final Resulted Fluid Pleural Fluid 11/15/16 14:39 Body Fluid Culture - Preliminary Resulted Fluid Pleural Fluid NO GROWTH IN 24 HOURS. 11/15/16 14:39 Fungal Smear - Final Resulted Fluid Pleural Fluid NO FUNGAL ELEMENTS SEEN. 11/15/16 14:39 Fungal Culture Resulted Fluid Pleural Fluid Pending 11/15/16 14:39 Acid Fast Stain - Final Resulted Fluid Pleural Fluid NO ACID FAST BACILLI SEEN 11/15/16 14:39 Mycobacterial Culture Resulted Fluid Pleural Fluid Pending 11/14/16 00:55 Urine Culture - Final Complete Urine Catheterized Urine Claudia Tropicalis 11/14/16 00:38 Aerobic Blood Culture - Preliminary Resulted Blood Peripheral NO GROWTH IN 2 DAYS 11/14/16 00:38 Anaerobic Blood Culture - Preliminary Resulted Blood Peripheral NO GROWTH IN 2 DAYS Imaging Last Impressions Chest X-Ray 11/16/16 0600 Signed Impressions: Service Date/Time: October 04:32 - CONCLUSION: Worsening aeration. Abdias Early MD Thoracentesis Ultrasound 11/15/16 0000 Signed Impressions: Service Date/Time: Tuesday, November 15, 2016 14:20 - CONCLUSION: Uncomplicated ultrasound guided thoracentesis. Erick Odell MD Objective Remarks GENERAL: [id number] male, elderly-appearing male, currently resting in bed on nasal cannula no acute distress HEENT: Normocephalic. Atraumatic. Pupils equally round and reactive around 3 mm bilaterally and reactive. Mucous membranes are moist and pink. No oral thrush. NECK: Trachea is midline. No JVD CHEST: Diminished breath sounds left greater than right. No wheezing CARDIOVASCULAR: Normal rate, regular rhythm. S1, S2 no S4. No appreciable murmurs. ABDOMEN: Soft, nontender, nondistended. No guarding. MUSCULOSKELETAL: The left third digit has evidence of severe dry gangrene to just about the DIP. There is also dry gangrene of the right great toe which does not completely encompass up to the PIP. Otherwise, distal pulses are 2+. Evidence of old left AKA. NEUROLOGICAL: Awake alert oriented to person place and year. Follows simple commands. Moves all 4 extremities spontaneously to command. Positive peripheral neuropathy bilateral upper and lower extremities.. A/P Assessment and Plan Neuro/Psych: History bilateral cataracts History of anxiety Dental caries Peripheral neuropathy -- Resume Neurontin at 10 mg by mouth twice a day for neuropathy -- Resume Keppra renal dose adjusted 50 mill grams by mouth twice a day Avoid long-acting sedating meds. Currently on hydromorphone as needed for pain management Respiratory: Acute hypoxic respiratory failure secondary to acute on chronic diastolic heart failure/COPD History of COPD Bilateral pleural effusions likely transudative Nasal cannula to maintain saturations greater than equal to 92% Incentive spirometry while awake Likely secondary to acute on chronic diastolic heart failure and COPD. Being diuresed with Lasix 40 mg 3 times a day --s/p ultrasound-guided thoracentesis of right pleural effusion on 11/15 with drainage of 2.2liters. Plan for left thoracentesis ultrasound guided today Cardiovascular: Acute on chronic congestive heart failure exacerbation, diastolic History of hypertension Last echocardiogram 10/13 revealed EF 55-60%. SIOBHAN 47 mmHg. Lasix decreased to 40 mEq IV every 8 hours. At home on Lasix 20 mg by mouth twice a day. At home on Norvasc 10 mg by mouth daily. This is been held. Resume when clinically indicated At home on aspirin 81 mg by mouth daily. This be resumed. Cardiology consult with Dr. Benton reviewed. Renal/: Acute on chronic kidney injury4 BPH Likely secondary to diuresis. Avoid nephrotoxic drugs Valencia for accurate I's and O's -- Strict I/Os Urine electrolytes/eosinophils and renal ultrasound pending Resume Flomax 0.4 mg by mouth daily FEN/GI: Acute protein calorie malnutritionmoderate Constipation Gastroesophageal reflux disease Inguinal hernia PO diet as tolerated Protonix 40 mg by mouth daily. For gastroesophageal reflux disease. Diuresis with Lasix 40 every 8. Daily BMP Resume lactulose 30 cc daily for constipation Heme/ID: Anemia, unknown source, possibly chronic disease Leukocytosis Possible healthcare associated pneumonia C tropicalis UTI Hand surgery and podiatry consulted for dry gangrene - no surgical intervention recommended currently Pertinent cultures 11/14: Blood cultures 2 - no growth 11/14 - urine culture - Claudia tropicalis 11/15 - thoracentesis/pleural - no growth/negative AFB Stop vanc. 11/16 Continue Zosyn 2.25 g IV every 6 hours day 5 -- Treat with Diflucan 100 mill grams IV/by mouth daily 7 days for funguria Daily CBC. 1 unit PRBCs HIV screen negative --Cryoglobulins pending. Cold agglutinins negative -- HCV negative on last admission, recently. -- Hematology consult noted. Endocrine: Hyperglycemia of critical illness -- SSI, every 6 hours, medium scale MSK: Left AKA Dry gangrene left third digit Decubitus ulcer right toe Evaluated by plastic/Dr. Adams. No current indication for surgical intervention. Previously on Santyl daily for debridement Prophylaxis: GI Prophylaxis Protonix 40 mg IV every 24 hours DVT Prophylaxis -- SCDs No evidence of melena. Heparin subcutaneously Lines: Peripheral IVs Valencia Palliative care following to assist with deciding goals of therapy. Patient is DNR status. Critical Care: The total critical care time was 35 minutes. Time to perform other separately billable procedures was not included in the critical care time. Butch Amezcua MD Nov 17, 2016 09:18
--- NOTE | 2016-11-17 11:48 | RADRPT ---
EXAM DATE/TIME: 11/17/2016 09:18 [facility] COMPARISON: CT ABDOMEN & PELVIS W/O CONTRAST, October 15, 2016, 20:18. US KIDNEY/RENAL/BLADDER, June 18, 2016 , 17:17. INDICATIONS: Increased BUN/creatinine. MEDICAL HISTORY: Inguinal hernia. COPD. Neuropathy. Head trauma. CHF. Renal failure. SURGICAL HISTORY: Skull repair. Bilateral knee surgery. ENCOUNTER: Initial ACUITY: 1 day PAIN SCORE: 0/10 LOCATION: Bilateral flank MEASUREMENTS: RIGHT KIDNEY: 13.7 x 6.0 x 5.9 cm LEFT KIDNEY: 14.0 x 6.0 x 4.9 cm FINDINGS: RIGHT KIDNEY: There are 2 right renal cysts, largest measuring 1.2 cm. There is an echogenic focus in the right kidney thought to be a non-obstructing stone. LEFT KIDNEY: The left kidney is unremarkable without stone or hydronephrosis. BLADDER: Decompressed by a Valencia with debris in the bladder. There are bilateral pleural effusions evident. Ascites is evident in the right lower quadrant. CONCLUSION: There is no evidence for hydronephrosis. Non-obstructing right renal stone. Benito Rossi MD FACR on November 17, 2016 at 11:33 Board Certified Radiologist. This report was verified electronically.
--- NOTE | 2016-11-17 12:29 | HHI.HCPN ---
Reason for visit a. To assist with evaluation and management of symptoms including: shortness of breath, weakness, pain b. To assist medical decision maker(s) with: better understanding of current medical conditions; weighing benefits/burdens of medical treatment options; making medical treatment decisions. . (Perri Ramirez) Subjective/Interval History Delayed entry. Patient seen and assessed in room 520 at 1030. Awake and alert, able to make needs known, answering questions appropriately. Patient states he feels like 'jumping of this bed and get outta here", however appears frail and cachetic. Tolerating 4L oxygen via nasal cannula with saturations in the low 90s. Saturations intermittently dip into the high 80s, specifically with conversation. Patient reports intermittent, moderate back pain that he associates with being bedbound and immobile. He denies pain on exam. Dilaudid 0.25mg IV is available q4 hours PRN for pain. Patient has received 1 doses in the past 24 hours for back pain rated 7 out of 10. Examination of patient's left third finger unchanged. No evidence of infection , no change in demarcation. Right hand warm to touch, dusky nail beds. 11/17/16: WBC 11.6, hemoglobin 9.6, hematocrit 29.8, platelets 207 Sodium 141, potassium 4.0, chloride 98, carbon dioxide 34.7, glucose 145, calcium 7.8 Total bilirubin 0.3, direct bilirubin 0.2, indirect bilirubin 0.1, AST 13, ALT 6, alkaline phosphatase 84 Total protein 6.2, albumin 1.3 Kidney functioning continues to deteriorate. BUN 54, creatinine 2.43, GFR 27. Urine output stable. Patient remains on furosemide 40 mg every 8 hours IV. US kidney/renal/bladder: showed no evidence of hydronephrosis, 2 nonobstructing right renal stone measuring 1.2 cm noted. Nephrology was consulted. Status post thoracentesis on 11/15/16 with 2.2L clear, yellow fluid removed. Fluid sample cytology pending. Post procedure chest x-ray revealed no evidence of pneumothorax, right lung clear and well aerated. Continued left-sided pleural effusion with infiltrates in the left lower lung suggestive of atelectasis. Plan for left-sided thoracentesis today. . Family/friend interactions Attempted to speak with patient's son, Meño, vis telephone. Message left on patient's son's voicemail encouraging him to return my call with any question, needs or concerns. . (Perri Ramirez) Advance Directives Health Care Surrogate: Copy in medical record Durable Power of Casing Crew Pusher: Copy in medical record (Perri Ramirez) Advance Directive Specifics Date completed: 07/25/16 . Health Care Surrogate(s): Meño Yao (son) has been designated by the patient as the health care surrogate. . (Perri Ramirez) Objective Vital Signs Date Time Temp Pulse Resp B/P Pulse Ox O2 Delivery O2 Flow Rate FiO2 11/17/16 10:00 72 11/17/16 08:00 97.6 70 21 146/74 89 11/17/16 08:00 74 11/17/16 06:00 75 11/17/16 04:00 71 11/17/16 04:00 98.6 71 18 140/74 88 11/17/16 02:00 69 11/17/16 00:00 98.7 72 22 152/74 93 11/17/16 00:00 72 11/16/16 22:00 74 11/16/16 21:17 92 Nasal Cannula 5.00 11/16/16 20:50 20 11/16/16 20:00 72 11/16/16 20:00 98.1 72 20 134/74 88 11/16/16 18:00 78 11/16/16 17:25 93 Nasal Cannula 4.00 11/16/16 16:00 98.0 76 21 141/ 88 11/16/16 16:00 76 11/16/16 14:00 72 Intake & Output 11/17/16 11/17/16 07:00 19:00 Intake Total 298 ml 57 ml Output Total 850 ml Balance -552 ml 57 ml Intake Oral 240 ml IV Total 58 ml 57 ml Output Urine Total 850 ml # Bowel Movements 2 . Physical Exam CONSTITUTIONAL/GENERAL: This is a frail male patient who appears older than his documented age. TUBES/LINES/DRAINS: Valencia catheter, PIV x 1, Podus boots SKIN: Ecchymoses on upper extremities. Left hand third digit and right great toe purple/blackish color.Skin temperature appropriate. Not diaphoretic. Left AKA dressing dry and intact. HEAD: Atraumatic. Normocephalic. EYES: Extraocular motions intact. No scleral icterus. No injection or drainage. Fundi not examined. ENT: Hearing grossly normal. Nose without bleeding or purulent drainage. Throat without visible erythema, exudates, masses, or lesions. NECK: Trachea midline. CARDIOVASCULAR: Regular rate and rhythm without murmurs, gallops, or rubs. No JVD. Peripheral pulses symmetric. RESPIRATORY/CHEST: Decreased air exchange, right greater than left. GASTROINTESTINAL: Abdomen soft, non-tender, nondistended. No hepato-splenomegaly , or palpable masses. No guarding. Bowel sounds present. GENITOURINARY: Without palpable bladder distension. Valencia catheter in place. MUSCULOSKELETAL: The left third digit has evidence of severe dry gangrene. There is also dry gangrene of the right great toe which does not completely encompass up to the PIP. . LYMPHATICS: No palpable cervical or supraclavicular adenopathy. NEUROLOGICAL: Awake and alert. Follows commands. Cognitively sharp. Moves all extremities. PSYCHIATRIC: No obvious anxiety/depression. no apparent hallucinations or other psychotic thought process. . (Perri Ramirez) Diagnostic Tests Laboratory Laboratory Tests Test 11/14/16 11/14/16 11/14/16 11/15/16 13:45 14:22 19:09 02:37 Nasal Screen MRSA (PCR) NEGATIVE (NEGATIVE) Hemoglobin 10.2 GM/DL 9.6 GM/DL 9.7 GM/DL (13.0-17.0) (13.0-17.0) (13.0-17.0) Hematocrit 31.1 % 30.0 % 29.4 % (39.0-51.0) (39.0-51.0) (39.0-51.0) Sodium Level 139 MEQ/L (136-145) Potassium Level 5.0 MEQ/L (3.5-5.1) Chloride Level 99 MEQ/L (98-107) Carbon Dioxide Level 32.1 MEQ/L (21.0-32.0) Anion Gap 8 MEQ/L (5-15) Blood Urea Nitrogen 45 MG/DL (7-18) Creatinine 1.67 MG/DL (0.60-1.30) Estimat Glomerular Filtration 41 ML/MIN (>89) Rate Random Glucose 112 MG/DL (74-106) Lactic Acid Level 0.8 mmol/L (0.4-2.0) Calcium Level 8.1 MG/DL (8.5-10.1) Total Bilirubin 0.4 MG/DL (0.2-1.0) Direct Bilirubin 0.2 MG/DL (0.0-0.2) Indirect Bilirubin 0.2 MG/DL (0.0-0.8) Aspartate Amino Transf 15 U/L (15-37) (AST/SGOT) Alanine Aminotransferase 10 U/L (12-78) (ALT/SGPT) Alkaline Phosphatase 88 U/L (45-117) Total Protein 6.7 GM/DL (6.4-8.2) Albumin 1.5 GM/DL (3.4-5.0) HIV (1&2) Antibody NEGATIVE (NEGATIVE) Cold Agglutinin 4c degrees NEG (BELOW 1:16) Test 11/15/16 11/15/16 11/16/16 11/16/16 04:18 14:39 04:30 09:18 White Blood Count 8.9 TH/MM3 12.0 TH/MM3 (4.0-11.0) (4.0-11.0) Red Blood Count 3.73 MIL/MM3 3.76 MIL/MM3 (4.50-5.90) (4.50-5.90) Hemoglobin 9.7 GM/DL 9.6 GM/DL (13.0-17.0) (13.0-17.0) Hematocrit 30.1 % 30.5 % (39.0-51.0) (39.0-51.0) Mean Corpuscular Volume 80.8 FL 81.1 FL (80.0-100.0) (80.0-100.0) Mean Corpuscular Hemoglobin 25.9 PG 25.6 PG (27.0-34.0) (27.0-34.0) Mean Corpuscular Hemoglobin 32.1 % 31.6 % Concent (32.0-36.0) (32.0-36.0) Red Cell Distribution Width 18.7 % 18.6 % (11.6-17.2) (11.6-17.2) Platelet Count 200 TH/MM3 224 TH/MM3 (150-450) (150-450) Mean Platelet Volume 8.7 FL 8.8 FL (7.0-11.0) (7.0-11.0) Sodium Level 140 MEQ/L 138 MEQ/L (136-145) (136-145) Potassium Level 4.4 MEQ/L 4.2 MEQ/L (3.5-5.1) (3.5-5.1) Chloride Level 98 MEQ/L 96 MEQ/L (98-107) (98-107) Carbon Dioxide Level 32.4 MEQ/L 32.3 MEQ/L (21.0-32.0) (21.0-32.0) Anion Gap 10 MEQ/L (5-15) 10 MEQ/L (5-15) Blood Urea Nitrogen 48 MG/DL (7-18) 49 MG/DL (7-18) Creatinine 1.86 MG/DL 1.96 MG/DL (0.60-1.30) (0.60-1.30) Estimat Glomerular Filtration 37 ML/MIN (>89) 34 ML/MIN (>89) Rate Random Glucose 103 MG/DL 124 MG/DL (74-106) (74-106) Calcium Level 7.9 MG/DL 7.9 MG/DL (8.5-10.1) (8.5-10.1) Total Bilirubin 0.3 MG/DL 0.4 MG/DL (0.2-1.0) (0.2-1.0) Direct Bilirubin 0.1 MG/DL 0.1 MG/DL (0.0-0.2) (0.0-0.2) Indirect Bilirubin 0.2 MG/DL 0.3 MG/DL (0.0-0.8) (0.0-0.8) Aspartate Amino Transf 13 U/L (15-37) 13 U/L (15-37) (AST/SGOT) Alanine Aminotransferase 9 U/L (12-78) 7 U/L (12-78) (ALT/SGPT) Alkaline Phosphatase 79 U/L (45-117) 132 U/L (45-117) Total Protein 6.2 GM/DL 6.4 GM/DL (6.4-8.2) (6.4-8.2) Albumin 1.4 GM/DL 1.3 GM/DL (3.4-5.0) (3.4-5.0) Pleural Fluid pH 7.5 Pleural Fluid WBC 10 /MM3 (0-10) Pleural Fluid RBC 106 /MM3 (0-0) Pleural Fluid Neutrophils 22 % Pleural Fluid Lymphocytes 56 % Pleural Fluid Histiocytes 22 % Pleural Fluid Total Protein 1.4 GM/DL Pleural Fluid LDH 72 U/L Pleural Fluid Glucose 140 MG/DL Pleural Fluid Amylase 16 U/L Urine Total Volume 24 Hours 2625 ML Urine Total Protein 24 Hour 793 MG/24HR (0-150) Test 11/17/16 11/17/16 05:03 09:48 White Blood Count 11.6 TH/MM3 (4.0-11.0) Red Blood Count 3.66 MIL/MM3 (4.50-5.90) Hemoglobin 9.6 GM/DL (13.0-17.0) Hematocrit 29.8 % (39.0-51.0) Mean Corpuscular Volume 81.3 FL (80.0-100.0) Mean Corpuscular Hemoglobin 26.1 PG (27.0-34.0) Mean Corpuscular Hemoglobin 32.1 % Concent (32.0-36.0) Red Cell Distribution Width 18.7 % (11.6-17.2) Platelet Count 207 TH/MM3 (150-450) Mean Platelet Volume 9.1 FL (7.0-11.0) Sodium Level 141 MEQ/L (136-145) Potassium Level 4.0 MEQ/L (3.5-5.1) Chloride Level 98 MEQ/L (98-107) Carbon Dioxide Level 34.7 MEQ/L (21.0-32.0) Anion Gap 8 MEQ/L (5-15) Blood Urea Nitrogen 54 MG/DL (7-18) Creatinine 2.43 MG/DL (0.60-1.30) Estimat Glomerular Filtration 27 ML/MIN (>89) Rate Random Glucose 145 MG/DL (74-106) Calcium Level 7.8 MG/DL (8.5-10.1) Total Bilirubin 0.3 MG/DL (0.2-1.0) Direct Bilirubin 0.2 MG/DL (0.0-0.2) Indirect Bilirubin 0.1 MG/DL (0.0-0.8) Aspartate Amino Transf 13 U/L (15-37) (AST/SGOT) Alanine Aminotransferase 6 U/L (12-78) (ALT/SGPT) Alkaline Phosphatase 84 U/L (45-117) Total Protein 6.2 GM/DL (6.4-8.2) Albumin 1.3 GM/DL (3.4-5.0) Urine Random Creatinine 24.9 MG/DL Urine Random Sodium 90 MEQ/L . (Perri Ramirez) Result Diagram: 11/17/16 0503 11/17/16 0503 Microbiology Microbiology Date/Time Procedure Status Source Growth 11/15/16 14:39 Gram Stain - Final Resulted Fluid Pleural Fluid 11/15/16 14:39 Body Fluid Culture - Preliminary Resulted Fluid Pleural Fluid NO GROWTH IN 48 HOURS. 11/15/16 14:39 Acid Fast Stain - Final Resulted Fluid Pleural Fluid NO ACID FAST BACILLI SEEN 11/15/16 14:39 Mycobacterial Culture Resulted Fluid Pleural Fluid Pending 11/15/16 14:39 Fungal Smear - Final Resulted Fluid Pleural Fluid NO FUNGAL ELEMENTS SEEN. 11/15/16 14:39 Fungal Culture Resulted Fluid Pleural Fluid Pending . Imaging Last 72 hours Impressions Chest X-Ray 11/16/16 0600 Signed Impressions: Service Date/Time: October 04:32 - CONCLUSION: Worsening aeration. Abdias Early MD Thoracentesis Ultrasound 11/15/16 0000 Signed Impressions: Service Date/Time: Tuesday, November 15, 2016 14:20 - CONCLUSION: Uncomplicated ultrasound guided thoracentesis. Erick Odell MD Chest X-Ray 11/15/16 0000 Signed Impressions: Service Date/Time: Tuesday, November 15, 2016 14:56 - CONCLUSION: No evidence of pneumothorax following right thoracentesis. Erick Odell MD . Procedures 11/15/16: Right-sided thoracentesis 11/17/16: Left-sided thoracentesis . (Perri Ramirez) Assessment and Plan Disease Oriented Problem List: (1) Diabetes (2) Necrotizing fasciitis (3) Impaired mobility and activities of daily living (4) HTN (hypertension) (5) Acute on chronic kidney failure (6) Acute respiratory failure with hypoxia (7) Sepsis (8) Diabetes mellitus (9) Diabetic nephropathy (10) COPD (chronic obstructive pulmonary disease) (11) CHF (congestive heart failure) (12) Anemia (13) Pleural effusion (14) Congestive heart failure (15) Urinary tract infection (16) Dry gangrene Symptom Scale: (1) Weakness (2) Dyspnea Comment: Tolerating 4L oxygen via nasal cannula with saturations in the low 90s. Saturations intermittently dip into the high 80s, specifically with conversation. Status post thoracentesis on 11/15/16 with 2.2L clear, yellow fluid removed. Fluid sample cytology pending. Post procedure chest x-ray revealed no evidence of pneumothorax, right lung clear and well aerated. Continued left-sided pleural effusion with infiltrates in the left lower lung suggestive of atelectasis. Plan for left-sided thoracentesis today. . (3) Pain Comment: Patient has no complaints, denies pain on examination. Dilaudid 0.25mg IV is available q4 hours PRN for pain. Patient has received 2 doses in the past 24 hours for back pain rated 7 out of 10. . Pertinent Non-Medical Issues Psychosocial: Patient is originally from [place]. He has been three times. He has 3 children. Meño lives in [place]. Dion lives in [facility]. Salina lives in [place]. 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 He was exposed to [place]. Spiritual: Non-orthodoxy. Legal: Patient is currently capacitated to make health care decisions. In the event that the patient becomes incapacitated, Meño Yao (son) has been designated by the patient as the health care surrogate. Ethical issues impacting care: No known ethical issues impacting care at this time. . Important Contacts Meño Yao, son: [phone] Carmelo Garner, friend: [phone] . Prognosis Patient is a 65 year frail 65 yo male patient who has experienced an acute decline since 05/2016 secondary to multiple comorbid conditions. He has been hospitalized 6 times in the past 5 months s/p AKA of the left leg. Currently admitted with CHF exacerbation, acute kidney injury, sepsis, anemia and necrotic extremities patient is critically ill in multiorgan system dysfunction. Prognosis poor. . Code Status: No Code Plan * NO CODE * Decision-making: Patient is currently capacitated to make health care decisions. In the event that the patient becomes incapacitated, Meño Yao ( son) has been designated by the patient as the health care surrogate. * Goals: Goals remain aggressive up to the point of cardiopulmonary resuscitation. Patient stating he would like to consider hospice upon discharge. * Patient states he has previously been in contact with [facility] because they are a [employer], and he could continue with them if he is able to move to [place] to live with his son, Meño. Patient stats he does not want to go to a hospice care center because it will cost him $2,000/day. Explained to the patient's medicare would likely cover all hospice services a "hospice care center". * Ongoing support and clarification of medical treatment goals needed. * Patient son, Meño Yao, is the main electronic news gathering camera person. He lives in [place] , which is 3 hours earlier. Phone number [phone]. Attempted to speak with patient's son, Meño, via telephone. Message left on patient's son's voicemail encouraging him to return my call with any question, needs or concerns. * Symptom managementpain: Possible causes of pain include wounds, infection, dyspnea, invasive lines, Valencia catheter, recent thoracentesis, procedures, immobility, bedbound status etc. Patient reports intermittent, moderate back pain that he associates with being bedbound and immobile. He denies pain on exam. Dilaudid 0.25mg IV is available q4 hours PRN for pain. Patient has received 1 doses in the past 24 hours for back pain rated 7 out of 10. Palliative care will continue to monitor PRN requirements and make recommendations as appropriate. * Symptom managementdyspnea: Tolerating 4L oxygen via nasal cannula with saturations in the low 90s. Saturations intermittently dip into the high 80s, specifically with conversation. Status post thoracentesis on 11/15/16 with 2.2L clear, yellow fluid removed. Fluid sample cytology pending. Post procedure chest x-ray revealed no evidence of pneumothorax, right lung clear and well aerated. Continued left-sided pleural effusion with infiltrates in the left lower lung suggestive of atelectasis. Plan for left-sided thoracentesis today. * Kidney functioning continues to deteriorate. BUN 54, creatinine 2.43, GFR 27. Urine output stable. Patient remains on furosemide 40 mg every 8 hours IV. US kidney/renal/bladder: showed no evidence of hydronephrosis, 2 nonobstructing right renal stone measuring 1.2 cm noted. Nephrology was consulted. * Again discussed the process of cardiopulmonary resuscitation, benefits versus burdens. After a lengthy discussion, patient has requested his CODE STATUS be changed to NO CODEDNR/DNI stating if his heart were to stop beating he would want us to "just let it be at that point". * Palliative care will continue to follow this patient throughout his hospitalization to establish trust, assist with symptom management and clarification of medical treatment goals. . (Perri Ramirez) Attestation To help prompt me to consider important information that might be impacting today's encounter and assessment, information from prior notes written by myself or my colleagues may have been "brought forward" into today's note. My signature on this note, however, is an attestation that I personally performed the exam, history, and/or decision-making noted today, and, unless otherwise indicated, the interactions with patient, family, and staff as well as the review of records all occurred today. I also attest that the listed assessment and stated plan reflect my best clinical judgment today based on the combination of historical information, prior notes, and today's exam/ interactions. When time spent is documented, it refers only to time spent today by the signer, or if indicated, combined time spent today by collaborating physician/nurse practitioner. . (Perri Ramirez) Collaborating MD Comments Chart reviewed. Case discussed with palliative care NUT SHELLER. Above NUT SHELLER note reviewed and I concur. . (Buddy Rios MD) Perri Ramirez Nov 17, 2016 12:29 Buddy Rios MD Dec 17, 2016 08:10
--- NOTE | 2016-11-17 15:18 | PD.RAD ---
Post US Procedure Prog Note Pre Procedure Diagnosis: (1) Pleural effusion (2) Dyspnea Post Procedure Diagnosis: (1) Pleural effusion (2) Dyspnea Procedure Date: Nov 17, 2016 Supervising Radiologist: Doyle Sutton Proceduralist/Assist: Jayesh Leon RDMS Anesthesia: Local Plan of Activity Patient to Unit: Nursing Unit Patient Condition: Poor See PACS Report for procedural detail/treatment Drainage Procedure Procedure 1 Imaging Guidance: Ultrasound Side: Left Procedure Type: Thoracentesis Procedure: Removal Drainage: Suction Fluid Description: Cloudy, Yellow Doyle Sutton MD Nov 17, 2016 15:18
--- NOTE | 2016-11-17 15:42 | RADRPT ---
EXAM DATE/TIME: 11/17/2016 15:32 [facility] COMPARISON: CHEST EXPIRATION ONLY, November 15, 2016, 14:56. INDICATIONS : Post thoracentesis. Evaluate for pneumothorax. MEDICAL HISTORY : Chronic obstructive pulmonary disease. SURGICAL HISTORY : None. ENCOUNTER: Initial ACUITY: 1 day PAIN SCORE: 0/10 LOCATION: Left chest FINDINGS: A single frontal expiratory view of the chest was performed. The lungs are symmetrically aerated and clear. No evidence of pneumothorax. Mediastinal structures are in the midline. The cardio-mediastinal contours and bronchopulmonary markings are unremarkable for an expiratory exam . Osseous structures are intact. CONCLUSION: There is no pneumothorax following thoracentesis on the left. Slight changes persist in the right ba se.. Benito Rossi MD FACR on November 17, 2016 at 15:40 Board Certified Radiologist. This report was verified electronically.
--- NOTE | 2016-11-17 16:13 | RADRPT ---
EXAM DATE/TIME: 11/17/2016 14:58 [facility] COMPARISON: CHEST SINGLE AP, November 16, 2016, 4:32. CHEST EXPIRATION ONLY, November 17, 2016, 15:32. US GUIDED THORACENTESIS LEFT, November 01, 2016, 12:23. INDICATIONS : Left pleural effusion. MEDICAL HISTORY : Inguinal hernia. COPD. Neuropathy. Head trauma. CHF. Renal failure. SURGICAL HISTORY : Skull repair. Bilateral knee surgery. ENCOUNTER: Subsequent ACUITY: 1 day PAIN SCORE: 0/10 LOCATION: Left chest FLUID: Total volume of 1600 cc of clear, yellow fluid was removed. Fluid was discarded. Thoracentesis was therapeutic only. Post procedure scanning reveals no hematoma or other complication. TECHNIQUE: 1. Ultrasound guidance for thoracentesis. 2. Thoracentesis. The risks, benefits, and alternatives to ultrasound guided thoracentesis were explained to the patien t in lay simple terms, including the risk of bleeding and infection. Written and verbal informed con sent was obtained. Appropriate area for thoracentesis was marked under ultrasound guidance with the patient in the uprig ht position. Overlying skin was prepped and draped in the usual sterile fashion and with local anest hetic, a dermatotomy was made with an 11 blade scalpel. A 6 Nigerian thoracentesis catheter was placed in the pleural space and fluid was removed. Catheter was then removed and a sterile dressing applie d. There were no immediate complications. The patient tolerated the procedure well and the left the ultrasound suite in stable condition. Chest radiograph is to be obtained. CONCLUSION: Uncomplicated ultrasound guided thoracentesis. Doyle Sutton MD on November 17, 2016 at 16:11 Board Certified Radiologist. This report was verified electronically.
--- NOTE | 2016-11-17 17:02 | MG ---
cc: SAULO CHINCHILLA MD Lab No: [id number] Date: 11/17/2016 Age: 65 Sex: M Race: DATE OF : 1950. HISTORY: 65-year-old with history of mental status changes. Respiratory failure. DESCRIPTION OF THE RECORDING: Posterior rhythm demonstrates 6 to 7 Hz activity, 20-40 microvolts. Attenuation and generalized slowing suggestive of drowsy state. Stage I sleep with good EEG variability reactivity. K complexes suggestive of stage II sleep. Limited driving with photic stimulation. Single lead EKG showing sinus rhythm. INTERPRETATION: Mild encephalopathy in sleep state. Clinical correlation. MD KALPESH Bernal/ABRAHAN /4:51 PM /4:59 PM
--- NOTE | 2016-11-17 18:10 | PD.CARD.PN ---
Subjective Subjective Remarks No complaints Objective Medications Current Medications Medications (Trade) Dose Ordered Sig/Veronica Route Start Time Stop Time Status Last Admin (D50w (Vial) Inj) 25 ml UNSCH PRN IV PUSH 11/14/16 03:00 (NovoLIN R SUPPLEMENTAL SCALE) 1 Q6HR SQ 11/14/16 06:00 11/17/16 12:57 (NS Flush) 2 ml UNSCH PRN IV FLUSH 11/14/16 03:00 11/15/16 08:03 (NS Flush) 2 ml BID IV FLUSH 11/14/16 09:00 11/17/16 07:45 (Dilaudid Pf Inj) 0.25 mg Q4H PRN IV 11/14/16 03:00 11/16/16 20:20 (Zofran Inj) 4 mg Q6H PRN IV 11/14/16 03:00 (Frieda-Colace) 2 tab BID PO 11/14/16 09:00 11/16/16 08:58 Miscellaneous Information 1 Q361D XX 11/14/16 03:00 (Chlorhexidine 2% Cloth) 3 pack Taper DAILY@04 TOP 11/14/16 04:00 11/10/17 03:59 11/17/16 05:41 (Chlorhexidine 2% Cloth) 3 pack UNSCH PRN TOP 11/14/16 03:00 (Glucagon Inj) 1 mg UNSCH PRN OTHER 11/14/16 04:00 Povidone Iodine 1 applic 1 applic DAILY TOPICAL 11/14/16 10:30 11/17/16 07:45 (Zosyn 2.25 Gm Premix) 50 ml @ 100 mls/hr Q6H IV 11/16/16 17:00 11/17/16 17:34 (Heparin Inj) 5,000 units Q12HR SQ 11/16/16 21:00 11/17/16 07:44 (Cardizem) 30 mg QID PO 11/16/16 18:00 11/17/16 17:34 (Protonix) 40 mg DAILY PO 11/18/16 09:00 (Lasix Inj) 40 mg Q8H IV PUSH 11/17/16 12:00 11/17/16 13:01 (Diflucan) 100 mg DAILY PO 11/18/16 09:00 11/25/16 08:59 (Vitamin C) 500 mg DAILY PO 11/18/16 09:00 (Zinc Sulfate) 220 mg DAILY PO 11/18/16 09:00 (Flomax) 0.4 mg DAILY PO 11/18/16 09:00 (Neurontin) 200 mg BID PO 11/17/16 21:00 (Keppra) 250 mg Q12HR PO 11/17/16 21:00 (Lactulose Liq) 30 ml DAILY PO 11/18/16 09:00 Vital Signs / I&O Vital Signs Date Time Temp Pulse Resp B/P Pulse Ox O2 Delivery O2 Flow Rate FiO2 11/17/16 18:00 72 11/17/16 16:00 70 11/17/16 16:00 98.7 70 19 125/69 84 11/17/16 14:50 98.9 72 18 143/70 91 11/17/16 14:00 72 11/17/16 12:00 98.0 73 22 147/73 87 11/17/16 12:00 73 11/17/16 10:00 72 11/17/16 08:00 97.6 70 21 146/74 89 11/17/16 08:00 74 11/17/16 06:00 75 11/17/16 04:00 71 11/17/16 04:00 98.6 71 18 140/74 88 11/17/16 02:00 69 11/17/16 00:00 98.7 72 22 152/74 93 11/17/16 00:00 72 11/16/16 22:00 74 11/16/16 21:17 92 Nasal Cannula 5.00 11/16/16 20:50 20 11/16/16 20:00 72 11/16/16 20:00 98.1 72 20 134/74 88 I/O 11/16/16 11/16/16 11/16/16 11/17/16 11/17/16 11/17/16 07:00 15:00 23:00 07:00 15:00 23:00 Intake Total 600 ml 290 ml 58 ml 619 ml Output Total 850 ml 500 ml 450 ml 400 ml 375 ml Balance -850 ml 100 ml -160 ml -342 ml 244 ml Intake Oral 500 ml 240 ml 500 ml IV Total 100 ml 50 ml 58 ml 119 ml Output Urine Total 850 ml 500 ml 450 ml 400 ml 375 ml # Bowel Movements 3 1 1 0 Physical Exam cachectic Alert Chest BS absent right base but good at left base (s/p thoracentesis) CV S1S2 RRR 1+ right ankle edema Laboratory Laboratory Tests Test 11/17/16 11/17/16 05:03 09:48 White Blood Count 11.6 TH/MM3 Red Blood Count 3.66 MIL/MM3 Hemoglobin 9.6 GM/DL Hematocrit 29.8 % Mean Corpuscular Volume 81.3 FL Mean Corpuscular Hemoglobin 26.1 PG Mean Corpuscular Hemoglobin 32.1 % Concent Red Cell Distribution Width 18.7 % Platelet Count 207 TH/MM3 Mean Platelet Volume 9.1 FL Sodium Level 141 MEQ/L Potassium Level 4.0 MEQ/L Chloride Level 98 MEQ/L Carbon Dioxide Level 34.7 MEQ/L Anion Gap 8 MEQ/L Blood Urea Nitrogen 54 MG/DL Creatinine 2.43 MG/DL Estimat Glomerular Filtration 27 ML/MIN Rate Random Glucose 145 MG/DL Calcium Level 7.8 MG/DL Total Bilirubin 0.3 MG/DL Direct Bilirubin 0.2 MG/DL Indirect Bilirubin 0.1 MG/DL Aspartate Amino Transf 13 U/L (AST/SGOT) Alanine Aminotransferase 6 U/L (ALT/SGPT) Alkaline Phosphatase 84 U/L Total Protein 6.2 GM/DL Albumin 1.3 GM/DL Urine Eosinophils FEW /HPF Urine Random Creatinine 24.9 MG/DL Urine Random Sodium 90 MEQ/L Imaging Last 48 hours Impressions Thoracentesis Ultrasound 11/17/16 0600 Signed Impressions: Service Date/Time: Thursday, November 17, 2016 14:58 - CONCLUSION: Uncomplicated ultrasound guided thoracentesis. Doyle Sutton MD Chest X-Ray 11/17/16 0000 Signed Impressions: Service Date/Time: Thursday, November 17, 2016 15:32 - CONCLUSION: There is no pneumothorax following thoracentesis on the left. Slight changes persist in the right base.. Benito Rossi MD FACR Chest X-Ray 11/16/16 0600 Signed Impressions: Service Date/Time: October 04:32 - CONCLUSION: Worsening aeration. Abdias Early MD Assessment and Plan Problem List: (1) Acute on chronic diastolic CHF (congestive heart failure), NYHA class 4 Assessment and Plan: Renal handling diuretics. Doubt cardiac amyloid Assessment and Plan I am signing off. Please call if questions or cardiology help needed Keith Benton MD Nov 17, 2016 18:10
[2016-11-17] MEDS: GABAPENTIN 100 MG CAP PO SCH (20:36)
[2016-11-17] MEDS: levETIRAcetam 250 MG TAB PO SCH (20:38)
[2016-11-17] MEDS: HYDROmorphone HCL PF 1 MG/ML VIAL IV PRN (21:22)
--- NOTE | 2016-11-17 21:48 | MB ---
cc: YAN PETTIT MD DATE OF CONSULTATION: 11/17/2016. REASON FOR CONSULTATION: Elevated BUN and creatinine. REQUESTING PHYSICIAN: Dr. Amezcua. HISTORY OF PRESENT ILLNESS: This is a 65-year-old male with a past medical history of hypertension, diabetes mellitus, peripheral vascular disease, status post left below-knee amputation, hypothyroidism, chronic kidney disease, chronic obstructive pulmonary disease who came to the hospital with a complaint of shortness of breath. I was called to see the patient because of elevated BUN and creatinine. The patient has a known history of chronic kidney disease. He has not been following with a chief mate and his creatinine most of the time has been in the range of 1.6 to 1.8. At this time he came with the same creatinine of 1.6 to 1.8 and it was stable until yesterday when it went up to 1.9 and today it is 2.4. The patient has been getting furosemide; he was on 100 milligrams q. 8 hours and the dose has just been reduced today. His urine output is slightly on the lower side. The patient does not have any documented hypotensive episode. The patient knows about his renal disease and has been following with his primary physician. He mainly came with shortness of breath and he has this cough with whitish sputum. There is no chest pain. No palpitation. No nausea or vomiting. No abdominal pain. No history of diarrhea. He currently has a Valencia catheter. The patient was diagnosed with CHF exacerbation and he was started on high-dose Lasix. PAST MEDICAL HISTORY: 1. Hypertension. 2. Diabetes mellitus. 3. Peripheral vascular disease. 4. Chronic kidney disease. 5. Hypothyroidism. 6. Ischemic heart disease. 7. Congestive heart failure. 8. Neuropathy. PAST SURGICAL HISTORY: 1. Left below-knee amputation. 2. He has a history of cranial surgery. REVIEW OF SYSTEMS: There is no history of fever. No sore throat. He has this cough and shortness of breath especially on lying down and has whitish sputum. No chest pain. No palpitations. No nausea or vomiting. Denies any history of fever. No abdominal pain. No history of diarrhea. SOCIAL HISTORY: The patient lives with his son. There is no known history of smoking or alcoholism. FAMILY HISTORY: Family history is noncontributory. ALLERGIES: NO KNOWN DRUG ALLERGIES. MEDICATIONS: Currently he is on: 1. Frieda-Colace two tablets twice a day. 2. Neurontin 200 milligrams twice a day. 3. Betadine local application. 4. Protonix 40 milligrams once a day. 5. Diflucan 100 milligrams once a day. 6. Vitamin C 500 milligrams daily. 7. Zinc sulfate 220 milligrams daily. 8. Flomax 0.4 milligrams once a day. 9. Lactulose 30 mL daily. 10. DuoNeb one ampule nebulizer q. 6 hours. 11. Keppra 250 milligrams q. 12 hours. 12. Zosyn 2.25 grams IV q. 6 hours. 13. Insulin q. 6 hours sliding scale. 14. Furosemide 50 milligrams IV q. 8 hours. 15. Diltiazem 30 milligrams four times a day. 16. Zofran as needed. PHYSICAL EXAMINATION: GENERAL: On examination, the patient is awake and alert and he is with nasal cannula. VITAL SIGNS: His saturation is 91%. Blood pressure is 143/70. Temperature is 98.9. There is no documented hypotensive episode. HEAD, EYES, EARS, NOSE, THROAT: The pupils are equal and reacting to light. Nonicteric sclerae. Conjunctivae are pale. NECK: The neck is supple. JVD is slightly elevated. LUNGS: The patient has bilateral decreased air entry with basal rales and scattered wheezing. HEART: S1 and S2 regular rhythm. ABDOMEN: Abdomen soft and lax. There is no tenderness. Bowel sounds positive. EXTREMITIES: There is no edema in the right leg. On the left leg, he has a below-knee amputation. INVESTIGATIONS: White blood cell count 11.6, hemoglobin 9.6, platelet count of 207,000. Sodium 141, potassium 4.0, chloride 98, bicarbonate 34.7, BUN 54, creatinine 2.4, calcium 7.8. Total bilirubin is 0.3. AST and ALT are low at 13 and 6. Total protein is 6.2 with albumin of 1.3. INR is 1.0. Urinalysis showing protein of 30. Urine eosinophils are few. Urine sodium is 90. 24-hour urine protein is 793. Urine protein electrophoresis is pending. Serum protein electrophoresis was done last year in June and showed faint abnormal bands in the gamma region, hypoalbuminemia. His CAPO screen was negative last month. Cryoglobulins are pending. IgA was normal at 253. C3 and C4 were normal in May of last year. ASSESSMENT AND PLAN: 1. Chronic kidney disease with acute kidney injury. 2. Fluid overload and congestive heart failure, possible diastolic dysfunction. 3. Hypertension. 4. Diabetes mellitus. 5. Peripheral vascular disease. 6. Anemia. The patient has proteinuria and has chronic kidney disease and most likely has hypertensive or diabetic renal disease and now developed acute kidney injury. The differential diagnosis will be either acute tubular necrosis, over-diuresis or the possibility of interstitial nephritis since he also has urine eosinophils positive. Currently he is on Zosyn and his Lasix dose was decreased. He had adequate urine output until yesterday but today the urine output has decreased. The ultrasound showed that he has normal-sized kidneys. At present, I agree with continuing the Lasix with the lower dose and following the urine output. If the urine output does not improve, then I will consider stopping the Lasix and giving him one bolus of IV fluids and follow the BUN and creatinine. Avoid any nephrotoxins. Thank you for the consultation and the patient will be followed by Dr. Griffin Ribera over the weekend. MD MIRTA Daigle/ABRAHAN /4:33 PM /9:29 PM
[2016-11-18] VITALS (12 sets, daily range): BP systolic 122–143; BP diastolic 67–76; PULSE 64–74; RESP 16–18; TEMP 97.9–99.1; O2SAT 87–93
[2016-11-18] MEDS: RESP: ALBUTEROL 2.5 MG/IPRATROPIUM 0.5 MG NEB (SCH) INH ×4 (02:54→20:46)
[2016-11-18] MEDS: FUROSEMIDE 100 MG/10 ML VIAL IV PUSH SCH (05:48)
[2016-11-18] MEDS: CHLORHEXIDINE GLUCONATE 2 % 1 PACK (2 CLOTHS) TOP SCH (05:48)
[2016-11-18] MEDS: PIPERACIL-TAZO 2.25 GM PREMIX 50 ML IV SCH ×4 (05:48→21:05)
[2016-11-18] MEDS: INSULIN NovoLIN REGULAR SUPPLEMENTAL SCALE SQ SCH ×4 (06:00→21:11)
[2016-11-18 06:45] LABS: ALT (GPT) LESS THAN 6 U/L (12-78); ANION GAP 9 MEQ/L (5-15); AST (GOT) 12 U/L (15-37); BICARBONATE 33.4 MEQ/L (21.0-32.0); BLOOD UREA NITROGEN 60 MG/DL (7-18); CHLORIDE 98 MEQ/L (98-107); GLOMERULAR FILTRATION RATE 25 ML/MIN (>89); MAGNESIUM 1.8 MG/DL (1.5-2.5); POTASSIUM 3.8 MEQ/L (3.5-5.1); SODIUM (NA) 140 MEQ/L (136-145)
[2016-11-18 06:55] LABS: ALKALINE PHOSPHATASE 70 U/L (45-117); TOTAL BILIRUBIN ADULT 0.4 MG/DL (0.2-1.0)
[2016-11-18 06:57] LABS: CREATINE KINASE 12 U/L (39-308)
[2016-11-18 07:13] LABS: AUTOMATED NEUTROPHIL # 7.9 TH/MM3 (1.8-7.7); BASOPHIL # 0.2 TH/MM3 (0-0.2); BASOPHIL % 1.7 % (0.0-2.0); EOSINOPHIL # 0.4 TH/MM3 (0-0.4); HEMATOCRIT 27.8 % (39.0-51.0); HEMO FLAGS DIFF FINAL; LYMPH % 5.9 % (9.0-44.0); LYMPHOCYTE # 0.6 TH/MM3 (1.0-4.8); MEAN CELL VOLUME 81.1 FL (80.0-100.0); MEAN CORPUSCULAR HEMOGLOBIN 26.2 PG (27.0-34.0); MEAN CORPUSCULAR HGB CONC 32.3 % (32.0-36.0); NEUT % 83.4 % (16.0-70.0); PLATELET COUNT 185 TH/MM3 (150-450); RED BLOOD COUNT 3.43 MIL/MM3 (4.50-5.90); WHITE BLOOD COUNT 9.5 TH/MM3 (4.0-11.0)
[2016-11-18] MEDS: LACTULOSE SYRUP 20 GM/30 ML CUP PO SCH (09:00)
[2016-11-18] MEDS: SODIUM CHLORIDE 0.9% FLUSH 5 ML FLUSH IV FLUSH SCH ×2 (10:12→21:06)
[2016-11-18] MEDS: ZINC SULFATE 220 MG CAP PO SCH (10:13)
[2016-11-18] MEDS: DILTIAZEM HCL 30 MG TAB PO SCH ×4 (10:13→21:05)
[2016-11-18] MEDS: DOCUSATE SODIUM 50 MG/SENNA 8.6 MG TAB PO SCH ×2 (10:13→21:00)
[2016-11-18] MEDS: GABAPENTIN 100 MG CAP PO SCH ×2 (10:13→21:05)
[2016-11-18] MEDS: ASCORBIC ACID 500 MG TAB PO SCH (10:13)
[2016-11-18] MEDS: PANTOPRAZOLE SOD 40 MG DELAYED RELEASE TAB PO SCH (10:13)
[2016-11-18] MEDS: HEPARIN SODIUM - SQ 10,000 UNITS/ML VIAL SQ SCH ×2 (10:14→21:05)
[2016-11-18] MEDS: levETIRAcetam 250 MG TAB PO SCH ×2 (10:14→21:06)
[2016-11-18] MEDS: FLUCONAZOLE 100 MG TAB PO SCH (10:14)
[2016-11-18] MEDS: POVIDONE IODINE 10% OINT 30 GM TUBE TOPICAL SCH (10:14)
[2016-11-18] MEDS: TAMSULOSIN HCL 0.4 MG CAP PO SCH (10:18)
--- NOTE | 2016-11-18 13:21 | HHI.CCPN ---
Subjective Remarks/Hospital Course 11/14: This is a 65-year-old male who was recently admitted to the ICU proximally month or so ago with anemia, concern for GI bleed, and heart failure. He represents with similar complaints of shortness of breath and fatigue, was reportedly on NRB with spo2 in the 80s at his [facility]. He was transported by EMS and on arrival was too dyspneic to participate in a thorough history. He did deny to the ER physician abdominal pain, diarrhea. endorsed some mild SOB. He has new necrosis of the left third digit distal finger and right great toe. Laboratory data is significant for a lactate of 3, a BNP of 2900, a wbc 10.8, hgb 7.4, K 5.9, Cr 1.8. Critical care medicine is consulted for his acute hypoxic respiratory failure, his likely CHF exacerbation, his sepsis, and necrotic digits. 11/15: Elderly male laying in bed awake and alert. Still on nonrebreather facemask. Diuresing with Lasix. Evaluated by hematology and cardiology. 11/16: Resting in bed on nasal cannula. Underwent thoracentesis yesterday with drainage of 2.2 L of right pleural effusion. 11/17: Afebrile. Plan for left-sided thoracentesis today. Currently on nasal cannula appears comfortable. Worsening renal function noted. Subjective 11/18: Afebrile. -1600 cc with thoracentesis on left side yesterday. Currently on nasal cannula and appears in no acute distress. Urine output slowing down. Objective Vital Signs Date Time Temp Pulse Resp B/P Pulse Ox O2 Delivery O2 Flow Rate FiO2 11/18/16 10:00 73 11/18/16 08:00 97.9 16 132/70 88 11/17/16 21:15 Nasal Cannula 5.00 11/16/16 04:23 35 Intake and Output 11/17/16 11/17/16 11/18/16 08:00 16:00 00:00 Intake Total 115 ml 562 ml 298 ml Output Total 400 ml 375 ml 400 ml Balance -285 ml 187 ml -102 ml Result Diagram: 11/18/16 0533 11/18/16 0533 Other Results Microbiology Date/Time Procedure Status Source Growth 11/15/16 14:39 Gram Stain - Final Complete Fluid Pleural Fluid 11/15/16 14:39 Body Fluid Culture - Final Complete Fluid Pleural Fluid NO GROWTH IN 72 HRS.--AEROBICALLY OR ... 11/15/16 14:39 Fungal Smear - Final Resulted Fluid Pleural Fluid NO FUNGAL ELEMENTS SEEN. 11/15/16 14:39 Fungal Culture Resulted Fluid Pleural Fluid Pending 11/15/16 14:39 Acid Fast Stain - Final Resulted Fluid Pleural Fluid NO ACID FAST BACILLI SEEN 11/15/16 14:39 Mycobacterial Culture Resulted Fluid Pleural Fluid Pending 11/14/16 00:55 Urine Culture - Final Complete Urine Catheterized Urine Claudia Tropicalis 11/14/16 00:38 Aerobic Blood Culture - Preliminary Resulted Blood Peripheral NO GROWTH IN 4 DAYS 11/14/16 00:38 Anaerobic Blood Culture - Preliminary Resulted Blood Peripheral NO GROWTH IN 4 DAYS Imaging Last Impressions Thoracentesis Ultrasound 11/17/16 0600 Signed Impressions: Service Date/Time: Thursday, November 17, 2016 14:58 - CONCLUSION: Uncomplicated ultrasound guided thoracentesis. Doyle Sutton MD Renal Ultrasound 11/17/16 0000 Signed Impressions: Service Date/Time: Thursday, November 17, 2016 09:18 - CONCLUSION: There is no evidence for hydronephrosis. Non-obstructing right renal stone. Benito Rossi MD FACR Chest X-Ray 11/17/16 0000 Signed Impressions: Service Date/Time: Thursday, November 17, 2016 15:32 - CONCLUSION: There is no pneumothorax following thoracentesis on the left. Slight changes persist in the right base.. Benito Rossi MD FACR Objective Remarks GENERAL: [id number] male, elderly-appearing male, currently resting in bed on nasal cannula no acute distress HEENT: Normocephalic. Atraumatic. Pupils equally round and reactive around 3 mm bilaterally and reactive. Mucous membranes are moist and pink. No oral thrush. NECK: Trachea is midline. No JVD CHEST: Diminished breath sounds left greater than right. No wheezing CARDIOVASCULAR: Normal rate, regular rhythm. S1, S2 no S4. No appreciable murmurs. ABDOMEN: Soft, nontender, nondistended. No guarding. MUSCULOSKELETAL: The left third digit has evidence of severe dry gangrene to just about the DIP. There is also dry gangrene of the right great toe which does not completely encompass up to the PIP. Otherwise, distal pulses are 2+. Evidence of old left AKA. NEUROLOGICAL: Awake alert oriented to person place and year. Follows simple commands. Moves all 4 extremities spontaneously to command. Positive peripheral neuropathy bilateral upper and lower extremities.. Urinary Catheter: Yes Assessment to: Continue Valencia insert reason: ICU Pt Getting Diuretics Vascular Central Line Catheter: No Assessment to: Continue A/P Assessment and Plan Neuro/Psych: History bilateral cataracts History of anxiety Dental caries Peripheral neuropathy -- Resume Neurontin at 100 mg by mouth twice a day for neuropathy -- Resume Keppra renal dose adjusted 250 millIgrams by mouth twice a day EEG revealed some mild swelling but no epileptiform activity Avoid long-acting sedating meds. Currently on hydromorphone as needed for pain management Respiratory: Acute hypoxic respiratory failure secondary to acute on chronic diastolic heart failure/COPD History of COPD Bilateral pleural effusions likely transudative Nasal cannula to maintain saturations greater than equal to 92% Incentive spirometry while awake Likely secondary to acute on chronic diastolic heart failure and COPD. Being diuresed with Lasix 40 mg 3 times a day --s/p ultrasound-guided thoracentesis of right pleural effusion on 11/15 with drainage of 2.2liters. left thoracentesis ultrasound guided 11/17 - 1600 cc Recheck chest x-ray in a.m. Cardiovascular: Acute on chronic congestive heart failure exacerbation, diastolic History of hypertension Last echocardiogram 10/13 revealed EF 55-60%. SIOBHAN 47 mmHg. Lasix decreased to 40 mEq IV every 8 hours. At home on Lasix 20 mg by mouth twice a day. At home on Norvasc 10 mg by mouth daily. This is been held. Resume when clinically indicated At home on aspirin 81 mg by mouth daily. This be resumed. Cardiology consult with Dr. Benton reviewed. He has signed off Renal/: Acute on chronic kidney injury4 Proteinuria BPH Right-sided nephrolithiasis Likely secondary to diuresis. Avoid nephrotoxic drugs Valencia for accurate I's and O's -- Strict I/Os Urine electrolytes/eosinophils rare Negative renal ultrasound no hydronephrosis 11/17. Nonobstructing right renal stone. Nephrology following. To decrease diuretics today. Resume Flomax 0.4 mg by mouth daily FEN/GI: Acute protein calorie malnutritionmoderate Constipation Gastroesophageal reflux disease Inguinal hernia PO diet as tolerated Protonix 40 mg by mouth daily. For gastroesophageal reflux disease. Diuresis with Lasix 40 every 12. Daily BMP Resume lactulose 30 cc daily for constipation Heme/ID: Anemia, unknown source, possibly chronic disease Leukocytosis Possible healthcare associated pneumonia C tropicalis UTI Hand surgery and podiatry consulted for dry gangrene - no surgical intervention recommended currently Pertinent cultures 11/14: Blood cultures 2 - no growth 11/14 - urine culture - Claudia tropicalis 11/15 - thoracentesis/pleural - no growth/negative AFB Stop vanc. 11/16 Continue Zosyn 2.25 g IV every 6 hours day 6 -- Treat with Diflucan 100 mill grams IV/by mouth daily 7 days for funguria Daily CBC. 1 unit PRBCs HIV screen negative --Cryoglobulins pending. Cold agglutinins negative -- HCV negative on last admission, recently. -- Hematology consult noted. Endocrine: Hyperglycemia of critical illness Elevated TSH -- SSI, every before meals/at bedtime, -- Check free T3/T4 in a.m. MSK: Left AKA Dry gangrene left third digit Decubitus ulcer right toe Evaluated by plastic/Dr. Adams. No current indication for surgical intervention. Previously on Santyl daily for debridement Prophylaxis: GI Prophylaxis Protonix 40 mg IV every 24 hours DVT Prophylaxis -- SCDs No evidence of melena. Heparin subcutaneously Lines: Peripheral IVs Valencia Palliative care following to assist with deciding goals of therapy. Patient is DNR status. Critical Care: The total critical care time was 35 minutes. Time to perform other separately billable procedures was not included in the critical care time. Butch Amezcua MD Nov 18, 2016 13:21
[2016-11-18] MEDS ORDERED: POTASSIUM CHLORIDE 10 MEQ CONTROLLED RELEASE TAB PO ONE (13:30)
[2016-11-18] MEDS ORDERED: MAGNESIUM SULFATE 1 GM PREMIX 100 ML IV ONE (13:30)
--- NOTE | 2016-11-18 13:51 | HHI.NPPN ---
Subjective Additional Remarks Patient awake, alert. No acute complaints today Objective Data Data 11/17/16 11/18/16 19:00 07:00 Intake Total 619 ml 418 ml Output Total 375 ml 600 ml Balance 244 ml -182 ml Intake Oral 500 ml 360 ml IV Total 119 ml 58 ml Output Urine Total 375 ml 600 ml # Bowel Movements 0 1 Vital Signs Date Time Temp Pulse Resp B/P Pulse Ox O2 Delivery O2 Flow Rate FiO2 11/18/16 10:00 73 11/18/16 08:00 97.9 67 16 132/70 88 11/18/16 08:00 67 11/18/16 06:00 66 11/18/16 04:00 64 11/18/16 04:00 98.1 64 16 122/67 92 11/18/16 02:00 67 11/18/16 00:00 99.1 70 18 127/68 91 11/18/16 00:00 71 11/17/16 22:00 72 11/17/16 21:52 22 11/17/16 21:15 92 Nasal Cannula 5.00 11/17/16 20:00 71 11/17/16 20:00 99.1 71 22 126/62 89 11/17/16 18:19 92 Nasal Cannula 5.00 11/17/16 18:00 72 11/17/16 16:00 70 11/17/16 16:00 98.7 70 19 125/69 84 11/17/16 14:50 98.9 72 18 143/70 91 11/17/16 14:00 72 -: 11/18/16 0533 11/18/16 0533 Physical Exam General Appearance: No Acute Distress, Malnourished Throat Throat Exam: Oral Mucosa [place] & Moist Neck Neck Exam: Neck Supple Pulmonary Resp Exam: Diminished Breath Sounds Cardiology CV Exam: Regular, Normal Sinus Rhythm Gastrointestinal/Abdomen GI Exam: Soft, Non-Tender Musculoskeletal MS Exam: Joints Intact Integumentary Skin Exam: Dry, Intact Extremeties Extremities Exam: No Edema Assessment/Plan Problem List: (1) Acute on chronic kidney failure Plan: CKD likely due to DM/HTN, with proteinuria. The ultrasound showed that he has normal-sized kidneys. Creatinine has ranged from 1.5 -3.3 since 05/2016, 1.8 on admission here. Now with ALCIDES on CKD - possibly due to ATN vs over-diuresis after presentation with CHF and thoracentesis of pleural effusions. Also possibility of interstitial nephritis since he also has urine eosinophils positive( Few eosinophills noted) Lasix has been continued at 40mg IV BID, with 1.3L UOP/ 24 hours, with creatinine 2.3 -> 2.6. Will hold lasix tonight and continue to monitor. Appears relatively euvolemic at this point (2) Acute on chronic diastolic CHF (congestive heart failure), NYHA class 4 Plan: Patient has been diuresed with lasx since admission, -7kg. Will hold lasix dose and monitor symptoms, UOP, creatinine. Possible mild over- diuresis (3) HTN (hypertension) Plan: stable (4) Diabetic nephropathy Plan: continue to monitor glucose (5) Pleural effusion Plan: s/p thoracentesis, respiratory status stable. (6) COPD (chronic obstructive pulmonary disease) Plan: continue to monitor (7) Dry gangrene Plan: seen with plastics, continue wound care Problem Qualifiers (1) HTN (hypertension): Qualified Code: I15.9 - Secondary hypertension (2) Diabetic nephropathy: Qualified Code: E13.21 - Diabetic nephropathy associated with other specified diabetes mellitus (3) COPD (chronic obstructive pulmonary disease): Griffin Ribera MD Nov 18, 2016 13:51
[2016-11-18] MEDS ORDERED: FUROSEMIDE 100 MG/10 ML VIAL IV PUSH SCH (18:00)
[2016-11-19] VITALS (14 sets, daily range): BP systolic 144–169; BP diastolic 70–82; PULSE 68–98; RESP 16–21; TEMP 98.2–98.6; O2SAT 88–97
[2016-11-19] MEDS: RESP: ALBUTEROL 2.5 MG/IPRATROPIUM 0.5 MG NEB (SCH) INH ×4 (03:45→20:24)
[2016-11-19] MEDS: CHLORHEXIDINE GLUCONATE 2 % 1 PACK (2 CLOTHS) TOP SCH (04:00)
--- NOTE | 2016-11-19 04:44 | RADRPT ---
EXAM DATE/TIME: 11/19/2016 03:52 [facility] COMPARISON: CHEST EXPIRATION ONLY, November 17, 2016, 15:32. CHEST SINGLE AP, November 16, 2016, 4:32. INDICATIONS : Shortness of breath, possible pulmonary disease. MEDICAL HISTORY : Chronic obstructive pulmonary disease. SURGICAL HISTORY : None. ENCOUNTER: Subsequent ACUITY: 3 days PAIN SCORE: 0/10 LOCATION: Bilateral chest FINDINGS: There is increasing airspace opacity, now involving almost all of both lungs, causing complete loss o f delineation of both hemidiaphragms and the heart border. CONCLUSION: Significant increase in diffuse opacities throughout both lungs suggesting a combination of pleural e ffusions and alveolar infiltrates. Darren Vazquez MD on November 19, 2016 at 4:40 Board Certified Radiologist. This report was verified electronically.
[2016-11-19 05:18] LABS: HEMATOCRIT 27.5 % (39.0-51.0); MEAN CELL VOLUME 81.4 FL (80.0-100.0); MEAN CORPUSCULAR HEMOGLOBIN 26.4 PG (27.0-34.0); MEAN CORPUSCULAR HGB CONC 32.4 % (32.0-36.0); PLATELET COUNT 179 TH/MM3 (150-450); RED BLOOD COUNT 3.38 MIL/MM3 (4.50-5.90); RED CELL DISTRIBUTION WIDTH 19.2 % (11.6-17.2); REVIEW FLAG FINAL; WHITE BLOOD COUNT 9.4 TH/MM3 (4.0-11.0)
[2016-11-19 05:44] LABS: BICARBONATE 33.3 MEQ/L (21.0-32.0); FREE T3 0.95 PG/ML (2.18-3.98); FREE T4 0.68 NG/DL (0.76-1.46); POTASSIUM 4.1 MEQ/L (3.5-5.1)
[2016-11-19] MEDS: PIPERACIL-TAZO 2.25 GM PREMIX 50 ML IV SCH ×4 (05:51→19:20)
[2016-11-19] MEDS: INSULIN NovoLIN REGULAR SUPPLEMENTAL SCALE SQ SCH ×4 (05:52→19:21)
[2016-11-19] MEDS: LACTULOSE SYRUP 20 GM/30 ML CUP PO SCH (09:00)
[2016-11-19] MEDS: SODIUM CHLORIDE 0.9% FLUSH 5 ML FLUSH IV FLUSH SCH ×2 (09:16→19:14)
[2016-11-19] MEDS: levETIRAcetam 250 MG TAB PO SCH ×2 (09:17→19:20)
[2016-11-19] MEDS: DILTIAZEM HCL 30 MG TAB PO SCH ×4 (09:17→19:20)
[2016-11-19] MEDS: DOCUSATE SODIUM 50 MG/SENNA 8.6 MG TAB PO SCH ×2 (09:17→19:20)
[2016-11-19] MEDS: ZINC SULFATE 220 MG CAP PO SCH (09:17)
[2016-11-19] MEDS: HEPARIN SODIUM - SQ 10,000 UNITS/ML VIAL SQ SCH ×2 (09:17→19:20)
[2016-11-19] MEDS: TAMSULOSIN HCL 0.4 MG CAP PO SCH (09:17)
[2016-11-19] MEDS: ASCORBIC ACID 500 MG TAB PO SCH (09:17)
[2016-11-19] MEDS: FLUCONAZOLE 100 MG TAB PO SCH (09:17)
[2016-11-19] MEDS: PANTOPRAZOLE SOD 40 MG DELAYED RELEASE TAB PO SCH (09:17)
[2016-11-19] MEDS: POVIDONE IODINE 10% OINT 30 GM TUBE TOPICAL SCH (09:18)
[2016-11-19] MEDS: GABAPENTIN 100 MG CAP PO SCH ×2 (09:18→19:20)
--- NOTE | 2016-11-19 12:26 | HHI.NPPN ---
Subjective Additional Remarks Patient awake, alert. No acute complaints today Objective Data Data 11/18/16 11/19/16 19:00 07:00 Intake Total 633 ml 734 ml Output Total 550 ml 600 ml Balance 83 ml 134 ml Intake Oral 480 ml 550 ml IV Total 153 ml 184 ml Output Urine Total 550 ml 600 ml # Bowel Movements 1 0 Vital Signs Date Time Temp Pulse Resp B/P Pulse Ox O2 Delivery O2 Flow Rate FiO2 11/19/16 10:00 72 11/19/16 08:00 70 11/19/16 08:00 98.6 70 16 145/75 90 11/19/16 07:49 92 Nasal Cannula 6.00 11/19/16 06:00 69 11/19/16 04:00 68 11/19/16 04:00 98.3 70 21 169/82 93 11/19/16 02:00 69 11/19/16 00:00 68 11/19/16 00:00 98.4 68 17 145/76 92 11/18/16 20:46 92 Nasal Cannula 6.00 11/18/16 20:00 66 11/18/16 20:00 98.1 66 16 141/72 92 11/18/16 18:00 69 11/18/16 16:00 98.2 68 18 142/71 93 11/18/16 16:00 68 11/18/16 14:00 74 -: 11/19/16 0503 11/19/16 0503 Physical Exam General Appearance: No Acute Distress, Malnourished Throat Throat Exam: Oral Mucosa [place] & Moist Neck Neck Exam: Neck Supple Pulmonary Resp Exam: Diminished Breath Sounds Cardiology CV Exam: Regular, Normal Sinus Rhythm Gastrointestinal/Abdomen GI Exam: Soft, Non-Tender Musculoskeletal MS Exam: Joints Intact Integumentary Skin Exam: Dry, Intact Extremeties Extremities Exam: No Edema Assessment/Plan Problem List: (1) Acute on chronic kidney failure Plan: CKD likely due to DM/HTN, with proteinuria. The ultrasound showed that he has normal-sized kidneys. Creatinine has ranged from 1.5 -3.3 since 05/2016, 1.8 on admission here. Now with ALCIDES on CKD - possibly due to ATN vs over-diuresis after presentation with CHF and thoracentesis of pleural effusions. Also possibility of interstitial nephritis since he also has urine eosinophils positive( Few eosinophills noted) Creatinine 2.3 -> 2.6 -> 2.8, 1.3L UOP over 24 hours. Had been on Lasix 40IV BID - now on hold, with possibility of overdiuresis. Appears relatively euvolemic at this point, respiratory status stable. However has scrotal edema. Urine urea ordered , results pending. Fractional excretion of urea calculation can be used to assess for pre-renal ALCIDES in setting of diuretic use - with a value <35% suggestive of pre-renal ALCIDES. (2) Acute on chronic diastolic CHF (congestive heart failure), NYHA class 4 Plan: Patient has been diuresed with lasx since admission, -7kg. Lasix on hold for now. Possible mild over-diuresis (3) HTN (hypertension) Plan: stable (4) Diabetic nephropathy Plan: continue to monitor glucose (5) Pleural effusion Plan: s/p thoracentesis, respiratory status stable. (6) COPD (chronic obstructive pulmonary disease) Plan: continue to monitor (7) Dry gangrene Plan: seen with plastics, continue wound care Problem Qualifiers (1) HTN (hypertension): Qualified Code: I15.9 - Secondary hypertension (2) Diabetic nephropathy: Qualified Code: E13.21 - Diabetic nephropathy associated with other specified diabetes mellitus (3) COPD (chronic obstructive pulmonary disease): Griffin Ribera MD Nov 19, 2016 12:26
--- NOTE | 2016-11-19 17:10 | HHI.CCPN ---
Subjective Remarks/Hospital Course 11/14: This is a 65-year-old male who was recently admitted to the ICU proximally month or so ago with anemia, concern for GI bleed, and heart failure. He represents with similar complaints of shortness of breath and fatigue, was reportedly on NRB with spo2 in the 80s at his [facility]. He was transported by EMS and on arrival was too dyspneic to participate in a thorough history. He did deny to the ER physician abdominal pain, diarrhea. endorsed some mild SOB. He has new necrosis of the left third digit distal finger and right great toe. Laboratory data is significant for a lactate of 3, a BNP of 2900, a wbc 10.8, hgb 7.4, K 5.9, Cr 1.8. Critical care medicine is consulted for his acute hypoxic respiratory failure, his likely CHF exacerbation, his sepsis, and necrotic digits. 11/15: Elderly male laying in bed awake and alert. Still on nonrebreather facemask. Diuresing with Lasix. Evaluated by hematology and cardiology. 11/16: Resting in bed on nasal cannula. Underwent thoracentesis yesterday with drainage of 2.2 L of right pleural effusion. 11/17: Afebrile. Plan for left-sided thoracentesis today. Currently on nasal cannula appears comfortable. Worsening renal function noted. Subjective 11/18: Afebrile. -1600 cc with thoracentesis on left side yesterday. Currently on nasal cannula and appears in no acute distress. Urine output slowing down. 11/19: net euvolemia. Cr still worsening. Nephrology holding lasix as they feel the patient is euvolemic. Objective Vital Signs Date Time Temp Pulse Resp B/P Pulse Ox O2 Delivery O2 Flow Rate FiO2 11/19/16 16:00 98.2 98 18 153/72 97 11/19/16 07:49 Nasal Cannula 6.00 11/16/16 04:23 35 Intake and Output 11/18/16 11/18/16 11/19/16 08:00 16:00 00:00 Intake Total 120 ml 633 ml 334 ml Output Total 200 ml 550 ml 350 ml Balance -80 ml 83 ml -16 ml Result Diagram: 11/19/16 0503 11/19/16 0503 Imaging Last Impressions Thoracentesis Ultrasound 11/17/16 0600 Signed Impressions: Service Date/Time: Thursday, November 17, 2016 14:58 - CONCLUSION: Uncomplicated ultrasound guided thoracentesis. Doyle Sutton MD Renal Ultrasound 11/17/16 0000 Signed Impressions: Service Date/Time: Thursday, November 17, 2016 09:18 - CONCLUSION: There is no evidence for hydronephrosis. Non-obstructing right renal stone. Benito Rossi MD FACR Chest X-Ray 11/17/16 0000 Signed Impressions: Service Date/Time: Thursday, November 17, 2016 15:32 - CONCLUSION: There is no pneumothorax following thoracentesis on the left. Slight changes persist in the right base.. Benito Rossi MD FACR Objective Remarks GENERAL: 65-year-old male, elderly-appearing male, currently resting in bed on nasal cannula no acute distress HEENT: Normocephalic. Atraumatic. Pupils equally round and reactive around 3 mm bilaterally and reactive. Mucous membranes are moist and pink. No oral thrush. NECK: Trachea is midline. No JVD CHEST: Diminished breath sounds left greater than right. No wheezing CARDIOVASCULAR: Normal rate, regular rhythm. S1, S2 no S4. No appreciable murmurs. ABDOMEN: Soft, nontender, nondistended. No guarding. MUSCULOSKELETAL: The left third digit has evidence of severe dry gangrene to just about the DIP. There is also dry gangrene of the right great toe which does not completely encompass up to the PIP. Otherwise, distal pulses are 2+. Evidence of old left AKA. NEUROLOGICAL: Awake alert oriented to person place and year. Follows simple commands. Moves all 4 extremities spontaneously to command. Positive peripheral neuropathy bilateral upper and lower extremities.. A/P Assessment and Plan Neuro/Psych: History bilateral cataracts History of anxiety Dental caries Peripheral neuropathy -- Neurontin at 100 mg by mouth twice a day for neuropathy -- Keppra renal dose adjusted 250 millIgrams by mouth twice a day EEG revealed some mild slowing but no epileptiform activity Avoid long-acting sedating meds. Currently on hydromorphone as needed for pain management Respiratory: Acute hypoxic respiratory failure secondary to acute on chronic diastolic heart failure/COPD History of COPD Bilateral pleural effusions likely transudative Nasal cannula to maintain saturations greater than equal to 92% Incentive spirometry while awake Likely secondary to acute on chronic diastolic heart failure and COPD. Being diuresed, but now Lasix on hold for ALCIDES --s/p ultrasound-guided thoracentesis of right pleural effusion on 11/15 with drainage of 2.2liters. left thoracentesis ultrasound guided 11/17 - 1600 cc Cardiovascular: Acute on chronic congestive heart failure exacerbation, diastolic History of hypertension Last echocardiogram 10/13 revealed EF 55-60%. SIOBHAN 47 mmHg. Lasix decreased to 40 mEq IV every 8 hours. At home on Lasix 20 mg by mouth twice a day. At home on Norvasc 10 mg by mouth daily. This is been held. Resume when clinically indicated At home on aspirin 81 mg by mouth daily. This be resumed. Cardiology consult with Dr. Benton reviewed. He has signed off Renal/: Acute on chronic kidney injury4 Proteinuria BPH Right-sided nephrolithiasis Likely secondary to diuresis. Avoid nephrotoxic drugs [place] for accurate I's and O's -- Strict I/Os Urine electrolytes/eosinophils rare Negative renal ultrasound no hydronephrosis 11/17. Nonobstructing right renal stone. Nephrology following. To hold diuretics today. Flomax 0.4 mg by mouth daily FEN/GI: Acute protein calorie malnutritionmoderate Constipation Gastroesophageal reflux disease Inguinal hernia PO diet as tolerated Protonix 40 mg by mouth daily. For gastroesophageal reflux disease. Daily BMP Resume lactulose 30 cc daily for constipation Heme/ID: Anemia, unknown source, possibly chronic disease Leukocytosis Possible healthcare associated pneumonia C tropicalis UTI Hand surgery and podiatry consulted for dry gangrene - no surgical intervention recommended currently Pertinent cultures 11/14: Blood cultures 2 - no growth 11/14 - urine culture - Claudia tropicalis 11/15 - thoracentesis/pleural - no growth/negative AFB Stop vanc. 11/16 Continue Zosyn 2.25 g IV every 6 hours day 7. -- Treat with Diflucan 100 mill grams IV/by mouth daily 7 days for funguria Daily CBC. 1 unit PRBCs HIV screen negative --Cryoglobulins pending. Cold agglutinins negative -- HCV negative on last admission, recently. -- Hematology consult noted. Endocrine: Hyperglycemia of critical illness Elevated TSH -- SSI, every before meals/at bedtime, -- Check free T3/T4 in a.m. MSK: Left AKA Dry gangrene left third digit Decubitus ulcer right toe Evaluated by plastic/Dr. Adams. No current indication for surgical intervention. Previously on Santyl daily for debridement Prophylaxis: GI Prophylaxis Protonix 40 mg IV every 24 hours DVT Prophylaxis -- SCDs No evidence of melena. Heparin subcutaneously Lines: Peripheral IVs [place] Palliative care following to assist with deciding goals of therapy. Patient is DNR status. Dispo: I think the patient is stable for hospitalist service and possible transfer out of ICU. possible hospice discharge in the coming days. Alfonso Oquendo MD Nov 19, 2016 17:10
[2016-11-20] VITALS (14 sets, daily range): BP systolic 124–160; BP diastolic 60–79; PULSE 58–74; RESP 18–23; TEMP 98–98.5; O2SAT 91–93
[2016-11-20] MEDS: RESP: ALBUTEROL 2.5 MG/IPRATROPIUM 0.5 MG NEB (SCH) INH ×4 (03:20→22:05)
[2016-11-20] MEDS: CHLORHEXIDINE GLUCONATE 2 % 1 PACK (2 CLOTHS) TOP SCH (04:00)
[2016-11-20] MEDS: INSULIN NovoLIN REGULAR SUPPLEMENTAL SCALE SQ SCH ×4 (05:44→20:52)
[2016-11-20] MEDS: PIPERACIL-TAZO 2.25 GM PREMIX 50 ML IV SCH ×4 (05:44→20:52)
[2016-11-20 07:57] LABS: HEMATOCRIT 27.1 % (39.0-51.0); MEAN CELL VOLUME 81.6 FL (80.0-100.0); MEAN CORPUSCULAR HEMOGLOBIN 26.4 PG (27.0-34.0); MEAN CORPUSCULAR HGB CONC 32.3 % (32.0-36.0); PLATELET COUNT 180 TH/MM3 (150-450); RED BLOOD COUNT 3.32 MIL/MM3 (4.50-5.90); RED CELL DISTRIBUTION WIDTH 18.9 % (11.6-17.2); REVIEW FLAG FINAL
[2016-11-20 08:39] LABS: BICARBONATE 33.5 MEQ/L (21.0-32.0); POTASSIUM 4.3 MEQ/L (3.5-5.1)
[2016-11-20] MEDS: ZINC SULFATE 220 MG CAP PO SCH (09:32)
[2016-11-20] MEDS: DOCUSATE SODIUM 50 MG/SENNA 8.6 MG TAB PO SCH ×2 (09:32→20:51)
[2016-11-20] MEDS: ASCORBIC ACID 500 MG TAB PO SCH (09:32)
[2016-11-20] MEDS: LACTULOSE SYRUP 20 GM/30 ML CUP PO SCH (09:32)
[2016-11-20] MEDS: GABAPENTIN 100 MG CAP PO SCH ×2 (09:32→20:51)
[2016-11-20] MEDS: FLUCONAZOLE 100 MG TAB PO SCH (09:32)
[2016-11-20] MEDS: PANTOPRAZOLE SOD 40 MG DELAYED RELEASE TAB PO SCH (09:32)
[2016-11-20] MEDS: DILTIAZEM HCL 30 MG TAB PO SCH ×4 (09:32→20:51)
[2016-11-20] MEDS: SODIUM CHLORIDE 0.9% FLUSH 5 ML FLUSH IV FLUSH SCH ×2 (09:32→20:52)
[2016-11-20] MEDS: levETIRAcetam 250 MG TAB PO SCH ×2 (09:32→20:51)
[2016-11-20] MEDS: TAMSULOSIN HCL 0.4 MG CAP PO SCH (09:32)
[2016-11-20] MEDS: HEPARIN SODIUM - SQ 10,000 UNITS/ML VIAL SQ SCH ×2 (09:33→20:51)
--- NOTE | 2016-11-20 11:57 | HHI.NPPN ---
Subjective Additional Remarks He is awake, he has no specific complaints. He is severely malnourished. Review of Systems General Constitutional: Fatigue Objective Data Data 11/19/16 11/20/16 19:00 07:00 Intake Total 321 ml 1011 ml Output Total 350 ml 600 ml Balance -29 ml 411 ml Intake Oral 180 ml 850 ml IV Total 141 ml 161 ml Output Urine Total 350 ml 600 ml # Bowel Movements 0 0 Vital Signs Date Time Temp Pulse Resp B/P Pulse Ox O2 Delivery O2 Flow Rate FiO2 11/20/16 10:00 70 11/20/16 08:57 91 Nasal Cannula 6.00 11/20/16 08:00 65 11/20/16 06:00 69 11/20/16 04:00 67 11/20/16 04:00 98.4 58 19 160/73 91 11/20/16 02:00 66 11/20/16 00:00 70 11/20/16 00:00 98.0 74 23 156/74 91 11/19/16 22:00 68 11/19/16 20:26 92 Nasal Cannula 6.00 11/19/16 20:00 71 11/19/16 20:00 98.3 72 18 156/74 92 11/19/16 18:00 75 11/19/16 16:00 98.2 98 18 153/72 97 11/19/16 16:00 71 11/19/16 14:00 69 11/19/16 12:00 98.4 70 20 144/70 88 11/19/16 12:00 70 -: 11/20/16 0723 11/20/16 0723 Physical Exam General Appearance: No Acute Distress, Malnourished Throat Throat Exam: Oral Mucosa [place] & Moist Neck Neck Exam: Neck Supple Pulmonary Resp Exam: Diminished Breath Sounds Cardiology CV Exam: Regular, Normal Sinus Rhythm Gastrointestinal/Abdomen GI Exam: Soft, Non-Tender Musculoskeletal MS Exam: Joints Intact MS Remarks left AKA. Ischemic changes on finger in the right hand and also toe in the right foot. Integumentary Skin Exam: Dry, Intact Extremeties Extremities Exam: No Edema Assessment/Plan Problem List: (1) Acute on chronic kidney failure Plan: CKD likely due to DM/HTN, with proteinuria. The ultrasound showed that he has normal-sized kidneys. Creatinine has ranged from 1.5 -3.3 since 05/2016, 1.8 on admission here. Now with ALCIDES on CKD - possibly due to ATN vs over-diuresis after presentation with CHF and thoracentesis of pleural effusions. Also possibility of interstitial nephritis since he also has urine eosinophils positive( Few eosinophills noted). Finally cholesterol embolization will have to be considered: he has severe vascular disease, has ischemic appearing toes and fingers and has positive urine eosinophils. I will obtain complement levels. If he has cholesterol embolization, prognosis is not as good as ATN. Renal function is worse. Continue to hold diuretics. Monitor. No immediate need for dialysis. (2) Acute on chronic diastolic CHF (congestive heart failure), NYHA class 4 Plan: Patient has been diuresed with lasx since admission, -7kg. Lasix on hold for now. Possible mild over-diuresis (3) HTN (hypertension) Plan: stable (4) Diabetic nephropathy Plan: continue to monitor glucose (5) Pleural effusion Plan: s/p thoracentesis, respiratory status stable. (6) COPD (chronic obstructive pulmonary disease) Plan: continue to monitor (7) Dry gangrene Plan: seen with plastics, continue wound care Problem Qualifiers (1) HTN (hypertension): Qualified Code: I15.9 - Secondary hypertension (2) Diabetic nephropathy: Qualified Code: E13.21 - Diabetic nephropathy associated with other specified diabetes mellitus (3) COPD (chronic obstructive pulmonary disease): Srinath Valdes MD Nov 20, 2016 11:57
--- NOTE | 2016-11-20 16:38 | HHI.PR ---
Subjective Remarks Patient resting in bed, denied chest pain short of breath fever or chills He is a transfer of care from intensive care service Objective Vitals Vital Signs Date Time Temp Pulse Resp B/P Pulse Ox O2 Delivery O2 Flow Rate FiO2 11/20/16 16:00 66 11/20/16 14:00 65 11/20/16 12:00 61 11/20/16 10:00 70 11/20/16 08:57 91 Nasal Cannula 6.00 11/20/16 08:00 65 11/20/16 06:00 69 11/20/16 04:00 67 11/20/16 04:00 98.4 58 19 160/73 91 11/20/16 02:00 66 11/20/16 00:00 70 11/20/16 00:00 98.0 74 23 156/74 91 11/19/16 22:00 68 11/19/16 20:26 92 Nasal Cannula 6.00 11/19/16 20:00 71 11/19/16 20:00 98.3 72 18 156/74 92 11/19/16 18:00 75 I/O 11/19/16 11/19/16 11/19/16 11/20/16 11/20/16 11/20/16 06:59 14:59 22:59 06:59 14:59 22:59 Intake Total 400 ml 321 ml 486 ml 525 ml Output Total 250 ml 350 ml 350 ml 250 ml Balance 150 ml -29 ml 136 ml 275 ml Intake Oral 350 ml 180 ml 350 ml 500 ml IV Total 50 ml 141 ml 136 ml 25 ml Output Urine Total 250 ml 350 ml 350 ml 250 ml # Bowel Movements 0 0 0 Result Diagram: 11/20/1672211/20/16722 Objective Remarks --GENERAL: This is a well-nourished, well-developed patient, in no apparent distress. SKIN: No rashes, warm and dry HEAD: Atraumatic. Normocephalic. EYES: Pupils equal round and reactive. Extraocular motions intact. No scleral icterus. ENT: Nose without bleeding, or drainage, Airway patent. NECK: Trachea midline. Supple CARDIOVASCULAR: Regular rate and rhythm without murmurs, gallops, or rubs. RESPIRATORY: decrease bs on the bases. No wheezes, rales, or rhonchi. GASTROINTESTINAL: Abdomen soft, non-tender, nondistended. Positive bowel sounds MUSCULOSKELETAL: Left AKA in gauze, positive gangrenous black skin and of the right toe NEUROLOGICAL: Awake and alert. Moves all extremity. Normal speech.no focal neurological deficit A/P Assessment and Plan 11/20/16: Continue current management, monitor for fever, A/P: History bilateral cataracts History of anxiety Dental caries Peripheral neuropathy -- Neurontin at 100 mg by mouth twice a day for neuropathy -- Keppra renal dose adjusted 250 millIgrams by mouth twice a day EEG revealed some mild slowing but no epileptiform activity Avoid long-acting sedating meds. Currently on hydromorphone as needed for pain management Acute hypoxic respiratory failure secondary to acute on chronic diastolic heart failure/COPD History of COPD Bilateral pleural effusions likely transudative Nasal cannula to maintain saturations greater than equal to 92% Incentive spirometry while awake Likely secondary to acute on chronic diastolic heart failure and COPD. Being diuresed, but now Lasix on hold for ALCIDES --s/p ultrasound-guided thoracentesis of right pleural effusion on 11/15 with drainage of 2.2liters. left thoracentesis ultrasound guided 11/17 - 1600 cc Acute on chronic congestive heart failure exacerbation, diastolic History of hypertension Last echocardiogram 10/13 revealed EF 55-60%. SIOBHAN 47 mmHg. Lasix decreased to 40 mEq IV every 8 hours. At home on Lasix 20 mg by mouth twice a day. At home on Norvasc 10 mg by mouth daily. This is been held. Resume when clinically indicated At home on aspirin 81 mg by mouth daily. This be resumed. Cardiology consult with Dr. Benton reviewed. He has signed off Acute on chronic kidney injury4 Proteinuria BPH Right-sided nephrolithiasis Likely secondary to diuresis. Avoid nephrotoxic drugs [place] for accurate I's and O's -- Strict I/Os Urine electrolytes/eosinophils rare Negative renal ultrasound no hydronephrosis 11/17. Nonobstructing right renal stone. Nephrology following. To hold diuretics today. Flomax 0.4 mg by mouth daily Acute protein calorie malnutritionmoderate Constipation Gastroesophageal reflux disease Inguinal hernia PO diet as tolerated Protonix 40 mg by mouth daily. For gastroesophageal reflux disease. Daily BMP Resume lactulose 30 cc daily for constipation Anemia, unknown source, possibly chronic disease Leukocytosis Possible healthcare associated pneumonia Claudia tropicalis UTI Hand surgery and podiatry consulted for dry gangrene - no surgical intervention recommended currently Pertinent cultures 11/14: Blood cultures 2 - no growth 11/14 - urine culture - Claudia tropicalis 11/15 - thoracentesis/pleural - no growth/negative AFB Stop vanc. 11/16 Continue Zosyn 2.25 g IV every 6 hours day 7. -- Treat with Diflucan 100 mill grams IV/by mouth daily 7 days for funguria Daily CBC. 1 unit PRBCs HIV screen negative --Cold agglutinins negative -- HCV negative on last admission, recently. -- Hematology recruitment consultant Hyperglycemia of critical illness Elevated TSH -- SSI, every before meals/at bedtime, -- Check free T3/T4 in a.m. Left AKA Dry gangrene left third digit Decubitus ulcer right toe Evaluated by plastic/Dr. Adams. No current indication for surgical intervention. Previously on Santyl daily for debridement Prophylaxis: GI Prophylaxis Protonix 40 mg IV every 24 hours DVT Prophylaxis -- SCDs No evidence of melena. Heparin subcutaneously Lines: Peripheral IVs [place] Palliative care following to assist with deciding goals of therapy. Patient is DNR status. Ray Sharp MD Nov 20, 2016 16:38
--- NOTE | 2016-11-20 17:44 | HHI.HCPN ---
Reason for visit a. To assist with evaluation and management of symptoms including: shortness of breath, weakness, pain b. To assist medical decision maker(s) with: better understanding of current medical conditions; weighing benefits/burdens of medical treatment options; making medical treatment decisions. . Subjective/Interval History Draft... Patient seen and assessed in room 520. Also present patient's friend, Kailey. Awake and alert, able to make needs known. Oriented to person, place and time. We again discussed aggressive medical treatment goals versus comfort focus goals. The patient does not appear to have good insight or judgement related to his medical condition or consequences of medical treatment decisions (i.e dialysis). The patient continues to express his intention to return to his own home with hospice services after his son arrives from [facility]. Respirations unlabored status post thoracentesis on 11/15/16, removing 2200ml clear, yellow fluid. Cytology was negative for malignant cells. Left-sided thoracentesis on 11/17/16 with 1.6L removed. 11/19/16 chest x-ray showing significant increase in diffuse opacities throughout both lungs suggesting a combination of pleural effusions and alveolar filtrates. Patient has no complaints, denies pain on examination. Dilaudid 0.25mg IV is available q4 hours PRN for pain, none administered in the past 24 hours. Examination of patient's left third finger unchanged. No evidence of infection , no change in demarcation. Hand surgery and podiatry were consulted for dry gangrene - no surgical intervention recommended currently. Patient now with acute on chronic kidney injury. Worsening renal functioning. BUN: 66, creatinine 3.10, GFR 20. Nephrology continues to follow, no immediate need for dialysis. . . Advance Directives Health Care Surrogate: Copy in medical record Durable Power of Software Sales Manager: Copy in medical record Advance Directive Specifics Date completed: 07/25/16 . Health Care Surrogate(s): Meño Yao (son) has been designated by the patient as the health care surrogate. . Objective Vital Signs Date Time Temp Pulse Resp B/P Pulse Ox O2 Delivery O2 Flow Rate FiO2 11/20/16 16:00 98.4 72 18 134/71 93 11/20/16 16:00 66 11/20/16 14:00 65 11/20/16 12:00 98.3 71 19 149/76 92 11/20/16 12:00 61 11/20/16 10:00 70 11/20/16 08:57 91 Nasal Cannula 6.00 11/20/16 08:00 65 11/20/16 08:00 98.5 66 20 148/79 92 11/20/16 06:00 69 11/20/16 04:00 67 11/20/16 04:00 98.4 58 19 160/73 91 11/20/16 02:00 66 11/20/16 00:00 70 11/20/16 00:00 98.0 74 23 156/74 91 11/19/16 22:00 68 11/19/16 20:26 92 Nasal Cannula 6.00 11/19/16 20:00 71 11/19/16 20:00 98.3 72 18 156/74 92 11/19/16 18:00 75 Intake & Output 11/20/16 11/20/16 07:00 19:00 Intake Total 1011 ml Output Total 600 ml Balance 411 ml Intake Oral 850 ml IV Total 161 ml Output Urine Total 600 ml # Bowel Movements 0 . Physical Exam CONSTITUTIONAL/GENERAL: This is a frail male patient who appears older than his documented age. TUBES/LINES/DRAINS: Valencia catheter, PIV x 1 SKIN: Ecchymoses on upper extremities. Left hand third digit and right great toe purple/blackish color-dry gangrene. Temperature WNL. Not diaphoretic. Left AKA incision open to air without redness/drainage. HEAD: Atraumatic. Normocephalic. EYES: Extraocular motions intact. No scleral icterus. No injection or drainage. Fundi not examined. ENT: Hearing grossly normal. Nose without bleeding or purulent drainage. Throat without visible erythema, exudates, masses, or lesions. NECK: Trachea midline. CARDIOVASCULAR: Regular rate and rhythm without murmurs, gallops, or rubs. No JVD. Peripheral pulses symmetric. RESPIRATORY/CHEST: Decreased bibasilar air exchange. GASTROINTESTINAL: Abdomen soft, non-tender, nondistended. No hepato-splenomegaly , or palpable masses. No guarding. Bowel sounds present. GENITOURINARY: Without palpable bladder distension. Valencia catheter in place. MUSCULOSKELETAL: The left third digit has evidence of severe dry gangrene. There is also dry gangrene of the right great toe which does not completely encompass up to the PIP. . LYMPHATICS: No palpable cervical or supraclavicular adenopathy. NEUROLOGICAL: Oriented to person, place and time. Follows commands.. Moves all extremities. PSYCHIATRIC: No obvious anxiety/depression. no apparent hallucinations or other psychotic thought process. . Diagnostic Tests Laboratory Laboratory Tests Test 11/18/16 11/19/16 11/20/16 05:33 05:03 07:23 White Blood Count 9.5 TH/MM3 9.4 TH/MM3 10.0 TH/MM3 (4.0-11.0) (4.0-11.0) (4.0-11.0) Red Blood Count 3.43 MIL/MM3 3.38 MIL/MM3 3.32 MIL/MM3 (4.50-5.90) (4.50-5.90) (4.50-5.90) Hemoglobin 9.0 GM/DL 8.9 GM/DL 8.8 GM/DL (13.0-17.0) (13.0-17.0) (13.0-17.0) Hematocrit 27.8 % 27.5 % 27.1 % (39.0-51.0) (39.0-51.0) (39.0-51.0) Mean Corpuscular Volume 81.1 FL 81.4 FL 81.6 FL (80.0-100.0) (80.0-100.0) (80.0-100.0) Mean Corpuscular Hemoglobin 26.2 PG 26.4 PG 26.4 PG (27.0-34.0) (27.0-34.0) (27.0-34.0) Mean Corpuscular Hemoglobin 32.3 % 32.4 % 32.3 % Concent (32.0-36.0) (32.0-36.0) (32.0-36.0) Red Cell Distribution Width 19.0 % 19.2 % 18.9 % (11.6-17.2) (11.6-17.2) (11.6-17.2) Platelet Count 185 TH/MM3 179 TH/MM3 180 TH/MM3 (150-450) (150-450) (150-450) Mean Platelet Volume 9.0 FL 8.8 FL 9.2 FL (7.0-11.0) (7.0-11.0) (7.0-11.0) Neutrophils (%) (Auto) 83.4 % (16.0-70.0) Lymphocytes (%) (Auto) 5.9 % (9.0-44.0) Monocytes (%) (Auto) 5.0 % (0.0-8.0) Eosinophils (%) (Auto) 4.0 % (0.0-4.0) Basophils (%) (Auto) 1.7 % (0.0-2.0) Neutrophils # (Auto) 7.9 TH/MM3 (1.8-7.7) Lymphocytes # (Auto) 0.6 TH/MM3 (1.0-4.8) Monocytes # (Auto) 0.5 TH/MM3 (0-0.9) Eosinophils # (Auto) 0.4 TH/MM3 (0-0.4) Basophils # (Auto) 0.2 TH/MM3 (0-0.2) CBC Comment DIFF FINAL Differential Comment Sodium Level 140 MEQ/L 139 MEQ/L 139 MEQ/L (136-145) (136-145) (136-145) Potassium Level 3.8 MEQ/L 4.1 MEQ/L 4.3 MEQ/L (3.5-5.1) (3.5-5.1) (3.5-5.1) Chloride Level 98 MEQ/L 96 MEQ/L 97 MEQ/L (98-107) (98-107) (98-107) Carbon Dioxide Level 33.4 MEQ/L 33.3 MEQ/L 33.5 MEQ/L (21.0-32.0) (21.0-32.0) (21.0-32.0) Anion Gap 9 MEQ/L (5-15) 10 MEQ/L (5-15) 9 MEQ/L (5-15) Blood Urea Nitrogen 60 MG/DL (7-18) 65 MG/DL (7-18) 66 MG/DL (7-18) Creatinine 2.60 MG/DL 2.88 MG/DL 3.10 MG/DL (0.60-1.30) (0.60-1.30) (0.60-1.30) Estimat Glomerular Filtration 25 ML/MIN (>89) 22 ML/MIN (>89) 20 ML/MIN (>89) Rate Random Glucose 111 MG/DL 145 MG/DL 175 MG/DL (74-106) (74-106) (74-106) Calcium Level 7.5 MG/DL 7.5 MG/DL 8.0 MG/DL (8.5-10.1) (8.5-10.1) (8.5-10.1) Phosphorus Level 4.5 MG/DL 5.1 MG/DL (2.5-4.9) (2.5-4.9) Magnesium Level 1.8 MG/DL 2.0 MG/DL (1.5-2.5) (1.5-2.5) Total Bilirubin 0.4 MG/DL (0.2-1.0) Aspartate Amino Transf 12 U/L (15-37) (AST/SGOT) Alanine Aminotransferase LESS THAN 6 (ALT/SGPT) U/L (12-78) Alkaline Phosphatase 70 U/L (45-117) Ammonia 20 MCMOL/L (11-32) Total Creatine Kinase 12 U/L (39-308) Total Protein 6.0 GM/DL (6.4-8.2) Albumin 1.2 GM/DL (3.4-5.0) Thyroid Stimulating Hormone 9.460 uIU/ML 3rd Gen (0.358-3.740) Free Thyroxine 0.68 NG/DL (0.76-1.46) Free Triiodothyronine (T3) 0.95 PG/ML pg/dL (2.18-3.98) Complement C3 104 MG/DL (90-180) Complement C4 26 MG/DL (10-40) . Result Diagram: 11/20/16 0723 11/20/16 0723 Imaging Last 72 hours Impressions Chest X-Ray 11/19/16 0600 Signed Impressions: Service Date/Time: Saturday, November 19, 2016 03:52 - CONCLUSION: Significant increase in diffuse opacities throughout both lungs suggesting a combination of pleural effusions and alveolar infiltrates. Darren Vazquez MD . Procedures 11/15/16: Right-sided thoracentesis 11/17/16: Left-sided thoracentesis . Assessment and Plan Disease Oriented Problem List: (1) Diabetes (2) Necrotizing fasciitis (3) Impaired mobility and activities of daily living (4) HTN (hypertension) (5) Acute on chronic kidney failure (6) Acute respiratory failure with hypoxia (7) Sepsis (8) Diabetes mellitus (9) Diabetic nephropathy (10) COPD (chronic obstructive pulmonary disease) (11) CHF (congestive heart failure) (12) Anemia (13) Pleural effusion (14) Congestive heart failure (15) Urinary tract infection (16) Dry gangrene Symptom Scale: (1) Weakness (2) Dyspnea Comment: Respirations unlabored status post thoracentesis on 11/15/16, removing 2200ml clear, yellow fluid. Cytology was negative for malignant cells. Left- sided thoracentesis on 11/17/16 with 1.6L removed. 11/19/16 chest x-ray showing significant increase in diffuse opacities throughout both lungs suggesting a combination of pleural effusions and alveolar filtrates. . (3) Pain Comment: Patient has no complaints, denies pain on examination. Dilaudid 0.25mg IV is available q4 hours PRN for pain, none administered over the past 24 hours. . . Pertinent Non-Medical Issues Psychosocial: Patient is originally from [place]. He has been three times. He has 3 children. Meño lives in [place]. Dion lives in [facility]. Salina lives in [place]. 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 He was exposed to Agent [place]. Spiritual: Non-cheondoism. Legal: Patient is currently capacitated to make health care decisions. In the event that the patient becomes incapacitated, Meño Yao (son) has been designated by the patient as the health care surrogate. Ethical issues impacting care: No known ethical issues impacting care at this time. . Important Contacts Meño Yao, son: [phone] Carmelo Garner, friend: [phone] . Prognosis Patient is a 65 year frail 65 yo male patient who has experienced an acute decline since 05/2016 secondary to multiple comorbid conditions. He has been hospitalized 6 times in the past 5 months s/p AKA of the left leg. Currently admitted with CHF exacerbation, acute kidney injury, sepsis, anemia and necrotic extremities patient is critically ill in multiorgan system dysfunction. Prognosis poor. . Code Status: No Code Plan * NO CODE * Decision-making: Patient is currently capacitated to make health care decisions. In the event that the patient becomes incapacitated, Meño Yao ( son) has been designated by the patient as the health care surrogate. * Goals: Goals remain aggressive up to the point of cardiopulmonary resuscitation. Patient stating he would like to consider hospice upon discharge. Ongoing support and clarification of medical treatment goals needed. * Patient son, Meño Yao, is the main contact center analyst. He lives in [place] , which is 3 hours earlier. Phone number [phone]. Attempted to speak with patient's son, Meño, vis telephone. Message left on patient's son's voicemail encouraging him to return my call with any question, needs or concerns. * We again discussed aggressive medical treatment goals versus comfort focus goals. The patient continues to express his intention to return to his own home with hospice services after his son arrives from [facility]. * The patient does not appear to have good insight or judgement related to his medical condition or consequences of medical treatment decisions (i.e dialysis). * Symptom managementpain: Possible causes of pain include wounds, infection, dyspnea, invasive lines, Valencia catheter, recent thoracentesis, procedures, immobility, bedbound status etc. Patient has no complaints, denies pain on examination. Dilaudid 0.25mg IV is * Symptom managementdyspnea: Respirations unlabored status post thoracentesis on 11/15/16, removing 2200ml clear, yellow fluid. Cytology was negative for malignant cells. Left-sided thoracentesis on 11/17/16 with 1.6L removed. chest x-ray showing significant increase in diffuse opacities throughout both lungs suggesting a combination of pleural effusions and alveolar filtrates. * Palliative care will continue to follow this patient throughout his hospitalization to establish trust, assist with symptom management and clarification of medical treatment goals. . Attestation To help prompt me to consider important information that might be impacting today's encounter and assessment, information from prior notes written by myself or my colleagues may have been "brought forward" into today's note. My signature on this note, however, is an attestation that I personally performed the exam, history, and/or decision-making noted today, and, unless otherwise indicated, the interactions with patient, family, and staff as well as the review of records all occurred today. I also attest that the listed assessment and stated plan reflect my best clinical judgment today based on the combination of historical information, prior notes, and today's exam/ interactions. When time spent is documented, it refers only to time spent today by the signer, or if indicated, combined time spent today by collaborating physician/nurse practitioner. . Perri Ramirez Nov 20, 2016 17:44
[2016-11-20 17:53] LABS: CRYOCRIT NONE DETECTED (NONE DETECTED)
[2016-11-21] VITALS (16 sets, daily range): BP systolic 116–131; BP diastolic 60–75; PULSE 55–132; RESP 15–17; TEMP 98–98.3; O2SAT 92–96
[2016-11-21] MEDS: RESP: ALBUTEROL 2.5 MG/IPRATROPIUM 0.5 MG NEB (SCH) INH (03:33)
[2016-11-21] MEDS: CHLORHEXIDINE GLUCONATE 2 % 1 PACK (2 CLOTHS) TOP SCH ×2 (04:00→20:52)
[2016-11-21] MEDS: PIPERACIL-TAZO 2.25 GM PREMIX 50 ML IV SCH ×4 (05:55→20:52)
[2016-11-21] MEDS: INSULIN NovoLIN REGULAR SUPPLEMENTAL SCALE SQ SCH ×4 (05:56→20:52)
[2016-11-21] MEDS ORDERED: DILTIAZEM HCL 25 MG/5 ML VIAL IV ONE (06:00)
[2016-11-21 06:01] LABS: HEMATOCRIT 28.1 % (39.0-51.0); MEAN CORPUSCULAR HGB CONC 31.3 % (32.0-36.0); PLATELET COUNT 183 TH/MM3 (150-450); RED BLOOD COUNT 3.39 MIL/MM3 (4.50-5.90); REVIEW FLAG FINAL; WHITE BLOOD COUNT 8.3 TH/MM3 (4.0-11.0)
[2016-11-21 06:14] LABS: BICARBONATE 31.8 MEQ/L (21.0-32.0); POTASSIUM 4.2 MEQ/L (3.5-5.1)
[2016-11-21] MEDS ORDERED: DILTIAZEM HCL 25 MG/5 ML VIAL IVP ONE (06:45)
[2016-11-21] MEDS ORDERED: DILTIAZEM INJ 125 MG in SODIUM CHLORIDE 0.9% INJ 100 ML IV SCH (07:15)
--- NOTE | 2016-11-21 08:36 | PD.CARD.PN ---
Subjective Subjective Remarks Pt without CV complaints Objective Medications Current Medications Medications (Trade) Dose Ordered Sig/Veronica Route Start Time Stop Time Status Last Admin (D50w (Vial) Inj) 25 ml UNSCH PRN IV PUSH 11/14/16 03:00 (NS Flush) 2 ml UNSCH PRN IV FLUSH 11/14/16 03:00 11/15/16 08:03 (NS Flush) 2 ml BID IV FLUSH 11/14/16 09:00 11/20/16 20:52 (Dilaudid Pf Inj) 0.25 mg Q4H PRN IV 11/14/16 03:00 11/17/16 21:22 (Zofran Inj) 4 mg Q6H PRN IV 11/14/16 03:00 (Frieda-Colace) 2 tab BID PO 11/14/16 09:00 11/20/16 09:32 Miscellaneous Information 1 Q361D XX 11/14/16 03:00 (Chlorhexidine 2% Cloth) Taper DAILY@04 TOP 11/14/16 04:00 11/10/17 03:59 11/18/16 05:48 (Chlorhexidine 2% Cloth) 3 pack UNSCH PRN TOP 11/14/16 03:00 (Glucagon Inj) 1 mg UNSCH PRN OTHER 11/14/16 04:00 Povidone Iodine 1 applic 1 applic DAILY TOPICAL 11/14/16 10:30 11/19/16 09:18 (Zosyn 2.25 Gm Premix) 50 ml @ 100 mls/hr Q6H IV 11/16/16 17:00 11/21/16 05:55 (Heparin Inj) 5,000 units Q12HR SQ 11/16/16 21:00 11/20/16 20:51 (Cardizem) 30 mg QID PO 11/16/16 18:00 11/20/16 20:51 (Protonix) 40 mg DAILY PO 11/18/16 09:00 11/20/16 09:32 (Diflucan) 100 mg DAILY PO 11/18/16 09:00 11/25/16 08:59 11/20/16 09:32 (Vitamin C) 500 mg DAILY PO 11/18/16 09:00 11/20/16 09:32 (Zinc Sulfate) 220 mg DAILY PO 11/18/16 09:00 11/20/16 09:32 (Flomax) 0.4 mg DAILY PO 11/18/16 09:00 11/20/16 09:32 (Keppra) 250 mg Q12HR PO 11/17/16 21:00 11/20/16 20:51 (Lactulose Liq) 30 ml DAILY PO 11/18/16 09:00 11/20/16 09:32 (Neurontin) 100 mg BID PO 11/18/16 21:00 11/20/16 20:51 Insulin Human Regular 1 1 ACHS SQ 11/18/16 16:00 11/21/16 05:56 (Cardizem Inj/NS Inj) 125 ml @ 0 mls/hr TITRATE IV 11/21/16 07:15 11/21/16 06:56 Vital Signs / I&O Vital Signs Date Time Temp Pulse Resp B/P Pulse Ox O2 Delivery O2 Flow Rate FiO2 11/21/16 06:34 132 116/75 11/21/16 06:00 130 11/21/16 04:00 98.0 65 17 119/62 11/21/16 04:00 68 11/21/16 02:00 66 11/21/16 00:00 98.2 65 17 119/62 11/21/16 00:00 65 11/20/16 22:07 92 Nasal Cannula 6.00 11/20/16 22:00 73 11/20/16 20:00 68 11/20/16 20:00 98.2 68 18 124/60 11/20/16 18:00 63 11/20/16 16:00 98.4 72 18 134/71 93 11/20/16 16:00 66 11/20/16 14:00 65 11/20/16 12:00 98.3 71 19 149/76 92 11/20/16 12:00 61 11/20/16 10:00 70 11/20/16 08:57 91 Nasal Cannula 6.00 I/O 11/20/16 11/20/16 11/20/16 11/21/16 11/21/16 11/21/16 07:00 15:00 23:00 07:00 15:00 23:00 Intake Total 525 ml 75 ml 364 ml 413 ml Output Total 250 ml 350 ml 25 ml 350 ml Balance 275 ml -275 ml 339 ml 63 ml Intake Oral 500 ml 250 ml 350 ml IV Total 25 ml 75 ml 114 ml 63 ml Output Urine Total 250 ml 350 ml 25 ml 350 ml # Bowel Movements 0 0 Physical Exam GENERAL: Well developed, well nourished. No acute distress. HEENT: Jugular venous pressure is normal. CHEST: Lungs clear to auscultation bilaterally. Unlabored respiratory effort. CARDIAC: Regular rate and rhythm without S3, S4, or murmur. ABDOMEN: Soft, nontender, EXTREMITIES: left leg amp Laboratory Laboratory Tests Test 11/21/16 05:03 White Blood Count 8.3 TH/MM3 Red Blood Count 3.39 MIL/MM3 Hemoglobin 8.8 GM/DL Hematocrit 28.1 % Mean Corpuscular Volume 83.0 FL Mean Corpuscular Hemoglobin 26.0 PG Mean Corpuscular Hemoglobin 31.3 % Concent Red Cell Distribution Width 19.0 % Platelet Count 183 TH/MM3 Mean Platelet Volume 9.4 FL Sodium Level 141 MEQ/L Potassium Level 4.2 MEQ/L Chloride Level 98 MEQ/L Carbon Dioxide Level 31.8 MEQ/L Anion Gap 11 MEQ/L Blood Urea Nitrogen 65 MG/DL Creatinine 3.11 MG/DL Estimat Glomerular Filtration 20 ML/MIN Rate Random Glucose 166 MG/DL Calcium Level 7.9 MG/DL Magnesium Level 2.0 MG/DL Total Creatine Kinase 12 U/L Troponin I 0.02 NG/ML B-Type Natriuretic Peptide 3004 PG/ML Assessment and Plan Problem List: (1) Ventricular tachycardia Assessment and Plan: asymptomatic WCT; conservative medical management with beta christiano -not revascularization candidate (DNR) (2) Atrial fibrillation and flutter Assessment and Plan: episode most consistent with AF 2:1; change to metoprolol in light of WCT/VT (3) Acute on chronic diastolic CHF (congestive heart failure), NYHA class 4 Assessment and Plan: Renal handling diuretics. 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
[2016-11-21] MEDS: GABAPENTIN 100 MG CAP PO SCH ×2 (08:38→20:52)
[2016-11-21] MEDS: FLUCONAZOLE 100 MG TAB PO SCH (08:38)
[2016-11-21] MEDS: LACTULOSE SYRUP 20 GM/30 ML CUP PO SCH (08:38)
[2016-11-21] MEDS: TAMSULOSIN HCL 0.4 MG CAP PO SCH (08:38)
[2016-11-21] MEDS: HEPARIN SODIUM - SQ 10,000 UNITS/ML VIAL SQ SCH (08:38)
[2016-11-21] MEDS: ZINC SULFATE 220 MG CAP PO SCH (08:38)
[2016-11-21] MEDS: levETIRAcetam 250 MG TAB PO SCH ×2 (08:38→20:52)
[2016-11-21] MEDS: PANTOPRAZOLE SOD 40 MG DELAYED RELEASE TAB PO SCH (08:38)
[2016-11-21] MEDS: ASCORBIC ACID 500 MG TAB PO SCH (08:38)
[2016-11-21] MEDS: DOCUSATE SODIUM 50 MG/SENNA 8.6 MG TAB PO SCH ×2 (08:38→20:52)
[2016-11-21] MEDS: DILTIAZEM HCL 30 MG TAB PO SCH (08:38)
[2016-11-21] MEDS: SODIUM CHLORIDE 0.9% FLUSH 5 ML FLUSH IV FLUSH SCH ×2 (08:38→20:51)
[2016-11-21] MEDS ORDERED: METOPROLOL TARTRATE 5 MG/5 ML VIAL IV PUSH PRN (08:45)
[2016-11-21] MEDS: METOPROLOL TARTRATE 50 MG TAB PO SCH ×2 (09:23→20:52)
[2016-11-21 11:04] LABS: TRANSFERRIN IRON PROFILE 99 MG/DL (200-360)
--- NOTE | 2016-11-21 12:32 | HHI.PR ---
Subjective Remarks Patient had episode of atrial flutter with RVR as per the nurse overnight, he was started on Cardizem drip which is stopped later on by block chopper hand, currently stable on Lopressor Patient in bed denied chest pain or short of breath, he feels tired, will continue monitoring in ICU on Lopressor Objective Vitals Vital Signs Date Time Temp Pulse Resp B/P Pulse Ox O2 Delivery O2 Flow Rate FiO2 11/21/16 10:00 82 11/21/16 09:01 92 Nasal Cannula 6.00 11/21/16 08:00 71 11/21/16 06:34 132 116/75 11/21/16 06:00 130 11/21/16 04:00 98.0 65 17 119/62 11/21/16 04:00 68 11/21/16 02:00 66 11/21/16 00:00 98.2 65 17 119/62 11/21/16 00:00 65 11/20/16 22:07 92 Nasal Cannula 6.00 11/20/16 22:00 73 11/20/16 20:00 68 11/20/16 20:00 98.2 68 18 124/60 11/20/16 18:00 63 11/20/16 16:00 98.4 72 18 134/71 93 11/20/16 16:00 66 11/20/16 14:00 65 I/O 11/20/16 11/20/16 11/20/16 11/21/16 11/21/16 11/21/16 07:00 15:00 23:00 07:00 15:00 23:00 Intake Total 525 ml 75 ml 364 ml 413 ml Output Total 250 ml 350 ml 25 ml 350 ml Balance 275 ml -275 ml 339 ml 63 ml Intake Oral 500 ml 250 ml 350 ml IV Total 25 ml 75 ml 114 ml 63 ml Output Urine Total 250 ml 350 ml 25 ml 350 ml # Bowel Movements 0 0 Result Diagram: 11/21/16 0503 11/21/16 0503 Objective Remarks --GENERAL: This is a well-nourished, well-developed patient, in no apparent distress. SKIN: No rashes, warm and dry HEAD: Atraumatic. Normocephalic. EYES: Pupils equal round and reactive. Extraocular motions intact. No scleral icterus. ENT: Nose without bleeding, or drainage, Airway patent. NECK: Trachea midline. Supple CARDIOVASCULAR: Regular rate and rhythm without murmurs, gallops, or rubs. RESPIRATORY: decrease bs on the bases. No wheezes, rales, or rhonchi. GASTROINTESTINAL: Abdomen soft, non-tender, nondistended. Positive bowel sounds MUSCULOSKELETAL: Left AKA in gauze, positive gangrenous black skin and of the right toe NEUROLOGICAL: Awake and alert. Moves all extremity. Normal speech.no focal neurological deficit A/P Assessment and Plan 11/20/16: Continue current management, monitor for fever, 11/21/16: Episode of a flutter with RVR, junctional WCT, appreciated Dr. Alford input, continue on Lopressor for rate control, continue monitoring in ICU A/P: History bilateral cataracts History of anxiety Dental caries Peripheral neuropathy -- Neurontin at 100 mg by mouth twice a day for neuropathy -- Keppra renal dose adjusted 250 millIgrams by mouth twice a day EEG revealed some mild slowing but no epileptiform activity Avoid long-acting sedating meds. Currently on hydromorphone as needed for pain management Acute hypoxic respiratory failure secondary to acute on chronic diastolic heart failure/COPD History of COPD Bilateral pleural effusions likely transudative Nasal cannula to maintain saturations greater than equal to 92% Incentive spirometry while awake Likely secondary to acute on chronic diastolic heart failure and COPD. Being diuresed, but now Lasix on hold for ALCIDES --s/p ultrasound-guided thoracentesis of right pleural effusion on 11/15 with drainage of 2.2liters. left thoracentesis ultrasound guided 11/17 - 1600 cc Acute on chronic congestive heart failure exacerbation, diastolic History of hypertension Last echocardiogram 10/13 revealed EF 55-60%. SIOBHAN 47 mmHg. Lasix decreased to 40 mEq IV every 8 hours. At home on Lasix 20 mg by mouth twice a day. At home on Norvasc 10 mg by mouth daily. This is been held. Resume when clinically indicated At home on aspirin 81 mg by mouth daily. This be resumed. Cardiology consult with Dr. Benton reviewed. He has signed off Acute on chronic kidney injury4 Proteinuria BPH Right-sided nephrolithiasis Likely secondary to diuresis. Avoid nephrotoxic drugs Valencia for accurate I's and O's -- Strict I/Os Urine electrolytes/eosinophils rare Negative renal ultrasound no hydronephrosis 11/17. Nonobstructing right renal stone. Nephrology following. To hold diuretics today. Flomax 0.4 mg by mouth daily Acute protein calorie malnutritionmoderate Constipation Gastroesophageal reflux disease Inguinal hernia PO diet as tolerated Protonix 40 mg by mouth daily. For gastroesophageal reflux disease. Daily BMP Resume lactulose 30 cc daily for constipation Anemia, unknown source, possibly chronic disease Leukocytosis Possible healthcare associated pneumonia Claudia tropicalis UTI Hand surgery and podiatry consulted for dry gangrene - no surgical intervention recommended currently Pertinent cultures 11/14: Blood cultures 2 - no growth 11/14 - urine culture - Claudia tropicalis 11/15 - thoracentesis/pleural - no growth/negative AFB Stop vanc. 11/16 Continue Zosyn 2.25 g IV every 6 hours day 7. -- Treat with Diflucan 100 mill grams IV/by mouth daily 7 days for funguria Daily CBC. 1 unit PRBCs HIV screen negative --Cold agglutinins negative -- HCV negative on last admission, recently. -- Hematology [employer]iztalk consultant Hyperglycemia of critical illness Elevated TSH -- SSI, every before meals/at bedtime, -- Check free T3/T4 in a.m. Left AKA Dry gangrene left third digit Decubitus ulcer right toe Evaluated by plastic/Dr. Adams. No current indication for surgical intervention. Previously on Santyl daily for debridement Prophylaxis: GI Prophylaxis Protonix 40 mg IV every 24 hours DVT Prophylaxis -- SCDs No evidence of melena. Heparin subcutaneously Lines: Peripheral IVs Valencia Palliative care following to assist with deciding goals of therapy. Patient is DNR status. Ray Sharp MD Nov 21, 2016 12:31
--- NOTE | 2016-11-21 12:54 | HHI.NPPN ---
Subjective Renal Failure: Chronic, Acute Interval History Renal function is stable. Diuretics on hold. He has been made a DNR. Tachycardic on cardized gtt. (Karlee Amado) Review of Systems General Constitutional: Fatigue (Karlee Amado) Objective Data Data 11/20/16 11/21/16 19:00 07:00 Intake Total 75 ml 777 ml Output Total 350 ml 375 ml Balance -275 ml 402 ml Intake Oral 600 ml IV Total 75 ml 177 ml Output Urine Total 350 ml 375 ml # Bowel Movements 0 Vital Signs Date Time Temp Pulse Resp B/P Pulse Ox O2 Delivery O2 Flow Rate FiO2 11/21/16 10:00 82 11/21/16 09:01 92 Nasal Cannula 6.00 11/21/16 08:00 71 11/21/16 06:34 132 116/75 11/21/16 06:00 130 11/21/16 04:00 98.0 65 17 119/62 11/21/16 04:00 68 11/21/16 02:00 66 11/21/16 00:00 98.2 65 17 119/62 11/21/16 00:00 65 11/20/16 22:07 92 Nasal Cannula 6.00 11/20/16 22:00 73 11/20/16 20:00 68 11/20/16 20:00 98.2 68 18 124/60 11/20/16 18:00 63 11/20/16 16:00 98.4 72 18 134/71 93 11/20/16 16:00 66 11/20/16 14:00 65 (Karlee Amado) -: 11/21/16 0503 11/21/16 0503 Imaging Last 72 hours Impressions Chest X-Ray 11/19/16 0600 Signed Impressions: Service Date/Time: Saturday, November 19, 2016 03:52 - CONCLUSION: Significant increase in diffuse opacities throughout both lungs suggesting a combination of pleural effusions and alveolar infiltrates. Darren Vazquez MD Tubes & Lines: Annie (Karlee Amado) Physical Exam General Appearance: No Acute Distress, Comfortable, Malnourished (Karlee Amado) Throat Throat Exam: Oral Mucosa [place] & Moist (Karlee Amado) Neck Neck Exam: Neck Supple (Karlee Amado MEXICAN FOOD MACHINE TENDER) Pulmonary Resp Exam: Diminished Breath Sounds (Karlee Amado) Cardiology CV Exam: Irregular, Tachycardia (Karlee Amado [employer]EXICAN FO[employer] MACHINE TENDER) Gastrointestinal/Abdomen GI Exam: Soft, Non-Tender (Karlee Amado. [employer]EXICAN FOOD MACHINE TENDER) Musculoskeletal MS Exam: Joints Intact, Normal Tone MS Remarks left AKA (Karlee Amado [employer]EX[employer] FOOD MACHINE TENDER) Integumentary Skin Exam: Dry, Intact Skin Remarks right great toe necrotic lesion (Karlee Amado [employer]EXICAN FOOD MACHINE TENDER) Extremeties Extremities Exam: No Edema (Karlee Amado) Neurologic Neuro Exam: Alert, Awake, Oriented, Speech Clear, Moving All Extremities ( Karlee Amado) Assessment/Plan Discussed Condition With: Patient Problem List: (1) Acute on chronic kidney failure Plan: CKD likely due to DM/HTN, with proteinuria. Creatinine has ranged from 1.5 -3.3 since 05/2016, 1.8 on admission here. Now with ALCIDES on CKD - possibly due to ATN vs over-diuresis after presentation with CHF and thoracentesis of pleural effusions. Interstitial nephritis is also a differential since he also has urine eosinophils positive( Few eosinophils noted). Finally cholesterol embolization will have to be considered but complement levels are not low; however he has severe vascular disease, has ischemic appearing toes and fingers and has positive urine eosinophils. Renal function is stable off diuretics he is not in need of dialysis at this time, although he may need in the future however he is a DNR and considering hospice. We discussed that he will likely not do well on dialysis will remove segura catheter repeat labs in am (2) Acute on chronic diastolic CHF (congestive heart failure), NYHA class 4 Plan: weight down since admission which may be to over diuresed with lasix diuretics on hold, encouraged oral intake monitor weight, fluid volume status (3) HTN (hypertension) Plan: BP controlled with current medications (4) Diabetic nephropathy Plan: continue to monitor glucose (5) Pleural effusion Plan: s/p thoracentesis, respiratory status stable. (6) COPD (chronic obstructive pulmonary disease) Plan: continue to monitor (7) Dry gangrene Plan: seen with plastics, continue wound care (Karlee Amado) Plan patient was seen and examined. Agree with above assessment and plan. Poor marine oil terminal superintendent prognosis. No immediate need for dialysis. (Srinath Valdes MD) Problem Qualifiers (1) HTN (hypertension): Qualified Code: I15.9 - Secondary hypertension (2) Diabetic nephropathy: Qualified Code: E13.21 - Diabetic nephropathy associated with other specified diabetes mellitus (3) COPD (chronic obstructive pulmonary disease): Karlee Amado Nov 21, 2016 12:54 Srinath Valdes MD Nov 22, 2016 07:46
--- NOTE | 2016-11-21 17:26 | EKG ---
Date Performed: 11/21/2016 Time Performed: 05:39:48 PTAGE: 65 years EKG: Probable atrial flutter with 2:1 A-V block. Significant baseline artifact Possible anterior infarct - age undetermined Inferior/lateral ST-T changes may be due to myocardial ischemia When comp ared to previous tracing, thepatientnow appears to be In atrial flutter with 2:1 block. Abnormal ECG PREVIOUS TRACING : 11/14/2016 [id number] DOCTOR: Natasha Alford Interpretating Date/Time 11/21/2016 17:26:00
--- NOTE | 2016-11-21 19:47 | HHI.HCPN ---
Patient has requested transition to comfort focused care/hospice. He was previously planning to wait [facility] so he could return to his own home with his son and hospice assistance. Patient was considering [facility], but he states he does not want to wait any longer ( [facility] does not have a care center). He is requesting [facility] and would like to go to the hospice care center for symptom management with the goal to return home when his son (Dion) arrives. I spoke to the patient's son and health care surrogate, Meño, who is very receptive to this idea stating, "that is exactly what he needs". Discussed with attending Dr. Sharp, he supports the patient's decision to transition to hospice. IR was consulted to evaluate patient for possible Pleurx catheter placement prior to hospice admission for palliation of dyspnea secondary to recurrent pleural effusions. Perri Ramirez Nov 21, 2016 19:47
[2016-11-22] VITALS (14 sets, daily range): BP systolic 134–175; BP diastolic 65–83; PULSE 62–66; RESP 12–23; TEMP 97.6–97.8; O2SAT 82–96
[2016-11-22] MEDS: PIPERACIL-TAZO 2.25 GM PREMIX 50 ML IV SCH ×4 (05:15→20:11)
[2016-11-22] MEDS: INSULIN NovoLIN REGULAR SUPPLEMENTAL SCALE SQ SCH ×4 (06:30→20:13)
[2016-11-22] MEDS: LACTULOSE SYRUP 20 GM/30 ML CUP PO SCH (09:00)
[2016-11-22] MEDS: DOCUSATE SODIUM 50 MG/SENNA 8.6 MG TAB PO SCH ×2 (09:00→20:11)
[2016-11-22] MEDS: ASCORBIC ACID 500 MG TAB PO SCH (10:08)
[2016-11-22] MEDS: SODIUM CHLORIDE 0.9% FLUSH 5 ML FLUSH IV FLUSH SCH ×2 (10:08→20:11)
[2016-11-22] MEDS: ZINC SULFATE 220 MG CAP PO SCH (10:08)
[2016-11-22] MEDS: GABAPENTIN 100 MG CAP PO SCH ×2 (10:08→20:11)
[2016-11-22] MEDS: METOPROLOL TARTRATE 50 MG TAB PO SCH ×2 (10:08→20:11)
[2016-11-22] MEDS: levETIRAcetam 250 MG TAB PO SCH ×2 (10:08→20:11)
[2016-11-22] MEDS: FLUCONAZOLE 100 MG TAB PO SCH (10:08)
[2016-11-22] MEDS: PANTOPRAZOLE SOD 40 MG DELAYED RELEASE TAB PO SCH (10:08)
[2016-11-22] MEDS: TAMSULOSIN HCL 0.4 MG CAP PO SCH (10:08)
[2016-11-22] MEDS: POVIDONE IODINE 10% OINT 30 GM TUBE TOPICAL SCH ×2 (10:09→10:11)
--- NOTE | 2016-11-22 15:33 | HHI.HCPN ---
Reason for visit a. To assist with evaluation and management of symptoms including: shortness of breath, weakness, pain b. To assist medical decision maker(s) with: better understanding of current medical conditions; weighing benefits/burdens of medical treatment options; making medical treatment decisions. . Subjective/Interval History Patient seen and assessed in room 520. Oriented to person, place and time. Remains lethargic, weak. Patient denies any acute distress, denies pain. Dilaudid 0.25mg IV is available q4 hours PRN for pain, none administered in the past 24 hours. Respirations unlabored status post thoracentesis on 11/15/16, removing 2200ml clear, yellow fluid. Cytology was negative for malignant cells. Left-sided thoracentesis on 11/17/16 with 1.6L removed. 11/19/16 chest x-ray showing significant increase in diffuse opacities throughout both lungs suggesting a combination of pleural effusions and alveolar filtrates. Patient going to IR today for Pleurx catheter placement secondary to recurrent pleural effusion. Examination of patient's left third finger unchanged. No evidence of infection , no change in demarcation. Hand surgery and podiatry were consulted for dry gangrene - no surgical intervention recommended currently. Patient now with acute on chronic kidney injury. Worsening renal functioning. Most recent labs from 11/21/15: BUN: 66, creatinine 3.10, GFR 20. Nephrology continues to follow. No immediate need for dialysis, although he may need it in the future. Plan to transition to comfort focused care after Pleurx catheter placement for palliation of recurrent pleural effusions. Patient was previously considering returning home with [facility] after his son arrived from the the [facility]. Patient has decided to forgo further diagnostic testing and aggressive intervention. He is requesting hospice services at a [facility] for symptom management with the goal to return home when his son arrives from out of town. Patient's family is supportive of this plan. . . . Advance Directives Health Care Surrogate: Copy in medical record Durable Power of Assembler Convertible Top: Copy in medical record Advance Directive Specifics Date completed: 07/25/16 . Health Care Surrogate(s): Meño Yao (son) has been designated by the patient as the health care surrogate. . Objective . Vital Signs Date Time Temp Pulse Resp B/P Pulse Ox O2 Delivery O2 Flow Rate FiO2 11/22/16 14:00 63 11/22/16 12:00 97.7 62 21 175/82 93 11/22/16 12:00 62 11/22/16 10:00 62 11/22/16 08:00 97.8 62 20 160/83 91 11/22/16 08:00 64 11/22/16 07:35 94 Nasal Cannula 6.00 11/22/16 06:00 62 11/22/16 04:00 97.8 62 18 134/69 92 11/22/16 04:00 62 11/22/16 02:00 63 11/22/16 00:00 97.6 62 16 141/71 91 11/22/16 00:00 62 11/21/16 22:52 93 Nasal Cannula 6.00 11/21/16 22:00 64 11/21/16 20:00 65 11/21/16 20:00 98.0 65 16 131/63 11/21/16 18:00 85 11/21/16 16:00 98.1 59 16 120/60 94 11/21/16 16:00 77 Intake & Output 11/22/16 11/22/16 07:00 19:00 Intake Total 313 ml 217 ml Output Total 700 ml 250 ml Balance -387 ml -33 ml Intake Oral 256 ml 60 ml IV Total 57 ml 157 ml Output Urine Total 700 ml 250 ml # Bowel Movements 2 2 . Physical Exam CONSTITUTIONAL/GENERAL: This is a frail male patient who appears older than his documented age. TUBES/LINES/DRAINS: Valencia catheter, PIV x 1 SKIN: Left hand third digit and right great toe purple/blackish color-dry gangrene. Not diaphoretic. Left AKA incision open to air without redness/ drainage. Skin warm and dry. HEAD: Atraumatic. Normocephalic. EYES: Extraocular motions intact. No scleral icterus. No injection or drainage. Fundi not examined. ENT: Hearing grossly normal. Nose without bleeding or purulent drainage. NECK: Trachea midline. CARDIOVASCULAR: Regular rate and rhythm without murmurs, gallops, or rubs. No JVD. Peripheral pulses symmetric. RESPIRATORY/CHEST: Decreased bibasilar air exchange. GASTROINTESTINAL: Abdomen soft, non-tender, nondistended. No guarding. Bowel sounds present. GENITOURINARY: Without palpable bladder distension. Valencia catheter in place, draining cloudy urine with sediment MUSCULOSKELETAL: The left third digit has evidence of severe dry gangrene. There is also dry gangrene of the right great toe which does not completely encompass up to the PIP. . LYMPHATICS: No palpable cervical or supraclavicular adenopathy. NEUROLOGICAL: Oriented to person, place and time. Follows commands.. Moves all extremities. PSYCHIATRIC: No obvious anxiety/depression. no apparent hallucinations or other psychotic thought process. . Diagnostic Tests Laboratory Laboratory Tests Test 11/20/16 11/21/16 11/22/16 07:23 05:03 10:00 White Blood Count 10.0 TH/MM3 8.3 TH/MM3 (4.0-11.0) (4.0-11.0) Red Blood Count 3.32 MIL/MM3 3.39 MIL/MM3 (4.50-5.90) (4.50-5.90) Hemoglobin 8.8 GM/DL 8.8 GM/DL (13.0-17.0) (13.0-17.0) Hematocrit 27.1 % 28.1 % (39.0-51.0) (39.0-51.0) Mean Corpuscular Volume 81.6 FL 83.0 FL (80.0-100.0) (80.0-100.0) Mean Corpuscular Hemoglobin 26.4 PG 26.0 PG (27.0-34.0) (27.0-34.0) Mean Corpuscular Hemoglobin 32.3 % 31.3 % Concent (32.0-36.0) (32.0-36.0) Red Cell Distribution Width 18.9 % 19.0 % (11.6-17.2) (11.6-17.2) Platelet Count 180 TH/MM3 183 TH/MM3 (150-450) (150-450) Mean Platelet Volume 9.2 FL 9.4 FL (7.0-11.0) (7.0-11.0) Sodium Level 139 MEQ/L 141 MEQ/L (136-145) (136-145) Potassium Level 4.3 MEQ/L 4.2 MEQ/L (3.5-5.1) (3.5-5.1) Chloride Level 97 MEQ/L 98 MEQ/L (98-107) (98-107) Carbon Dioxide Level 33.5 MEQ/L 31.8 MEQ/L (21.0-32.0) (21.0-32.0) Anion Gap 9 MEQ/L (5-15) 11 MEQ/L (5-15) Blood Urea Nitrogen 66 MG/DL (7-18) 65 MG/DL (7-18) Creatinine 3.10 MG/DL 3.11 MG/DL (0.60-1.30) (0.60-1.30) Estimat Glomerular Filtration 20 ML/MIN (>89) 20 ML/MIN (>89) Rate Random Glucose 175 MG/DL 166 MG/DL (74-106) (74-106) Calcium Level 8.0 MG/DL 7.9 MG/DL (8.5-10.1) (8.5-10.1) Complement C3 104 MG/DL (90-180) Complement C4 26 MG/DL (10-40) Phosphorus Level 5.8 MG/DL (2.5-4.9) Magnesium Level 2.0 MG/DL (1.5-2.5) Iron Level 45 MCG/DL (65-175) Total Iron Binding Capacity 139 MCG/DL (250-450) Percent Iron Saturation 32.5 % (20-50) Total Creatine Kinase 12 U/L (39-308) Troponin I 0.02 NG/ML (0.02-0.05) B-Type Natriuretic Peptide 3004 PG/ML (0-100) Urine Random Creatinine 44.6 MG/DL . Result Diagram: 11/21/16 0503 11/21/16 0503 Procedures 11/15/16: Right-sided thoracentesis 11/17/16: Left-sided thoracentesis . Assessment and Plan Disease Oriented Problem List: (1) Diabetes (2) Necrotizing fasciitis (3) Impaired mobility and activities of daily living (4) HTN (hypertension) (5) Acute on chronic kidney failure (6) Acute respiratory failure with hypoxia (7) Sepsis (8) Diabetes mellitus (9) Diabetic nephropathy (10) COPD (chronic obstructive pulmonary disease) (11) CHF (congestive heart failure) (12) Anemia (13) Pleural effusion (14) Congestive heart failure (15) Urinary tract infection (16) Dry gangrene Symptom Scale: (1) Weakness (2) Dyspnea Comment: Patient going to IR today for Pleurx catheter placement secondary to recurrent pleural effusion 11/22/16 Respirations unlabored status post thoracentesis on 11/15/16, removing 2200ml clear, yellow fluid. Cytology was negative for malignant cells. Left-sided thoracentesis on 11/17/16 with 1.6L removed. 11/19/16 chest x-ray showing significant increase in diffuse opacities throughout both lungs suggesting a combination of pleural effusions and alveolar filtrates. (3) Pain Comment: Patient has no complaints, denies pain on examination. Dilaudid 0.25mg IV is available q4 hours PRN for pain, none administered over the past 24 hours. . . Pertinent Non-Medical Issues Psychosocial: Patient is originally from [place]. He has been three times. He has 3 children. Meño lives in [place]. Dion lives in [facility]. Salina lives in [place]. 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 He was exposed to Agent Ernul. Spiritual: Non-jain. Legal: Patient is currently capacitated to make health care decisions. In the event that the patient becomes incapacitated, Meño Yao (son) has been designated by the patient as the health care surrogate. Ethical issues impacting care: No known ethical issues impacting care at this time. . Important Contacts Meño Yao, son: [phone] Carmelo Garner, friend: [phone] . Prognosis Patient is a 65 year frail 65 yo male patient who has experienced an acute decline since 05/2016 secondary to multiple comorbid conditions. He has been hospitalized 6 times in the past 5 months s/p AKA of the left leg. Currently admitted with CHF exacerbation, acute kidney injury, sepsis, anemia and necrotic extremities patient is critically ill in multiorgan system dysfunction. Prognosis poor. . Code Status: No Code Plan * NO CODE * Decision-making: Patient is currently capacitated to make health care decisions. In the event that the patient becomes incapacitated, Meño Yao ( son) has been designated by the patient as the health care surrogate. * Goals: Likely transition to hospice tomorrow. Requesting [facility] with care center placement for symptom management * Patient son, Meño Yao, is the main photoresist contact printer. He lives in [place] , which is 3 hours earlier. Phone number [phone]. * Symptom managementpain: Possible causes of pain include wounds, infection, dyspnea, invasive lines, Valencia catheter, recent thoracentesis, procedures, immobility, bedbound status etc. Patient has no complaints, denies pain on examination. Dilaudid 0.25mg IV available PRN- no requirements over the past 24 hours. Palliative care will continue to monitor PRN requirements and make recommendations as indicated. * Symptom managementdyspnea: Respirations unlabored status post thoracentesis on 11/15/16, removing 2200ml clear, yellow fluid. Cytology was negative for malignant cells. Left-sided thoracentesis on 11/17/16 with 1.6L removed. chest x-ray showing significant increase in diffuse opacities throughout both lungs suggesting a combination of pleural effusions and alveolar filtrates. Patient going to IR today for Pleurx catheter placement secondary to recurrent pleural effusion. * Acute on chronic kidney injury. Worsening renal functioning. Most recent labs from 11/21/15: BUN: 66, creatinine 3.10, GFR 20. Nephrology continues to follow. No immediate need for dialysis, although he may need it in the future. * Plan to transition to comfort focused care after Pleurx catheter placement for palliation of recurrent pleural effusions. Patient was previously considering returning home with [facility] after his son arrived from the the [facility]. Patient has decided to forgo further diagnostic testing and aggressive intervention. He is requesting hospice services at a [facility] for symptom management with the goal to return home when his son arrives from out of town. Patient's family is supportive of this plan. * Palliative care will continue to follow this patient throughout his hospitalization to establish trust, assist with symptom management and clarification of medical treatment goals. . Perri Ramirez Nov 22, 2016 15:33
[2016-11-22] MEDS ORDERED: LIDOCAINE 1%/EPINEPHrine 1:100,000 SOLN 20 ML VIAL ONE (16:15)
--- NOTE | 2016-11-22 16:40 | HHI.PR ---
Subjective Remarks Patient and specials having chest catheter to drain recurrent pleural effusion Discussed with palliative care, plan to go to hospice center Objective Vitals Vital Signs Date Time Temp Pulse Resp B/P Pulse Ox O2 Delivery O2 Flow Rate FiO2 11/22/16 16:00 97.7 64 23 141/73 93 11/22/16 16:00 64 11/22/16 14:00 63 11/22/16 12:00 97.7 62 21 175/82 93 11/22/16 12:00 62 11/22/16 10:00 62 11/22/16 08:00 97.8 62 20 160/83 91 11/22/16 08:00 64 11/22/16 07:35 94 Nasal Cannula 6.00 11/22/16 06:00 62 11/22/16 04:00 97.8 62 18 134/69 92 11/22/16 04:00 62 11/22/16 02:00 63 11/22/16 00:00 97.6 62 16 141/71 91 11/22/16 00:00 62 11/21/16 22:52 93 Nasal Cannula 6.00 11/21/16 22:00 64 11/21/16 20:00 65 11/21/16 20:00 98.0 65 16 131/63 11/21/16 18:00 85 I/O 11/21/16 11/21/16 11/21/16 11/22/16 11/22/16 11/22/16 07:00 15:00 23:00 07:00 15:00 23:00 Intake Total 413 ml 260 ml 313 ml 217 ml Output Total 350 ml 440 ml 700 ml 250 ml Balance 63 ml -180 ml -387 ml -33 ml Intake Oral 350 ml 260 ml 256 ml 60 ml IV Total 63 ml 0 ml 57 ml 157 ml Output Urine Total 350 ml 440 ml 700 ml 250 ml # Bowel Movements 0 2 2 Result Diagram: 11/21/16 0503 11/21/16 0503 Objective Remarks --GENERAL: This is a well-nourished, well-developed patient, in no apparent distress. NEUROLOGICAL: Somnolent. A/P Assessment and Plan 11/22/16: Patient and family decided on going with hospice, he is on [facility], to switch to [facility], Patient need to get chest catheter prior to go with hospice- discuss with palliative care medicine A/P: History bilateral cataracts History of anxiety Dental caries Peripheral neuropathy -- Neurontin at 100 mg by mouth twice a day for neuropathy -- Keppra renal dose adjusted 250 millIgrams by mouth twice a day EEG revealed some mild slowing but no epileptiform activity Avoid long-acting sedating meds. Currently on hydromorphone as needed for pain management Acute hypoxic respiratory failure secondary to acute on chronic diastolic heart failure/COPD History of COPD Bilateral pleural effusions likely transudative Nasal cannula to maintain saturations greater than equal to 92% Incentive spirometry while awake Likely secondary to acute on chronic diastolic heart failure and COPD. Being diuresed, but now Lasix on hold for ALCIDES --s/p ultrasound-guided thoracentesis of right pleural effusion on 11/15 with drainage of 2.2liters. left thoracentesis ultrasound guided 11/17 - 1600 cc Acute on chronic congestive heart failure exacerbation, diastolic History of hypertension Last echocardiogram 10/13 revealed EF 55-60%. SIOBHAN 47 mmHg. Lasix decreased to 40 mEq IV every 8 hours. At home on Lasix 20 mg by mouth twice a day. At home on Norvasc 10 mg by mouth daily. This is been held. Resume when clinically indicated At home on aspirin 81 mg by mouth daily. This be resumed. Cardiology consult with Dr. Benton reviewed. He has signed off Acute on chronic kidney injury4 Proteinuria BPH Right-sided nephrolithiasis Likely secondary to diuresis. Avoid nephrotoxic drugs Valencia for accurate I's and O's -- Strict I/Os Urine electrolytes/eosinophils rare Negative renal ultrasound no hydronephrosis 11/17. Nonobstructing right renal stone. Nephrology following. To hold diuretics today. Flomax 0.4 mg by mouth daily Acute protein calorie malnutritionmoderate Constipation Gastroesophageal reflux disease Inguinal hernia PO diet as tolerated Protonix 40 mg by mouth daily. For gastroesophageal reflux disease. Daily BMP Resume lactulose 30 cc daily for constipation Anemia, unknown source, possibly chronic disease Leukocytosis Possible healthcare associated pneumonia Claudia tropicalis UTI Hand surgery and podiatry consulted for dry gangrene - no surgical intervention recommended currently Pertinent cultures 11/14: Blood cultures 2 - no growth 11/14 - urine culture - Claudia tropicalis 11/15 - thoracentesis/pleural - no growth/negative AFB Stop vanc. 11/16 Continue Zosyn 2.25 g IV every 6 hours day 7. -- Treat with Diflucan 100 mill grams IV/by mouth daily 7 days for funguria Daily CBC. 1 unit PRBCs HIV screen negative --Cold agglutinins negative -- HCV negative on last admission, recently. -- Hematology engagement quality consultant Hyperglycemia of critical illness Elevated TSH -- SSI, every before meals/at bedtime, -- Check free T3/T4 in a.m. Left AKA Dry gangrene left third digit Decubitus ulcer right toe Evaluated by plastic/Dr. Adams. No current indication for surgical intervention. Previously on Santyl daily for debridement Prophylaxis: GI Prophylaxis Protonix 40 mg IV every 24 hours DVT Prophylaxis -- SCDs No evidence of melena. Heparin subcutaneously Lines: Peripheral IVs Valencia Palliative care following to assist with deciding goals of therapy. Patient is DNR status. Discharge Planning [facility] after getting chest catheter drain are Ray Sharp MD Nov 22, 2016 16:40
--- NOTE | 2016-11-22 16:47 | PD.RAD ---
Post Procedure Progress Note Pre Procedure Diagnosis: (1) Hypoxia (2) Pleural effusion Post Procedure Diagnosis: (1) Hypoxia (2) Pleural effusion Procedure Date: Nov 22, 2016 Supervising Radiologist: Griffin Rossi Anesthesia: Local, Conscious Sedation Plan of Activity Patient to Unit: Nursing Unit Patient Condition: Poor Additional Comments: ASPIRA drainage catheter placed into the right chest. 2.1liters of fluid removed. Catheter verified to be in good position. See PACS Report for procedural detail/treatment Griffin Rossi MD Nov 22, 2016 16:47
--- NOTE | 2016-11-22 17:46 | RADRPT ---
EXAM DATE/TIME: 11/22/2016 17:05 [facility] COMPARISON: CHEST SINGLE AP, November 19, 2016, 3:52. INDICATIONS : Evaluate for pneumothorax. Post pleural catheter placed. MEDICAL HISTORY : Inguinal hernia. COPD. Neuropathy. Head trauma. CHF. Renal failure. SURGICAL HISTORY : Skull repair. Bilateral knee surgery. ENCOUNTER: Subsequent ACUITY: 3 days PAIN SCORE: 3/10 LOCATION: Bilateral chest FINDINGS: Pleurx catheter is present on the right. There is been interval near-complete evacuation of right ple ural fluid and the underlying lung is grossly clear. There is persistent sizable effusion and extensi ve infiltrate on the contralateral left side. CONCLUSION: Interval Pleurx catheter placement with near complete evacuation of right effusion. No pneumothorax Abdias Early MD on November 22, 2016 at 17:42 Board Certified Radiologist. This report was verified electronically.
[2016-11-22] MEDS: CHLORHEXIDINE GLUCONATE 2 % 1 PACK (2 CLOTHS) TOP SCH (20:13)
[2016-11-22] MEDS: HYDROmorphone HCL PF 1 MG/ML VIAL IV PRN (20:27)
[2016-11-23] VITALS (7 sets, daily range): BP systolic 113–179; BP diastolic 56–88; PULSE 56–66; RESP 14–18; TEMP 98–98.5; O2SAT 75–90
[2016-11-23] MEDS: HYDROmorphone HCL PF 1 MG/ML VIAL IV PRN (01:26)
[2016-11-23] MEDS: PIPERACIL-TAZO 2.25 GM PREMIX 50 ML IV SCH ×2 (06:07→13:12)
[2016-11-23] MEDS: INSULIN NovoLIN REGULAR SUPPLEMENTAL SCALE SQ SCH ×2 (06:07→11:00)
--- NOTE | 2016-11-23 07:48 | HHI.PR ---
Subjective Remarks in no acute distress. no sob. has minimal pain to the right chest. d/w the RN. Objective Vitals Vital Signs Date Time Temp Pulse Resp B/P Pulse Ox O2 Delivery O2 Flow Rate FiO2 11/23/16 06:00 56 11/23/16 04:00 98.0 59 14 131/59 80 11/23/16 04:00 59 11/23/16 02:00 66 11/23/16 01:56 22 11/23/16 00:00 63 11/23/16 00:00 98.5 66 18 179/88 75 11/22/16 22:00 64 11/22/16 20:00 63 11/22/16 20:00 97.7 63 12 140/65 82 11/22/16 19:42 Nasal Cannula 6.00 11/22/16 18:00 64 11/22/16 17:38 14 11/22/16 17:08 97.7 66 12 157/74 96 11/22/16 16:00 97.7 64 23 141/73 93 11/22/16 16:00 64 11/22/16 14:00 63 11/22/16 12:00 97.7 62 21 175/82 93 11/22/16 12:00 62 11/22/16 10:00 62 11/22/16 08:00 97.8 62 20 160/83 91 11/22/16 08:00 64 I/O 11/22/16 11/22/16 11/22/16 11/23/16 11/23/16 11/23/16 07:00 15:00 23:00 07:00 15:00 23:00 Intake Total 313 ml 217 ml 422 ml Output Total 700 ml 250 ml 400 ml Balance -387 ml -33 ml 22 ml Intake Oral 256 ml 60 ml 240 ml IV Total 57 ml 157 ml 182 ml Output Urine Total 700 ml 250 ml 400 ml # Bowel Movements 2 2 1 Result Diagram: 11/21/16 0503 11/21/16 0503 Imaging Last Impressions Chest X-Ray 11/22/16 0000 Signed Impressions: Service Date/Time: Tuesday, November 22, 2016 17:05 - CONCLUSION: Interval Pleurx catheter placement with near complete evacuation of right effusion. No pneumothorax Abdias Early MD Thoracentesis Ultrasound 11/17/16 0600 Signed Impressions: Service Date/Time: Thursday, November 17, 2016 14:58 - CONCLUSION: Uncomplicated ultrasound guided thoracentesis. Doyle Sutton MD Renal Ultrasound 11/17/16 0000 Signed Impressions: Service Date/Time: Thursday, November 17, 2016 09:18 - CONCLUSION: There is no evidence for hydronephrosis. Non-obstructing right renal stone. Benito Rossi MD FACR Objective Remarks GENERAL: This is a well-nourished, well-developed patient, in no apparent distress. CARDIOVASCULAR: Regular rate and regular rhythm without murmurs, gallops, or rubs. RESPIRATORY: Clear to auscultation. Breath sounds equal bilaterally. No wheezes , rales, or rhonchi. GASTROINTESTINAL: Abdomen soft, non-tender, nondistended. Normal, active bowel sounds MUSCULOSKELETAL: s/p amputation of the left lower extremity NEURO: Alert & Oriented x4 to person, place, time, situation. Moves all ext x4 Procedures thoracentesis pleurx catheter placement - Medications and IVs Current Medications Sodium Chloride 1,000 ml @ 1,000 mls/hr Q1H ONCE IV Last administered on 00:59; Start 11/14/16 at 00:32; Stop 11/14/16 at 01:16; Status DC Sodium Chloride 1,000 ml @ 1,000 mls/hr Q1H ONCE IV ; Start 11/14/16 at 00:32; Stop 11/14/16 at 01:16; Status DC Sodium Chloride 400 ml @ 1,000 mls/hr Q24M ONCE IV ; Start 11/14/16 at 00:32; Stop 11/14/16 at 00:55; Status DC Vancomycin HCl 1000 mg/Sodium Chloride 250 ml @ 250 mls/hr ONCE ONCE IV Last administered on 11/14/16 01:29; Start 11/14/16 at 00:45; Stop 11/14/16 at 01:44 ; Status DC Piperacillin Sod/ Tazobactam Sod 50 ml @ 100 mls/hr ONCE ONCE IV Last administered on 11/14/16 00:59; Start 11/14/16 at 00:45; Stop 11/14/16 at 01:14 ; Status DC Sodium Chloride (NS 250 ml Inj) 250 ml @ 15 mls/hr ONCE ONCE IV Last administered on 1/17/17at 03:36; Start 11/14/16 at 02:00; Stop 11/14/16 at 18:39 ; Status DC Furosemide (Lasix Inj) 20 mg ONCE ONCE IV PUSH Last administered on 11/14/16t 02:29; Start 11/14/16 at 02:00; Stop 11/14/16 at 02:01; Status DC Magnesium Oxide 800 mg 800 mg UNSCH PRN PO For Magnesium 1.2 - 1.6 mg/dL; Start 11/14/16 at 03:00; Stop 11/17/16 at 09:03; Status DC Magnesium Sulfate 4 gm/Sodium Chloride 100 ml @ 50 mls/hr UNSCH PRN IV For Magnesium 0.9 - 1.1 mg/dL; Start 11/14/16 at 03:00; Stop 11/17/16 at 09:03; Status DC Magnesium Sulfate 2 gm/Sodium Chloride 100 ml @ 50 mls/hr UNSCH PRN IV For Magnesium 1.2 - 1.6 mg/dL; Start 11/14/16 at 03:00; Stop 11/17/16 at 09:03; Status DC Potassium Chloride 100 ml @ 50 mls/hr Q2H PRN IV For Potassium 2.8 - 3.2 mEq/L ; Start 11/14/16 at 03:00; Stop 11/17/16 at 09:03; Status DC Potassium Chloride 100 ml @ 50 mls/hr Q2H PRN IV For Potassium 3.3 - 3.5 mEq/L ; Start 11/14/16 at 03:00; Stop 11/17/16 at 09:03; Status DC Potassium Chloride 100 ml @ 50 mls/hr Q2H PRN IV For Potassium 2.8 - 3.2 mEq/L ; Start 11/14/16 at 03:00; Stop 11/17/16 at 09:03; Status DC Potassium Chloride (KCl 40 Meq Premix Inj) 100 ml @ 25 mls/hr UNSCH PRN IV For Potassium 3.3 - 3.5 mEq/L; Start 11/14/16 at 03:00; Stop 11/17/16 at 09:03; Status DC Potassium Chloride (KCl 40 Meq/30 ml Liq) 40 meq UNSCH PRN PO/TUBE For Potassium 3.3 - 3.5 mEq/L; Start 11/14/16 at 03:00; Stop 11/17/16 at 09:03; Status DC Potassium Chloride (KCl 40 Meq/30 ml Liq) 40 meq UNSCH PRN PO/TUBE SEE LABEL COMMENTS; Start 11/14/16 at 03:00; Stop 11/17/16 at 09:03; Status DC Potassium Phosphate (K-Phos) 2,000 mg Q4H PRN PO For Phosphorus < 2.5 mg/dL; Start 11/14/16 at 03:00; Stop 11/17/16 at 09:03; Status DC Potassium Phosphate 2000 mg 2,000 mg UNSCH PRN PO/TUBE SEE LABEL COMMENTS; Start 11/14/16 at 03:00; Stop 11/17/16 at 09:03; Status DC Potassium Phosphate 30 mmol/ Sodium Chloride 260 ml @ 42 mls/hr UNSCH PRN IV SEE LABEL COMMENTS; Start 11/14/16 at 03:00; Stop 11/17/16 at 09:03; Status DC Sodium Phosphate/ Sodium Chloride (Sodium Phosphate Inj/NS 250 ml Inj) 250 ml @ 42 mls/hr UNSCH PRN IV For Phosphorus < 2.5 mg/dL; Start 11/14/16 at 03:00; Stop 11/17/16 at 09:03; Status DC Dextrose (D50w (Vial) Inj) 25 ml UNSCH PRN IV PUSH HYPOGLYCEMIA-SEE COMMENTS; Start 11/14/16 at 03:00 Insulin Human Regular (NovoLIN R SUPPLEMENTAL SCALE) 1 Q6HR SQ Last administered on 11/17/16 12:57; Start 11/14/16 at 06:00; Stop 11/18/16 at 13:30 ; Status DC Albuterol/ Ipratropium (Duoneb Neb) 1 ampule Q6HR NEB INH Last administered on 11/21/16 03:33; Start 11/14/16 at 04:00; Stop 11/21/16 at 08:57; Status DC Albuterol/ Ipratropium (Duoneb Neb) 1 ampule Q2HR NEB PRN INH WHEEZING Last administered on 11/21/16 08:58; Start 11/14/16 at 03:00 IV Flush (NS Flush) 2 ml UNSCH PRN IV FLUSH FLUSH AFTER USING IV ACCESS Last administered on 11/15/16 08:03; Start 11/14/16 at 03:00 IV Flush (NS Flush) 2 ml BID IV FLUSH Last administered on 11/22/16 20:11; Start 11/14/16 at 09:00 Hydromorphone HCl (Dilaudid Pf Inj) 0.25 mg Q4H PRN IV PAIN SCALE 6 TO 10 Last administered on 11/23/16 01:26; Start 11/14/16 at 03:00 Pantoprazole Sodium (Protonix Inj) 40 mg DAILY IV Last administered on 07:44; Start 11/14/16 at 09:00; Stop 11/17/16 at 09:07; Status DC Ondansetron HCl (Zofran Inj) 4 mg Q6H PRN IV NAUSEA OR VOMITING; Start at 03:00 Senna/Docusate Sodium (Frieda-Colace) 2 tab BID PO Last administered on 20:11; Start 11/14/16 at 09:00 Miscellaneous Information 1 Q361D XX ; Start 11/14/16 at 03:00 Chlorhexidine Gluconate (Chlorhexidine 2% Cloth) Taper DAILY@04 TOP Last administered on 11/18/16 05:48; Start 11/14/16 at 04:00; Stop 11/10/17 at 03:59 Chlorhexidine Gluconate 3 pack 3 pack UNSCH PRN TOP HYGIENIC CARE; Start at 03:00 Piperacillin Sod/ Tazobactam Sod (Zosyn 3.375 Gm Premix) 50 ml @ 100 mls/hr Q8H IV Last administered on 11/16/16 08:57; Start 11/14/16 at 09:00; Stop at 09:48; Status DC Glucagon (Glucagon Inj) 1 mg UNSCH PRN OTHER HYPOGLYCEMIA; Start 11/14/16 at 04 :00 Furosemide (Lasix Inj) 100 mg ONCE ONCE IV PUSH Last administered on 04:18; Start 11/14/16 at 04:15; Stop 11/14/16 at 04:16; Status DC Furosemide (Lasix Inj) 100 mg Q8H IV PUSH Last administered on 11/17/16 05:41 ; Start 11/14/16 at 12:00; Stop 11/17/16 at 09:08; Status DC Pneumococcal Polyvalent Vaccine (Pneumovax-23 Inj) 25 mcg ONCE ONCE IM Last administered on 11/15/16 09:49; Start 11/15/16 at 10:00; Stop 11/15/16 at 10:01 ; Status DC Influenza Virus Vaccine (Flu (Quadrivalent) Vaccine Inj) 0.5 ml ONCE ONCE IM Last administered on 11/15/16 09:51; Start 11/15/16 at 10:00; Stop 11/15/16 at 10:01; Status DC Povidone Iodine 1 applic 1 applic DAILY TOPICAL Last administered on 11/22/16 10:11; Start 11/14/16 at 10:30 Piperacillin Sod/ Tazobactam Sod (Zosyn 2.25 Gm Premix) 50 ml @ 100 mls/hr Q6H IV Last administered on 11/23/16 06:07; Start 11/16/16 at 17:00 Heparin Sodium (Porcine) (Heparin Inj) 5,000 units Q12HR SQ Last administered on 11/21/16 08:38; Start 11/16/16 at 21:00; Status Hold Diltiazem HCl (Cardizem) 30 mg QID PO Last administered on 11/21/16 08:38; Start 11/16/16 at 18:00; Stop 11/21/16 at 08:39; Status DC Pantoprazole Sodium (Protonix) 40 mg DAILY PO Last administered on 11/22/16 10 :08; Start 11/18/16 at 09:00 Furosemide (Lasix Inj) 40 mg Q8H IV PUSH Last administered on 11/18/16 05:48; Start 11/17/16 at 12:00; Stop 11/18/16 at 13:20; Status DC Fluconazole (Diflucan) 100 mg DAILY PO Last administered on 11/22/16 10:08; Start 11/18/16 at 09:00; Stop 11/25/16 at 08:59 Ascorbic Acid (Vitamin C) 500 mg DAILY PO Last administered on 11/22/16 10:08 ; Start 11/18/16 at 09:00 Zinc Sulfate (Zinc Sulfate) 220 mg DAILY PO Last administered on 11/22/16 10: 08; Start 11/18/16 at 09:00 Tamsulosin HCl (Flomax) 0.4 mg DAILY PO Last administered on 11/22/16 10:08; Start 11/18/16 at 09:00 Gabapentin (Neurontin) 200 mg BID PO Last administered on 11/18/16 10:13; Start 11/17/16 at 21:00; Stop 11/18/16 at 13:30; Status DC Levetriacetam (Keppra) 250 mg Q12HR PO Last administered on 11/22/16 20:11; Start 11/17/16 at 21:00 Lactulose 30 ml 30 ml DAILY PO Last administered on 11/21/16 08:38; Start at 09:00 Magnesium Sulfate/ Dextrose (Magnesium Sulfate 1 Gm Premix) 100 ml @ 100 mls/ hr ONCE ONCE IV Last administered on 11/18/16 13:44; Start 11/18/16 at 13:30 ; Stop 11/18/16 at 14:29; Status DC Potassium Chloride (KCl) 10 meq ONCE ONCE PO Last administered on 11/18/16 13 :43; Start 11/18/16 at 13:30; Stop 11/18/16 at 13:31; Status DC Furosemide (Lasix Inj) 40 mg BID@09,18 IV PUSH ; Start 11/18/16 at 18:00; Stop 11/18/16 at 18:00; Status DC Gabapentin (Neurontin) 100 mg BID PO Last administered on 11/22/16 20:11; Start 11/18/16 at 21:00 Insulin Human Regular (NovoLIN R SUPPLEMENTAL SCALE) 1 ACHS SQ Last administered on 11/23/16 06:07; Start 11/18/16 at 16:00 Diltiazem HCl (Cardizem Inj) 15 mg ONCE ONCE IV Last administered on 06:01; Start 11/21/16 at 06:00; Stop 11/21/16 at 06:01; Status DC Diltiazem HCl 15 mg 15 mg ONCE ONCE IVP Last administered on 11/21/16 06:44; Start 11/21/16 at 06:45; Stop 11/21/16 at 06:46; Status DC Diltiazem HCl/ Sodium Chloride (Cardizem Inj/NS Inj) 125 ml @ 0 mls/hr TITRATE IV Last administered on 11/21/16 06:56; Start 11/21/16 at 07:15 Metoprolol Tartrate (Lopressor) 50 mg Q12HR PO Last administered on 11/22/16 20:11; Start 11/21/16 at 09:00 Metoprolol Tartrate (Lopressor Inj) 5 mg Q6H PRN IV PUSH RAPID HEART RATE; Start 11/21/16 at 08:45 Fentanyl Citrate (fentaNYL INJ) 100 mcg STK-MED ONCE .ROUTE Last administered on 11/22/16 16:23; Start 11/22/16 at 16:10; Stop 11/22/16 at 16:11; Status DC Lidocaine/ Epinephrine (Xylocaine-Epi 1%-1:100,000 Inj) 20 ml STK-MED ONCE .ROUTE ; Start 11/22/16 at 16:15; Stop 11/22/16 at 16:16; Status DC A/P Assessment and Plan A/P Acute hypoxic respiratory failure secondary to acute on chronic diastolic heart failure/COPD History of COPD Bilateral pleural effusions likely transudative Nasal cannula to maintain saturations greater than equal to 92% Incentive spirometry while awake Likely secondary to acute on chronic diastolic heart failure and COPD. Being diuresed, but now Lasix on hold for ALCIDES --s/p ultrasound-guided thoracentesis of right pleural effusion on 11/15 with drainage of 2.2liters. left thoracentesis ultrasound guided 11/17 - 1600 cc -s/p pleurx catheter placement Acute on chronic congestive heart failure exacerbation, diastolic History of hypertension Last echocardiogram 10/13 revealed EF 55-60%. SIOBHAN 47 mmHg. -diuretics managed by nephrology At home on Norvasc 10 mg by mouth daily. This is been held. Resume when clinically indicated At home on aspirin 81 mg by mouth daily. This be resumed. evaluated by cardiology Acute on chronic kidney injury Proteinuria BPH Right-sided nephrolithiasis Likely secondary to diuresis. Avoid nephrotoxic drugs [place] for accurate I's and O's -- Strict I/Os Urine electrolytes/eosinophils rare Negative renal ultrasound no hydronephrosis 11/17. Nonobstructing right renal stone. Nephrology following. Flomax 0.4 mg by mouth daily Acute protein calorie malnutritionmoderate Constipation Gastroesophageal reflux disease Inguinal hernia PO diet as tolerated Protonix 40 mg by mouth daily. For gastroesophageal reflux disease. Daily BMP Resume lactulose 30 cc daily for constipation Anemia, unknown source, possibly chronic disease Leukocytosis Possible healthcare associated pneumonia Claudia tropicalis UTI Hand surgery and podiatry consulted for dry gangrene - no surgical intervention recommended currently Pertinent cultures 11/14: Blood cultures 2 - no growth 11/14 - urine culture - Claudia tropicalis 11/15 - thoracentesis/pleural - no growth/negative AFB Stop vanc. 11/16 Continue Zosyn 2.25 g IV every 6 hours day 7. -- Treat with Diflucan 100 mill grams IV/by mouth daily 7 days for funguria Daily CBC. 1 unit PRBCs HIV screen negative --Cold agglutinins negative -- HCV negative on last admission, recently. -- Hematology contract consultant Hyperglycemia of critical illness Elevated TSH -- SSI, every before meals/at bedtime, -- Check free T3/T4 in a.m. Left AKA Dry gangrene left third digit Decubitus ulcer right toe Evaluated by plastic/Dr. Adams. No current indication for surgical intervention. Previously on Santyl daily for debridement Prophylaxis: GI Prophylaxis Protonix 40 mg IV every 24 hours History bilateral cataracts History of anxiety Dental caries Peripheral neuropathy -- Neurontin at 100 mg by mouth twice a day for neuropathy -- Keppra renal dose adjusted 250 millIgrams by mouth twice a day EEG revealed some mild slowing but no epileptiform activity Avoid long-acting sedating meds. DVT Prophylaxis -- SCDs No evidence of melena. Heparin subcutaneously poor prognosis- evaluated by palliative care and hospice. Discharge Planning dc to hospice - likely today. d/w the RN. time spent 40 min. Abhinav Ya MD Nov 23, 2016 07:47
[2016-11-23] MEDS ORDERED: METO-309 PO (07:51)
[2016-11-23] MEDS ORDERED: GABA100C4 PO (07:51)
--- NOTE | 2016-11-23 07:51 | HHI.DCPOC ---
Discharge Care Plan Diagnosis: (1) Congestive heart failure (2) Hypoxia Goals to Promote Your Health * To prevent worsening of your condition and complications * To maintain your health at the optimal level Directions to Meet Your Goals Take your medications as prescribed Follow your dietary instruction Follow activity as directed Keep your appointments as scheduled Take your immunizations and boosters as scheduled If your symptoms worsen call your PCP, if no PCP go to Urgent Care Center or Emergency Room Smoking is Dangerous to Your Health. Avoid second hand smoke Call the 24-hour hour crisis hotline for domestic abuse at Abhinav Ya MD Nov 23, 2016 07:51
--- NOTE | 2016-11-23 07:53 | HHI.DS ---
Discharge Summary Admission Date Nov 14, 2016 at 02:35 Discharge Date: Nov 23, 2016 Admitting Diagnosis Pulmonary edema, UTI, renal insufficiency, symptomatic anemia (1) Acute respiratory failure with hypoxemia ICD Code: J96.01 Diagnosis: Principal (2) Anasarca ICD Code: R60.1 Diagnosis: Principal (3) CKD (chronic kidney disease) stage 3, GFR 30-59 ml/min ICD Code: N18.3 Diagnosis: Principal Procedures thoracentesis pleurx catheter placement - Brief History - From Admission This is a 65-year-old male who was recently admitted to the ICU proximally month or so ago with anemia, concern for GI bleed, and heart failure. He represents with similar complaints of shortness of breath and fatigue, was reportedly on NRB with spo2 in the 80s at his [facility]. He was transported by EMS and on arrival was too dyspneic to participate in a thorough history. He did deny to the ER physician abdominal pain, diarrhea. endorsed some mild SOB. He has new necrosis of the left third digit distal finger and right great toe. Laboratory data is significant for a lactate of 3, a BNP of 2900, a wbc 10.8, hgb 7.4, K 5.9, Cr 1.8. Critical care medicine is consulted for his acute hypoxic respiratory failure, his likely CHF exacerbation, his sepsis, and necrotic digits. CBC/BMP: 11/21/16 0503 11/21/16 0503 Significant Findings Laboratory Tests Test 11/21/16 05:03 Red Blood Count 3.39 MIL/MM3 (4.50-5.90) Hemoglobin 8.8 GM/DL (13.0-17.0) Hematocrit 28.1 % (39.0-51.0) Mean Corpuscular Hemoglobin 26.0 PG (27.0-34.0) Mean Corpuscular Hemoglobin 31.3 % Concent (32.0-36.0) Red Cell Distribution Width 19.0 % (11.6-17.2) Blood Urea Nitrogen 65 MG/DL (7-18) Creatinine 3.11 MG/DL (0.60-1.30) Estimat Glomerular Filtration 20 ML/MIN (>89) Rate Random Glucose 166 MG/DL (74-106) Calcium Level 7.9 MG/DL (8.5-10.1) Phosphorus Level 5.8 MG/DL (2.5-4.9) Iron Level 45 MCG/DL (65-175) Total Iron Binding Capacity 139 MCG/DL (250-450) Total Creatine Kinase 12 U/L (39-308) B-Type Natriuretic Peptide 3004 PG/ML (0-100) Imaging Last Impressions Chest X-Ray 11/22/16 0000 Signed Impressions: Service Date/Time: Tuesday, November 22, 2016 17:05 - CONCLUSION: Interval Pleurx catheter placement with near complete evacuation of right effusion. No pneumothorax Abdias Early MD Thoracentesis Ultrasound 11/17/16 0600 Signed Impressions: Service Date/Time: Thursday, November 17, 2016 14:58 - CONCLUSION: Uncomplicated ultrasound guided thoracentesis. Doyle Sutton MD Renal Ultrasound 11/17/16 0000 Signed Impressions: Service Date/Time: Thursday, November 17, 2016 09:18 - CONCLUSION: There is no evidence for hydronephrosis. Non-obstructing right renal stone. Benito Rossi MD FACR PE at Discharge GENERAL: This is a well-nourished, well-developed patient, in no apparent distress. CARDIOVASCULAR: Regular rate and regular rhythm without murmurs, gallops, or rubs. RESPIRATORY: Clear to auscultation. Breath sounds equal bilaterally. No wheezes , rales, or rhonchi. GASTROINTESTINAL: Abdomen soft, non-tender, nondistended. Normal, active bowel sounds MUSCULOSKELETAL: s/p amputation of the left lower extremity NEURO: Alert & Oriented x4 to person, place, time, situation. Moves all ext x4 Hospital Course Acute hypoxic respiratory failure secondary to acute on chronic diastolic heart failure/COPD History of COPD Bilateral pleural effusions likely transudative Nasal cannula to maintain saturations greater than equal to 92% Incentive spirometry while awake Likely secondary to acute on chronic diastolic heart failure and COPD. Being diuresed, but now Lasix on hold for ALCIDES --s/p ultrasound-guided thoracentesis of right pleural effusion on 11/15 with drainage of 2.2liters. left thoracentesis ultrasound guided 11/17 - 1600 cc -s/p pleurx catheter placement Acute on chronic congestive heart failure exacerbation, diastolic History of hypertension Last echocardiogram 10/13 revealed EF 55-60%. SIOBHAN 47 mmHg. -diuretics managed by nephrology At home on Norvasc 10 mg by mouth daily. This is been held. Resume when clinically indicated At home on aspirin 81 mg by mouth daily. This be resumed. evaluated by cardiology Acute on chronic kidney injury Proteinuria BPH Right-sided nephrolithiasis Likely secondary to diuresis. Avoid nephrotoxic drugs [place] for accurate I's and O's -- Strict I/Os Urine electrolytes/eosinophils rare Negative renal ultrasound no hydronephrosis 11/17. Nonobstructing right renal stone. Nephrology following. Flomax 0.4 mg by mouth daily Acute protein calorie malnutritionmoderate Constipation Gastroesophageal reflux disease Inguinal hernia PO diet as tolerated Protonix 40 mg by mouth daily. For gastroesophageal reflux disease. Daily BMP Resume lactulose 30 cc daily for constipation Anemia, unknown source, possibly chronic disease Leukocytosis Possible healthcare associated pneumonia Claudia tropicalis UTI Hand surgery and podiatry consulted for dry gangrene - no surgical intervention recommended currently Pertinent cultures 11/14: Blood cultures 2 - no growth 11/14 - urine culture - Claudia tropicalis 11/15 - thoracentesis/pleural - no growth/negative AFB Stop vanc. 11/16 Continue Zosyn 2.25 g IV every 6 hours day 7. -- Treat with Diflucan 100 mill grams IV/by mouth daily 7 days for funguria Daily CBC. 1 unit PRBCs HIV screen negative --Cold agglutinins negative -- HCV negative on last admission, recently. -- Hematology solutions delivery consultant Hyperglycemia of critical illness Elevated TSH -- SSI, every before meals/at bedtime, -- Check free T3/T4 in a.m. Left AKA Dry gangrene left third digit Decubitus ulcer right toe Evaluated by plastic/Dr. Adams. No current indication for surgical intervention. Previously on Santyl daily for debridement Prophylaxis: GI Prophylaxis Protonix 40 mg IV every 24 hours History bilateral cataracts History of anxiety Dental caries Peripheral neuropathy -- Neurontin at 100 mg by mouth twice a day for neuropathy -- Keppra renal dose adjusted 250 millIgrams by mouth twice a day EEG revealed some mild slowing but no epileptiform activity Avoid long-acting sedating meds. DVT Prophylaxis -- SCDs No evidence of melena. Heparin subcutaneously poor prognosis- evaluated by palliative care and hospice. Pt Condition on Discharge: Deteriorating Discharge Disposition: Hospice/Med Facility Discharge Time: > 30 minutes Discharge Instructions DIET: Follow Instructions for: Heart Healthy Diet Activities you can perform: Regular-No Restrictions Follow up Referrals: PCP Follow-up New Medications: Metoprolol Tartrate (Lopressor) 50 Mg Tab 50 MG PO Q12HR a-fib Days 30 Ref 0 TAB Changed Medications: Gabapentin (Gabapentin) 100 Mg Cap 100 MG PO Q12HR Pain Management #60 Ref 0 CAP (Changed from: 200 MG) Continued Medications: Ascorbic Acid (Vitamin C) 500 Mg Tab 500 MG PO DAILY vitamin supplement Days 30 Ref [address] (Aspirin EC) 81 Mg Tabdr 81 MG PO DAILY Blood Clot Prevention Days 30 TAB Collagenase (Santyl) 250 Unit/Gm Oin 1 APPLIC TOP DAILY Infection #1 TUBE Ferrous Sulfate (Ferrous Sulfate) 325 Mg Tab 325 MG PO BID Iron deficiency Days 30 TAB Insulin Aspart Inj (Novolog Flexpen Inj) 300 Unit/3 Ml Pen 1 UNITS .ROUTE ACHS SLIDING SCALE Blood Sugar Management #1 Ref 0 PEN Ipratropium-Albuterol Neb (Duoneb) 0.5-2.5 Mg/3 Ml Neb 1 AMPULE NEB Q6HR NEB PRN BREATHING Days 30 ML Ipratropium-Albuterol Neb (Duoneb) 0.5-2.5 Mg/3 Ml Neb 1 NEBULE INH Q6HR NEB Breathing Treatment #120 Ref 0 NEBULE Lactobacillus Acidophilus (Acidophilus/l-Sporogenes) 1 Tab Tab 1 TAB PO DAILY Infection #7 TAB Lactulose Liq (Lactulose Liq) 10 Gm/15 Ml Soln 30 ML PO DAILY Ref 0 ML Lidocaine Topical (Lidocaine Topical) 2 % Jel 1 APPLIC TOPICAL DAILY PRN groin lesions. Days 30 TUBE Magnesium Hydroxide Liq (Milk of Magnesia Liq) 400 Mg/5 Ml Susp 30 ML PO DAILY PRN INDIGESTION OR UPSET STOMACH #1 Ref 0 BOTTLE Multiple Vitamins W/ Minerals (Multivitamin Women) 1 Tab Tab 1 TAB PO DAILY Nutritional Supplement Ref 0 TAB Oxycodone-Acetaminophen (Oxycodone-Acetaminophen) 5-325 mg Tab 1 TAB PO Q4H PRN pain #14 Ref 0 TAB Pantoprazole (Pantoprazole) 40 Mg Tab 40 MG PO DAILY ppi Days 30 Ref 0 TAB Simethicone (Simethicone) 80 Mg Chw 80 MG CHEW TID PRN GAS RETENTION Ref 0 TAB Sodium Phosphates Rectal (Fleet Enema Rectal) 7-19 Gm/118 Ml Enem 118 ML RECTAL DAILY PRN CONSTIPATION Ref 0 BOTTLE Tamsulosin (Flomax) 0.4 Mg Cap 0.4 MG PO HS BPH Days 30 CAP Discontinued Medications: Amlodipine (Norvasc) 10 Mg Tab 10 MG PO DAILY hypertension Days 30 Ref 0 TAB Furosemide (Furosemide) 20 Mg Tab 20 MG PO BID@,18 Build Immunity #60 TAB Levetiracetam (Keppra) 500 Mg Tab 500 MG PO BID Control Seizures #60 TAB Levofloxacin (Levaquin) 250 Mg Tab 250 MG PO Q24H infection Days 3 Ref 0 TAB Omeprazole (Omeprazole) 20 Mg Tab 20 MG PO DAILY #30 Ref 0 TAB Potassium Chloride ER (Klor-Con 10) 10 Meq Tab 10 MEQ PO DAILY Electrolyte Replacement #30 TAB Abhinav Ya MD Nov 23, 2016 07:53
[2016-11-23] MEDS: PANTOPRAZOLE SOD 40 MG DELAYED RELEASE TAB PO SCH (09:29)
[2016-11-23] MEDS: ZINC SULFATE 220 MG CAP PO SCH (09:29)
[2016-11-23] MEDS: LACTULOSE SYRUP 20 GM/30 ML CUP PO SCH (09:29)
[2016-11-23] MEDS: METOPROLOL TARTRATE 50 MG TAB PO SCH (09:29)
[2016-11-23] MEDS: FLUCONAZOLE 100 MG TAB PO SCH (09:29)
[2016-11-23] MEDS: DOCUSATE SODIUM 50 MG/SENNA 8.6 MG TAB PO SCH (09:29)
[2016-11-23] MEDS: GABAPENTIN 100 MG CAP PO SCH (09:30)
[2016-11-23] MEDS: POVIDONE IODINE 10% OINT 30 GM TUBE TOPICAL SCH (09:30)
[2016-11-23] MEDS: HEPARIN SODIUM - SQ 10,000 UNITS/ML VIAL SQ SCH (09:30)
[2016-11-23] MEDS: levETIRAcetam 250 MG TAB PO SCH (09:30)
[2016-11-23] MEDS: ASCORBIC ACID 500 MG TAB PO SCH (09:30)
[2016-11-23] MEDS: TAMSULOSIN HCL 0.4 MG CAP PO SCH (09:30)
[2016-11-23] MEDS: SODIUM CHLORIDE 0.9% FLUSH 5 ML FLUSH IV FLUSH SCH (09:31)
--- NOTE | 2016-11-23 10:54 | RADRPT ---
EXAM DATE/TIME: 11/22/2016 16:05 [place] COMPARISON: No previous studies available for comparison. INDICATIONS : Patient with a history of pleural effusions. MEDICAL HISTORY : Chronic kidney disease Diabetes Hypothyroidism PVD HTN CHF Pneumonia COPD Constipation Inguinal hernia Neuropathy SURGICAL HISTORY : Left above knee amputation ENCOUNTER: Initial ACUITY: 2 weeks PAIN SCORE: 5/10 LOCATION: Shortness of breath FLUORO TIME: 2.8 minutes MEDICATION(S): 1.) 50 mcg fentanyl (Sublimaze) IV DEVICE(S): 1.) Aspiria catheter PROCEDURE : 1. Aspira pleural drainage catheter placement. 2. Conscious sedation with continuous EKG and Oximetry monitoring. The risks, benefits and alternatives to the procedure were explained and verbal and written consent w as obtained. The site was prepped in sterile fashion. Full sterile technique was used, including ca p, mask, sterile gloves and gown and a large sterile sheet. Hand hygiene and 2% chlorhexidine prep w as utilized per protocol for cutaneous antisepsis with appropriate dry time for site. The skin and s ubcutaneous tissues were infiltrated with local anesthetic solution. A suitable site in the right midaxillary line was selected. The skin was anesthetized with 10 cc 1% l idocaine. The drainage catheter was passed through the subcutaneous tunnel along the right flank. The thoracic cavity was accessed. A peel-away sheath was passed into the thorax. The catheter was passed through the sheath. The insertion site was sutured closed. There was immediate return of approximate ly 2.5 L of pleural fluid. Conscious sedation was performed with the prescribed dosages and duration as above. EKG remained sta ble throughout the procedure. There was immediate improvement of the oxygen saturation with drainage of the pleural fluid. CONCLUSION: 1. Successful aspira drainage catheter placement for recurrent pleural effusion. Griffin Rossi MD on November 23, 2016 at 10:51 Board Certified Radiologist. This report was verified electronically.
[2016-11-23 15:23] LABS: UR UREA/CREAT RATIO 24.07 mg/mg (())
--- NOTE | 2016-11-30 12:16 | PQ ---
Physician Query Response Document PATIENT: HEMANTH VIGIL : 1950 ADMIT DATE: 11/14/2016 2:35 AM DISCH DATE: 11/23/2016 2:19 PM RESPONDING PROVIDER #: [email or web address] QUERY TEXT: Sepsis Query Based on your medical judgement, can you further clarify the folowiing: Was Sepsis 1)rulled in 2)rulled out If you have any additional questions/comments and/or concerns please call [email or web address] carpenter Hotline [email or web address] The patient's Clinical Indicators include: Dr. LEVI, there is chart documentation of Sepsis but, it is not documented by attending physician. Please review the question below and answer to the best of your ability. THANK YOU Query created by: Oswaldo Cote on 11/29/2016 1:16 PM RESPONSE TEXT: Sepsis ruled out. Electronically signed by: Abhinav Ya MD 11/30/2016 12:12 PM
== END 2016-11-23 14:19 | disposition hospice, inpatient (51) | DRG 291 ==
LOC: NEPC 00:23 → NEDA 02:35 → HIMN 06:35
PROVIDERS: ADMIT Internal Medicine; ATTEND Internal Medicine
PROC: 5A09357 Assistance with Respiratory Ventilation, Less than 24 Consecutive Hours, Continuous Positive Airway Pressure (ICD-10-PCS; principal; 2016-11-14)
PROC: 30233N1 Transfusion of Nonautologous Red Blood Cells into Peripheral Vein, Percutaneous Approach (ICD-10-PCS; 2016-11-14)
PROC: 0T9B70Z Drainage of Bladder with Drainage Device, Via Natural or Artificial Opening (ICD-10-PCS; 2016-11-14)
PROC: 3E0F7GC Introduction of Other Therapeutic Substance into Respiratory Tract, Via Natural or Artificial Opening (ICD-10-PCS; 2016-11-14)
PROC: 0W993ZX Drainage of Right Pleural Cavity, Percutaneous Approach, Diagnostic (ICD-10-PCS; 2016-11-15)
PROC: 0W9B3ZX Drainage of Left Pleural Cavity, Percutaneous Approach, Diagnostic (ICD-10-PCS; 2016-11-17)
PROC: 0W9930Z Drainage of Right Pleural Cavity with Drainage Device, Percutaneous Approach (ICD-10-PCS; 2016-11-22)
DX: I50.33 Acute on chronic diastolic (congestive) heart failure (principal); J96.01 Acute respiratory failure with hypoxia; N17.0 Acute kidney failure with tubular necrosis; R57.0 Cardiogenic shock; M72.6 Necrotizing fasciitis; G93.41 Metabolic encephalopathy; E43 Unspecified severe protein-calorie malnutrition; R18.8 Other ascites; E11.52 Type 2 diabetes mellitus with diabetic peripheral angiopathy with gangrene; E87.2 Acidosis; L97.411 Non-pressure chronic ulcer of right heel and midfoot limited to breakdown of skin; B37.49 Other urogenital candidiasis; I47.2 Ventricular tachycardia; I48.92 Unspecified atrial flutter; E11.22 Type 2 diabetes mellitus with diabetic chronic kidney disease; N18.3 Chronic kidney disease, stage 3 (moderate); I12.9 Hypertensive chronic kidney disease with stage 1 through stage 4 chronic kidney disease, or unspecified chronic kidney disease; E03.9 Hypothyroidism, unspecified; K40.90 Unilateral inguinal hernia, without obstruction or gangrene, not specified as recurrent; J44.9 Chronic obstructive pulmonary disease, unspecified; D64.9 Anemia, unspecified; E11.65 Type 2 diabetes mellitus with hyperglycemia; Z89.612 Acquired absence of left leg above knee; Z86.14 Personal history of Methicillin resistant Staphylococcus aureus infection; Z79.4 Long term (current) use of insulin; K59.00 Constipation, unspecified; E11.21 Type 2 diabetes mellitus with diabetic nephropathy; K29.70 Gastritis, unspecified, without bleeding; K74.60 Unspecified cirrhosis of liver; E11.40 Type 2 diabetes mellitus with diabetic neuropathy, unspecified; L89.899 Pressure ulcer of other site, unspecified stage; I25.9 Chronic ischemic heart disease, unspecified; I27.2 Other secondary pulmonary hypertension; I07.1 Rheumatic tricuspid insufficiency; Z51.5 Encounter for palliative care; Z66 Do not resuscitate; K02.9 Dental caries, unspecified; F41.9 Anxiety disorder, unspecified; N20.0 Calculus of kidney; N40.0 Benign prostatic hyperplasia without lower urinary tract symptoms; K21.9 Gastro-esophageal reflux disease without esophagitis; Z79.82 Long term (current) use of aspirin; I48.91 Unspecified atrial fibrillation; Z23 Encounter for immunization
CPT/HCPCS: 32550; 32555; 36430; 36600; 51702; 71010; 75989; 76775; 80048; 80053; 80076; 81001; 81050; 82140; 82150; 82550; 82570; 82595; 82805; 82945; 82948; 83540; 83550; 83605; 83615; 83690; 83735; 83880; 83986; 84100; 84156; 84157; 84166; 84300; 84439; 84443; 84481; 84484; 84540; 85014; 85018; 85025; 85027; 85610; 85730; 86157; 86160; 86703; 86850; 86900; 86901; 86920; 87015; 87040; 87070; 87086; 87102; 87106; 87116; 87205; 87206; 87641; 88112; 88305; 89051; 90686; 90732; 93005; 94002; 94150; 94640; 94664; 94667; 94668; 95819; 96365; 96367; 96375; C1729; C9113; J1170; J1644; J1940; J2543; J3010; J3370; J3475; J7030; J7050; P9016; Q2038